=== PATIENT | female | born 1940 | race Caucasian/White ===

== ENCOUNTER 2020-07-28 16:26 | Inpatient (IN) | payer MEDICARE, SELFPAY ==
[2020-07-28] VITALS (10 sets, daily range): BP systolic 119–153; BP diastolic 50–91; PULSE 67–76; RESP 13–20; TEMP 36.4–36.6; O2SAT 93–100; BMI 38.7
--- NOTE | ~2020-07-28 | XR_ITS ---
XR lumbar spine 2-3V 07/28/2020 20:04 Indication: Low back pain Procedure: 3 views lumbar spine Comparison: No prior studies for comparison. Findings: There is levoscoliosis centered at T12. There is disc narrowing and endplate hypertrophy at all lumbar levels. There is vacuum phenomena at L3-4. There is advanced multilevel facet hypertrophy . There are cholecystectomy clips. No acute fracture or traumatic malalignment. Impression: 1: Severe lumbar spondylosis with levoscoliosis. Reviewed, dictated and finalized at location A. Impression: 1: Severe lumbar spondylosis with levoscoliosis.
--- NOTE | ~2020-07-28 | XR_ITS ---
XR chest 2V 07/28/2020 18:07 Indication: Weakness. Leg swelling. Procedure: AP and lateral views of the chest Comparison: 11/13/2018 Findings: Status post median sternotomy for CABG. Heart size normal. There is atherosclerosis of the aorta. There is posterior basilar infiltrates superimposed on the spine on the lateral view. No pleur al effusion, edema or pneumothorax. No acute osseous abnormality. Impression: 1: Posterior basilar infiltrates, best seen on lateral view, differential diagnosis includes atelecta sis, scarring and pneumonia. Reviewed, dictated and finalized at location A. Impression: 1: Posterior basilar infiltrates, best seen on lateral view, differential diagn osis includes atelectasis, scarring and pneumonia.
--- NOTE | ~2020-07-28 | MR_ITS ---
EXAMINATION: MR lumbar spine wo con DATE: 07/30/2020 15:53 INDICATION: Severe lumbar back pain. TECHNIQUE: Magnetic resonance imaging (MRI) of the lumbar spine was performed without intravenous con trast. Sequences included sagittal T2-weighted FSE, sagittal STIR FSE, sagittal T1-weighted FSE, and axial T2-weighted FSE. COMPARISON: Lumbar spine radiograph 07/28/2020 FINDINGS: There is 16 degrees levoscoliosis of thoracolumbar spine. There is 3 mm retrolisthesis of L 1 on L2 and 5 mm retrolisthesis of L2 on L3. There is 4 mm anterolisthesis of L3 on L4 and 6 mm anter olisthesis of L4 on L5. There is a chronic compression fracture of L1 with 2/5 loss of height. There is severely decreased disc height at L1-L2 and L2-L3, moderately decreased disc height at L3-L4, ethel rely decreased disc height at L4-L5, and mildly decreased disc height at L5-S1. The distal spinal cor d signal intensity is normal. The conus medullaris is at L1. The following disc levels are specifical ly discussed: L1-L2: The disc is bulging. There is severe bilateral facet joint osteoarthritis. There is severe delmy ateral neural foraminal stenosis. There is moderate central canal stenosis. L2-L3: The disc is bulging. There is severe bilateral facet joint osteoarthritis. There is moderate r ight and severe left neural foraminal stenosis. There is severe central canal stenosis. L3-L4: The disc is bulging. There is severe bilateral facet joint osteoarthritis. There is moderate r ight and severe left neural foraminal stenosis. There is severe central canal stenosis. L4-L5: The disc is bulging and has an annular fissure. There is severe bilateral facet joint osteoart hritis. There is mild right and moderate left neural foraminal stenosis. There is severe central ciro l stenosis. L5-S1: The disc is bulging. There is severe bilateral facet joint osteoarthritis. There is severe rig ht and mild left neural foraminal stenosis. There is mild central canal stenosis. IMPRESSION: 1. Severe lumbar spondylosis. 2. Thoracolumbar levoscoliosis. Reviewed, dictated and finalized at location A.
--- NOTE | 2020-07-28 16:28 | ECG_ITS ---
Measurements Intervals [place] Rate: 71 P: -27 LA: 177 QRS: 19 QRSD: 103 T: 28 QT: 403 QTc: 439 Interpretive Statements SINUS RHYTHM WITH SINUS ARRHYTHMIA BORDERLINE ST ABNORMALITY- DIFFUSE LEADS BASELINE WANDER- V6 BORDERLINE ECG Electronically Signed On 07-29-2020 7:24:33 CDT by Blair Reed D.O.
[2020-07-28 17:20] LABS: Basophils Absolute Auto 0.1 K/mm3 (0.0-0.1); Basophils Percent Auto 0.6 % (0.2-1.2); Eosinophils Absolute Auto 0.1 K/mm3 (0-0.3); Hematocrit 41.4 % (37.0-47.0); Hemoglobin 12.9 g/dL (12.0-15.0); Immature Granulocyte Absolute 0.03 K/mm3 (0.00-0.031); Immature Granulocyte Percent A 0.3 % (0-0.5); Lymphocytes Absolute Auto 2.18 K/mm3 (0.9-3.2); Lymphocytes Percent Auto 21.1 % (18.3-44.2); Mean Corpuscular HGB Conc 31.2 g/dl (32-36); Mean Corpuscular Hemoglobin 27.7 pg (26-34); Mean Corpuscular Volume 88.8 fl (80-100); Mean Platelet Volume 12.3 fl (7.4-10.4); Monocytes Absolute Auto 1.2 K/mm3 (0.1-0.6); Monocytes Percent Auto 11.2 % (2.6-8.5); Neutrophils Absolute Auto 6.8 K/mm3 (1.3-6.7); Neutrophils Percent Auto 65.8 % (45.5-73.1); Platelet Count Result 226 k/mm3 (150-375); Red Blood Count 4.66 M/mm3 (4.2-5.4); Red Cell Distribution Width 15.3 % (11.5-14.5); White Blood Count 10.4 K/mm3 (4.5-10.0)
[2020-07-28 17:30] LABS: INR 1.2; Prothrombin Time 14.6 Seconds (11.1-14.7)
[2020-07-28 17:31] LABS: Anion Gap 8 mmol/L (8-16); Blood Urea Nitrogen 43 mg/dL (7-17); Calcium 8.4 mg/dL (8.4-10.2); Carbon Dioxide 27 mmol/L (22-30); Chloride 101 mmol/L (98-107); Estimated CRCL calculation 48 ml/min; Estimated Glomerular Filt Rate 60; Glucose 102 mg/dL (65-105); Partial Thromboplastin Time 28.6 SECONDS (22.3-36.8); Potassium 4.1 mmol/L (3.4-5.0); Sodium 136 mmol/L (137-145)
[2020-07-28 17:43] LABS: NT Pro B Type Natriuretic Pept 1440 PG/ML (5-100); Troponin I < 0.012 ng/mL (0.000-0.034)
[2020-07-28] MEDS: MORPHINE SULFATE 4 MG/ML INJ IV PUSH (18:46)
--- NOTE | 2020-07-28 19:28 | ED.GENADULT ---
HPI - General Adult General Chief complaint: Weakness Stated complaint: weakness Time Seen by Provider: 07/28/20 17:44 Source: patient and family Mode of arrival: EMS Limitations: no limitations History of Present Illness HPI narrative: 79-year-old with a history of peripheral neuropathy, hypertension, GERD, was brought in by EMS from assisted living facility with a complains of fall. As per the son patient has been retaining a lot of fluid to her primary doctor increase the dosage of Lasix the last few days and from that she started feeling extremely weak. Patient states that she is either wheelchair-bound or uses walker however today her legs are are more weaker than normal unable to ambulate even with a walker. She also complains of back pain which is chronic in nature she denies any chest pain, shortness of breath. She states that she lives by herself in an independent living facility. Onset (ago): hour(s) (2) Severity: moderate Related Data Home Medications Medication Instructions Recorded Confirmed aspirin 81 mg tablet,delayed 81 mg PO DAILY 11/10/19 06/21/20 release atorvastatin 80 mg PO DAILY 07/28/20 levocetirizine 5 mg PO DAILY 07/28/20 Allergies Allergy/AdvReac Type Severity Reaction Status Date / Time [place] Inhibitors Allergy Unknown Unknown Verified 07/28/20 17:48 lisinopril Allergy Unknown Cough,Unkno Verified 07/28/20 17:48 wn Penicillins Allergy Unknown Not Verified 07/28/20 17:48 Entered,Unknown Sulfa (Sulfonamide Allergy Unknown Rash,Unknow Verified 07/28/20 17:48 Antibiotics) n Review of Systems Review of Systems: All systems reviewed & are unremarkable except as noted in HPI and below Constitutional: Constitutional: Reports no additional constitutional complaints Eyes: Eyes: Reports no additional eye complaints Cardiovascular: Cardiovascular: Reports no additional cardiovascular complaints Respiratory: Respiratory: Reports no additional respiratory complaints Gastrointestinal: Gastrointestinal: Reports no additional gastrointestinal complaints Musculoskeletal: Musculoskeletal: Reports as per HPI Integumentary/Breasts: Skin/Breast: Reports system reviewed and no additional complaints, except as docu Neurologic: Reports system reviewed and no additional complaints, except as documented PMFSH Past Medical History Medical History ASHD (arteriosclerotic heart disease) Benign essential hypertension Bilateral wrist pain Debility Encounter for routine adult health examination without abnormal findings Frequent UTI GERD (gastroesophageal reflux disease) Hyperlipidemia Hypothyroidism (acquired) Need for influenza vaccination On shelter drug therapy Otitis media Peripheral neuropathy Seizure disorder UTI (urinary tract infection) Family History Family History Sibling Family history of lung cancer Father Family history of heart disease in male family member before age 55 Family history of cardiovascular disease Mother Family history of malignant neoplasm Social History Social History Smoking status: Never smoker Second hand tobacco smoke exposure: No Alcohol intake: never Gender identity (if verbalized by the patient): Female Exam Narrative: Exam Narrative: GENERAL: Well-appearing, morbidly obese, and in no acute distress. HEAD: Normocephalic, atraumatic. EYES: PERRLA and EOMI. ENT: Nares clear, no rhinorrhea or epistaxis. Mucous membranes moist. NECK: Supple. CHEST: Clear to auscultation. No respiratory distress. HEART: Regular rate and rhythm. No murmur heard. Normal peripheral pulses. ABDOMEN: Soft, nontender, nondistended, normal active bowel sounds. EXTREMITIES: Normal range of motion. one + edema. SKIN: Warm, dry, no rash. NEURO: No focal deficits. Alert and oriented x3. PSYCH: Normal
--- NOTE | 2020-07-28 21:32 | ADMGEN ---
This patient, Delia Lopez, was admitted to [facility] Surg Room 304-01 at 2125. Patient/family oriented to hospital policies and general routines including ID bracelet, bed and alarms, visiting hours, pain management, procedures, bathroom and other care routines, personal items, smoking policy, room service/diet, and visiting hours. Valuables list has been completed. Information on how to activate the Rapid Response Team has been discussed. Patient/Family are encouraged to report perceived risks to care and to ask questions if they do not understand what they are told or what they should do.
--- NOTE | 2020-07-28 22:57 | PM.IMHP ---
H&P: HPI History of Present Illness Date/Time: 07/28/20 22:57 Chief complaint: Low back pain, lower ext. weakness Narrative: This is an 79 year old morbidly obese female with known history of CAD+ s/p CABG x 3, HTN, neuropathy, GERD who is known to live alone and presented to the hospital with a complaint of suffering a fall in her bathroom today. She ambulates with a walker and apparently she was turning around in the bathroom when her legs gave out on her and she went down. She denies any head trauma or loss of conscioussness. She couldn't get up and simply called EMS. She reports increased LE swelling over the past 3 days but denies any past history of heart disease. She denies having any recent fevers, chills, shortness of breath, cough, chest pain, abdominal pain, nausea, vomiting, diarrhea, rectal bleeding or other focal neurological symptoms. The patient was just recently prescribed doxycycline for a small rash she had on her left vitale after her home health nurse recommended that she be started on antibiotics? The patient tonight was admitted for her generalized weakness and nursing staff attempted to ambulate her in the ER but she was not able to. The patient herself is adamant that she is going home tomorrow and states that her family can help her at home. She does not want to consider placement. She has no other complaints tonight. Review of Systems Review of Systems: All systems reviewed & are unremarkable except as noted in HPI and below PMFSH Past Medical History Medical History ASHD (arteriosclerotic heart disease) Benign essential hypertension Bilateral wrist pain Debility Encounter for routine adult health examination without abnormal findings Frequent UTI GERD (gastroesophageal reflux disease) Hyperlipidemia Hypothyroidism (acquired) Need for influenza vaccination On retirement drug therapy Otitis media Peripheral neuropathy Seizure disorder UTI (urinary tract infection) Family History Family History Sibling Family history of lung cancer Father Family history of heart disease in male family member before age 55 Family history of cardiovascular disease Mother Family history of malignant neoplasm Social History Social History Smoking packs per day: 0.5 Smoking cigarettes per day: 10.0 Years smoked: 10 Smoking pack-years: 5.00 Smoking status: Former smoker Tobacco type: cigarettes Additional smoking assessment comments: quit in 1957 Alcohol intake: never Substance use: never Gender identity (if verbalized by the patient): Female Spiritual care concerns: No Meds Home Medications and Allergies Home Medications Medication Instructions Recorded Confirmed Type carvedilol 3.125 mg tablet 3.125 mg PO Q12H #180 tablet 10/14/19 07/28/20 Rx aspirin 81 mg tablet,delayed 81 mg PO DAILY 11/10/19 07/28/20 History release potassium chloride 10 mEq 10 meq PO BID #180 cap 03/12/20 07/28/20 Rx capsule,extended release clopidogrel 75 mg tablet 75 mg PO DAILY #90 tablet 03/13/20 07/28/20 Rx phenytoin sodium extended 100 mg 200 mg PO BID #120 cap 03/19/20 07/28/20 Rx capsule ezetimibe 10 mg tablet 10 mg PO DAILY #90 tablet 05/03/20 07/28/20 Rx furosemide 40 mg tablet 40 mg PO QAM #90 tablet 06/27/20 07/28/20 Rx levothyroxine 100 mcg tablet 100 mcg PO DAILY #90 tablet 06/27/20 07/28/20 Rx rosuvastatin 40 mg tablet 40 mg PO DAILY #90 tablet 06/27/20 07/28/20 Rx doxycycline hyclate 100 mg capsule 100 mg PO BID #20 cap 07/23/20 07/28/20 Rx gabapentin 100 mg capsule 100 mg PO BID #180 cap 07/23/20 07/28/20 Rx mupirocin calcium 2 % topical cream 1 applic TOPICAL BID 10 Days #30 gm 07/23/20 07/28/20 Rx losartan 100 mg tablet 100 mg PO DAILY #90 tablet 07/27/20 07/28/20 Rx atorvastatin 80 mg PO DAILY 07/28/20 07/28/20 History le
[2020-07-28] MEDS: carvediloL 3.125 MG TABLET PO (23:59)
[2020-07-29] VITALS (8 sets, daily range): BP systolic 101–162; BP diastolic 47–69; PULSE 74–85; RESP 16–20; TEMP 36.5–36.8; O2SAT 99–100
[2020-07-29] MEDS: FUROSEMIDE INJ 40 MG/4 ML VIAL 20 MG IV PUSH (00:02)
[2020-07-29] MEDS: LEVOTHYROXINE SODIUM 100 MCG TABLET PO (05:53)
[2020-07-29 06:47] LABS: Basophils Absolute Auto 0.1 K/mm3 (0.0-0.1); Basophils Percent Auto 0.5 % (0.2-1.2); Eosinophils Absolute Auto 0.1 K/mm3 (0-0.3); Eosinophils Percent Auto 1.1 % (0-4.4); Hematocrit 39.7 % (37.0-47.0); Hemoglobin 12.3 g/dL (12.0-15.0); Immature Granulocyte Absolute 0.04 K/mm3 (0.00-0.031); Immature Granulocyte Percent A 0.3 % (0-0.5); Lymphocytes Absolute Auto 2.06 K/mm3 (0.9-3.2); Lymphocytes Percent Auto 16.8 % (18.3-44.2); Mean Corpuscular Hemoglobin 27.2 pg (26-34); Mean Corpuscular Volume 87.6 fl (80-100); Mean Platelet Volume 11.9 fl (7.4-10.4); Monocytes Absolute Auto 1.4 K/mm3 (0.1-0.6); Monocytes Percent Auto 11.4 % (2.6-8.5); Neutrophils Absolute Auto 8.6 K/mm3 (1.3-6.7); Neutrophils Percent Auto 69.9 % (45.5-73.1); Platelet Count Result 218 k/mm3 (150-375); Red Blood Count 4.53 M/mm3 (4.2-5.4); Red Cell Distribution Width 14.9 % (11.5-14.5); White Blood Count 12.3 K/mm3 (4.5-10.0)
[2020-07-29 06:50] LABS: Anion Gap 9 mmol/L (8-16); Blood Urea Nitrogen 41 mg/dL (7-17); Calcium 8.3 mg/dL (8.4-10.2); Carbon Dioxide 26 mmol/L (22-30); Chloride 99 mmol/L (98-107); Estimated CRCL calculation 49 ml/min; Estimated Glomerular Filt Rate 60; Glucose 89 mg/dL (65-105); Potassium 3.7 mmol/L (3.4-5.0); Sodium 134 mmol/L (137-145)
[2020-07-29] MEDS: FUROSEMIDE 40 MG TABLET PO (09:29)
[2020-07-29] MEDS: EZETIMIBE 10 MG TABLET PO (09:29)
[2020-07-29] MEDS: PHENYTOIN SODIUM 100 MG CAP 200 MG PO ×2 (09:29→17:31)
[2020-07-29] MEDS: LORATADINE 10 MG TABLET PO (09:30)
[2020-07-29] MEDS: carvediloL 3.125 MG TABLET PO ×2 (09:30→21:21)
[2020-07-29] MEDS: GABAPENTIN 100 MG CAPSULE PO ×2 (09:30→17:31)
[2020-07-29] MEDS: CLOPIDOGREL BISULFATE 75 MG TABLET PO (09:30)
[2020-07-29] MEDS: ASPIRIN 81 MG ENTERIC TABLET PO (09:30)
[2020-07-29] MEDS: LOSARTAN POTASSIUM 100 MG TABLET PO (09:30)
[2020-07-29] MEDS: ROSUVASTATIN 10 MG TABLET 40 MG PO (09:31)
[2020-07-29] MEDS: ENOXAPARIN 40 MG/0.4 ML SYRINGE SUB-Q (09:31)
--- NOTE | 2020-07-29 14:18 | PM.IMPN ---
Progress Note: A&P Assessment and Plan (1) Generalized weakness: Code(s): R53.1 - Weakness Status: Acute Assessment and Plan: Likely secondary to chronic debility. PT/OT rec rehab. Given these recommendations and after discussion with family, patient is more amendable to rehab and has agreed to be placed for SNF therapy. Monitor Pt/OT CC following and await recommendations Will do tylenol or tramadol sparingly as needed for pain. I am reluctant to give heavy narcotics in this elderly patient with risk of falls (2) Dysuria: Code(s): R30.0 - Dysuria Status: Acute Assessment and Plan: Patient endorses dysuria and has a mild leukocytosis (2/2 possibly infection vs s/p fall?). She reports frequent UTIs in the past and has been treated with Cipro with most success. Will do UA now Await results and if suspicious for UTI, then will initiate antibiotics (3) Lower extremity edema: Code(s): R60.0 - Localized edema Status: Acute Assessment and Plan: She has follow up with [facility] on 08/11 per patient. Possible dependent edema vs. CHF? although patient denies SOB, MCMULLEN, orthopnea. Will observe overnight Recommended keep her appointment next month and to call to see if she needs an echo prior to the appointment as an outpatient as this does not appear to be an acute issue at the moment (4) Peripheral neuropathy: Qualifiers: Peripheral neuropathy type: polyneuropathy, unspecified Qualified Code(s): G62.9 - Polyneuropathy, unspecified Code(s): G62.9 - Polyneuropathy, unspecified Status: Chronic Assessment and Plan: Continue gabapentin PO. (5) GERD (gastroesophageal reflux disease): Qualifiers: Esophagitis presence: without esophagitis Qualified Code(s): K21.9 - Gastro-esophageal reflux disease without esophagitis Code(s): K21.9 - Gastro-esophageal reflux disease without esophagitis Status: Chronic Assessment and Plan: stable. (6) Benign essential hypertension: Code(s): I10 - Essential (primary) hypertension Status: Chronic Assessment and Plan: 140s sys this afternoon Monitor blood pressure. Continue losartan PO. (7) Hyperlipidemia: Qualifiers: Hyperlipidemia type: mixed hyperlipidemia Qualified Code(s): E78.2 - Mixed hyperlipidemia Code(s): E78.5 - Hyperlipidemia, unspecified Status: Chronic Assessment and Plan: Continue crestor. (8) Hypothyroidism (acquired): Code(s): E03.9 - Hypothyroidism, unspecified Status: Chronic Assessment and Plan: Continue levothyroxine PO. (9) Seizure disorder: Code(s): G40.909 - Epilepsy, unspecified, not intractable, without status epilepticus Status: Chronic Assessment and Plan: Continue phenytoin PO. Subjective Date/time seen: 07/29/20 14:18 Interval history: Patient is a 79 yo F with history of HTN, frequent UTIs, CAD, among other comorbid conditions who is here for evaluation after suffering a fall at home. She states her back pain is chronic in nature and is worse when lying in bed. She notes that her leg gave out and that is why she fell; no dizziness/lightheadedness. She notes being more sedentary since the COVID pandemic. Denies saddle anesthesia, loss of bowel/bladder function. She does endorse dysuria and notes frequent UTIs for which she usually is prescribed Cipro by her PCP. No other complaints at the moment. Denies f/c/s, headaches, dizziness, lightheadedness, cp/palpitations, sob/cough, n/v/d/c, abd pain, changes in BMs
[2020-07-29 18:51] LABS: Add Urine Microscopic? YES; Appearance Urine Cloudy (Clear); Bilirubin Urine Negative (Negative); Blood Urine 1+ (Negative); Color Urine Yellow (Yellow); Glucose Urine UA Negative (Negative); Ketones Urine Negative (Negative); Leukocyte Esterase Ur 3+ LEU/UL (Negative); Mucus Urine Rare /lpf; Nitrate Urine Positive (Negative); Protein Urine Negative (Negative); Specific Grav Ur 1.012 (1.001-1.035); Urobilinogen Urine Negative mg/dL (<2.0); WBC Clumps Urine Present /HPF; WBC Urine >75 /hpf
[2020-07-30] VITALS (12 sets, daily range): BP systolic 84–155; BP diastolic 40–69; PULSE 61–86; RESP 14–18; TEMP 36.2–36.8; O2SAT 92–99
[2020-07-30] MEDS: LEVOTHYROXINE SODIUM 100 MCG TABLET PO (05:39)
[2020-07-30 06:41] LABS: Basophils Absolute Auto 0.1 K/mm3 (0.0-0.1); Basophils Percent Auto 0.4 % (0.2-1.2); Eosinophils Percent Auto 0.3 % (0-4.4); Hemoglobin 11.7 g/dL (12.0-15.0); Immature Granulocyte Absolute 0.04 K/mm3 (0.00-0.031); Immature Granulocyte Percent A 0.3 % (0-0.5); Lymphocytes Absolute Auto 2.13 K/mm3 (0.9-3.2); Lymphocytes Percent Auto 17.6 % (18.3-44.2); Mean Corpuscular HGB Conc 31.6 g/dl (32-36); Mean Corpuscular Hemoglobin 27.5 pg (26-34); Mean Corpuscular Volume 86.9 fl (80-100); Monocytes Absolute Auto 1.6 K/mm3 (0.1-0.6); Monocytes Percent Auto 13.3 % (2.6-8.5); Neutrophils Absolute Auto 8.2 K/mm3 (1.3-6.7); Neutrophils Percent Auto 68.1 % (45.5-73.1); Platelet Count Result 219 k/mm3 (150-375); Red Blood Count 4.26 M/mm3 (4.2-5.4); White Blood Count 12.1 K/mm3 (4.5-10.0)
[2020-07-30 06:56] LABS: Anion Gap 5 mmol/L (8-16); Blood Urea Nitrogen 40 mg/dL (7-17); Calcium 8.2 mg/dL (8.4-10.2); Carbon Dioxide 28 mmol/L (22-30); Chloride 99 mmol/L (98-107); Estimated CRCL calculation 55 ml/min; Estimated Glomerular Filt Rate > 60; Glucose 105 mg/dL (65-105); Magnesium 2.1 mg/dL (1.6-2.3); Potassium 3.5 mmol/L (3.4-5.0); Sodium 132 mmol/L (137-145)
[2020-07-30] MEDS: CLOPIDOGREL BISULFATE 75 MG TABLET PO (10:06)
[2020-07-30] MEDS: EZETIMIBE 10 MG TABLET PO (10:06)
[2020-07-30] MEDS: ROSUVASTATIN 10 MG TABLET 40 MG PO (10:06)
[2020-07-30] MEDS: ASPIRIN 81 MG ENTERIC TABLET PO (10:06)
[2020-07-30] MEDS: GABAPENTIN 100 MG CAPSULE PO ×2 (10:06→16:46)
[2020-07-30] MEDS: LORATADINE 10 MG TABLET PO (10:06)
[2020-07-30] MEDS: PHENYTOIN SODIUM 100 MG CAP 200 MG PO ×2 (10:06→16:45)
[2020-07-30] MEDS: FUROSEMIDE 40 MG TABLET PO (10:06)
[2020-07-30] MEDS: LOSARTAN POTASSIUM 100 MG TABLET PO (10:06)
[2020-07-30] MEDS: ENOXAPARIN 40 MG/0.4 ML SYRINGE SUB-Q (10:08)
[2020-07-30] MEDS: carvediloL 3.125 MG TABLET PO ×2 (10:08→22:03)
[2020-07-30] MEDS: SODIUM CHLORIDE 0.9% IV 500 ML 999 ML IV CONT (11:47)
--- NOTE | 2020-07-30 12:40 | PM.IMPN ---
Progress Note: A&P Assessment and Plan (1) Generalized weakness: Code(s): R53.1 - Weakness Status: Acute Assessment and Plan: Likely secondary to chronic debility. PT/OT rec rehab. Given these recommendations and after discussion with family, patient is agreeable to rehab/snf placement Monitor Pt/OT She has been accepted to SNF Likely discharge in 1-2 days if improvement in pain (2) Low back pain: Qualifiers: Back pain laterality: unspecified Chronicity: chronic Sciatica laterality: bilateral sciatica Sciatica presence: with sciatica Qualified Code(s): M54.41 - Lumbago with sciatica, right side; M54.42 - Lumbago with sciatica, left side; G89.29 - Other chronic pain Code(s): M54.5 - Low back pain Status: Acute Assessment and Plan: Pain is 10/10 today; intractable pain, but we have limited options for pain medication. Appears to be sciatic pain by description. She states she cannot get comfortable. Will do further imaging today with MR of lumbar spine, although she understands this likely will need to be further managed as an outpatient. No red flag symptoms. Will try to avoid narcotics given patient was symptomatic with tramadol and had a recent fall MR of lumbar spine without contrast Will increase Tylenol Increase Gabapentin 100 mg to TID Will hold tramadol as she became dizzy and BP dropped (improved with IVF bolus) KPad Will order ibuprofen to be used sparingly for breakthrough pain as she is also taking Plavix and aspirin. Monitor for any bleeding. Discussed with nursing in regards Monitor for improvement PT/OT (3) Dysuria: Code(s): R30.0 - Dysuria Status: Acute Assessment and Plan: UA suspicious for UTI. Patient endorses dysuria and has a mild leukocytosis (2/2 possibly infection vs s/p fall?). She reports frequent UTIs in the past and has been treated with Cipro with most success. Will continue with ceftriaxone; monitor for reaction given penicillin allergry Tailor antibiotics to cultures Monitor for improvement (4) Lower extremity edema: Code(s): R60.0 - Localized edema Status: Acute Assessment and Plan: She has follow up with [facility] on 08/11 per patient. Possible dependent lymphedema vs. CHF although patient denies SOB, MCMULLEN, orthopnea. Will observe overnight Recommended keep her appointment next month and to call to see if she needs an echo prior to the appointment as an outpatient as this does not appear to be an acute issue at the moment (5) Peripheral neuropathy: Qualifiers: Peripheral neuropathy type: polyneuropathy, unspecified Qualified Code(s): G62.9 - Polyneuropathy, unspecified Code(s): G62.9 - Polyneuropathy, unspecified Status: Chronic Assessment and Plan: Continue gabapentin PO. (6) GERD (gastroesophageal reflux disease): Qualifiers: Esophagitis presence: without esophagitis Qualified Code(s): K21.9 - Gastro-esophageal reflux disease without esophagitis Code(s): K21.9 - Gastro-esophageal reflux disease without esophagitis Status: Chronic Assessment and Plan: stable. (7) Benign essential hypertension: Code(s): I10 - Essential (primary) hypertension Status: Chronic Assessment and Plan: 120s sys this afternoon. BP dropped and she was symptomatic after given tramadol Monitor blood pressure. Continue losartan PO. (8) Hyperlipidemia: Qualifiers: Hyperlipidemia type: mixed hyperlipidemia Qualified Code(s): E78.2 - Mixed hyperlipidemia Code(s): E78.5 - Hyperlipidemia, unspecified Status: Chronic Assessment and Plan:
--- NOTE | 2020-07-30 15:20 | PC.NURSE ---
To Radiology per [ stretcher] IV is a 20 in the Left Forearm, Saline locked.
[2020-07-30 16:16] LABS: SARS-CoV-2 RNA PCR Negative
[2020-07-30] MEDS: IBUPROFEN 400 MG TABLET PO (16:41)
[2020-07-30] MEDS: LIDOCAINE 5% PATCH 1 PATCH TRANSDERM (18:21)
[2020-07-31] VITALS (8 sets, daily range): BP systolic 104–130; BP diastolic 50–62; PULSE 63–82; RESP 16–18; TEMP 36.2–36.5; O2SAT 98–99
[2020-07-31] MEDS: LEVOTHYROXINE SODIUM 100 MCG TABLET PO (05:53)
[2020-07-31 07:10] LABS: Basophils Percent Auto 0.3 % (0.2-1.2); Eosinophils Absolute Auto 0.1 K/mm3 (0-0.3); Eosinophils Percent Auto 0.6 % (0-4.4); Hematocrit 37.2 % (37.0-47.0); Hemoglobin 11.8 g/dL (12.0-15.0); Immature Granulocyte Absolute 0.05 K/mm3 (0.00-0.031); Immature Granulocyte Percent A 0.4 % (0-0.5); Lymphocytes Absolute Auto 1.95 K/mm3 (0.9-3.2); Lymphocytes Percent Auto 16.6 % (18.3-44.2); Mean Corpuscular HGB Conc 31.7 g/dl (32-36); Mean Corpuscular Volume 88.4 fl (80-100); Monocytes Absolute Auto 1.3 K/mm3 (0.1-0.6); Monocytes Percent Auto 11.1 % (2.6-8.5); Neutrophils Absolute Auto 8.4 K/mm3 (1.3-6.7); Platelet Count Result 186 k/mm3 (150-375); Red Blood Count 4.21 M/mm3 (4.2-5.4); Red Cell Distribution Width 15.2 % (11.5-14.5); White Blood Count 11.8 K/mm3 (4.5-10.0)
[2020-07-31 07:20] LABS: Anion Gap 6 mmol/L (8-16); Blood Urea Nitrogen 44 mg/dL (7-17); Carbon Dioxide 27 mmol/L (22-30); Chloride 100 mmol/L (98-107); Estimated CRCL calculation 49 ml/min; Estimated Glomerular Filt Rate 60; Glucose 105 mg/dL (65-105); Magnesium 2.3 mg/dL (1.6-2.3); Potassium 3.8 mmol/L (3.4-5.0); Sodium 133 mmol/L (137-145)
[2020-07-31] MEDS: MUPIROCIN 2% OINT 22 GM TUBE 1 APPLIC TOPICAL ×2 (10:25→17:04)
[2020-07-31] MEDS: LIDOCAINE 5% PATCH 1 PATCH TRANSDERM (10:25)
[2020-07-31] MEDS: PHENYTOIN SODIUM 100 MG CAP 200 MG PO ×2 (10:25→17:03)
[2020-07-31] MEDS: ROSUVASTATIN 10 MG TABLET 40 MG PO (10:25)
[2020-07-31] MEDS: LORATADINE 10 MG TABLET PO (10:26)
[2020-07-31] MEDS: LOSARTAN POTASSIUM 100 MG TABLET PO (10:26)
[2020-07-31] MEDS: ASPIRIN 81 MG ENTERIC TABLET PO (10:26)
[2020-07-31] MEDS: GABAPENTIN 100 MG CAPSULE PO ×3 (10:26→17:04)
[2020-07-31] MEDS: CLOPIDOGREL BISULFATE 75 MG TABLET PO (10:26)
[2020-07-31] MEDS: EZETIMIBE 10 MG TABLET PO (10:26)
[2020-07-31] MEDS: FUROSEMIDE 40 MG TABLET PO (10:26)
[2020-07-31] MEDS: ENOXAPARIN 40 MG/0.4 ML SYRINGE SUB-Q (10:28)
[2020-07-31] MEDS: carvediloL 3.125 MG TABLET PO (10:29)
--- NOTE | 2020-07-31 12:22 | P.PNIM_ITS ---
Progress Note: A&P Assessment and Plan (1) Generalized weakness: Code(s): R53.1 - Weakness Status: Acute Assessment and Plan: Likely secondary to chronic debility. PT/OT rec rehab. Given these recommendations and after discussion with family, patient is agreeable to rehab/snf placement * Monitor * Pt/OT * She has been accepted to SNF * Likely discharge in 1-2 days if improvement in pain (2) Low back pain: Qualifiers: Back pain laterality: unspecified Chronicity: chronic Sciatica laterality: bilateral sciatica Sciatica presence: with sciatica Qualified Code(s): M54.41 - Lumbago with sciatica, right side; M54.42 - Lumbago with sciatica, left side; G89.29 - Other chronic pain Code(s): M54.5 - Low back pain Status: Acute Assessment and Plan: Pain is 10/10 today; intractable pain, but we have limited options for pain medication. Appears to be sciatic pain by description. She states she cannot get comfortable. Will do further imaging today with MR of lumbar spine, although she understands this likely will need to be further managed as an outpatient. No red flag symptoms. Will try to avoid narcotics given patient was symptomatic with tramadol and had a recent fall * MR of lumbar spine without contrast * Will increase Tylenol * Increase Gabapentin 100 mg to TID * Will hold tramadol as she became dizzy and BP dropped (improved with IVF bolus) * KPad * Will order ibuprofen to be used sparingly for breakthrough pain as she is also taking Plavix and aspirin. Monitor for any bleeding. Discussed with nursing in regards * Monitor for improvement * PT/OT (3) Dysuria: Code(s): R30.0 - Dysuria Status: Acute Assessment and Plan: UA suspicious for UTI. Patient endorses dysuria and has a mild leukocytosis (2/2 possibly infection vs s/p fall?). She reports frequent UTIs in the past and has been treated with Cipro with most success. * Will continue with ceftriaxone; monitor for reaction given penicillin allergry * Tailor antibiotics to cultures * Monitor for improvement (4) Lower extremity edema: Code(s): R60.0 - Localized edema Status: Acute Assessment and Plan: She has follow up with [facility] on 08/11 per patient. Possible dependent lymphedema vs. CHF although patient denies SOB, MCMULLEN, orthopnea. * Will observe overnight * Recommended keep her appointment next month and to call to see if she needs an echo prior to the appointment as an outpatient as this does not appear to be an acute issue at the moment (5) Peripheral neuropathy: Qualifiers: Peripheral neuropathy type: polyneuropathy, unspecified Qualified Code(s): G62.9 - Polyneuropathy, unspecified Code(s): G62.9 - Polyneuropathy, unspecified Status: Chronic Assessment and Plan: * Continue gabapentin PO. (6) GERD (gastroesophageal reflux disease): Qualifiers: Esophagitis presence: without esophagitis Qualified Code(s): K21.9 - Gastro-esophageal reflux disease without esophagitis Code(s): K21.9 - Gastro-esophageal reflux disease without esophagitis Status: Chronic Assessment and Plan: stable. (7) Benign essential hypertension: Code(s): I10 - Essential (primary) hypertension Status: Chronic Assessment and Plan: 120s sys this afternoon. BP
[2020-07-31] MEDS: ACETAMINOPHEN 500 MG TABLET 1000 MG PO ×2 (12:35→17:04)
[2020-07-31] MEDS: polyethylene glycoL 3350 17 GM POWD.PACK PO (13:15)
--- NOTE | 2020-07-31 16:27 | PM.TDS ---
Transfer Discharge Sum: Prov Provider Date of admission: 07/28/20 19:42 Primary care physician: Davi Ramos MD Admitting clinician: Loyd Pretty MD Consults: 07/28/20 Care Coordination Consult Routine Comment: Reason for Consult:: Jail Placement DS: Admitting Diagnosis Admitting Diagnosis Admitting Diagnosis: Low back pain, lower ext. weakness DS: Discharge Diagnosis Discharge Diagnosis (1) Low back pain: Qualifiers: Back pain laterality: unspecified Chronicity: chronic Sciatica laterality: bilateral sciatica Sciatica presence: with sciatica Qualified Code(s): M54.41 - Lumbago with sciatica, right side; M54.42 - Lumbago with sciatica, left side; G89.29 - Other chronic pain Code(s): M54.5 - Low back pain Status: Acute Assessment and Plan: (2) Generalized weakness: Code(s): R53.1 - Weakness Status: Acute Assessment and Plan: (3) Dysuria: Code(s): R30.0 - Dysuria Status: Acute Assessment and Plan: (4) Lower extremity edema: Code(s): R60.0 - Localized edema Status: Acute Assessment and Plan: (5) Peripheral neuropathy: Qualifiers: Peripheral neuropathy type: polyneuropathy, unspecified Qualified Code(s): G62.9 - Polyneuropathy, unspecified Code(s): G62.9 - Polyneuropathy, unspecified Status: Chronic Assessment and Plan: (6) GERD (gastroesophageal reflux disease): Qualifiers: Esophagitis presence: without esophagitis Qualified Code(s): K21.9 - Gastro-esophageal reflux disease without esophagitis Code(s): K21.9 - Gastro-esophageal reflux disease without esophagitis Status: Chronic Assessment and Plan: (7) Benign essential hypertension: Code(s): I10 - Essential (primary) hypertension Status: Chronic Assessment and Plan: (8) Hyperlipidemia: Qualifiers: Hyperlipidemia type: mixed hyperlipidemia Qualified Code(s): E78.2 - Mixed hyperlipidemia Code(s): E78.5 - Hyperlipidemia, unspecified Status: Chronic Assessment and Plan: (9) Hypothyroidism (acquired): Code(s): E03.9 - Hypothyroidism, unspecified Status: Chronic Assessment and Plan: (10) Seizure disorder: Code(s): G40.909 - Epilepsy, unspecified, not intractable, without status epilepticus Status: Chronic Assessment and Plan: Transfer Discharge Sum: Med Medications Active and Home Medications: Home Medications carvedilol 3.125 mg tablet 3.125 mg PO Q12H #180 tablet 10/14/19 [Rx Confirmed 07/28/20] aspirin 81 mg tablet,delayed release 81 mg PO DAILY 11/10/19 [History Confirmed 07/28/20] potassium chloride 10 mEq capsule,extended release 10 meq PO BID #180 cap 03/12/20 [Rx Confirmed 07/28/20] clopidogrel 75 mg tablet 75 mg PO DAILY #90 tablet 03/13/20 [Rx Confirmed 07/28/20] phenytoin sodium extended 100 mg capsule 200 mg PO BID #120 cap 03/19/20 [Rx Confirmed 07/28/20] ezetimibe 10 mg tablet 10 mg PO DAILY #90 tablet 05/03/20 [Rx Confirmed 07/28/20] furosemide 40 mg tablet 40 mg PO QAM #90 tablet 06/27/20 [Rx Confirmed 07/28/20] levothyroxine 100 mcg tablet 100 mcg PO DAILY #90 tablet 06/27/20 [Rx Confirmed 07/28/20] rosuvastatin 40 mg tablet 40 mg PO DAILY #90 tablet 06/27/20 [Rx Confirmed 07/28/20] doxycycline hyclate 100 mg capsule 100 mg PO BID #20 cap 07/23/20 [Rx Confirmed 07/28/20] gabapentin 100 mg capsule 100 mg PO BID #180 cap 07/23/20 [Rx Confirmed 07/28/20] mupirocin calcium 2 % topical cream 1 applic TOPICAL B
== END 2020-07-31 19:39 | disposition short-term general hospital (02) | DRG 552 ==
LOC: ANHED 19:54 → ANH3MEDSUR 07-29 01:34
PROVIDERS: Emergency Medicine; Family Medicine; Physician Assistant; Admitting Provider Family Medicine; Emergency Provider Family Medicine; PCP Internal Medicine; Visit Provider Physician Assistant
DX: M54.42 Lumbago with sciatica, left side (principal); N39.0 Urinary tract infection, site not specified; B96.20 Unspecified Escherichia coli [E. coli] as the cause of diseases classified elsewhere; R53.81 Other malaise; Z20.828 Contact with and (suspected) exposure to other viral communicable diseases; R60.0 Localized edema; G89.29 Other chronic pain; M47.896 Other spondylosis, lumbar region; R32 Unspecified urinary incontinence; G62.9 Polyneuropathy, unspecified; I10 Essential (primary) hypertension; Z68.38 Body mass index [BMI] 38.0-38.9, adult; K21.9 Gastro-esophageal reflux disease without esophagitis; I25.10 Atherosclerotic heart disease of native coronary artery without angina pectoris; E78.5 Hyperlipidemia, unspecified; E03.9 Hypothyroidism, unspecified; G40.909 Epilepsy, unspecified, not intractable, without status epilepticus; R33.9 Retention of urine, unspecified; E66.01 Morbid (severe) obesity due to excess calories; Z95.1 Presence of aortocoronary bypass graft; W18.39XA Other fall on same level, initial encounter; Z87.891 Personal history of nicotine dependence
CPT/HCPCS: 36415; 71046; 72100; 72148; 80048; 81001; 83735; 83880; 84484; 85025; 85610; 85730; 87077; 87086; 87088; 87186; 87635; 93005; 96374; 97110; 97161; 97166; 97530; 97535; 99285; A9270; C9803; J0696; J1100; J1170; J1650; J1940; J2270; J7030; U0003

== ENCOUNTER 2022-01-15 22:05 | Inpatient (IN) | payer MEDICARE, SELFPAY ==
--- NOTE | ~2022-01-15 | XR_ITS ---
EXAMINATION: XR chest 1V portable DATE: 01/15/2022 23:06 INDICATION: Cough TECHNIQUE: frontal view of the chest was obtained. COMPARISON: Chest radiograph dated 07/28/2020 FINDINGS: The lungs remain clear with no focal airspace opacities, pulmonary edema, pleural effusion or pneumot horax. The cardiomediastinal silhouette is normal. Median sternotomy wires and mediastinal surgical c lips are seen, likely from prior coronary artery bypass grafting. Severe right glenohumeral osteoarth ritis. IMPRESSION: 1. No acute cardiopulmonary disease. Reviewed, dictated and finalized at location A. 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
--- NOTE | ~2022-01-15 | CT_ITS ---
EXAMINATION: CT abdomen pelvis w con DATE: 01/15/2022 23:59 INDICATION: Right buttock wound TECHNIQUE: Computed tomography (CT) of the abdomen and pelvis was performed with 100 mL Omnipaque-350 intravenous contrast. Automated exposure control and iterative reconstruction technique were employe d. The dose-length product was 1584.79 mGy-cm. COMPARISON: 12/10/2016 FINDINGS: Lung bases are clear. Cardiomegaly. No pericardial or pleural effusion. Atherosclerotic coronary mart ry calcification. Aortic valve calcification. Cholecystectomy clips the gallbladder fossa. Liver, spl een, pancreas, bilateral adrenal glands and kidneys are normal. Bowels are unremarkable. Small fat-co ntaining umbilical hernia. Mild bladder wall thickening with stranding in the surrounding fat suspici ous for cystitis could uterus and bilateral adnexa are unremarkable. There is calcified atheroscleros is of the aorta and many of the other arteries. No free intraperitoneal gas or fluid. No pathological ly enlarged abdominal or pelvic lymphadenopathy. Mild S-shaped thoracolumbar scoliosis with severe sp ondylosis. L1-L5 laminectomies and partial T12 laminectomy with scarring in the overlying subcutaneou s tissues. Subcentimeter focus of increased density in the fat along the skin surface at the right in ferior aspect of the gluteal cleft likely representing the reported small ulceration. No associated a bscess. IMPRESSION: 1. No abscess associated with a small right buttock wound. 2. Bladder wall thickening with stranding in the surrounding fat suspicious for cystitis. Correlate w ith urinalysis. 3. Cardiomegaly. Reviewed, dictated and finalized at location A. 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 No abscess associated with a small right buttock wound. 2. Bladder wall thickening with stranding in the surrounding fat suspicious for cystitis. Correlate with urinalysis. 3. Cardiomegaly.
[2022-01-15 22:02] VITALS: BP 141/66; PULSE 87; RESP 16; TEMP 37.7; O2SAT 97
--- NOTE | 2022-01-15 22:24 | ED.WOUNDLAC ---
HPI - Wound/Laceration General Chief Complaint: Wound/Laceration Stated Complaint: BED SORE ON BOTTOM WITH FEVER 103.6 Time Seen by Provider: 01/15/22 22:18 Source: RN notes reviewed History of Present Illness HPI narrative: Patient presents emergency department from [facility] via EMS for fever. Patient had fever up to 103 degrees today she had taken Tylenol prior to arrival is down to 99.8. Patient states that is been associated with a right buttocks wound that was first found 3 days ago patient has a small pinpoint wound that has had no drainage there is mildly tenderness palpation on the right buttocks states she did recently have COVID and is out of isolation she denies any chest pain or shortness of breath denies any abdominal pain nausea vomiting or diarrhea Related Data Home Medications Medication Instructions Recorded Confirmed aspirin 81 mg tablet,delayed 81 mg PO DAILY 11/10/19 06/13/21 release levocetirizine 5 mg PO DAILY 07/28/20 06/13/21 aluminum-magnesium hydroxide 200 5 ml PO Q4-6H PRN 01/16/21 06/13/21 mg-200 mg/5 mL oral suspension atorvastatin 80 mg tablet 80 mg PO DAILY 01/16/21 06/13/21 [place]-mag hydroxide oral ml PO 01/16/21 01/16/21 suspension docusate sodium 100 mg capsule 100 mg PO DAILY 01/16/21 06/13/21 ergocalciferol (vitamin D2) 1,250 1,250 mcg PO WEEKLY 01/16/21 01/16/21 mcg (50,000 unit) capsule hydroxyzine HCl 25 mg tablet 25 mg PO BID PRN 01/16/21 06/13/21 ondansetron HCl 4 mg tablet 4 mg PO Q8H 01/16/21 06/13/21 acetaminophen 325 mg capsule 325 mg PO BID cap 06/13/21 06/13/21 loperamide 2 mg capsule 2 mg PO Q6H PRN 06/13/21 06/13/21 melatonin 1 mg tablet 1 mg PO QHS 06/13/21 06/13/21 mirabegron 25 mg tablet,extended 25 mg PO DAILY 06/13/21 06/13/21 release 24 hr Allergies Allergy/AdvReac Type Severity Reaction Status Date / Time [place] Inhibitors Allergy Unknown Unknown Verified 06/13/21 11:08 lisinopril Allergy Unknown Cough,Unkno Verified 06/13/21 11:08 wn Penicillins Allergy Unknown Not Verified 06/13/21 11:08 Entered,Unknown Sulfa (Sulfonamide Allergy Unknown Rash,Unknow Verified 06/13/21 11:08 Antibiotics) n Review of Systems Review of Systems: Gen.: Ports fever ENT: Denies congestion Respiratory: Denies shortness of breath or cough CV: Denies chest pain or palpitations GI: Denies abdominal pain nausea, emesis or diarrhea Musculoskeletal: Denies back pain or muscle pain Neuro: Denies numbness, tingling, weakness or focal weakness Skin: Buttocks wound Except as documented, all other systems reviewed and negative [facility] Past Medical History Medical History ASHD (arteriosclerotic heart disease) Benign essential hypertension Bilateral wrist pain Debility Dysuria Encounter for routine adult health examination without abnormal findings Frequent UTI Generalized weakness GERD (gastroesophageal reflux disease) Hyperlipidemia Hypothyroidism (acquired) Low back pain Lower extremity edema Need for influenza vaccination On prison drug therapy Osteoarthritis of both knees Otitis media Peripheral neuropathy Seizure disorder Supracondylar fracture of left femur due to osteoporosis UTI (urinary tract infection) Family History Family History Sibling Family history of lung cancer Father Family history of heart disease in male family member before age 55 Family history of cardiovascular disease Mother Family history of malignant neoplasm Social History Social History Smoking packs per day: 0.5 Smoking cigarettes per day: 10.0 Years smoked: 10 Smoking pack-years: 5.00 Tobacco type: cigarettes Additional smoking assessment comments: quit in 1957 Alcohol intake: never Substance use: never Gender identity (if verbalized by the patient): Female Spiritual care co
[2022-01-15 23:02] VITALS: BP 154/79; PULSE 87; RESP 24; O2SAT 96
[2022-01-15 23:07] LABS: Basophils Absolute Auto 0.1 K/mm3 (0.0-0.1); Basophils Percent Auto 0.6 % (0.2-1.2); Eosinophils Absolute Auto 0.2 K/mm3 (0-0.3); Eosinophils Percent Auto 1.4 % (0-4.4); Hematocrit 37.7 % (37.0-47.0); Hemoglobin 12.2 g/dL (12.0-15.0); Immature Granulocyte Absolute 0.03 K/mm3 (0.00-0.031); Immature Granulocyte Percent A 0.2 % (0-0.5); Lymphocytes Absolute Auto 2.65 K/mm3 (0.9-3.2); Lymphocytes Percent Auto 21.1 % (18.3-44.2); Mean Corpuscular HGB Conc 32.4 g/dl (32-36); Mean Corpuscular Hemoglobin 31.8 pg (26-34); Mean Corpuscular Volume 98.2 fl (80-100); Mean Platelet Volume 11.6 fl (7.4-10.4); Monocytes Absolute Auto 1.2 K/mm3 (0.1-0.6); Monocytes Percent Auto 9.6 % (2.6-8.5); Neutrophils Absolute Auto 8.4 K/mm3 (1.3-6.7); Neutrophils Percent Auto 67.1 % (45.5-73.1); Platelet Count Result 99 k/mm3 (150-375); Red Blood Count 3.84 M/mm3 (4.2-5.4); Red Cell Distribution Width 14.2 % (11.5-14.5); White Blood Count 12.6 K/mm3 (4.5-10.0)
--- NOTE | 2022-01-15 23:10 | PC.NURSE ---
Assuming care of pt.
[2022-01-15 23:29] LABS: Alanine Aminotransferase 32 U/L (4-35); Albumin Level 3.5 g/dL (3.5-5.1); Alkaline Phosphatase 235 U/L (38-126); Anion Gap 9 mmol/L (8-16); Aspartate Amino Transferase 76 U/L (14-36); Bilirubin,Total 0.6 mg/dL (0.2-1.3); Blood Urea Nitrogen 32 mg/dL (7-17); Calcium 8.9 mg/dL (8.4-10.2); Carbon Dioxide 28 mmol/L (22-30); Chloride 101 mmol/L (98-107); Estimated Glomerular Filt Rate > 60; Glucose 95 mg/dL (65-110); Potassium 3.9 mmol/L (3.4-5.0); Sodium 138 mmol/L (137-145)
[2022-01-15 23:33] VITALS: BP 113/43; PULSE 90; RESP 19
[2022-01-15] MEDS: SODIUM CHLORIDE 0.9% IV 1,000 ML 999 ML IV CONT (23:59)
[2022-01-16] VITALS (17 sets, daily range): BP systolic 113–153; BP diastolic 49–79; PULSE 70–97; RESP 14–20; TEMP 37.6–39.4; O2SAT 94–98; BMI 41.6
[2022-01-16 01:41] LABS: Add Urine Microscopic? YES; Appearance Urine Turbid (Clear); Bilirubin Urine Negative (Negative); Blood Urine 2+ (Negative); Color Urine Yellow (Yellow); Glucose Urine UA Negative (Negative); Ketones Urine Negative (Negative); Leukocyte Esterase Ur 2+ LEU/UL (Negative); Nitrate Urine Negative (Negative); Protein Urine 2+ mg/dL (Negative); Specific Grav Ur 1.024 (1.001-1.035); Urobilinogen Urine Negative mg/dL (<2.0); WBC Clumps Urine Present /HPF; WBC Urine >75 /hpf
[2022-01-16 03:21] LABS: SARS-CoV-2 RNA PCR Negative
--- NOTE | 2022-01-16 05:30 | ADMGEN ---
This patient, Delia Lopez, was admitted to [facility] Surg Room 305-02 [id number]. Patient/family oriented to hospital policies and general routines including ID bracelet, bed and alarms, visiting hours, pain management, procedures, bathroom and other care routines, personal items, smoking policy, room service/diet, and visiting hours. Information on how to activate the Rapid Response Team has been discussed. Patient/Family are encouraged to report perceived risks to care and to ask questions if they do not understand what they are told or what they should do.
[2022-01-16] MEDS: SODIUM CHLORIDE 0.9% IV 1,000 ML 100 ML IV CONT (07:02)
--- NOTE | 2022-01-16 09:25 | PM.IMHP ---
H&P: HPI History of Present Illness Date/Time: 01/16/22 09:25 Chief Complaint: Acute cystitis Narrative: Patient is an 81-year-old female with a past medical history of hypertension, debility, hypothyroidism, quad equina syndrome with surgical intervention in 2019. She presented to the emergency department from the longterm due to an elevated fever of 103 ?. Patient had taken Tylenol prior to arrival to the emergency department. While in the emergency department her fever was 99.8, vital signs otherwise stable. Patient reported that she has a right buttock wound that was 1st found 3 days ago, wound is small in appearance with no drainage and mildly tender to palpation on the right buttock. Patient believes this is the reason for her illness. He the emergency department perform labs and imaging. WBC 12.6, hemoglobin 12.2, hematocrit 37.7, platelet 99, sodium 138, potassium 3.9, chloride 101, BUN 32, creatinine 0.8, GFR greater than 60, glucose 95, lactic acid 1.0, calcium 8.9 normal LFTs, UA was obtained which revealed 2+ protein, 2+ blood, 2+ leukocyte esterase, greater than 75 WBC, and a CT of the abdomen did not recognize an abscess with a small right buttock wound, did mention on her wall thickening with stranding surrounding fat suspicious for cystitis and cardiomegaly. Patient is being admitted for sepsis related to acute cystitis. Review of Systems Review of Systems: All systems reviewed & are unremarkable except as noted in HPI and below PMFSH Past Medical History Medical History ASHD (arteriosclerotic heart disease) Benign essential hypertension Bilateral wrist pain Debility Dysuria Encounter for routine adult health examination without abnormal findings Frequent UTI Generalized weakness GERD (gastroesophageal reflux disease) Hyperlipidemia Hypothyroidism (acquired) Low back pain Lower extremity edema Need for influenza vaccination On custodial drug therapy Osteoarthritis of both knees Otitis media Peripheral neuropathy Seizure disorder Supracondylar fracture of left femur due to osteoporosis UTI (urinary tract infection) Family History Family History Sibling Family history of lung cancer Father Family history of heart disease in male family member before age 55 Family history of cardiovascular disease Mother Family history of malignant neoplasm Social History Social History Smoking status: Former smoker Tobacco type: cigarettes Second hand tobacco smoke exposure: No Additional smoking assessment comments: quit in 1957 Alcohol intake: never Substance use: never Gender identity (if verbalized by the patient): Female Spiritual care concerns: No Meds Home Medications and Allergies Home Medications Medication Instructions Recorded Confirmed Type aspirin 81 mg tablet,delayed 81 mg PO DAILY 11/10/19 01/16/22 History release clopidogrel 75 mg tablet 75 mg PO DAILY #90 tablet 03/13/20 01/16/22 Rx phenytoin sodium extended 100 mg 200 mg PO BID #120 cap 03/19/20 01/16/22 Rx capsule ezetimibe 10 mg tablet 10 mg PO DAILY #90 tablet 05/03/20 01/16/22 Rx furosemide 40 mg tablet 40 mg PO QAM #90 tablet 06/27/20 01/16/22 Rx levothyroxine 100 mcg tablet 100 mcg PO DAILY #90 tablet 06/27/20 01/16/22 Rx gabapentin 100 mg capsule 100 mg PO BID #180 cap 07/23/20 01/16/22 Rx levocetirizine 5 mg PO DAILY 07/28/20 01/16/22 History aluminum-magnesium hydroxide 200 20 ml PO Q6H PRN 01/16/21 01/16/22 History mg-200 mg/5 mL oral suspension atorvastatin 80 mg tablet 80 mg PO DAILY 01/16/21 01/16/22 History docusate sodium 100 mg capsule 100 mg PO DAILY 01/16/21 01/16/22 History ondansetron HCl 4 mg tablet 4 mg PO Q4H PRN 01/16/21 01/16/22 History acetaminophen 325 mg capsule 325 mg PO Q6H PRN cap 06/13/21 01/16/22 History charito
--- NOTE | 2022-01-16 10:35 | PCOTNOTE ---
OT evaluation attempted at 10:35, pt refused due to high pain rated 10/10. Per nursing, RN is awaiting pain medication per pharmacology. Will follow-up when patient amenable to services.
[2022-01-16] MEDS: ASPIRIN 81 MG ENTERIC TABLET PO (11:00)
[2022-01-16] MEDS: metOLazone 5 MG TABLET PO (11:00)
[2022-01-16] MEDS: ATORVASTATIN 40 MG TABLET 80 MG PO (11:01)
[2022-01-16] MEDS: CHOLECALCIFEROL 1,000 UNITS TABLET 3000 UNITS PO (11:01)
[2022-01-16] MEDS: LORATADINE 10 MG TABLET PO (11:01)
[2022-01-16] MEDS: DOCUSATE SODIUM 100 MG CAPSULE PO (11:01)
[2022-01-16] MEDS: CLOPIDOGREL BISULFATE 75 MG TABLET PO (11:01)
[2022-01-16] MEDS: EZETIMIBE 10 MG TABLET PO (11:01)
[2022-01-16] MEDS: LEVOTHYROXINE SODIUM 100 MCG TABLET PO (11:01)
[2022-01-16] MEDS: PHENYTOIN SODIUM 100 MG EXTENDED RELEASE CAP 200 MG PO ×2 (12:26→20:54)
[2022-01-16] MEDS: GABAPENTIN 100 MG CAPSULE PO ×2 (12:26→17:42)
[2022-01-16] MEDS: ACETAMINOPHEN 325 MG TABLET 650 MG PO ×2 (15:34→21:13)
--- NOTE | 2022-01-16 16:25 | PCPTNOTE ---
Attempted PT Evaluation, Per RN, patient has 103 deg fever and request therapy he held today. Will continue to follow.
[2022-01-16] MEDS: carvediloL 3.125 MG TABLET PO (17:40)
[2022-01-16] MEDS: ERTAPENEM 1 GM/NS 50 ML 1 GM/50 ML BAG IVPB (17:40)
[2022-01-16] MEDS: SODIUM CHLORIDE 0.9% IV 1,000 ML 60 ML IV CONT (17:53)
[2022-01-16] MEDS: MELATONIN 3 MG TABLET PO (20:55)
[2022-01-17] VITALS (15 sets, daily range): BP systolic 113–182; BP diastolic 44–74; PULSE 66–84; RESP 18–20; TEMP 36.5–38.8; O2SAT 95–97; BMI 41.6
[2022-01-17] MEDS: LEVOTHYROXINE SODIUM 100 MCG TABLET PO (05:33)
[2022-01-17] MEDS: ACETAMINOPHEN 325 MG TABLET 650 MG PO ×2 (05:54→17:22)
[2022-01-17 07:44] LABS: Basophils Absolute Auto 0.1 K/mm3 (0.0-0.1); Basophils Percent Auto 0.4 % (0.2-1.2); Eosinophils Percent Auto 0.1 % (0-4.4); Hematocrit 33.8 % (37.0-47.0); Hemoglobin 10.7 g/dL (12.0-15.0); Immature Granulocyte Absolute 0.06 K/mm3 (0.00-0.031); Immature Granulocyte Percent A 0.5 % (0-0.5); Immature Platelet Fraction Pct 8.3 % (0.9-11.2); Lymphocytes Absolute Auto 2.26 K/mm3 (0.9-3.2); Mean Corpuscular HGB Conc 31.7 g/dl (32-36); Mean Corpuscular Hemoglobin 31.2 pg (26-34); Mean Corpuscular Volume 98.5 fl (80-100); Mean Platelet Volume 12.5 fl (7.4-10.4); Monocytes Absolute Auto 1.4 K/mm3 (0.1-0.6); Monocytes Percent Auto 11.6 % (2.6-8.5); Neutrophils Absolute Auto 8.2 K/mm3 (1.3-6.7); Neutrophils Percent Auto 68.4 % (45.5-73.1); Platelet Count Result 62 k/mm3 (150-375); Red Blood Count 3.43 M/mm3 (4.2-5.4); Red Cell Distribution Width 14.5 % (11.5-14.5); White Blood Count 11.9 K/mm3 (4.5-10.0)
[2022-01-17 07:54] LABS: Alanine Aminotransferase 30 U/L (4-35); Alkaline Phosphatase 173 U/L (38-126); Anion Gap 6 mmol/L (8-16); Aspartate Amino Transferase 70 U/L (14-36); Bilirubin,Total 0.6 mg/dL (0.2-1.3); Blood Urea Nitrogen 21 mg/dL (7-17); CRP 6.3 mg/dL (<1.0); Calcium 8.1 mg/dL (8.4-10.2); Carbon Dioxide 25 mmol/L (22-30); Chloride 102 mmol/L (98-107); Estimated CRCL calculation 49 ml/min; Estimated Glomerular Filt Rate 60; Glucose 102 mg/dL (65-110); Sodium 133 mmol/L (137-145)
[2022-01-17] MEDS: ATORVASTATIN 40 MG TABLET 80 MG PO (09:26)
[2022-01-17] MEDS: ASPIRIN 81 MG ENTERIC TABLET PO (09:26)
[2022-01-17] MEDS: CHOLECALCIFEROL 1,000 UNITS TABLET 3000 UNITS PO (09:27)
[2022-01-17] MEDS: DOCUSATE SODIUM 100 MG CAPSULE PO (09:27)
[2022-01-17] MEDS: CLOPIDOGREL BISULFATE 75 MG TABLET PO (09:27)
[2022-01-17] MEDS: GABAPENTIN 100 MG CAPSULE PO ×2 (09:27→17:20)
[2022-01-17] MEDS: EZETIMIBE 10 MG TABLET PO (09:27)
[2022-01-17] MEDS: LORATADINE 10 MG TABLET PO (09:27)
[2022-01-17] MEDS: carvediloL 3.125 MG TABLET PO ×2 (09:28→17:20)
[2022-01-17] MEDS: PHENYTOIN SODIUM 100 MG EXTENDED RELEASE CAP 200 MG PO ×2 (09:28→17:20)
--- NOTE | 2022-01-17 10:36 | PM.IMPN ---
Progress Note: A&P Assessment and Plan (1) Sepsis: Code(s): A41.9 - Sepsis, unspecified organism Status: Acute Assessment and Plan: Monitor I&Os, vital signs, neuro status and patient is a fall risk Monitor serum electrolytes, CBC, WBC, temperature curve and follow cultures Provide IV fluid resuscitation for hemodynamic stability, monitor for fluid volume overload. Patient was started Levaquin emergency department, changed to ertapenem due to previous urine cultures of E coli growth and sensitivity report. Repeat urine culture from 01/16/2022 reported a coli, pending sensitivity report. Patient was changed to ertapenem on 01/16/2022. Repeat blood cultures on 01/17/2022. One bottle of 2 taken on 01/15 2022 reported Gram-negative bacilli. P.r.n. Tylenol (2) Acute UTI: Code(s): N39.0 - Urinary tract infection, site not specified Status: Acute Assessment and Plan: CBC, CMP, UA, reviewed Obtain urine culture if needed Follow temp curve, cultures, WBC, and VS Ertapenem 1 g Q 24 hours, deescalate antibiotics pending cultures (3) Thrombocytopenia: Code(s): D69.6 - Thrombocytopenia, unspecified Status: Acute Assessment and Plan: Hold pharmaceutical anticoagulation Monitor for signs and symptoms of bleeding, platelets 62 today. Possibly related to sepsis with bacteremia (Gram Negative bacilli) Monitor cbc (4) Obesity: Code(s): E66.9 - Obesity, unspecified Status: Acute Assessment and Plan: Educated on dietary modifications (5) Wound, open, buttock: Code(s): S31.809A - Unspecified open wound of unspecified buttock, initial encounter Status: Acute Assessment and Plan: 0.5 wound open, non- draining Wound nurse consulted Apply miconazole nitrate (6) Bacteremia due to Gram-negative bacteria: Code(s): R78.81 - Bacteremia Status: Acute Assessment and Plan: One of 2 bottles revealed Gram-negative bacilli Repeat blood cultures Patient currently on ertapenem Urine culture revealed E coli Subjective Date/time seen: 01/17/22 10:36 Patient is alert and oriented. Laid in bed. She has been able to work with physical therapy and occupational therapy well. Patient reports she had a fever during the night. Received Tylenol. Fever went down. She denies any chills. Denies any nausea, vomiting, or diarrhea. Blood cultures came back on 01/16/2022 with 1 bottle g negative bacilli, repeat blood cultures today. Urine culture came back with E coli. Patient is currently on ertapenem due to her allergies to penicillin and sulfa. After discussion with the patient the patient reportedly said that she does not have a penicillin or sulfa allergy. May consider deescalate antibiotics tomorrow pending cultures. Review of Systems Review of Systems: All systems reviewed & are unremarkable except as noted in HPI and below Exam Const: General: cooperative and well developed Orientation/consciousness: oriented to person, oriented to place and oriented to time HENMT: Head: normal to inspection Eyes: General: appearance normal, both eyes and all related structures Eyelids: eyelids normal Conjunctivae: conjunctivae normal Pupils: Equal, round and reactive pupils present EOM: EOMs intact bilaterally Neck: Neck: normal visual inspection Thyroid: thyroid normal Chest: Chest palpation & inspection: normal inspection of the chest Resp: Effort & Inspection: normal respiratory effort Auscultation: clear to auscultation bilaterally Cardio: Jugular venous distension: no JVD Palpation: normal PMI Rate: regular rate Rhythm: regular rhythm Heart sounds: S1 normal heart sound present and S2 normal heart sound present GI: Inspection: normal to inspection Auscultation: normal bowel sounds : General: Yes no CVA tenderness Back/Spine/Pelvis: Back: no CVA tenderness Skin: General skin exam: normal color Rashes: no rashes Woun
[2022-01-17] MEDS: KCL 40 MEQ/WATER 100 ML 100 ML 25 ML IVPB (13:08)
[2022-01-17] MEDS: POTASSIUM CHLORIDE 20 MEQ TABLET 40 MEQ PO (13:08)
--- NOTE | 2022-01-17 13:47 | ECHO_ITS ---
Patient Info Name: Delia Lopez Age: 81 years : 1940 Gender: Female Ht: 63 in Wt: 235 lbs BSA: 2.23 m2 HR: 74 bpm BP: 113 / 44 mmHg Heart Rhythm: Sinus Rhythm Technical Quality: Fair Exam Date: 01/17/2022 3:07 PM Exam Location: [facility] Card Pulmonary Patient Status: Inpatient Admit Date: 01/17/2022 Staff Ordering Physician: Susan Gonzalez APRN Auditor Medical Claims: Lorelei Marx RDCS Attending Provider: Asael Miller MD Referring Physician: Carlos WELLINGTON; Exam Type: CA echo doppler color flow Study Info Indications - bacteremia Complete two-dimensional, color flow and Doppler transthoracic echocardiogram is performed. Summary 1. Complete two-dimensional, color flow and Doppler transthoracic echocardiogram is performed. 2. Left ventricular chamber dimension is normal. 3. Left ventricular systolic function is normal, estimated at 55-60%. 4. There is no increased left ventricular wall thickness. 5. The left ventricular diastolic function is normal. 6. There is no aortic valve regurgitation. 7. There is trace mitral valve regurgitation. 8. There is mild tricuspid valve regurgitation. 9. No pulmonary hypertension, estimated pulmonary arterial systolic pressure is 32 mmHg. Recommendations * Consider transesophageal echocardiogram if clinically indicated. Left Ventricle Left ventricular chamber dimension is normal. Left ventricular systolic function is normal, estimated at 55-60%. There is no increased left ventricular wall thickness. The left ventricular diastolic function is normal. Right Ventricle Right ventricular chamber dimension is normal. Right ventricular systolic function is normal. Left Atria Left atrial chamber dimension is normal. Right Atria Right atrial chamber dimension is mildly enlarged. Aortic Valve The aortic valve is not well visualized. There is no aortic valve stenosis. There is no aortic valve regurgitation. There is mild aortic valve calcification. Pulmonic Valve The pulmonic valve is not well visualized. Mitral Valve The mitral valve has thickened leaflets. There is trace mitral valve regurgitation. The mitral valve annulus is mildly calcified. Tricuspid Valve The tricuspid valve leaflets are normal. There is mild tricuspid valve regurgitation. No pulmonary hypertension, estimated pulmonary arterial systolic pressure is 32 mmHg. Pericardium/Pleural The pericardium appears normal. There is no pericardial effusion. Inferior Vena Cava Normal inferior vena cava with <50% collapse upon inspiration consistent with elevated right atrial pressure, 10 mmHg. Aorta The aortic root size at the sinus of Valsalva is normal. There is moderate aortic atherosclerosis. Left Ventricular Outflow Tract Name Value Normal LVOT 2D LVOT Diameter 1.9 cm LVOT Doppler LVOT Peak Gradient 4 mmHg LVOT Mean Gradient 2 mmHg LVOT VTI 22 cm LVOT VTI/AV VTI Ratio 0.6 LVOT Stroke Volume 58 ml L
[2022-01-17 17:08] LABS: Hematocrit 36.5 % (37.0-47.0); Hemoglobin 11.9 g/dL (12.0-15.0); Mean Corpuscular HGB Conc 32.6 g/dl (32-36); Mean Corpuscular Hemoglobin 31.2 pg (26-34); Mean Corpuscular Volume 95.8 fl (80-100); Mean Platelet Volume 12.7 fl (7.4-10.4); Platelet Count Result 65 k/mm3 (150-375); Red Blood Count 3.81 M/mm3 (4.2-5.4); Red Cell Distribution Width 14.3 % (11.5-14.5); White Blood Count 13.7 K/mm3 (4.5-10.0)
[2022-01-17 17:22] LABS: Alanine Aminotransferase 32 U/L (4-35); Albumin Level 3.4 g/dL (3.5-5.1); Alkaline Phosphatase 198 U/L (38-126); Anion Gap 7 mmol/L (8-16); Aspartate Amino Transferase 74 U/L (14-36); Bilirubin,Total 0.7 mg/dL (0.2-1.3); Blood Urea Nitrogen 23 mg/dL (7-17); Calcium 8.4 mg/dL (8.4-10.2); Carbon Dioxide 27 mmol/L (22-30); Chloride 99 mmol/L (98-107); Estimated CRCL calculation 45 ml/min; Estimated Glomerular Filt Rate 53; Glucose 106 mg/dL (65-110); Potassium 3.7 mmol/L (3.4-5.0); Sodium 133 mmol/L (137-145)
[2022-01-17] MEDS: ERTAPENEM 1 GM/NS 50 ML 1 GM/50 ML BAG IVPB (17:23)
[2022-01-17] MEDS: MELATONIN 3 MG TABLET PO (20:43)
[2022-01-17] MEDS: SODIUM CHLORIDE 0.9% IV 1,000 ML 60 ML IV CONT (20:53)
[2022-01-18] VITALS (9 sets, daily range): BP systolic 118–167; BP diastolic 51–85; PULSE 68–82; RESP 16–20; TEMP 36.7–37.8; O2SAT 92–96
[2022-01-18] MEDS: ACETAMINOPHEN 325 MG TABLET 650 MG PO (03:21)
[2022-01-18] MEDS: LEVOTHYROXINE SODIUM 100 MCG TABLET PO (06:05)
[2022-01-18] MEDS: ASPIRIN 81 MG ENTERIC TABLET PO (09:46)
[2022-01-18] MEDS: carvediloL 3.125 MG TABLET PO ×2 (09:46→17:08)
[2022-01-18] MEDS: LORATADINE 10 MG TABLET PO (09:46)
[2022-01-18] MEDS: PHENYTOIN SODIUM 100 MG EXTENDED RELEASE CAP 200 MG PO ×2 (09:46→17:08)
[2022-01-18] MEDS: CLOPIDOGREL BISULFATE 75 MG TABLET PO (09:46)
[2022-01-18] MEDS: GABAPENTIN 100 MG CAPSULE PO ×2 (09:47→17:08)
[2022-01-18] MEDS: ATORVASTATIN 40 MG TABLET 80 MG PO (09:47)
[2022-01-18] MEDS: CHOLECALCIFEROL 1,000 UNITS TABLET 3000 UNITS PO (09:47)
[2022-01-18] MEDS: EZETIMIBE 10 MG TABLET PO (09:47)
--- NOTE | 2022-01-18 11:11 | PM.IMPN ---
Progress Note: A&P Assessment and Plan (1) Sepsis: Code(s): A41.9 - Sepsis, unspecified organism Status: Acute Assessment and Plan: Monitor I&Os, vital signs, neuro status and patient is a fall risk Monitor serum electrolytes, CBC, WBC, temperature curve and follow cultures Provide IV fluid resuscitation for hemodynamic stability, monitor for fluid volume overload. Patient was started Levaquin emergency department, changed to ertapenem due to previous urine cultures of E coli growth and sensitivity report. Repeat urine culture from 01/16/2022 reported e coli, quinolone and penicillin resistant. Patient was changed to ertapenem on 01/16/2022. Repeat blood cultures on 01/17/2022 negative to date. One bottle of 2 taken on 01/15 2022 reported Gram-negative bacilli. P.r.n. Tylenol (2) Acute UTI: Code(s): N39.0 - Urinary tract infection, site not specified Status: Acute Assessment and Plan: CBC, CMP, UA, reviewed Obtain urine culture if needed Follow temp curve, cultures, WBC, and VS Ertapenem 1 g Q 24 hours, deescalate antibiotics pending cultures (3) Thrombocytopenia: Code(s): D69.6 - Thrombocytopenia, unspecified Status: Acute Assessment and Plan: Hold pharmaceutical anticoagulation Monitor for signs and symptoms of bleeding. Possibly related to sepsis with bacteremia (Gram Negative bacilli) Mild improvement of platelet count Monitor cbc (4) Obesity: Code(s): E66.9 - Obesity, unspecified Status: Acute Assessment and Plan: Educated on dietary modifications (5) Wound, open, buttock: Code(s): S31.809A - Unspecified open wound of unspecified buttock, initial encounter Status: Acute Assessment and Plan: 0.5 wound open, non- draining Wound nurse consulted Apply miconazole nitrate (6) Bacteremia due to Gram-negative bacteria: Code(s): R78.81 - Bacteremia Status: Acute Assessment and Plan: One of 2 bottles revealed Gram-negative bacilli blood cultures / positive Repeat blood cultures blood cultures negative to date Patient currently on ertapenem Urine culture revealed E coli Echocardiogram reviewed, no vegetation on valves. Subjective Date/time seen: 01/18/22 11:11 The patient is alert oriented this morning. She remains bedridden. Working with physical therapy and occupational therapy. She is able to eat some of her breakfast this morning. Patient reports that she slept well last night. No acute events reported by the RN. Blood cultures from 01/17 2022 revealed no growth to date. Previous blood cultures on 01/1512/31/2019 of 2 bottles revealed E coli. Patient continues on ertapenem, will deescalate antibiotics. Echocardiogram was performed on 01/17 2022 did not reveal vegetation on the valves. LVEF estimated at 55-60%. And left ventricular diastolic function WNL. Patient was updated on plan of care, continue ertapenem and deescalate antibiotics Review of Systems Review of Systems: All systems reviewed & are unremarkable except as noted in HPI and below Exam Const: General: cooperative and well developed Orientation/consciousness: oriented to person, oriented to place and oriented to time HENMT: Head: normal to inspection Eyes: General: appearance normal, both eyes and all related structures Eyelids: eyelids normal Conjunctivae: conjunctivae normal Pupils: Equal, round and reactive pupils present EOM: EOMs intact bilaterally Neck: Neck: normal visual inspection Thyroid: thyroid normal Chest: Chest palpation & inspection: normal inspection of the chest Resp: Effort & Inspection: normal respiratory effort Auscultation: clear to auscultation bilaterally Cardio: Jugular venous distension: no JVD Palpation: normal PMI Rate: regular rate Rhythm: regular rhythm Heart sounds: S1 normal heart sound present and S2 normal heart sound present GI: Inspection: normal to ins
[2022-01-18] MEDS: ERTAPENEM 1 GM/NS 50 ML 1 GM/50 ML BAG IVPB (17:08)
[2022-01-18] MEDS: MELATONIN 3 MG TABLET PO (20:39)
[2022-01-19] VITALS: BP 145/58; PULSE 73; PULSE 83; RESP 18; TEMP 36.9; O2SAT 93
[2022-01-19 04:00] VITALS: BP 152/63; PULSE 68; PULSE 75; RESP 16; TEMP 36.9; O2SAT 93
[2022-01-19] MEDS: LEVOTHYROXINE SODIUM 100 MCG TABLET PO (06:00)
[2022-01-19 08:00] VITALS: BP 139/66; PULSE 70; RESP 16; TEMP 36.8; O2SAT 94
[2022-01-19] MEDS: CLOPIDOGREL BISULFATE 75 MG TABLET PO (08:29)
[2022-01-19] MEDS: CHOLECALCIFEROL 1,000 UNITS TABLET 3000 UNITS PO (08:29)
[2022-01-19] MEDS: ASPIRIN 81 MG ENTERIC TABLET PO (08:29)
[2022-01-19] MEDS: GABAPENTIN 100 MG CAPSULE PO ×2 (08:29→17:16)
[2022-01-19] MEDS: PHENYTOIN SODIUM 100 MG EXTENDED RELEASE CAP 200 MG PO ×2 (08:29→17:16)
[2022-01-19] MEDS: EZETIMIBE 10 MG TABLET PO (08:29)
[2022-01-19] MEDS: carvediloL 3.125 MG TABLET PO ×2 (08:29→17:16)
[2022-01-19] MEDS: ATORVASTATIN 40 MG TABLET 80 MG PO (08:29)
[2022-01-19] MEDS: LORATADINE 10 MG TABLET PO (08:29)
[2022-01-19 08:41] LABS: Basophils Absolute Auto 0.1 K/mm3 (0.0-0.1); Basophils Percent Auto 0.6 % (0.2-1.2); Eosinophils Absolute Auto 0.1 K/mm3 (0-0.3); Eosinophils Percent Auto 1.2 % (0-4.4); Hemoglobin 11.3 g/dL (12.0-15.0); Immature Granulocyte Absolute 0.02 K/mm3 (0.00-0.031); Immature Granulocyte Percent A 0.2 % (0-0.5); Immature Platelet Fraction Pct 10.3 % (0.9-11.2); Lymphocytes Absolute Auto 1.86 K/mm3 (0.9-3.2); Lymphocytes Percent Auto 20.9 % (18.3-44.2); Mean Corpuscular HGB Conc 31.4 g/dl (32-36); Mean Corpuscular Hemoglobin 31.6 pg (26-34); Mean Corpuscular Volume 100.6 fl (80-100); Mean Platelet Volume 12.6 fl (7.4-10.4); Monocytes Absolute Auto 1.1 K/mm3 (0.1-0.6); Monocytes Percent Auto 12.7 % (2.6-8.5); Neutrophils Absolute Auto 5.7 K/mm3 (1.3-6.7); Neutrophils Percent Auto 64.4 % (45.5-73.1); Platelet Count Result 69 k/mm3 (150-375); Red Blood Count 3.58 M/mm3 (4.2-5.4); Red Cell Distribution Width 14.1 % (11.5-14.5); White Blood Count 8.9 K/mm3 (4.5-10.0)
[2022-01-19 08:53] LABS: Alanine Aminotransferase 27 U/L (4-35); Alkaline Phosphatase 173 U/L (38-126); Anion Gap 5 mmol/L (8-16); Aspartate Amino Transferase 67 U/L (14-36); Bilirubin,Total 0.5 mg/dL (0.2-1.3); Blood Urea Nitrogen 30 mg/dL (7-17); Calcium 8.4 mg/dL (8.4-10.2); Carbon Dioxide 27 mmol/L (22-30); Chloride 102 mmol/L (98-107); Estimated CRCL calculation 62 ml/min; Estimated Glomerular Filt Rate > 60; Glucose 96 mg/dL (65-110); Potassium 3.5 mmol/L (3.4-5.0); Sodium 134 mmol/L (137-145)
--- NOTE | 2022-01-19 11:01 | PM.IMPN ---
Progress Note: A&P Assessment and Plan (1) Sepsis: Code(s): A41.9 - Sepsis, unspecified organism Status: Acute Assessment and Plan: Monitor I&Os, vital signs, neuro status and patient is a fall risk Monitor serum electrolytes, CBC, WBC, temperature curve and follow cultures Provide IV fluid resuscitation for hemodynamic stability, monitor for fluid volume overload. Patient was started Levaquin emergency department, changed to ertapenem due to previous urine cultures of E coli growth and sensitivity report. Repeat urine culture from 01/16/2022 reported e coli, quinolone and penicillin resistant. Patient was changed to ertapenem on 01/16/2022. Repeat blood cultures on 01/17/2022 negative to date. One bottle of 2 taken on 01/15 2022 reported Gram-negative bacilli. P.r.n. Tylenol (2) Acute UTI: Code(s): N39.0 - Urinary tract infection, site not specified Status: Acute Assessment and Plan: CBC, CMP, UA, reviewed Obtain urine culture if needed Follow temp curve, cultures, WBC, and VS Ertapenem 1 g Q 24 hours. Multiple resistant for ESBL treatment and patient has allergies to penicillin and sulfa. Will need to continue ertapenem. Positive blood culture for ESBL E coli, continue antibiotics for total of 14 days. Insert PICC line. Case coordination managing discharge plan Patient has been afebrile for the past 24 hours (3) Thrombocytopenia: Code(s): D69.6 - Thrombocytopenia, unspecified Status: Acute Assessment and Plan: Hold pharmaceutical anticoagulation Monitor for signs and symptoms of bleeding. Possibly related to sepsis with bacteremia (Gram Negative bacilli) Mild improvement of platelet count Monitor cbc (4) Obesity: Code(s): E66.9 - Obesity, unspecified Status: Acute Assessment and Plan: Educated on dietary modifications (5) Wound, open, buttock: Code(s): S31.809A - Unspecified open wound of unspecified buttock, initial encounter Status: Acute Assessment and Plan: 0.5 wound open, non- draining Wound nurse consulted Apply miconazole nitrate (6) Bacteremia due to Gram-negative bacteria: Code(s): R78.81 - Bacteremia Status: Acute Assessment and Plan: One of 2 bottles revealed Gram-negative bacilli blood cultures 1/2 positive Repeat blood cultures [id number] blood cultures negative to date Patient currently on ertapenem Urine culture revealed E coli, ESBL Echocardiogram reviewed Subjective Date/time seen: 01/19/22 11:01 Discussed plan of care with the patient. She was agreeable. Patient will have a PICC line inserted and continue ertapenem for a total 14 days IV antibiotic therapy. [facility] Patient has been afebrile for 24 hours. WBC significantly improved. Patient was alert and oriented this morning. No acute concerns at this time. All questions answered. RN did not report any significant events overnight. She was updated on the plan of care. Review of Systems Review of Systems: All systems reviewed & are unremarkable except as noted in HPI and below Exam Narrative: General: Pt is alert awake and oriented x3, no acute distress Lungs/Chest: Trachea central Clear BS B/L No respiratory distress or use of accessory muscle, Cardiac: RRR. Normal S1 S2. No murmurs Circulation: Pedal pulses are intact and symmetrical. Abdomen: Normal bowel sounds. Soft. NT. ND. Extremities: No clubbing, cyanosis Warm. no edema in lower extremities, atraumatic, strenght 5/5 in upper extremities, limited range of motion and strength to bilateral lower extremities : Incontinent, excoriated Neurologic: Follows commands. Moves upper extremities, limited sensation to bilateral lower extremities PERRL AO x3 Skin: 0.5 cm open wound to the coccyx, non blanchable-stage II Objective Data Vital Signs Vital Signs: Vital Signs - 24 hr 01/18/
[2022-01-19 12:00] VITALS: BP 124/58; PULSE 70; PULSE 78; RESP 16; TEMP 37; O2SAT 94
--- NOTE | 2022-01-19 12:58 | PM.DS ---
DS: Admitting Diagnosis Discharge Date 01/19/22 Admitting Diagnosis Urinary tract infection Thrombocytopenia bacteremia Sepsis Obesity DS: Discharge Diagnosis Discharge Diagnosis (1) Sepsis: Code(s): A41.9 - Sepsis, unspecified organism Status: Acute Assessment and Plan: Monitor I&Os, vital signs, neuro status and patient is a fall risk Monitor serum electrolytes, CBC, WBC, temperature curve and follow cultures Provide IV fluid resuscitation for hemodynamic stability, monitor for fluid volume overload. Patient was started Levaquin emergency department, changed to ertapenem due to previous urine cultures of E coli growth and sensitivity report. Repeat urine culture from 01/16/2022 reported e coli, quinolone and penicillin resistant. Patient was changed to ertapenem on 01/16/2022. Repeat blood cultures on 01/17/2022 negative to date. One bottle of 2 taken on 01/15 2022 reported Gram-negative bacilli. P.r.n. Tylenol (2) Acute UTI: Code(s): N39.0 - Urinary tract infection, site not specified Status: Acute Assessment and Plan: CBC, CMP, UA, reviewed Obtain urine culture if needed Follow temp curve, cultures, WBC, and VS Ertapenem 1 g Q 24 hours. Multiple resistant for ESBL treatment and patient has allergies to penicillin and sulfa. Will need to continue ertapenem. Positive blood culture for ESBL E coli, continue antibiotics for total of 14 days. Insert PICC line. Case coordination managing discharge plan Patient has been afebrile for the past 24 hours (3) Thrombocytopenia: Code(s): D69.6 - Thrombocytopenia, unspecified Status: Acute Assessment and Plan: Hold pharmaceutical anticoagulation Monitor for signs and symptoms of bleeding. Possibly related to sepsis with bacteremia (Gram Negative bacilli) Mild improvement of platelet count Monitor cbc (4) Obesity: Code(s): E66.9 - Obesity, unspecified Status: Acute Assessment and Plan: Educated on dietary modifications (5) Wound, open, buttock: Code(s): S31.809A - Unspecified open wound of unspecified buttock, initial encounter Status: Acute Assessment and Plan: 0.5 wound open, non- draining Wound nurse consulted Apply miconazole nitrate (6) Bacteremia due to Gram-negative bacteria: Code(s): R78.81 - Bacteremia Status: Acute Assessment and Plan: One of 2 bottles revealed Gram-negative bacilli blood cultures positive Repeat blood cultures blood cultures negative to date Patient currently on ertapenem Urine culture revealed E coli, ESBL Echocardiogram reviewed DS: Summary Hospital Course Reason for hospitalization: Urinary tract infection Bacteremia Hospital Course: Patient is an 81-year-old female with a past medical history of hypertension, debility, hypothyroidism, quad equina syndrome with surgical intervention in 2019. She presented to the emergency department from the senior care due to an elevated fever of 103 ?. Patient had taken Tylenol prior to arrival to the emergency department. While in the emergency department her fever was 99.8, vital signs otherwise stable. Patient reported that she has a right buttock wound that was 1st found 3 days ago, wound is small in appearance with no drainage and mildly tender to palpation on the right buttock. Patient believes this is the reason for her illness. He the emergency department perform labs and imaging. WBC 12.6, hemoglobin 12.2, hematocrit 37.7, platelet 99, sodium 138, potassium 3.9, chloride 101, BUN 32, creatinine 0.8, GFR greater than 60, glucose 95, lactic acid 1.0, calcium 8.9 normal LFTs, UA was obtained which revealed 2+ protein, 2+ blood, 2+ leukocyte esterase, greater than 75 WBC, and a CT of the abdomen did not recognize an abscess with a small right buttock wound, did mention on her wall thickening with stranding surrounding fat suspicious for cystitis and cardiomega
[2022-01-19 16:00] VITALS: BP 141/41; PULSE 73; PULSE 79; RESP 16; TEMP 37.4; O2SAT 94
[2022-01-19] MEDS: ERTAPENEM 1 GM/NS 50 ML 1 GM/50 ML BAG IVPB (17:18)
== END 2022-01-19 18:11 | DRG 872 ==
LOC: ANHED 01-16 02:58 → ANH3MEDSUR 01-16 03:35
PROVIDERS: Admitting Provider Internal Medicine; Emergency Provider Emergency Medicine; PCP Family Medicine; Visit Provider Nurse Practitioner Family
DX: A41.9 Sepsis, unspecified organism (principal); N39.0 Urinary tract infection, site not specified; Z16.11 Resistance to penicillins; Z16.23 Resistance to quinolones and fluoroquinolones; Z68.41 Body mass index [BMI] 40.0-44.9, adult; B96.20 Unspecified Escherichia coli [E. coli] as the cause of diseases classified elsewhere; Z20.822 Contact with and (suspected) exposure to COVID-19; I10 Essential (primary) hypertension; E03.9 Hypothyroidism, unspecified; D69.6 Thrombocytopenia, unspecified; E66.9 Obesity, unspecified; K21.9 Gastro-esophageal reflux disease without esophagitis; M17.0 Bilateral primary osteoarthritis of knee; G40.909 Epilepsy, unspecified, not intractable, without status epilepticus; E78.5 Hyperlipidemia, unspecified; F17.210 Nicotine dependence, cigarettes, uncomplicated; S31.819A Unspecified open wound of right buttock, initial encounter; Z79.82 Long term (current) use of aspirin
CPT/HCPCS: 36415; 36569; 51701; 71045; 74177; 80053; 81001; 83605; 85025; 85027; 85055; 86140; 87040; 87077; 87086; 87186; 93306; 96361; 96365; 96366; 96368; 97161; 97165; 99285; A9270; C1751; C9803; G0378; J1335; J1956; J3480; J7030; Q9967; U0003; U0005

== ENCOUNTER 2022-06-09 09:04 | Inpatient (IN) | payer MEDICARE, SELFPAY ==
[2022-06-09] VITALS (13 sets, daily range): BP systolic 131–176; BP diastolic 43–143; PULSE 62–92; RESP 11–27; TEMP 36.7–39.1; O2SAT 94–100; BMI 42.4
--- NOTE | ~2022-06-09 | XR_ITS ---
XR chest port-a-cath/central DATE: 06/09/2022 08:38 INDICATION: Central line placement TECHNIQUE: Portable AP chest on 06/09/2022 at 0832 hours COMPARISON: 01/15/2022 portable AP chest FINDINGS: Interval placement of right internal jugular central venous catheter. The catheter makes a 180 degrees U-turn at the T6-7 level overlying the superior vena cava, with the distal 4.5 cm of the catheter directed cephalad, the distal tip terminating at approximately the upper aspect of the super ior vena cava. No pneumothorax is noted. Status post sternotomy. Cardiac megaly. Aortic calcification and unfolding. There is pulmonary vascular redistribution, suggesting pulmonary venous hypertension. Minimal infiltr ate or atelectasis is suggested in the lower lung zones. No pleural effusion. Osteopenia. Dextroscoliosis and degenerative spurring of the thoracic spine. Bilateral rotator cuff atrophy. IMPRESSION: Right internal jugular central saphenous catheter makes a loop overlying the superior ector a cava Congestive changes Aortic atherosclerosis Reviewed, dictated and finalized at [facility]. Reviewed, dictated and finalized at [facility] IMPRESSION: Right internal jugular central saphenous catheter makes a loop over lying the superior vena cava Congestive changes Aortic atherosclerosis
--- NOTE | ~2022-06-09 | XR_ITS ---
EXAMINATION: XR chest 1V portable DATE: 06/10/2022 05:34 INDICATION: Sepsis. TECHNIQUE: A single frontal view of the chest was obtained. COMPARISON: Chest single view 06/09/2022, CT abdomen and pelvis 01/15/2022 FINDINGS: There are mild airspace opacities in left lower lung zone. No pleural effusion or pneumotho rax. Cardiomegaly is noted. Median sternotomy wires and mediastinal surgical clips are seen, likely f rom prior coronary artery bypass grafting. A right internal jugular central venous catheter is seen w ith tip at the superior cavoatrial junction. IMPRESSION: 1. Stable mild airspace opacities in left lower lung zone, consistent with atelectasis versus pneumon ia. 2. Cardiomegaly. Reviewed, dictated and finalized at [facility]. IMPRESSION: 1. Stable mild airspace opacities in left lower lung zone, consistent with atel ectasis versus pneumonia. 2. Cardiomegaly.
--- NOTE | ~2022-06-09 | XR_ITS ---
XR chest 1V portable DATE: 06/09/2022 09:49 INDICATION: Repositioning of right internal jugular central venous line TECHNIQUE: Portable AP chest on 06/09/2022 at 0945 hours COMPARISON: 06/09/2022 portable AP chest at 0832 hours FINDINGS: Right internal jugular central venous line is repositioned, with resolution of the loop in the superi or vena cava, the catheter now taking a straight course into the mid right atrium. No pneumothorax. Status post sternotomy. Pulmonary vascular redistribution is again noted, suggesting pulmonary venous hypertension. IMPRESSION: Repositioning of right internal jugular central venous catheter, with resolution of the p rior distal loop, the tip now overlying the mid right atrium No pneumothorax Reviewed, dictated and finalized at location A. IMPRESSION: Repositioning of right internal jugular central venous catheter, wi th resolution of the prior distal loop, the tip now overlying the mid right atr ium No pneumothorax
--- NOTE | ~2022-06-09 | US_ITS ---
US renal BI 06/09/2022 17:24 Procedure: Realtime transabdominal ultrasound of the kidneys and bladder. Indication: Acute renal insufficiency. UTI. Comparison: Ultrasound dated CT dated 01/15/2022 Findings: Renal echotexture is normal bilaterally without hydronephrosis, contour deforming mass or r enal calculus. The right kidney measures 11.8 cm and left kidney measures 8.6 cm. Bladder is not well distended due to catheterization. Impression: 1: Unremarkable renal ultrasound. No stones, masses or hydronephrosis. Reviewed, dictated and finalized at location A. Impression: 1: Unremarkable renal ultrasound. No stones, masses or hydronephrosis.
--- NOTE | 2022-06-09 08:25 | ADMGEN ---
This patient, Delia Lopez, was admitted to Intensive Care Unit-2. Patient/family oriented to hospital policies and general routines including ID bracelet, bed and alarms, visiting hours, pain management, procedures, bathroom and other care routines, personal items, smoking policy, room service/diet, and visiting hours. Information on how to activate the Rapid Response Team has been discussed. Patient/Family are encouraged to report perceived risks to care and to ask questions if they do not understand what they are told or what they should do.
--- NOTE | 2022-06-09 08:39 | WPDCNINT ---
Assessment and Plan Assessment and plan (1) Septic shock: Code(s): A41.9 - Sepsis, unspecified organism; R65.21 - Severe sepsis with septic shock Status: Acute Assessment and Plan: Patient has history of frequent UTIs and her last admission was in December of this year when she grew multidrug resistant E coli in her urine Patient received 2 L of IV fluid bolus in the ED and is currently on Levophed infusion Continue Levophed titration Perform NICOM assessment to assess for further fluid responsiveness Continue LR Urine and blood cultures Empiric imipenem (2) UTI (urinary tract infection): Code(s): N39.0 - Urinary tract infection, site not specified Status: Acute Assessment and Plan: See above (3) Thrombocytopenia: Code(s): D69.6 - Thrombocytopenia, unspecified Status: Acute Assessment and Plan: Patient has history of chronic thrombocytopenia Hold Lovenox Monitor levels at this (4) GERD (gastroesophageal reflux disease): Qualifiers: Esophagitis presence: without esophagitis Qualified Code(s): K21.9 - Gastro-esophageal reflux disease without esophagitis Code(s): K21.9 - Gastro-esophageal reflux disease without esophagitis Status: Chronic Assessment and Plan: PPI (5) Hyperlipidemia: Qualifiers: Hyperlipidemia type: mixed hyperlipidemia Qualified Code(s): E78.2 - Mixed hyperlipidemia Code(s): E78.5 - Hyperlipidemia, unspecified Status: Chronic Assessment and Plan: Continue statin (6) Hypothyroidism (acquired): Code(s): E03.9 - Hypothyroidism, unspecified Status: Chronic Assessment and Plan: Continue levothyroxine check TSH (7) Seizure disorder: Code(s): G40.909 - Epilepsy, unspecified, not intractable, without status epilepticus Status: Chronic Assessment and Plan: Continue home dose of phenytoin (8) Elevated troponin: Code(s): R77.8 - Other specified abnormalities of plasma proteins Status: Acute Assessment and Plan: Mildly elevated troponin presentation in the ED EKG nonspecific changes Patient does have history of coronary disease denies any chest pain or anginal symptoms Likely type 2 secondary to septic shock Continue serial troponins Continue home aspirin and Plavix Hold beta-gabi and WINSTON-inhibitor due to shock (9) Hypokalemia: Code(s): E87.6 - Hypokalemia Status: Acute Assessment and Plan: Patient received 40 mEq of potassium chloride ER. Repeat BMP at this time to evaluate current level place accordingly (10) Acute kidney injury: Code(s): N17.9 - Acute kidney failure, unspecified Status: Acute Assessment and Plan: Creatinine elevated at 1.3 likely prerenal secondary to septic shock IV fluids Monitor urine output electrolytes and creatinine Check CK level Check urine electrolytes Check renal ultrasound as patient has UTI (11) Abnormal chest x-ray: Code(s): R93.89 - Abnormal findings on diagnostic imaging of other specified body structures Status: Acute Assessment and Plan: Patient had a central venous catheter placed in ER and the tip appears to be looped in superior Vena cava. Will continue to use line as it is working. I am expecting that tip will straighten with IV fluids and blood flow. I also anticipate short duration with a central venous catheter and will plan to remove once patient is off of vasopressors. Repeat chest x-ray tomorrow Additional Plan DVT prophylaxis -SCDs Stress ulcer prophylaxis -PPI Nutrition -heart healthy diet Code Status -patient is DNR DNI as per POLST form. I confirmed this with patient. Total Critical Care Time - 35 minutes Due to a high probability of clinically significant, life threatening deterioration, the patient required my highest level of preparedness to intervene emergently and I personally spent this critical care time direct
[2022-06-09 09:19] LABS: Hematocrit 35.9 % (37.0-47.0); Hemoglobin 11.4 g/dL (12.0-15.0); Immature Platelet Fraction Pct 8.6 % (0.9-11.2); Lactic Acid Reflex 0.9 mmol/L (0.7-2.0); Mean Corpuscular HGB Conc 31.8 g/dl (32-36); Mean Corpuscular Hemoglobin 30.4 pg (26-34); Mean Corpuscular Volume 95.7 fl (80-100); Mean Platelet Volume 12.2 fl (7.4-10.4); Platelet Count Result 81 k/mm3 (150-375); Red Blood Count 3.75 M/mm3 (4.2-5.4); Red Cell Distribution Width 14.7 % (11.5-14.5); White Blood Count 22.3 K/mm3 (4.5-10.0)
[2022-06-09 09:26] LABS: Alanine Aminotransferase 47 U/L (6-35); Albumin Level 3.2 g/dL (3.5-5.1); Alkaline Phosphatase 190 U/L (38-126); Anion Gap 6 mmol/L (8-16); Aspartate Amino Transferase 98 U/L (14-36); Bilirubin,Total 1.2 mg/dL (0.2-1.3); Blood Urea Nitrogen 46 mg/dL (7-17); Calcium 7.8 mg/dL (8.4-10.2); Carbon Dioxide 28 mmol/L (22-30); Chloride 101 mmol/L (98-107); Estimated Glomerular Filt Rate 39; Glucose 120 mg/dL (65-110); Magnesium 1.6 mg/dL (1.6-2.3); Phosphorus 3.2 mg/dL (2.5-4.5); Potassium 2.8 mmol/L (3.4-5.0); Sodium 135 mmol/L (137-145)
[2022-06-09 09:34] LABS: NT Pro B Type Natriuretic Pept 11200 pg/mL (5-100); Troponin I 0.111 ng/mL (0.000-0.034)
[2022-06-09 09:45] LABS: Procalcitonin 1.2 ng/mL
--- NOTE | 2022-06-09 09:50 | ADMGEN ---
This patient, Delia Lopez, was admitted to Intensive Care Unit-2 at 0825 on 06/09/2022. Report received from Silvia KAUR at [facility] in [place], [place]. Patient/family oriented to hospital policies and general routines including ID bracelet, bed and alarms, visiting hours, pain management, procedures, bathroom and other care routines, personal items, smoking policy, room service/diet, and visiting hours. Information on how to activate the Rapid Response Team has been discussed. Patient/Family are encouraged to report perceived risks to care and to ask questions if they do not understand what they are told or what they should do.
--- NOTE | 2022-06-09 09:54 | P.PNCROSS_ITS ---
Event Note Event Note Event Note: Patient has redness and left antecubital area where she had a peripheral IV rodolfo silvestre in the ER. IV had already been removed prior to arrival to [facility] ICU due to infiltration On review of record it appears the patient received vancomycin through than IV which may be the cause of the redness. Patient received Levophed through right hand peripheral IV initially and through central line later. Patient denies any pain in the left arm at the site. Continue to monitor and treat conservatively at this time. Repeat chest x-ray after power flushing central line shows a central line tip has straightened. Continue to monitor
[2022-06-09] MEDS: LACTATED RINGERS 1,000 ML 125 ML IV CONT ×2 (10:03→18:43)
[2022-06-09] MEDS: NOREPINEPHRINE 8 MG/D5W 250 ML 8 MG/250 ML BAG 9.38 MG IV CONT (10:17)
[2022-06-09] MEDS: POTASSIUM CHLORIDE 20 MEQ PACKET (FOR LIQUID) 40 MEQ PO ×2 (10:17→17:06)
[2022-06-09] MEDS: KCL 40 MEQ/WATER 100 ML 100 ML 25 ML IVPB (10:17)
--- NOTE | 2022-06-09 12:32 | PM.IMHP ---
H&P: HPI History of Present Illness Date/Time: 06/09/22 12:32 Chief Complaint: Delia Lopez is a 81 year old female? with a past medical history of hypertension, debility, hypothyroidism, coronary artery disease hyperlipidemia neuropathy GERD, cauda equina syndrome with surgical intervention in 2019.? She had admission at [facility] in December of this year with UTI and sepsis.? At that time her urine grew ESBL E coli.? She presented to [facility] ER today from his [facility] with fever. the patient has noticed a fever over last couple days. She also has incontinence to urine. She denies any other complaints like chest pain or shortness of breath. She reports that she does not have any hematuria abdominal pain or anything like that. Transferred to [facility] ICU due to lack of beds at the hospital.? Her UA was positive for leuk Estrace and too numerous to count WBC.? 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 Osteoarthritis of both knees Otitis media Peripheral neuropathy Seizure disorder Supracondylar fracture of left femur due to osteoporosis UTI (urinary tract infection) Family History Family History Sibling Family history of lung cancer Father Family history of heart disease in male family member before age 55 Family history of cardiovascular disease Mother Family history of malignant neoplasm Social History Social History Smoking status: Former smoker Second hand tobacco smoke exposure: No Additional smoking assessment comments: quit in 1957 Alcohol intake: never Substance use: never Gender identity (if verbalized by the patient): Female Spiritual care concerns: No Meds Home Medications and Allergies Home Medications Medication Instructions Recorded Confirmed Type aspirin 81 mg tablet,delayed 81 mg PO DAILY 11/10/19 06/09/22 History release (Adult Low Dose Aspirin) clopidogrel 75 mg tablet 75 mg PO DAILY #90 tabs 03/13/20 06/09/22 Rx phenytoin sodium extended 100 mg 200 mg PO BID #120 caps 03/19/20 06/09/22 Rx capsule (Dilantin Extended) ezetimibe 10 mg tablet (Zetia) 10 mg PO DAILY #90 tabs 05/03/20 06/09/22 Rx furosemide 40 mg tablet 40 mg PO QAM #90 tabs 06/27/20 06/09/22 Rx levothyroxine 100 mcg tablet 100 mcg PO DAILY #90 tabs 06/27/20 06/09/22 Rx levocetirizine 5 mg tablet 5 mg PO DAILY 07/28/20 06/09/22 History aluminum-magnesium hydroxide 200 20 ml PO Q6H PRN (Drug) Ingestion 01/16/21 06/09/22 History mg-200 mg/5 mL oral suspension atorvastatin 80 mg tablet 80 mg PO DAILY 01/16/21 06/09/22 History docusate sodium 100 mg capsule 100 mg PO DAILY PRN Constipation 01/16/21 06/09/22 History (Colace) ondansetron HCl 4 mg tablet 4 mg PO Q4H PRN Nausea And Vomiting 01/16/21 06/09/22 History acetaminophen 325 mg capsule 325 mg PO Q6H PRN Pain (Scale 06/13/21 06/09/22 History Score 1-3) loperamide 2 mg capsule 2 mg PO Q6H PRN Loose Stool 06/13/21 06/09/22 History (Anti-Diarrheal (loperamide)) melatonin 1 mg tablet 2 mg PO QHS PRN Insomnia 06/13/21 06/09/22 History acetaminophen 325 mg tablet 650 mg PO QID PRN Pain (Scale 01/16/22 06/09/22 History (Tylenol) Score 4-6) benzonatate 100 mg capsule 100 mg PO BID PRN Cough 01/16/22 06/09/22 History carvedilol 3.125 mg tablet 3.125 mg PO BID 01/16/22 06/09/22 History cholecalciferol (vitamin D3) 25 75 mcg PO DAILY 01/16/22 06/09/22 History mcg (1,000 un
[2022-06-09] MEDS: ALBUMIN HUMAN 5% 25 GM/500 ML BTL IV CONT (14:30)
[2022-06-09] MEDS: MAGNESIUM HYDROXIDE SUSP 30 ML UDC PO (14:40)
[2022-06-09] MEDS: HYDROcodone/acetaminophen (*CRX) 10-325 MG TABLET 1 TAB PO (14:40)
[2022-06-09 16:02] LABS: Troponin I 0.072 ng/mL (0.000-0.034)
[2022-06-09] MEDS: ALBUMIN HUMAN 25% 25 GM/100 ML 100 ML IVPB (17:05)
[2022-06-09] MEDS: GABAPENTIN 300 MG CAPSULE PO (17:08)
[2022-06-09] MEDS: ACETAMINOPHEN 325 MG TABLET 650 MG PO ×2 (17:13→22:06)
[2022-06-09] MEDS: PHENYTOIN SODIUM 100 MG EXTENDED RELEASE CAP 200 MG PO (20:16)
[2022-06-09] MEDS: LACTATED RINGERS 1,000 ML 75 ML IV CONT (21:00)
[2022-06-09 22:01] LABS: Anion Gap 7 mmol/L (8-16); Blood Urea Nitrogen 42 mg/dL (7-17); Carbon Dioxide 24 mmol/L (22-30); Chloride 102 mmol/L (98-107); Estimated CRCL calculation 45 ml/min; Estimated Glomerular Filt Rate 53; Glucose 112 mg/dL (65-110); Potassium 4.1 mmol/L (3.4-5.0); Sodium 133 mmol/L (137-145)
[2022-06-09 22:16] LABS: Troponin I 0.115 ng/mL (0.000-0.034)
[2022-06-10] VITALS (14 sets, daily range): BP systolic 133–176; BP diastolic 38–81; PULSE 78–101; RESP 14–20; TEMP 36.6–39.1; O2SAT 94–98
[2022-06-10] MEDS: MELATONIN 3 MG TABLET PO (00:07)
[2022-06-10] MEDS: ALBUMIN HUMAN 25% 25 GM/100 ML 100 ML IVPB ×2 (00:07→05:21)
[2022-06-10] MEDS: HYDROcodone/acetaminophen (*CRX) 10-325 MG TABLET 1 TAB PO ×4 (02:37→17:09)
[2022-06-10] MEDS: LEVOTHYROXINE SODIUM 100 MCG TABLET PO (05:23)
[2022-06-10 05:56] LABS: Hematocrit 30.3 % (37.0-47.0); Hemoglobin 9.7 g/dL (12.0-15.0); Immature Platelet Fraction Pct 11.7 % (0.9-11.2); Mean Corpuscular Hemoglobin 30.6 pg (26-34); Mean Corpuscular Volume 95.6 fl (80-100); Mean Platelet Volume 12.6 fl (7.4-10.4); Platelet Count Result 53 k/mm3 (150-375); Red Blood Count 3.17 M/mm3 (4.2-5.4); Red Cell Distribution Width 14.8 % (11.5-14.5); White Blood Count 19.4 K/mm3 (4.5-10.0)
[2022-06-10 06:04] LABS: Alanine Aminotransferase 34 U/L (6-35); Albumin Level 3.6 g/dL (3.5-5.1); Alkaline Phosphatase 129 U/L (38-126); Anion Gap 5 mmol/L (8-16); Aspartate Amino Transferase 65 U/L (14-36); Bilirubin,Total 0.9 mg/dL (0.2-1.3); Blood Urea Nitrogen 50 mg/dL (7-17); Calcium 8.1 mg/dL (8.4-10.2); Carbon Dioxide 25 mmol/L (22-30); Chloride 103 mmol/L (98-107); Estimated CRCL calculation 50 ml/min; Estimated Glomerular Filt Rate 60; Glucose 122 mg/dL (65-110); Magnesium 1.8 mg/dL (1.6-2.3); Potassium 3.9 mmol/L (3.4-5.0); Sodium 133 mmol/L (137-145)
[2022-06-10] MEDS: MAGNESIUM SULF 1 GM/D5W 100 ML 1 GM/100 ML BAG IVPB (08:48)
[2022-06-10] MEDS: ASPIRIN 81 MG ENTERIC TABLET PO (08:51)
[2022-06-10] MEDS: FOLIC ACID 1 MG TABLET PO (08:51)
[2022-06-10] MEDS: POLYSACCHARIDE IRON COMPLEX 150 MG CAPSULE PO (08:51)
[2022-06-10] MEDS: PHENYTOIN SODIUM 100 MG EXTENDED RELEASE CAP 200 MG PO ×2 (08:52→21:06)
[2022-06-10] MEDS: EZETIMIBE 10 MG TABLET PO (08:53)
[2022-06-10] MEDS: CHOLECALCIFEROL 1,000 UNITS TABLET 3000 UNITS PO (08:53)
[2022-06-10] MEDS: guaiFENesin 12 HR 600 MG TABCR PO (08:53)
[2022-06-10] MEDS: THERAPEUTIC MULTIVITAMINS/MINERALS TAB (*BKC) 1 TABLET PO (08:53)
[2022-06-10] MEDS: ATORVASTATIN 40 MG TABLET 80 MG PO (08:53)
[2022-06-10] MEDS: GABAPENTIN 300 MG CAPSULE PO ×2 (08:54→17:09)
[2022-06-10] MEDS: LORATADINE 10 MG TABLET PO (08:54)
[2022-06-10] MEDS: CLOPIDOGREL BISULFATE 75 MG TABLET PO (08:55)
--- NOTE | 2022-06-10 09:06 | WPDINTPN ---
Progress Note: A&P Assessment and Plan (1) Septic shock: Code(s): A41.9 - Sepsis, unspecified organism; R65.21 - Severe sepsis with septic shock Status: Acute Assessment and Plan: Patient has history of frequent UTIs and her last admission was in December of this year when she grew multidrug resistant E coli in her urine Patient received 2 L of IV fluid bolus in the ED and was treated with Levophed infusion Levophed has been weaned off and blood pressures improved patient is tolerating p.o. diet and I will discontinue IV fluids. Urine and blood cultures Are ordered and pending continue Empiric imipenem and I will add nitrofurantoin as patient is still febrile (2) UTI (urinary tract infection): Code(s): N39.0 - Urinary tract infection, site not specified Status: Acute Assessment and Plan: See above (3) Thrombocytopenia: Code(s): D69.6 - Thrombocytopenia, unspecified Status: Acute Assessment and Plan: Patient has history of chronic thrombocytopenia continue to Hold Lovenox Monitor levels at this time (4) GERD (gastroesophageal reflux disease): Qualifiers: Esophagitis presence: without esophagitis Qualified Code(s): K21.9 - Gastro-esophageal reflux disease without esophagitis Code(s): K21.9 - Gastro-esophageal reflux disease without esophagitis Status: Chronic Assessment and Plan: PPI (5) Hyperlipidemia: Qualifiers: Hyperlipidemia type: mixed hyperlipidemia Qualified Code(s): E78.2 - Mixed hyperlipidemia Code(s): E78.5 - Hyperlipidemia, unspecified Status: Chronic Assessment and Plan: Continue statin (6) Hypothyroidism (acquired): Code(s): E03.9 - Hypothyroidism, unspecified Status: Chronic Assessment and Plan: Continue levothyroxine normalTSH (7) Seizure disorder: Code(s): G40.909 - Epilepsy, unspecified, not intractable, without status epilepticus Status: Chronic Assessment and Plan: Continue home dose of phenytoin (8) Elevated troponin: Code(s): R77.8 - Other specified abnormalities of plasma proteins Status: Acute Assessment and Plan: Mildly elevated troponin presentation in the ED EKG nonspecific changes Patient does have history of coronary disease denies any chest pain or anginal symptoms Likely type 2 secondary to septic shock serial troponins remained flat Continue home aspirin and Plavix resume beta-gabi and WINSTON-inhibitor since blood pressures improved and patient is now off vasopressors (9) Hypokalemia: Code(s): E87.6 - Hypokalemia Status: Acute Assessment and Plan: Patient received 40 mEq of potassium chloride ER. potassium level is in normal range down (10) Acute kidney injury: Code(s): N17.9 - Acute kidney failure, unspecified Status: Acute Assessment and Plan: Creatinine elevated at 1.3 likely prerenal secondary to septic shock resolved with IV fluids Monitor urine output electrolytes and creatinine unremarkable renal ultrasound (11) Abnormal chest x-ray: Code(s): R93.89 - Abnormal findings on diagnostic imaging of other specified body structures Status: Acute Assessment and Plan: Patient had a central venous catheter placed in ER and the tip appears to be looped in superior Vena cava. patient's central line was power flushed and it resolved the issue (12) Diarrhea: Code(s): R19.7 - Diarrhea, unspecified Status: Acute Assessment and Plan: as patient is a senior care resident I will check C diff. start empiric p.o. vancomycin until results of PEG (13) Hematuria: Code(s): R31.9 - Hematuria, unspecified Status: Acute Assessment and Plan: patient has UTI and also has thrombocytopenia she is not on anticoagulation which he is on aspirin Plavix for coronary disease which I will continue for now monitor. If pe
--- NOTE | 2022-06-10 10:43 | PM.IMPN ---
Progress Note: A&P Assessment and Plan (1) Septic shock: Code(s): A41.9 - Sepsis, unspecified organism; R65.21 - Severe sepsis with septic shock Status: Acute Assessment and Plan: Patient has history of frequent UTIs and her last admission was in December of this year when she grew multidrug resistant E coli in her urine Patient received 2 L of IV fluid bolus in the ED and was treated with Levophed infusion Blood pressure stabilized. Levophed has been discontinued and blood pressures improved patient is tolerating p.o. diet Urine and blood cultures are ordered and pending continue Empiric imipenem (2) UTI (urinary tract infection): Code(s): N39.0 - Urinary tract infection, site not specified Status: Acute Assessment and Plan: See above (3) Thrombocytopenia: Code(s): D69.6 - Thrombocytopenia, unspecified Status: Acute Assessment and Plan: Patient has history of chronic thrombocytopenia continue to Hold Lovenox Monitor levels at this time (4) GERD (gastroesophageal reflux disease): Qualifiers: Esophagitis presence: without esophagitis Qualified Code(s): K21.9 - Gastro-esophageal reflux disease without esophagitis Code(s): K21.9 - Gastro-esophageal reflux disease without esophagitis Status: Chronic Assessment and Plan: PPI (5) Hyperlipidemia: Qualifiers: Hyperlipidemia type: mixed hyperlipidemia Qualified Code(s): E78.2 - Mixed hyperlipidemia Code(s): E78.5 - Hyperlipidemia, unspecified Status: Chronic Assessment and Plan: Continue statin (6) Hypothyroidism (acquired): Code(s): E03.9 - Hypothyroidism, unspecified Status: Chronic Assessment and Plan: Continue levothyroxine normalTSH (7) Seizure disorder: Code(s): G40.909 - Epilepsy, unspecified, not intractable, without status epilepticus Status: Chronic Assessment and Plan: Continue home dose of phenytoin (8) Elevated troponin: Code(s): R77.8 - Other specified abnormalities of plasma proteins Status: Acute Assessment and Plan: Mildly elevated troponin EKG nonspecific changes Patient does have history of coronary disease denies any chest pain or anginal symptoms Likely type 2 secondary to septic shock Continue home aspirin and Plavix resume beta-gabi and WINSTON-inhibitor since blood pressures improved and patient is now off vasopressors (9) Hypokalemia: Code(s): E87.6 - Hypokalemia Status: Acute Assessment and Plan: Resolved (10) Acute kidney injury: Code(s): N17.9 - Acute kidney failure, unspecified Status: Acute Assessment and Plan: Creatinine elevated at 1.3 likely prerenal secondary to septic shock resolved with IV fluids Monitor urine output electrolytes and creatinine unremarkable renal ultrasound (11) Diarrhea: Code(s): R19.7 - Diarrhea, unspecified Status: Acute Assessment and Plan: as patient is a [facility] resident I will check C diff. start empiric p.o. vancomycin until results of C diff available (12) Hematuria: Code(s): R31.9 - Hematuria, unspecified Status: Acute Assessment and Plan: patient has UTI and also has thrombocytopenia she is not on anticoagulation which he is on aspirin Plavix for coronary disease which I will continue for now monitor. If persistent will hold antiplatelet agents. Additional Plan DVT prophylaxis -SCDs Stress ulcer prophylaxis -PPI Nutrition -heart healthy diet Code Status -patient is DNR DNI as per POLST form. Subjective Date/time seen: 06/10/22 10:43 Interval history: Patient states she is tired. She did not sleep well last night Exam Narrative: General: Pt is alert awake and in NAD Lungs/Chest: Trachea central Clear BS B/L, No crackles or wheezing. 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
[2022-06-10] MEDS: ACETAMINOPHEN 325 MG TABLET 650 MG PO (11:27)
[2022-06-10] MEDS: VANCOMYCIN ORAL 125 MG/2.5 ML SYRUP PO ×2 (11:27→18:09)
[2022-06-10] MEDS: carvediloL 3.125 MG TABLET PO ×2 (11:28→21:06)
[2022-06-10] MEDS: CENTRAL LINE FLUSH 10 ML IV PUSH ×3 (13:24→21:10)
[2022-06-10 14:27] LABS: Toxigenic C. Diff POSITIVE (NEGATIVE)
--- NOTE | 2022-06-10 15:32 | PC.NURSE ---
Notified by [facility] that Patient's blood cultures had preliminary results of POSITIVE for Gram NEGATIVE RODS in PEDI BOTTLE ONLY. NOTIFIED. Will continue to monitor
--- NOTE | 2022-06-10 17:52 | PCDIET ---
This patient, Delia Lopez, was transferred to [facility] on 06/10/22 at 1742. Personal belongings sent with patient. Report given to Dalia KAUR. Appropriate documentation sent with patient.
[2022-06-11] VITALS (8 sets, daily range): BP systolic 116–133; BP diastolic 61–78; PULSE 74–98; RESP 18; TEMP 36.3–36.4; O2SAT 90–98
[2022-06-11] MEDS: VANCOMYCIN ORAL 125 MG/2.5 ML SYRUP PO ×5 (00:09→23:25)
[2022-06-11] MEDS: CENTRAL LINE FLUSH 10 ML IV PUSH ×3 (06:04→21:21)
[2022-06-11] MEDS: LEVOTHYROXINE SODIUM 100 MCG TABLET PO (06:04)
[2022-06-11 06:33] LABS: Hematocrit 27.3 % (37.0-47.0); Hemoglobin 8.7 g/dL (12.0-15.0); Mean Corpuscular HGB Conc 31.9 g/dl (32-36); Mean Corpuscular Hemoglobin 30.4 pg (26-34); Mean Corpuscular Volume 95.5 fl (80-100); Mean Platelet Volume 12.8 fl (7.4-10.4); Platelet Count Result 56 k/mm3 (150-375); Red Blood Count 2.86 M/mm3 (4.2-5.4); Red Cell Distribution Width 14.6 % (11.5-14.5); White Blood Count 14.8 K/mm3 (4.5-10.0)
[2022-06-11 06:45] LABS: Alanine Aminotransferase 26 U/L (6-35); Albumin Level 3.4 g/dL (3.5-5.1); Alkaline Phosphatase 119 U/L (38-126); Anion Gap 4 mmol/L (8-16); Aspartate Amino Transferase 50 U/L (14-36); Bilirubin,Total 0.8 mg/dL (0.2-1.3); Blood Urea Nitrogen 50 mg/dL (7-17); Calcium 8.3 mg/dL (8.4-10.2); Carbon Dioxide 28 mmol/L (22-30); Chloride 101 mmol/L (98-107); Estimated CRCL calculation 65 ml/min; Estimated Glomerular Filt Rate > 60; Glucose 120 mg/dL (65-110); Potassium 3.2 mmol/L (3.4-5.0); Sodium 133 mmol/L (137-145)
[2022-06-11] MEDS: PHENYTOIN SODIUM 100 MG EXTENDED RELEASE CAP 200 MG PO ×2 (09:53→21:19)
[2022-06-11] MEDS: CHOLECALCIFEROL 1,000 UNITS TABLET 3000 UNITS PO (09:54)
[2022-06-11] MEDS: EZETIMIBE 10 MG TABLET PO (09:54)
[2022-06-11] MEDS: GABAPENTIN 300 MG CAPSULE PO ×2 (09:54→17:17)
[2022-06-11] MEDS: ATORVASTATIN 40 MG TABLET 80 MG PO (09:56)
[2022-06-11] MEDS: THERAPEUTIC MULTIVITAMINS/MINERALS TAB (*BKC) 1 TABLET PO (09:56)
[2022-06-11] MEDS: carvediloL 3.125 MG TABLET PO ×2 (09:57→21:19)
[2022-06-11] MEDS: FOLIC ACID 1 MG TABLET PO (09:57)
[2022-06-11] MEDS: POLYSACCHARIDE IRON COMPLEX 150 MG CAPSULE PO (09:58)
[2022-06-11] MEDS: LORATADINE 10 MG TABLET PO (09:58)
--- NOTE | 2022-06-11 11:02 | PM.IMPN ---
Progress Note: A&P Assessment and Plan (1) Septic shock: Code(s): A41.9 - Sepsis, unspecified organism; R65.21 - Severe sepsis with septic shock Status: Acute Assessment and Plan: Patient has history of frequent UTIs and her last admission was in December of this year when she grew multidrug resistant E coli in her urine Sepsis now resolved blood present on admission Continue ertapenem (2) UTI (urinary tract infection): Code(s): N39.0 - Urinary tract infection, site not specified Status: Acute Assessment and Plan: IV ertapenem (3) Thrombocytopenia: Code(s): D69.6 - Thrombocytopenia, unspecified Status: Acute Assessment and Plan: Patient has history of chronic thrombocytopenia continue to Hold Lovenox Monitor levels at this time (4) GERD (gastroesophageal reflux disease): Qualifiers: Esophagitis presence: without esophagitis Qualified Code(s): K21.9 - Gastro-esophageal reflux disease without esophagitis Code(s): K21.9 - Gastro-esophageal reflux disease without esophagitis Status: Chronic Assessment and Plan: PPI (5) Hyperlipidemia: Qualifiers: Hyperlipidemia type: mixed hyperlipidemia Qualified Code(s): E78.2 - Mixed hyperlipidemia Code(s): E78.5 - Hyperlipidemia, unspecified Status: Chronic Assessment and Plan: Continue statin (6) Hypothyroidism (acquired): Code(s): E03.9 - Hypothyroidism, unspecified Status: Chronic Assessment and Plan: Continue levothyroxine normalTSH (7) Seizure disorder: Code(s): G40.909 - Epilepsy, unspecified, not intractable, without status epilepticus Status: Chronic Assessment and Plan: Continue home dose of phenytoin (8) Elevated troponin: Code(s): R77.8 - Other specified abnormalities of plasma proteins Status: Acute Assessment and Plan: Likely related to sepsis and type 2 [place]. No chest pain (9) Hypokalemia: Code(s): E87.6 - Hypokalemia Status: Acute Assessment and Plan: Resolved (10) Acute kidney injury: Code(s): N17.9 - Acute kidney failure, unspecified Status: Acute Assessment and Plan: Monitor (11) Diarrhea: Code(s): R19.7 - Diarrhea, unspecified Status: Acute Assessment and Plan: C diff positive, continue oral vanc (12) Hematuria: Code(s): R31.9 - Hematuria, unspecified Status: Acute Assessment and Plan: patient has UTI and also has thrombocytopenia she is not on anticoagulation which he is on aspirin Plavix for coronary disease which I will continue for now monitor. If persistent will hold antiplatelet agents. Additional Plan DVT prophylaxis -SCDs Stress ulcer prophylaxis -PPI Nutrition -heart healthy diet Code Status -patient is DNR DNI as per POLST form. Subjective Date/time seen: 06/11/22 11:02 Alert and responsive. Feeling much better. Denies complaints of pain Exam Narrative: General: Pt is alert awake and in NAD Lungs/Chest: Trachea central Clear BS B/L, No crackles or wheezing. 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 Normal S1 S2. No murmurs Circulation: Pedal pulses are intact and symmetrical. Abdomen: Normal bowel sounds.. Soft. ND. Mild tenderness to palpation hypogastric area Extremities: No clubbing, cyanosis or edema. Warm : Pulliam in place hematuria present Neurologic: Follows commands. patient is AO x3 Skin: redness on left antecubital area is improved Objective Data Vital Signs Vital Signs: Vital Signs - 24 hr 06/10/22 11:27 06/10/22 11:28 06/10/22 12:27 Temperature 101.0 F H 100.2 F H Pulse Rate 93 Respiratory Rate Blood Pressure Pulse Oximetry Oxygen Delivery Oxygen Flow Rate 06/10/22 16:00 06/10/22 17:22 06/10/22 18:16 Temperature 99.1 F 97.9 F Pulse Rate 78 79 Respiratory Rate 14
[2022-06-11] MEDS: ERTAPENEM 1 GM/NS 50 ML 1 GM/50 ML BAG IVPB (11:35)
[2022-06-12 06:00] VITALS: BP 113/60; PULSE 70; RESP 16; TEMP 36.3; O2SAT 96
[2022-06-12] MEDS: LEVOTHYROXINE SODIUM 100 MCG TABLET PO (06:12)
[2022-06-12] MEDS: VANCOMYCIN ORAL 125 MG/2.5 ML SYRUP PO ×4 (06:12→23:36)
[2022-06-12] MEDS: CENTRAL LINE FLUSH 10 ML IV PUSH ×3 (06:12→21:31)
[2022-06-12 06:42] LABS: Hematocrit 27.6 % (37.0-47.0); Hemoglobin 8.8 g/dL (12.0-15.0); Mean Corpuscular HGB Conc 31.9 g/dl (32-36); Mean Corpuscular Hemoglobin 30.3 pg (26-34); Mean Corpuscular Volume 95.2 fl (80-100); Mean Platelet Volume 12.4 fl (7.4-10.4); Platelet Count Result 66 k/mm3 (150-375); Red Cell Distribution Width 14.6 % (11.5-14.5); White Blood Count 10.6 K/mm3 (4.5-10.0)
[2022-06-12] MEDS: THERAPEUTIC MULTIVITAMINS/MINERALS TAB (*BKC) 1 TABLET PO (09:34)
[2022-06-12] MEDS: FOLIC ACID 1 MG TABLET PO (09:35)
[2022-06-12] MEDS: GABAPENTIN 300 MG CAPSULE PO ×2 (09:35→17:04)
[2022-06-12] MEDS: CHOLECALCIFEROL 1,000 UNITS TABLET 3000 UNITS PO (09:35)
[2022-06-12] MEDS: EZETIMIBE 10 MG TABLET PO (09:35)
[2022-06-12] MEDS: PHENYTOIN SODIUM 100 MG EXTENDED RELEASE CAP 200 MG PO ×2 (09:35→21:31)
[2022-06-12 09:36] VITALS: PULSE 78
[2022-06-12] MEDS: carvediloL 3.125 MG TABLET PO ×2 (09:36→21:31)
[2022-06-12] MEDS: ATORVASTATIN 40 MG TABLET 80 MG PO (09:36)
[2022-06-12] MEDS: LORATADINE 10 MG TABLET PO (09:36)
[2022-06-12] MEDS: POLYSACCHARIDE IRON COMPLEX 150 MG CAPSULE PO (09:36)
--- NOTE | 2022-06-12 11:07 | PM.IMPN ---
Progress Note: A&P Assessment and Plan (1) Septic shock: Code(s): A41.9 - Sepsis, unspecified organism; R65.21 - Severe sepsis with septic shock Status: Acute Assessment and Plan: Patient has history of frequent UTIs and her last admission was in December of this year when she grew multidrug resistant E coli in her urine Sepsis now resolved blood present on admission Continue ertapenem (2) UTI (urinary tract infection): Code(s): N39.0 - Urinary tract infection, site not specified Status: Acute Assessment and Plan: IV ertapenem (3) Thrombocytopenia: Code(s): D69.6 - Thrombocytopenia, unspecified Status: Acute Assessment and Plan: Patient has history of chronic thrombocytopenia continue to Hold Lovenox Monitor levels at this time (4) GERD (gastroesophageal reflux disease): Qualifiers: Esophagitis presence: without esophagitis Qualified Code(s): K21.9 - Gastro-esophageal reflux disease without esophagitis Code(s): K21.9 - Gastro-esophageal reflux disease without esophagitis Status: Chronic Assessment and Plan: PPI (5) Hyperlipidemia: Qualifiers: Hyperlipidemia type: mixed hyperlipidemia Qualified Code(s): E78.2 - Mixed hyperlipidemia Code(s): E78.5 - Hyperlipidemia, unspecified Status: Chronic Assessment and Plan: Continue statin (6) Hypothyroidism (acquired): Code(s): E03.9 - Hypothyroidism, unspecified Status: Chronic Assessment and Plan: Continue levothyroxine normalTSH (7) Seizure disorder: Code(s): G40.909 - Epilepsy, unspecified, not intractable, without status epilepticus Status: Chronic Assessment and Plan: Continue home dose of phenytoin (8) Elevated troponin: Code(s): R77.8 - Other specified abnormalities of plasma proteins Status: Acute Assessment and Plan: Likely related to sepsis and type 2 [place]. No chest pain (9) Hypokalemia: Code(s): E87.6 - Hypokalemia Status: Acute Assessment and Plan: Resolved (10) Acute kidney injury: Code(s): N17.9 - Acute kidney failure, unspecified Status: Acute Assessment and Plan: Monitor (11) Diarrhea: Code(s): R19.7 - Diarrhea, unspecified Status: Acute Assessment and Plan: C diff positive, continue oral vanc (12) Hematuria: Code(s): R31.9 - Hematuria, unspecified Status: Acute Assessment and Plan: patient has UTI and also has thrombocytopenia she is not on anticoagulation which he is on aspirin Plavix for coronary disease which I will continue for now monitor. If persistent will hold antiplatelet agents. Additional Plan DVT prophylaxis -SCDs Stress ulcer prophylaxis -PPI Nutrition -heart healthy diet Code Status -patient is DNR DNI as per POLST form. Subjective Date/time seen: 06/12/22 11:07 No complaints Exam Narrative: General: Pt is alert awake and in NAD Lungs/Chest: Trachea central Clear BS B/L, No crackles or wheezing. 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 Normal S1 S2. No murmurs Circulation: Pedal pulses are intact and symmetrical. Abdomen: Normal bowel sounds.. Soft. ND. Mild tenderness to palpation hypogastric area Extremities: No clubbing, cyanosis or edema. Warm : Pulliam in place hematuria present Neurologic: Follows commands. patient is AO x3 Skin: redness on left antecubital area is improved Objective Data Vital Signs Vital Signs: Vital Signs - 24 hr 06/11/22 13:58 06/11/22 13:59 06/11/22 21:19 Temperature 97.4 F L Pulse Rate 74 98 Respiratory Rate 18 Blood Pressure 123/61 Pulse Oximetry 91 97 Oxygen Delivery Nasal Cannula Oxygen Flow Rate 2 06/11/22 22:00 06/11/22 20:00 06/12/22 06:00 Temperature 97.6 F 97.3 F L Pulse Rate 80 70 Respiratory Rate 18 16 Blood Pressure 116/78 113/60 P
[2022-06-12] MEDS: ERTAPENEM 1 GM/NS 50 ML 1 GM/50 ML BAG IVPB (12:05)
[2022-06-12 14:00] VITALS: BP 120/65; PULSE 76; RESP 16; TEMP 36.9; O2SAT 98
[2022-06-12] MEDS: LOPERAMIDE HCL 2 MG CAPSULE PO (15:12)
[2022-06-12 20:00] VITALS: PULSE 82; RESP 18; O2SAT 94
[2022-06-12 21:31] VITALS: PULSE 76
[2022-06-12 22:00] VITALS: BP 136/50; PULSE 82; RESP 18; TEMP 36.6; O2SAT 94
[2022-06-13 05:19] LABS: Hematocrit 25.9 % (37.0-47.0); Hemoglobin 8.1 g/dL (12.0-15.0); Immature Platelet Fraction Pct 8.1 % (0.9-11.2); Mean Corpuscular HGB Conc 31.3 g/dl (32-36); Mean Corpuscular Hemoglobin 30.3 pg (26-34); Mean Platelet Volume 11.6 fl (7.4-10.4); Platelet Count Result 82 k/mm3 (150-375); Red Blood Count 2.67 M/mm3 (4.2-5.4); Red Cell Distribution Width 14.9 % (11.5-14.5); White Blood Count 10.2 K/mm3 (4.5-10.0)
[2022-06-13 05:24] VITALS: BP 117/52; PULSE 84; RESP 20; TEMP 37.1; O2SAT 95
[2022-06-13 05:31] LABS: Alanine Aminotransferase 26 U/L (6-35); Albumin Level 2.8 g/dL (3.5-5.1); Alkaline Phosphatase 116 U/L (38-126); Anion Gap 3 mmol/L (8-16); Aspartate Amino Transferase 54 U/L (14-36); Bilirubin,Total 0.5 mg/dL (0.2-1.3); Blood Urea Nitrogen 33 mg/dL (7-17); Calcium 7.9 mg/dL (8.4-10.2); Carbon Dioxide 31 mmol/L (22-30); Chloride 102 mmol/L (98-107); Estimated CRCL calculation 65 ml/min; Estimated Glomerular Filt Rate > 60; Glucose 89 mg/dL (65-110); Magnesium 1.8 mg/dL (1.6-2.3); Sodium 136 mmol/L (137-145)
[2022-06-13] MEDS: VANCOMYCIN ORAL 125 MG/2.5 ML SYRUP PO (05:47)
[2022-06-13] MEDS: CENTRAL LINE FLUSH 10 ML IV PUSH (05:47)
[2022-06-13] MEDS: LEVOTHYROXINE SODIUM 100 MCG TABLET PO (05:47)
[2022-06-13] MEDS: POLYSACCHARIDE IRON COMPLEX 150 MG CAPSULE PO (09:22)
[2022-06-13] MEDS: CHOLECALCIFEROL 1,000 UNITS TABLET 3000 UNITS PO (09:22)
[2022-06-13] MEDS: guaiFENesin 12 HR 600 MG TABCR PO (09:22)
[2022-06-13] MEDS: GABAPENTIN 300 MG CAPSULE PO (09:22)
[2022-06-13] MEDS: LOPERAMIDE HCL 2 MG CAPSULE PO (09:22)
[2022-06-13 09:23] VITALS: PULSE 83
[2022-06-13] MEDS: THERAPEUTIC MULTIVITAMINS/MINERALS TAB (*BKC) 1 TABLET PO (09:23)
[2022-06-13] MEDS: carvediloL 3.125 MG TABLET PO (09:23)
[2022-06-13] MEDS: ATORVASTATIN 40 MG TABLET 80 MG PO (09:23)
[2022-06-13] MEDS: PHENYTOIN SODIUM 100 MG EXTENDED RELEASE CAP 200 MG PO (09:24)
[2022-06-13] MEDS: LORATADINE 10 MG TABLET PO (09:24)
[2022-06-13] MEDS: ASPIRIN 81 MG ENTERIC TABLET PO (09:24)
[2022-06-13] MEDS: EZETIMIBE 10 MG TABLET PO (09:24)
[2022-06-13] MEDS: FOLIC ACID 1 MG TABLET PO (09:24)
[2022-06-13] MEDS: BENZONATATE 100 MG CAPSULE PO (09:24)
[2022-06-13] MEDS: CLOPIDOGREL BISULFATE 75 MG TABLET PO (09:24)
--- NOTE | 2022-06-13 11:45 | PM.DS ---
DS: Admitting Diagnosis Discharge Date June 13, 2022 Admitting Diagnosis UTI can CDiff DS: Discharge Diagnosis Discharge Diagnosis (1) Septic shock: Code(s): A41.9 - Sepsis, unspecified organism; R65.21 - Severe sepsis with septic shock Status: Acute Assessment and Plan: Patient has history of frequent UTIs and her last admission was in December of this year when she grew multidrug resistant E coli in her urine Sepsis now resolved blood present on admission Continue ertapenem (2) UTI (urinary tract infection): Code(s): N39.0 - Urinary tract infection, site not specified Status: Acute Assessment and Plan: Nitrofurantoin on discharge. (3) Thrombocytopenia: Code(s): D69.6 - Thrombocytopenia, unspecified Status: Acute Assessment and Plan: Patient has history of chronic thrombocytopenia continue to Hold Lovenox Monitor levels at this time (4) GERD (gastroesophageal reflux disease): Qualifiers: Esophagitis presence: without esophagitis Qualified Code(s): K21.9 - Gastro-esophageal reflux disease without esophagitis Code(s): K21.9 - Gastro-esophageal reflux disease without esophagitis Status: Chronic Assessment and Plan: PPI (5) Hyperlipidemia: Qualifiers: Hyperlipidemia type: mixed hyperlipidemia Qualified Code(s): E78.2 - Mixed hyperlipidemia Code(s): E78.5 - Hyperlipidemia, unspecified Status: Chronic Assessment and Plan: Continue statin (6) Hypothyroidism (acquired): Code(s): E03.9 - Hypothyroidism, unspecified Status: Chronic Assessment and Plan: Continue levothyroxine normalTSH (7) Seizure disorder: Code(s): G40.909 - Epilepsy, unspecified, not intractable, without status epilepticus Status: Chronic Assessment and Plan: Continue home dose of phenytoin (8) Elevated troponin: Code(s): R77.8 - Other specified abnormalities of plasma proteins Status: Acute Assessment and Plan: Likely related to sepsis and type 2 [place]. No chest pain (9) Hypokalemia: Code(s): E87.6 - Hypokalemia Status: Acute Assessment and Plan: Resolved (10) Acute kidney injury: Code(s): N17.9 - Acute kidney failure, unspecified Status: Acute Assessment and Plan: Monitor (11) Diarrhea: Code(s): R19.7 - Diarrhea, unspecified Status: Acute Assessment and Plan: C diff positive, continue oral vanc (12) Hematuria: Code(s): R31.9 - Hematuria, unspecified Status: Acute Assessment and Plan: patient has UTI and also has thrombocytopenia she is not on anticoagulation which he is on aspirin Plavix for coronary disease which I will continue for now monitor. If persistent will hold antiplatelet agents. DS: Summary Hospital Course Hospital Course: See discharge plan and diagnoses Time Spent with Patient Time attestation: Total time spent providing and/or coordinating discharge services: Exam Narrative: General: Pt is alert awake and in NAD Lungs/Chest: Trachea central Clear BS B/L, No crackles or wheezing. 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 Normal S1 S2. No murmurs Circulation: Pedal pulses are intact and symmetrical. Abdomen: Normal bowel sounds.. Soft. ND. Mild tenderness to palpation hypogastric area Extremities: No clubbing, cyanosis or edema. Warm : Pulliam in place hematuria present Neurologic: Follows commands. patient is AO x3 Skin: redness on left antecubital area is improved DS: Data Data Completed and Pending Labs on day of discharge: Labs from last 24 hours 06/13/22 06/13/22 06/13/22 11:38 05:07 05:07 WBC 10.2 H RBC 2.67 L Hgb 8.1 L Hct 25.9 L MCV 97.0 MCH 30.3 MCHC 31.3 L RDW 14.9 H Plt Count 82 L MPV 11.6 H % Immature Plt Fraction 8.1 Sodium 136 L Potass
[2022-06-13 11:58] LABS: EDCOVIDSCREEN Negative (Negative)
== END 2022-06-13 13:30 | DRG 871 ==
LOC: ANHICU 06-10 14:38 → ANH3MEDSUR 06-11 09:12 → ANHICU 06-17 06:12
PROVIDERS: Admitting Provider Internal Medicine; PCP Family Medicine; Visit Provider Chiropractor
DX: A41.9 Sepsis, unspecified organism (principal); I21.A1 Myocardial infarction type 2; R65.21 Severe sepsis with septic shock; A04.72 Enterocolitis due to Clostridium difficile, not specified as recurrent; N39.0 Urinary tract infection, site not specified; N17.9 Acute kidney failure, unspecified; D69.6 Thrombocytopenia, unspecified; I25.10 Atherosclerotic heart disease of native coronary artery without angina pectoris; R31.9 Hematuria, unspecified; I10 Essential (primary) hypertension; Z20.822 Contact with and (suspected) exposure to COVID-19; Z66 Do not resuscitate; K21.9 Gastro-esophageal reflux disease without esophagitis; E78.2 Mixed hyperlipidemia; E03.9 Hypothyroidism, unspecified; G40.909 Epilepsy, unspecified, not intractable, without status epilepticus; E87.6 Hypokalemia; R77.8 Other specified abnormalities of plasma proteins; R93.89 Abnormal findings on diagnostic imaging of other specified body structures; G62.9 Polyneuropathy, unspecified; Z79.82 Long term (current) use of aspirin; Z79.899 Other long term (current) drug therapy; Z87.440 Personal history of urinary (tract) infections; Z87.891 Personal history of nicotine dependence
CPT/HCPCS: 36415; 71045; 76775; 80048; 80053; 83605; 83735; 83880; 84100; 84145; 84443; 84484; 85027; 85055; 87077; 87086; 87088; 87186; 87426; 87493; A9270; C9803; J0743; J1335; J3475; J3480; J7120; P9045; P9047

== ENCOUNTER 2022-06-16 07:45 | Inpatient (IN) | payer MEDICARE, SELFPAY ==
[2022-06-16] VITALS (10 sets, daily range): BP systolic 106–160; BP diastolic 41–100; PULSE 81–95; RESP 14–20; TEMP 36.2–39.3; O2SAT 92–97; BMI 43.2
--- NOTE | ~2022-06-16 | CT_ITS ---
EXAMINATION: CTA chest PE abdomen pel DATE: 06/23/2022 10:07 INDICATION: Hypoxia, elevated liver function tests TECHNIQUE: Computed tomography angiography (CTA) of the chest was performed with 100 mL Omnipaque-350 intravenous contrast timed to evaluate the pulmonary arteries. Subsequent postcontrast images of the abdomen and pelvis are obtained. Coronal maximum intensity projection 3D-reconstructions were create d by the technologist. The dose-length product (DLP) was 2212.91 mGy-cm. Automated exposure control a nd iterative reconstruction technique were employed. COMPARISON: 01/15/2022 FINDINGS: CTA CHEST: The pulmonary arteries are well-opacified. No pulmonary embolism is identified. There are small pleural effusions. Changes of coronary artery bypass grafting are noted. There are dependent ai rspace opacities in the lower lobes and right middle lobe. Cardiomegaly is noted. There are no pathol ogically enlarged thoracic lymph nodes. There is severe thoracic spondylosis. ABDOMEN/PELVIS CT: The gallbladder is surgically absent. The liver, spleen, pancreas, and right adren al gland are normal. A stable adenoma is again noted in the left adrenal gland. There is a 2 cm cyst of the right kidney. The left kidney is unremarkable. No pathologically enlarged abdominal or pelvic lymph nodes are identified. There is calcified atherosclerosis of the aorta and many of the other art eries. There is no free intraperitoneal gas or evidence of bowel obstruction. Again noted is chronic mild wall thickening of the urinary bladder. There is a tiny umbilical hernia containing fat. Severe lumbar spondylosis is noted. There is a chronic compression deformity of L1. A small amount of fluid is noted in the endometrial canal of unclear significance. IMPRESSION: 1. No pulmonary embolus identified. 2. Small pleural effusions. 3. Dependent airspace opacities in the lower lobes and right middle lobe, consistent with atelectasis and pneumonia. 4. Cardiomegaly. 5. Mild chronic wall thickening of the urinary bladder which could reflect chronic cystitis. Reviewed, dictated and finalized at location B. IMPRESSION: 1. No pulmonary embolus identified. 2. Small pleural effusions. 3. Dependent airspace opacities in the lower lobes and right middle lobe, consi stent with atelectasis and pneumonia. 4. Cardiomegaly. 5. Mild chronic wall thickening of the urinary bladder which could reflect airplane cleaner yee cystitis.
--- NOTE | ~2022-06-16 | US_ITS ---
EXAMINATION: US venous doppler [facility] DATE: 06/23/2022 13:55 INDICATION: Bilateral lower limb edema TECHNIQUE: Lerma scale images without and with compression and Doppler images of the bilateral lower e xtremity veins were obtained. COMPARISON: 11/14/2018 FINDINGS: The right common femoral vein, profunda femoral vein, femoral vein, popliteal vein, peroneal trunk, p osterior tibial veins, and greater saphenous vein are patent. The left common femoral vein, profunda femoral vein, femoral vein, popliteal vein, peroneal trunk, po sterior tibial veins, and greater saphenous vein are patent. IMPRESSION: 1. Patent bilateral lower extremity veins. No evidence of deep venous thrombosis. Reviewed, dictated and finalized at location B. IMPRESSION: 1. Patent bilateral lower extremity veins. No evidence of deep venous thrombosi s.
--- NOTE | ~2022-06-16 | XR_ITS ---
EXAMINATION: XR chest 2V DATE: 06/18/2022 13:25 INDICATION: Hypoxia. TECHNIQUE: Frontal and lateral views of the chest were obtained. COMPARISON: Chest single view 06/10/2022 FINDINGS: There are small pleural effusions. There is a diffuse interstitial pattern, consistent with mild pulmonary edema. No pneumothorax. Cardiomegaly is noted. Median sternotomy wires and mediastina l surgical clips are seen, likely from prior coronary artery bypass grafting. IMPRESSION: 1. Mild pulmonary edema with small pleural effusions. 2. Cardiomegaly. Reviewed, dictated and finalized at location A.
--- NOTE | ~2022-06-16 | XR_ITS ---
XR chest 2V 06/22/2022 09:50 Indication: Fever. Shortness of breath. Procedure: AP and lateral views of the chest Comparison: Comparison to multiple prior studies sequentially, with oldest reviewed study dated 06/10. Findings: There is cardiomegaly. Status post median sternotomy for CABG. Small pleural effusions. Bib asilar atelectasis. No edema or pneumothorax. There are degenerative changes of both shoulders. Impression: 1: Small bilateral pleural effusions with underlying atelectasis. 2: Cardiomegaly. Reviewed, dictated and finalized at location A. Impression: 1: Small bilateral pleural effusions with underlying atelectasis. 2: Cardiomegaly.
--- NOTE | ~2022-06-16 | XR_ITS ---
XR chest 2V 06/24/2022 09:47 Indication: Hypoxia Procedure: 2 view chest Comparison: Comparison to multiple prior studies sequentially, with oldest reviewed study dated 06/09. Findings: Status post median sternotomy for CABG. Cardiomegaly. Mild interstitial edema. Small pleura l effusions. Impression: 1: Mild interstitial edema with small pleural effusions. 2: Cardiomegaly. Reviewed, dictated and finalized at location A. Impression: 1: Mild interstitial edema with small pleural effusions. 2: Cardiomegaly.
[2022-06-16 08:12] LABS: Appearance Urine Slightly Cloudy (Clear); Bilirubin Urine Negative (Negative); Blood Urine 3+ (Negative); Color Urine Yellow (Yellow); Glucose Urine UA Negative (Negative); Ketones Urine Negative (Negative); Leukocyte Esterase Ur 1+ LEU/UL (Negative); Nitrate Urine Negative (Negative); Protein Urine 1+ mg/dL (Negative); Specific Grav Ur 1.015 (1.001-1.035); Urobilinogen Urine 0.2 mg/dL (<2.0)
[2022-06-16 08:16] LABS: Basophils Absolute Auto 0.1 K/mm3 (0.0-0.1); Basophils Percent Auto 0.4 % (0.2-1.2); Eosinophils Absolute Auto 0.1 K/mm3 (0-0.3); Eosinophils Percent Auto 0.3 % (0-4.4); Hematocrit 29.4 % (37.0-47.0); Hemoglobin 9.4 g/dL (12.0-15.0); Immature Granulocyte Absolute 0.76 K/mm3 (0.00-0.031); Immature Granulocyte Percent A 2.6 % (0-0.5); Lymphocytes Absolute Auto 2.18 K/mm3 (0.9-3.2); Lymphocytes Percent Auto 7.5 % (18.3-44.2); Mean Corpuscular Hemoglobin 30.7 pg (26-34); Mean Corpuscular Volume 96.1 fl (80-100); Mean Platelet Volume 11.9 fl (7.4-10.4); Monocytes Absolute Auto 2.3 K/mm3 (0.1-0.6); Monocytes Percent Auto 7.9 % (2.6-8.5); Neutrophils Absolute Auto 23.6 K/mm3 (1.3-6.7); Neutrophils Percent Auto 81.3 % (45.5-73.1); Platelet Count Result 155 k/mm3 (150-375); Red Blood Count 3.06 M/mm3 (4.2-5.4)
[2022-06-16 08:30] LABS: Bacteria Urine Trace /hpf; Mucus Urine Rare /lpf; RBC Urine >75 /hpf (0-2); Squamous Epithelial Cell Urine Rare /hpf (Few); WBC Clumps Urine Present /HPF; WBC Urine >75 /hpf
[2022-06-16 08:30] LABS: Alanine Aminotransferase 36 U/L (6-35); Albumin Level 3.3 g/dL (3.5-5.1); Alkaline Phosphatase 176 U/L (38-126); Anion Gap 6 mmol/L (8-16); Aspartate Amino Transferase 86 U/L (14-36); Blood Urea Nitrogen 26 mg/dL (7-17); Calcium 7.7 mg/dL (8.4-10.2); Carbon Dioxide 29 mmol/L (22-30); Chloride 98 mmol/L (98-107); Estimated Glomerular Filt Rate > 60; Glucose 103 mg/dL (65-110); Potassium 2.9 mmol/L (3.4-5.0); Sodium 133 mmol/L (137-145)
[2022-06-16 08:34] LABS: Add Urine Microscopic? YES
[2022-06-16 08:37] LABS: SARS-CoV-2 RNA PCR Negative
[2022-06-16] MEDS: ERTAPENEM 1 GM/NS 50 ML 1 GM/50 ML BAG IVPB (09:10)
--- NOTE | 2022-06-16 10:29 | ED.GENADULT ---
HPI - General Adult General Chief complaint: Weakness Stated complaint: weakness Time Seen by Provider: 06/16/22 08:46 History of Present Illness HPI narrative: 81-year-old female presenting to the emergency department from a local [facility] for evaluation of increased generalized fatigue. Patient had a recent hospitalization from June 09 through related to a urinary tract infection and C. difficile. Patient was discharged with p.o. vancomycin and Macrobid. Patient states over the last few days she reports she has had increased tiredness and fatigue. Patient does take Plavix. Patient is also on daily aspirin. Related Data Home Medications Medication Instructions Recorded Confirmed aspirin 81 mg tablet,delayed 81 mg PO DAILY 11/10/19 06/16/22 release (Adult Low Dose Aspirin) levocetirizine 5 mg tablet 5 mg PO DAILY 07/28/20 06/16/22 aluminum-magnesium hydroxide 200 20 ml PO Q6H PRN (Drug) Ingestion 01/16/21 06/16/22 mg-200 mg/5 mL oral suspension atorvastatin 80 mg tablet 80 mg PO DAILY 01/16/21 06/16/22 docusate sodium 100 mg capsule 100 mg PO DAILY PRN Constipation 01/16/21 06/16/22 (Colace) ondansetron HCl 4 mg tablet 4 mg PO Q4H PRN Nausea And Vomiting 01/16/21 06/16/22 acetaminophen 325 mg capsule 325 mg PO Q6H PRN Pain (Scale 06/13/21 06/16/22 Score 1-3) loperamide 2 mg capsule 2 mg PO Q6H PRN Loose Stool 06/13/21 06/16/22 (Anti-Diarrheal (loperamide)) melatonin 1 mg tablet 2 mg PO QHS PRN Insomnia 06/13/21 06/16/22 acetaminophen 325 mg tablet 650 mg PO QID PRN Pain (Scale 01/16/22 06/16/22 (Tylenol) Score 4-6) benzonatate 100 mg capsule 100 mg PO BID PRN Cough 01/16/22 06/16/22 carvedilol 3.125 mg tablet 3.125 mg PO BID 01/16/22 06/16/22 cholecalciferol (vitamin D3) 25 75 mcg PO DAILY 01/16/22 06/16/22 mcg (1,000 unit) tablet cranberry extract 250 mg tablet 250 mg PO DAILY 01/16/22 06/16/22 hydrocodone 10 mg-acetaminophen 1 tablet PO Q12H PRN Pain (Scale 01/16/22 06/16/22 325 mg tablet Score 7-10) magnesium hydroxide 400 mg/5 mL 30 ml PO HS PRN Constipation 01/16/22 06/16/22 oral suspension (Milk of Magnesia) metolazone 5 mg tablet 5 mg PO DAILY 01/16/22 06/16/22 polyethylene glycol 3350 17 gram 17 g PO DAILY 01/16/22 06/16/22 oral powder packet (Miralax) gabapentin 100 mg capsule 300 mg PO BID 06/09/22 06/16/22 gabapentin 600 mg tablet 600 mg PO HS 06/09/22 06/16/22 guaifenesin 600 mg tablet, 600 mg PO Q12H PRN Cough 06/09/22 06/16/22 extended release 12 hr hydrocortisone acetate 25 mg 25 mg RECTAL DAILY PRN Constipation 06/09/22 06/16/22 rectal suppository (Anusol-HC) iron polysacch cplx 150 mg 1 cap PO DAILY 06/09/22 06/16/22 iron-vit B12 25 mcg-folic acid 1 mg capsule multivitamin,tx-minerals 1 tablet PO DAILY 06/09/22 06/16/22 Allergies Allergy/AdvReac Type Severity Reaction Status Date / Time WINSTON Inhibitors Allergy Unknown Unknown Verified 06/16/22 08:25 lisinopril Allergy Unknown Cough,Unkno Verified 06/16/22 08:25 wn Penicillins Allergy Unknown Not Verified 06/16/22 08:25 Entered,Unknown Sulfa (Sulfonamide Allergy Unknown Rash,Unknow Verified 06/16/22 08:25 Antibiotics) n Review of Systems Review of Systems: CONSTITUTIONAL: Increased generalized fatigue, see HPI EYES: Denies visual changes, redness, or discharge. ENT: Denies rhinorrhea, congestion, sore throat, or otalgia. CARDIOVASCULAR: Denies chest pain, palpitations, or edema. RESPIRATORY: Denies cough or dyspnea. GASTROINTESTINAL: Denies abdominal pain, nausea, vomiting, or diarrhea. GENITOURINARY: Denies dysuria or hematuria. SKIN: Denies rash or itching. MUSCULOSKELETAL: Denies back pain, joint pain, or myalgia. NEUROLOGIC: Denies headache, numbness, or weakness. [facility] Past Medical History Medical History ASHD (arteriosclerotic heart disease) Benign essential hypertension Debility Frequent UTI Generalized weakness GERD (gastroesophage
[2022-06-16 10:31] LABS: Neutrophils Percent Manual 60 % (46-73); Total Cells Counted 100
[2022-06-16 10:32] LABS: Band Neutrophils Percent 28 % (0-6); Lymphocytes Absolute Manual 1.16 K/mm3 (1.1-4.5); Lymphocytes Percent Manual 4 % (18-44); Monocytes Absolute Manual 2.32 K/mm3 (0.1-0.90); Monocytes Percent Manual 8 % (3-9); Neutrophils Absolute Manual 25.52 K/mm3 (1.7-7.2); Platelet Estimate Adequate (Adequate)
[2022-06-16 10:33] LABS: Hypochromasia 2+ (NORMAL)
[2022-06-16] MEDS: KCL 20 MEQ/SW 100 ML 100 ML 50 MEQ IVPB (10:48)
[2022-06-16] MEDS: SODIUM CHLORIDE 0.9% IV 1,000 ML 999 ML IV CONT (10:49)
[2022-06-16] MEDS: PANTOPRAZOLE SODIUM IV 40 MG VIAL 80 MG IV PUSH (10:52)
--- NOTE | 2022-06-16 11:49 | PM.IMHP ---
H&P: HPI History of Present Illness Date/Time: 06/16/22 11:49 Chief Complaint: Fever Narrative: Date of service: 06/16/2022 Delia Lopez is an 81-year-old female with a history of CAD, hypertension, hyperlipidemia, hypothyroidism, seizure disorder, and recent hospitalization from 06/09/2022 through 06/13/2022 with septic shock secondary to ESBL UTI. She received IV ertapenem and was transitioned to p.o. Macrobid on discharge. Her hospital stay was complicated by C diff infection for which she was treated with p.o. vancomycin. The patient was discharged on 06/13/2022 back to her nursing facility, [facility]. The patient is a somewhat poor historian, and most history is obtained by review of the EMR and information from nursing staff. She states she was feeling no better on return to her residential. She continued to feel extremely fatigued and had general malaise. She states this morning, she was informed by residential staff that she had a fever (she states it was 100.1?) and it was determined that she should be sent to the ED for evaluation. While in the ED, she had a black, tarry stool. The patient is unable to indicate what her stool patterns had been at the nursing facility. She states she is incontinent and wears depends. She does deny dysuria or hematuria. She denies abdominal pain. On presentation to the ED, she was afebrile, vital signs were stable, white blood cell count elevated at 29, hemoglobin 9.4, potassium 2.9, UA abnormal, concerning for infection, and stool was Hemoccult positive. She was admitted to the hospitalist service for further evaluation and will be seen in consultation by Gastroenterology. She has been started on IV ertapenem for treatment of UTI. Review of Systems Review of Systems: All systems reviewed with pertinent positives and negatives as per HPI. Additionally, patient denies nausea or vomiting. She denies chills. She states her appetite has been poor. She has been drinking plenty of fluids. She reports she is wheelchair dependent. She denies shortness of breath, cough, chest pain. [facility] Past Medical History Medical History (Updated 06/16/22 @ 12:05 by Kendra Oleary PA-C) ASHD (arteriosclerotic heart disease) Benign essential hypertension Debility Frequent UTI Generalized weakness GERD (gastroesophageal reflux disease) Hyperlipidemia Hypothyroidism (acquired) Low back pain Lower extremity edema Osteoarthritis of both knees Peripheral neuropathy Seizure disorder Supracondylar fracture of left femur due to osteoporosis Surgical History Surgical History (Updated 06/16/22 @ 12:21 by Kendra Oleary PA-C) History of coronary artery bypass graft Family History Family History Sibling Family history of lung cancer Father Family history of heart disease in male family member before age 55 Family history of cardiovascular disease Mother Family history of malignant neoplasm Social History Social History (Updated 06/16/22 @ 12:07 by Kendra Oleary PA-C) Social History: Lives at residential. PCP is Dr. Sarah. Designates her son Rajesh as her surrogate decision maker. She would like to be a full code. Smoking packs per day: 1 Smoking cigarettes per day: 20.0 Years smoked: 8 Smoking pack-years: 8.00 Smoking status: Former smoker Second hand tobacco smoke exposure: No Additional smoking assessment comments: Quit >50 years ago Alcohol intake: never Substance use: never Spiritual care concerns: No Meds Home Medications and Allergies Home Medications Medication Instructions Recorded Confirmed Type aspirin 81 mg tablet,delayed 81 mg PO DAILY 11/10/19 06/09/22 History release (Adult Low Dose Aspirin) clopidogrel 75 mg tablet 75 mg PO DAILY #90 tabs 03/13/20 06/09/22 Rx phenytoin sodium extended 100 mg 200 mg PO BID #120 caps 03/19/20 06/09/22 Rx capsule (
--- NOTE | 2022-06-16 12:04 | ADMGEN ---
This patient, Delia Lopez, was admitted to IMU Room 203-01 at 1144 on 06/16/2022. Report received from Diana KAUR. Patient/family oriented to hospital policies and general routines including ID bracelet, bed and alarms, visiting hours, pain management, procedures, bathroom and other care routines, personal items, smoking policy, room service/diet, and visiting hours. Information on how to activate the Rapid Response Team has been discussed. Patient/Family are encouraged to report perceived risks to care and to ask questions if they do not understand what they are told or what they should do.
[2022-06-16] MEDS: HYDROcodone/acetaminophen (*CRX) 10-325 MG TABLET 1 TAB PO (14:04)
[2022-06-16 14:19] LABS: Hematocrit 27.4 % (37.0-47.0); Hemoglobin 8.7 g/dL (12.0-15.0)
--- NOTE | 2022-06-16 14:25 | WPDGICN ---
Assessment and Plan Assessment and plan (1) GI bleed: Code(s): K92.2 - Gastrointestinal hemorrhage, unspecified Status: Acute Assessment and Plan: Her stools are her truly black, suggesting that she has an upper gastrointestinal bleed. I will schedule her for EGD to be done tomorrow morning. (2) Anemia: Code(s): D64.9 - Anemia, unspecified Status: Acute Assessment and Plan: It appears that she is chronically anemic. Her hemoglobin today is 9.4 although this is probably artifact because of her dehydration. A couple months ago her hemoglobin was 11.3 (3) C. difficile diarrhea: Code(s): A04.72 - Enterocolitis due to Clostridium difficile, not specified as recurrent Status: Acute Assessment and Plan: found during her last hospitalization for which she is on oral vancomycin. (4) Acute UTI: Code(s): N39.0 - Urinary tract infection, site not specified Status: Acute Assessment and Plan: She has a history of recurrent urinary tract infections and developed septicemia with hypotension during her last hospitalization, last week GI Consult Note Consult date/time: 06/16/22 14:25 HPI: Delia Lopez is a 81 year old female Who presented to the emergency room having just been discharged from here on Thursday. He was hospitalized with urinary tract infection complicated by septic shock for which she received ertapenem and finally was switched to oral meds at the time of discharge. She also developed C diff infection during her hospitalization and then was started on vancomycin. The patient states that she does not have abdominal pain. She asked what we are going to do about her bowel movements. She states that they have been dark for a while and that somebody told her that she had a very black stool this morning. She admits to being fatigued but denies shortness of breath. She states that she is not nauseated in fact she is thirsty and would like something to drink. She knows she had a colonoscopy several years ago. It appears that she had one about 13 years ago that was unremarkable. She denies using anti-inflammatory medications, that she is on aspirin and Plavix. She has history of coronary artery disease as well as hyperlipidemia hypertension and seizure disorder. Review of Systems Review of Systems: All systems reviewed & are unremarkable except as noted in HPI and below PMFSH Past Medical History Medical History ASHD (arteriosclerotic heart disease) Benign essential hypertension Debility Frequent UTI Generalized weakness GERD (gastroesophageal reflux disease) Hyperlipidemia Hypothyroidism (acquired) Low back pain Lower extremity edema Osteoarthritis of both knees Peripheral neuropathy Seizure disorder Supracondylar fracture of left femur due to osteoporosis Surgical History Surgical History History of coronary artery bypass graft Family History Family History Sibling Family history of lung cancer Father Family history of heart disease in male family member before age 55 Family history of cardiovascular disease Mother Family history of malignant neoplasm Social History Social History Social History: Lives at [facility]. PCP is Dr. Sarah. Designates her son Rajesh as her surrogate decision maker. She would like to be a full code. Smoking packs per day: 1 Smoking cigarettes per day: 20.0 Years smoked: 8 Smoking pack-years: 8.00 Smoking status: Former smoker Second hand tobacco smoke exposure: No Additional smoking assessment comments: Quit >50 years ago Alcohol intake: never Substance use: never Spiritual care concerns: No Meds Home Medications and Allergies Home Medications Medication
[2022-06-16 14:32] LABS: Potassium 3.2 mmol/L (3.4-5.0)
[2022-06-16] MEDS: GENTAMICIN SULFATE 0.1% OINT 15 GM TUBE 1 APPLIC TOPICAL ×2 (17:49→22:00)
[2022-06-16] MEDS: POTASSIUM CHLORIDE 20 MEQ TABLET 40 MEQ PO (17:49)
[2022-06-16] MEDS: PHENYTOIN SODIUM 100 MG EXTENDED RELEASE CAP 200 MG PO (17:50)
[2022-06-16] MEDS: GABAPENTIN 300 MG CAPSULE PO (17:50)
[2022-06-16] MEDS: SACCHAROMYCES BOULARDII 250 MG CAPSULE PO (17:51)
--- NOTE | 2022-06-16 18:43 | PC.NURSE ---
This patient, Delia Lopez, was transferred to [facility] on 06/16/22 at 1843. Personal belongings sent with patient. Report given to Jenny KAUR. Appropriate documentation sent with patient.
--- NOTE | 2022-06-16 18:58 | PC.NURSE ---
This patient, Delia Lopez, was received from IMU on 06/16/22 at 1850. Patient/family oriented to unit policies and routines
[2022-06-16 20:10] LABS: Hematocrit 26.6 % (37.0-47.0); Hemoglobin 8.2 g/dL (12.0-15.0)
[2022-06-16] MEDS: carvediloL 3.125 MG TABLET PO (22:00)
[2022-06-16] MEDS: GABAPENTIN 300 MG CAPSULE 600 MG PO (22:00)
[2022-06-17] VITALS (8 sets, daily range): BP systolic 93–122; BP diastolic 38–57; PULSE 69–76; RESP 15–31; TEMP 36–36.6; O2SAT 87–100
[2022-06-17 03:43] LABS: Hematocrit 26.5 % (37.0-47.0); Hemoglobin 8.2 g/dL (12.0-15.0); Mean Corpuscular HGB Conc 30.9 g/dl (32-36); Mean Corpuscular Volume 97.1 fl (80-100); Mean Platelet Volume 12.2 fl (7.4-10.4); Platelet Count Result 133 k/mm3 (150-375); Red Blood Count 2.73 M/mm3 (4.2-5.4); Red Cell Distribution Width 15.2 % (11.5-14.5); White Blood Count 17.7 K/mm3 (4.5-10.0)
[2022-06-17 04:19] LABS: Anion Gap 5 mmol/L (8-16); Blood Urea Nitrogen 30 mg/dL (7-17); Calcium 7.1 mg/dL (8.4-10.2); Carbon Dioxide 29 mmol/L (22-30); Chloride 99 mmol/L (98-107); Estimated CRCL calculation 51 ml/min; Estimated Glomerular Filt Rate 60; Glucose 99 mg/dL (65-110); Magnesium 1.7 mg/dL (1.6-2.3); Potassium 3.7 mmol/L (3.4-5.0); Sodium 133 mmol/L (137-145)
[2022-06-17 06:26] LABS: Hematocrit 25.3 % (37.0-47.0); Hemoglobin 8.2 g/dL (12.0-15.0)
[2022-06-17 09:33] LABS: Albumin Level 2.9 g/dL (3.5-5.1)
[2022-06-17] MEDS: ERTAPENEM 1 GM/NS 50 ML 1 GM/50 ML BAG IVPB (09:45)
[2022-06-17] MEDS: GENTAMICIN SULFATE 0.1% OINT 15 GM TUBE 1 APPLIC TOPICAL ×2 (09:47→20:40)
[2022-06-17] MEDS: MAGNESIUM SULF 2 GM/WATER 50ML 2 GM/50 ML BAG IVPB (10:30)
--- NOTE | 2022-06-17 12:24 | PC.NURSE ---
To GI lab per ramy.
--- NOTE | 2022-06-17 12:27 | WPDANESEPPF ---
Anes - Initial Pre Proc Eval Procedure: Operation Date: 06/17/22 13:00 Proposed Procedures p Esophagogastroduodenoscopy - Giovanni Paz MD Date/Time: 06/17/22 12:27 Surgeon: Kendra Oleary PA-C Pre Op Diagnosis: Hypokalemia/Upper GI Bleed/Urinary Tract Infection Patient Data Age: 81 Gender: F Height: 1.6 m Weight: 116.3 kg Last Vital Signs Temp 97.3 F L 06/17/22 06:13 Pulse 76 06/17/22 06:13 Resp 18 06/17/22 06:13 BP 102/46 L 06/17/22 06:13 Pulse Ox 87 L 06/17/22 09:58 O2 Del Method Room Air 06/17/22 09:58 O2 Flow Rate 2 06/16/22 16:00 Allergies Allergy/AdvReac Type Severity Reaction Status Date / Time WINSTON Inhibitors Allergy Unknown Unknown Verified 06/16/22 08:25 lisinopril Allergy Unknown Cough,Unkno Verified 06/16/22 08:25 wn Penicillins Allergy Unknown Not Verified 06/16/22 08:25 Entered,Unknown Sulfa (Sulfonamide Allergy Unknown Rash,Unknow Verified 06/16/22 08:25 Antibiotics) n Home Medications Medication Instructions Recorded Confirmed Type aspirin 81 mg tablet,delayed 81 mg PO DAILY 11/10/19 06/16/22 History release (Adult Low Dose Aspirin) clopidogrel 75 mg tablet 75 mg PO DAILY #90 tabs 03/13/20 06/16/22 Rx phenytoin sodium extended 100 mg 200 mg PO BID #120 caps 03/19/20 06/16/22 Rx capsule (Dilantin Extended) ezetimibe 10 mg tablet (Zetia) 10 mg PO DAILY #90 tabs 05/03/20 06/16/22 Rx furosemide 40 mg tablet 40 mg PO QAM #90 tabs 06/27/20 06/16/22 Rx levothyroxine 100 mcg tablet 100 mcg PO DAILY #90 tabs 06/27/20 06/16/22 Rx levocetirizine 5 mg tablet 5 mg PO DAILY 07/28/20 06/16/22 History aluminum-magnesium hydroxide 200 20 ml PO Q6H PRN (Drug) Ingestion 01/16/21 06/16/22 History mg-200 mg/5 mL oral suspension atorvastatin 80 mg tablet 80 mg PO DAILY 01/16/21 06/16/22 History docusate sodium 100 mg capsule 100 mg PO DAILY PRN Constipation 01/16/21 06/16/22 History (Colace) ondansetron HCl 4 mg tablet 4 mg PO Q4H PRN Nausea And Vomiting 01/16/21 06/16/22 History acetaminophen 325 mg capsule 325 mg PO Q6H PRN Pain (Scale 06/13/21 06/16/22 History Score 1-3) loperamide 2 mg capsule 2 mg PO Q6H PRN Loose Stool 06/13/21 06/16/22 History (Anti-Diarrheal (loperamide)) melatonin 1 mg tablet 2 mg PO QHS PRN Insomnia 06/13/21 06/16/22 History acetaminophen 325 mg tablet 650 mg PO QID PRN Pain (Scale 01/16/22 06/16/22 History (Tylenol) Score 4-6) benzonatate 100 mg capsule 100 mg PO BID PRN Cough 01/16/22 06/16/22 History carvedilol 3.125 mg tablet 3.125 mg PO BID 01/16/22 06/16/22 History cholecalciferol (vitamin D3) 25 75 mcg PO DAILY 01/16/22 06/16/22 History mcg (1,000 unit) tablet cranberry extract 250 mg tablet 250 mg PO DAILY 01/16/22 06/16/22 History hydrocodone 10 mg-acetaminophen 1 tablet PO Q12H PRN Pain (Scale 01/16/22 06/16/22 History 325 mg tablet Score 7-10) magnesium hydroxide 400 mg/5 mL 30 ml PO HS PRN Constipation 01/16/22 06/16/22 History oral suspension (Milk of Magnesia) metolazone 5 mg tablet 5 mg PO DAILY 01/16/22 06/16/22 History polyethylene glycol 3350 17 gram 17 g PO DAILY 01/16/22 06/16/22 History oral powder packet (Miralax) gabapentin 100 mg capsule 300 mg PO BID 06/09/22 06/16/22 History gabapentin 600 mg tablet 600 mg PO HS 06/09/22 06/16/22 History guaifenesin 600 mg tablet, 600 mg PO Q12H PRN Cough 06/09/22 06/16/22 History extended release 12 hr hydrocortisone acetate 25 mg 25 mg RECTAL DAILY PRN Constipation 06/09/22 06/16/22 History rectal suppository (Anusol-HC) iron polysacch cplx 150 mg 1 cap PO DAILY 06/09/22 06/16/22 History iron-vit B12 25 mcg-folic acid 1 mg capsule multivitamin,tx-minerals 1 tablet PO DAILY 06/09/22 06/16/22 History nitrofurantoin macrocrystal 100 mg 100 mg PO Q12H 5 days #10 caps 06/13/22 06/16/22 Rx capsule vancomycin 250 mg capsule 250 mg PO Q6H 7 days #28 caps 06/13/22 06/16/22 Rx (Vancocin) Laboratory Tests 06/16/22 06/16/22
[2022-06-17] MEDS: LACTATED RINGERS 1,000 ML 150 ML IV CONT (12:36)
--- NOTE | 2022-06-17 12:46 | P.PNIM_ITS ---
Progress Note: A&P Assessment and Plan (1) Acute UTI: Code(s): N39.0 - Urinary tract infection, site not specified Status: Acute Assessment and Plan: Patient with recent ESBL UTI presented to ED with worsened leukocytosis and abnormal UA * Continue IV ertapenem q24h. #2 today * Urine culture is pending. Await results and tailor antibiotics accordingly * Blood cultures pending, preliminary results with no growth * Monitor vital signs closely * Febrile yesterday up to 102.7. Remains afebrile today. Leukocytosis improving. (2) GI bleed: Code(s): K92.2 - Gastrointestinal hemorrhage, unspecified Status: Acute Assessment and Plan: Patient with Hemoccult-positive episode of melanotic stool in the ED * Appreciate GI consultation * Continue protonix * Hold aspirin and Plavix * Monitor H&H closely * EGD this afternoon. Await results and further recommendations (3) Anemia: Code(s): D64.9 - Anemia, unspecified Status: Acute Assessment and Plan: Acute on chronic secondary to GI bleed * Hemoglobin remaining stable at 8.2 * Monitor H&H q6h to ensure remaining stable * Transfuse as needed to maintain stable hemoglobin (4) C. difficile diarrhea: Code(s): A04.72 - Enterocolitis due to Clostridium difficile, not specified as recurrent Status: Acute Assessment and Plan: Patient with positive C diff PCR on 06/10/2022 * She was treated with p.o. vancomycin and discharged with a 7 day course. * Continue p.o. vancomycin through 06/20/2022 * Banatrol and probiotic * Monitor stool patterns (5) Hypothyroidism (acquired): Code(s): E03.9 - Hypothyroidism, unspecified Status: Chronic Assessment and Plan: TSH normal at last hospitalization on 06/10/2022 * Continue levothyroxine (6) Hypertension: Code(s): I10 - Essential (primary) hypertension Status: Acute Assessment and Plan: Blood pressure reviewed and has been reasonably control. On the lower end today with last BP 115/54 * Continue low-dose carvedilol when advancing diet * Monitor BP trends and adjust medication regimen as needed (7) Electrolyte abnormality: Code(s): E87.8 - Other disorders of electrolyte and fluid balance, not elsewhere classified Status: Acute Assessment and Plan: * Hypokalemia: Resolved with supplementation. Potassium 3.7 today * Hypomagnesemia: Mag is 1.7 today. 2 g IV magnesium sulfate * Hypocalcemia: Calcium corrected for hypoalbuminemia is 8.0. Will begin Oscal 500 mg BID * Monitor BMP Subjective Date/time seen: 06/17/22 12:46 Interval history: Date of service: 06/17/2022 Delia Lopez is an 81-year-old female with a history of CAD, hypertension, hyperlipidemia, hypothyroidism, seizure disorder, and recent hospitalization from 06/09/2022 through 06/13/2022 with septic shock secondary to ESBL UTI who is seen in follow-up for GI bleeding. She feels very fatigued today. She slept well through the night but states she feels tired. For the past week or so she has been feeling ?tired all the time.? She denies dizziness or lightheadedness. Does endorse feeling weak. She had a bowel movement today but she did not see it. She cannot state what the color or consistency was. She is incontinent of stool and urine since her back surgery. 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 Denies abdominal pain. She denies SOB, cough, or chest pain. Review of Systems R
--- NOTE | 2022-06-17 12:46 | PM.IMPN ---
Progress Note: A&P Assessment and Plan (1) Acute UTI: Code(s): N39.0 - Urinary tract infection, site not specified Status: Acute Assessment and Plan: Patient with recent ESBL UTI presented to ED with worsened leukocytosis and abnormal UA Continue IV ertapenem q24h. #2 today Urine culture is pending. Await results and tailor antibiotics accordingly Blood cultures pending, preliminary results with no growth Monitor vital signs closely Febrile yesterday up to 102.7. Remains afebrile today. Leukocytosis improving. (2) GI bleed: Code(s): K92.2 - Gastrointestinal hemorrhage, unspecified Status: Acute Assessment and Plan: Patient with Hemoccult-positive episode of melanotic stool in the ED Appreciate GI consultation Continue protonix Hold aspirin and Plavix Monitor H&H closely EGD this afternoon. Await results and further recommendations (3) Anemia: Code(s): D64.9 - Anemia, unspecified Status: Acute Assessment and Plan: Acute on chronic secondary to GI bleed Hemoglobin remaining stable at 8.2 Monitor H&H q6h to ensure remaining stable Transfuse as needed to maintain stable hemoglobin (4) C. difficile diarrhea: Code(s): A04.72 - Enterocolitis due to Clostridium difficile, not specified as recurrent Status: Acute Assessment and Plan: Patient with positive C diff PCR on 06/10/2022 She was treated with p.o. vancomycin and discharged with a 7 day course. Continue p.o. vancomycin through 06/20/2022 Banatrol and probiotic Monitor stool patterns (5) Hypothyroidism (acquired): Code(s): E03.9 - Hypothyroidism, unspecified Status: Chronic Assessment and Plan: TSH normal at last hospitalization on 06/10/2022 Continue levothyroxine (6) Hypertension: Code(s): I10 - Essential (primary) hypertension Status: Acute Assessment and Plan: Blood pressure reviewed and has been reasonably control. On the lower end today with last BP 115/54 Continue low-dose carvedilol when advancing diet Monitor BP trends and adjust medication regimen as needed (7) Electrolyte abnormality: Code(s): E87.8 - Other disorders of electrolyte and fluid balance, not elsewhere classified Status: Acute Assessment and Plan: Hypokalemia: Resolved with supplementation. Potassium 3.7 today Hypomagnesemia: Mag is 1.7 today. 2 g IV magnesium sulfate Hypocalcemia: Calcium corrected for hypoalbuminemia is 8.0. Will begin Oscal 500 mg BID Monitor BMP Subjective Date/time seen: 06/17/22 12:46 Interval history: Date of service: 06/17/2022 Delia Lopez is an 81-year-old female with a history of CAD, hypertension, hyperlipidemia, hypothyroidism, seizure disorder, and recent hospitalization from 06/09/2022 through 06/13/2022 with septic shock secondary to ESBL UTI who is seen in follow-up for GI bleeding. She feels very fatigued today. She slept well through the night but states she feels tired. For the past week or so she has been feeling ?tired all the time.? She denies dizziness or lightheadedness. Does endorse feeling weak. She had a bowel movement today but she did not see it. She cannot state what the color or consistency was. She is incontinent of stool and urine since her back surgery. 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 Denies abdominal pain. She denies SOB, cough, or chest pain. Review of Systems Review of Systems: All systems reviewed & are unremarkable except as noted in HPI and below Exam Narrative: General: Obese, chronically ill-appearing, tired appearing 81-year-old female, supine in bed, comfortable, NARD Neuro: Awake, alert and oriented x4 speech clear, no focal neuro deficits noted HEENMT: normocephalic, atraumatic, EOMI, sclerae anicteric Respiratory: clear to auscultation bilaterally, nonlabored breathing Cardio: regular rate
[2022-06-17] MEDS: EPINEPHrine INJ 1 MG/10 ML SYRINGE 0.2 MG XX (13:08)
--- NOTE | 2022-06-17 13:55 | PC.NURSE ---
Return from GI lab.
[2022-06-17 14:16] LABS: Hematocrit 28.1 % (37.0-47.0); Hemoglobin 8.9 g/dL (12.0-15.0)
[2022-06-17] MEDS: SACCHAROMYCES BOULARDII 250 MG CAPSULE PO (16:40)
[2022-06-17] MEDS: PHENYTOIN SODIUM 100 MG EXTENDED RELEASE CAP 200 MG PO (16:40)
[2022-06-17] MEDS: GABAPENTIN 300 MG CAPSULE PO (16:40)
[2022-06-17] MEDS: CALCIUM CARBONATE (OSCAL) 500 MG TABLET PO (16:40)
[2022-06-17 20:05] LABS: Hematocrit 29.2 % (37.0-47.0)
[2022-06-17] MEDS: GABAPENTIN 300 MG CAPSULE 600 MG PO (20:41)
[2022-06-17] MEDS: PANTOPRAZOLE 40 MG TABLET PO (20:41)
[2022-06-17] MEDS: carvediloL 3.125 MG TABLET PO (20:41)
[2022-06-18] VITALS (7 sets, daily range): BP systolic 103–131; BP diastolic 37–55; PULSE 55–71; RESP 16–18; TEMP 36.2–36.6; O2SAT 93–100
[2022-06-18 03:39] LABS: Hematocrit 26.9 % (37.0-47.0); Hemoglobin 8.7 g/dL (12.0-15.0); Mean Corpuscular HGB Conc 32.3 g/dl (32-36); Mean Corpuscular Hemoglobin 30.3 pg (26-34); Mean Corpuscular Volume 93.7 fl (80-100); Mean Platelet Volume 11.9 fl (7.4-10.4); Platelet Count Result 147 k/mm3 (150-375); Red Blood Count 2.87 M/mm3 (4.2-5.4); Red Cell Distribution Width 15.1 % (11.5-14.5); White Blood Count 12.4 K/mm3 (4.5-10.0)
[2022-06-18 03:59] LABS: Anion Gap 4 mmol/L (8-16); Blood Urea Nitrogen 27 mg/dL (7-17); Calcium 7.4 mg/dL (8.4-10.2); Carbon Dioxide 30 mmol/L (22-30); Chloride 98 mmol/L (98-107); Estimated CRCL calculation 58 ml/min; Estimated Glomerular Filt Rate > 60; Glucose 96 mg/dL (65-110); Potassium 3.6 mmol/L (3.4-5.0); Sodium 132 mmol/L (137-145)
[2022-06-18] MEDS: LEVOTHYROXINE SODIUM 100 MCG TABLET PO (06:02)
[2022-06-18 08:13] LABS: Hematocrit 27.6 % (37.0-47.0); Hemoglobin 8.5 g/dL (12.0-15.0)
[2022-06-18] MEDS: ERTAPENEM 1 GM/NS 50 ML 1 GM/50 ML BAG IVPB (08:18)
[2022-06-18] MEDS: SACCHAROMYCES BOULARDII 250 MG CAPSULE PO ×2 (08:19→17:17)
[2022-06-18] MEDS: carvediloL 3.125 MG TABLET PO ×2 (08:19→20:59)
[2022-06-18] MEDS: PANTOPRAZOLE 40 MG TABLET PO ×2 (08:19→21:00)
[2022-06-18] MEDS: metOLazone 5 MG TABLET PO (08:19)
[2022-06-18] MEDS: PHENYTOIN SODIUM 100 MG EXTENDED RELEASE CAP 200 MG PO ×2 (08:19→17:16)
[2022-06-18] MEDS: GENTAMICIN SULFATE 0.1% OINT 15 GM TUBE 1 APPLIC TOPICAL ×2 (08:20→21:00)
[2022-06-18] MEDS: GABAPENTIN 300 MG CAPSULE PO ×2 (08:20→17:16)
[2022-06-18] MEDS: FUROSEMIDE 40 MG TABLET PO (08:20)
[2022-06-18] MEDS: CALCIUM CARBONATE (OSCAL) 500 MG TABLET PO ×2 (08:20→17:17)
--- NOTE | 2022-06-18 09:00 | WPDANESPN ---
Anes - Prog Note Post-Op Date/Time: 06/18/22 09:00 Vital Signs: Last Vital Signs Temp 36.2 C L 06/18/22 06:00 Pulse 70 06/18/22 08:19 Resp 18 06/18/22 06:00 BP 131/48 L 06/18/22 06:00 Pulse Ox 100 06/18/22 06:00 O2 Del Method Nasal Cannula 06/17/22 20:00 O2 Flow Rate 2 06/17/22 20:00 Pain Score (VAS): 0 I/O: Intake & Output 06/17/22 06/18/22 06/18/22 23:59 07:59 15:59 Intake Total 670 300 Balance 670 300 Laboratory Tests 06/18/22 07:59 06/18/22 03:22 06/17/22 06/17/22 06/17/22 03:03 14:04 19:34 WBC RBC Hgb 8.9 L 9.0 L Hct 28.1 L 29.2 L MCV MCH MCHC RDW Plt Count MPV Sodium Potassium Chloride Carbon Dioxide Anion Gap BUN Creatinine Estim Creat Clear Calc Estimated GFR Glucose Calcium Albumin 2.9 L 06/18/22 06/18/22 06/18/22 03:22 03:22 07:59 WBC 12.4 H RBC 2.87 L Hgb 8.7 L 8.5 L Hct 26.9 L 27.6 L MCV 93.7 MCH 30.3 MCHC 32.3 RDW 15.1 H Plt Count 147 L MPV 11.9 H Sodium 132 L Potassium 3.6 Chloride 98 Carbon Dioxide 30 Anion Gap 4 L BUN 27 H Creatinine 0.80 Estim Creat Clear Calc 58 Estimated GFR > 60 Glucose 96 Calcium 7.4 L Albumin Microbiology 06/16/22 08:00 Unspecified Urine Culture - Final 06/16/22 09:00 Blood Blood Culture - Preliminary 06/16/22 09:00 Blood Blood Culture - Preliminary Patient Feedback: Patient satisfied with anesthetic care.
[2022-06-18 14:31] LABS: Hematocrit 27.2 % (37.0-47.0); Hemoglobin 8.5 g/dL (12.0-15.0)
--- NOTE | 2022-06-18 15:54 | P.PNIM_ITS ---
Progress Note: A&P Assessment and Plan (1) Acute UTI: Code(s): N39.0 - Urinary tract infection, site not specified Status: Acute Assessment and Plan: Patient with recent ESBL UTI presented to ED with worsened leukocytosis and abnormal UA * Repeat urine culture on 06/16/2022 with no growth * Suspect that initial UTI was suppressed but not completely treated and infection worsened leading to return to ED. This would account for the negative repeat culture * Will plan to continue a total of 10 days of IV antibiotics from initial treatment on 06/09. Patient received 4 doses of IV ertapenem at last hospital stay and this would bring her to ertapenem #7 today. Stop date will be 06/21/22. * Blood cultures pending, preliminary results negative to date * Monitor vital signs closely * Afebrile >24 hours. Leukocytosis improving. (2) GI bleed: Code(s): K92.2 - Gastrointestinal hemorrhage, unspecified Status: Acute Assessment and Plan: Patient with Hemoccult-positive episode of melanotic stool in the ED * Appreciate GI consultation * EGD 06/17 showed gastric and duodenal ulcer. Lesions cauterized. * Continue protonix * Hold aspirin and Plavix for 5 days. Resume on 06/22 * Monitor H&H closely * Will need repeat EGD in 6 weeks (3) Anemia: Code(s): D64.9 - Anemia, unspecified Status: Acute Assessment and Plan: Acute on chronic secondary to GI bleed * Hemoglobin remaining stable at 8.5 * Monitor H&H q6h to ensure remaining stable * Transfuse as needed to maintain stable hemoglobin (4) C. difficile diarrhea: Code(s): A04.72 - Enterocolitis due to Clostridium difficile, not specified as recurrent Status: Acute Assessment and Plan: Patient with positive C diff PCR on 06/10/2022 * She was treated with p.o. vancomycin and discharged with a 7 day course. * Continue p.o. vancomycin through 06/20/2022 * Banatrol and probiotic * Monitor stool patterns (5) Hypothyroidism (acquired): Code(s): E03.9 - Hypothyroidism, unspecified Status: Chronic Assessment and Plan: TSH normal at last hospitalization on 06/10/2022 * Continue levothyroxine (6) Hypertension: Code(s): I10 - Essential (primary) hypertension Status: Acute Assessment and Plan: Blood pressure reviewed and has been reasonably controlled on the lower end. Last BP 112/37 * Continue low-dose carvedilol * Monitor BP trends and adjust medication regimen as needed (7) Electrolyte abnormality: Code(s): E87.8 - Other disorders of electrolyte and fluid balance, not elsewhere classified Status: Acute Assessment and Plan: * Hypokalemia: Resolved with supplementation. * Hypomagnesemia: Mag has been suppelmented. Continue to monitor * Hypocalcemia: Continue Oscal 500 mg BID * Monitor BMP Subjective Date/time seen: 06/18/22 15:54 Interval history: Date of service: 06/18/2022 Delia Lopez is an 81-year-old female with a history of CAD, hypertension, hyperlipidemia, hypothyroidism, seizure disorder, and recent hospitalization from 06/09/2022 through 06/13/2022 with septic shock secondary to ESBL UTI who is seen in follow-up for GI bleeding. She is starting to feel a bit better today. She has a bit more energy and has been more awake throughout the day. She states she had a bowel movement this morning. She is unsure what her stool looked like an cannot state if there was any blood in her stool. She denies abdominal pain. She denie
--- NOTE | 2022-06-18 15:54 | PM.IMPN ---
Progress Note: A&P Assessment and Plan (1) Acute UTI: Code(s): N39.0 - Urinary tract infection, site not specified Status: Acute Assessment and Plan: Patient with recent ESBL UTI presented to ED with worsened leukocytosis and abnormal UA Repeat urine culture on 06/16/2022 with no growth Suspect that initial UTI was suppressed but not completely treated and infection worsened leading to return to ED. This would account for the negative repeat culture Will plan to continue a total of 10 days of IV antibiotics from initial treatment on 06/09. Patient received 4 doses of IV ertapenem at last hospital stay and this would bring her to ertapenem #7 today. Stop date will be 06/21/22. Blood cultures pending, preliminary results negative to date Monitor vital signs closely Afebrile >24 hours. Leukocytosis improving. (2) GI bleed: Code(s): K92.2 - Gastrointestinal hemorrhage, unspecified Status: Acute Assessment and Plan: Patient with Hemoccult-positive episode of melanotic stool in the ED Appreciate GI consultation EGD 06/17 showed gastric and duodenal ulcer. Lesions cauterized. Continue protonix Hold aspirin and Plavix for 5 days. Resume on 06/22 Monitor H&H closely Will need repeat EGD in 6 weeks (3) Anemia: Code(s): D64.9 - Anemia, unspecified Status: Acute Assessment and Plan: Acute on chronic secondary to GI bleed Hemoglobin remaining stable at 8.5 Monitor H&H q6h to ensure remaining stable Transfuse as needed to maintain stable hemoglobin (4) C. difficile diarrhea: Code(s): A04.72 - Enterocolitis due to Clostridium difficile, not specified as recurrent Status: Acute Assessment and Plan: Patient with positive C diff PCR on 06/10/2022 She was treated with p.o. vancomycin and discharged with a 7 day course. Continue p.o. vancomycin through 06/20/2022 Banatrol and probiotic Monitor stool patterns (5) Hypothyroidism (acquired): Code(s): E03.9 - Hypothyroidism, unspecified Status: Chronic Assessment and Plan: TSH normal at last hospitalization on 06/10/2022 Continue levothyroxine (6) Hypertension: Code(s): I10 - Essential (primary) hypertension Status: Acute Assessment and Plan: Blood pressure reviewed and has been reasonably controlled on the lower end. Last BP 112/37 Continue low-dose carvedilol Monitor BP trends and adjust medication regimen as needed (7) Electrolyte abnormality: Code(s): E87.8 - Other disorders of electrolyte and fluid balance, not elsewhere classified Status: Acute Assessment and Plan: Hypokalemia: Resolved with supplementation. Hypomagnesemia: Mag has been suppelmented. Continue to monitor Hypocalcemia: Continue Oscal 500 mg BID Monitor BMP Subjective Date/time seen: 06/18/22 15:54 Interval history: Date of service: 06/18/2022 Delia Lopez is an 81-year-old female with a history of CAD, hypertension, hyperlipidemia, hypothyroidism, seizure disorder, and recent hospitalization from 06/09/2022 through 06/13/2022 with septic shock secondary to ESBL UTI who is seen in follow-up for GI bleeding. She is starting to feel a bit better today. She has a bit more energy and has been more awake throughout the day. She states she had a bowel movement this morning. She is unsure what her stool looked like an cannot state if there was any blood in her stool. She denies abdominal pain. She denies urinary symptoms including dysuria or hematuria. Denies shortness of breath, dizziness, lightheadedness, palpitations. She does complain of swelling of her left hand after her IV was removed. Review of Systems Review of Systems: All systems reviewed & are unremarkable except as noted in HPI and below Exam Narrative: General: Obese, chronically ill-appearing, 81-year-old female, supine in bed, comfortable, NARD Neuro: Awake, dario
--- NOTE | 2022-06-18 16:40 | WPDGIPROGNO ---
Progress Note: A&P Assessment and Plan (1) GI bleed: Code(s): K92.2 - Gastrointestinal hemorrhage, unspecified Status: Acute Assessment and Plan: Her stools are her truly black, suggesting that she has an upper gastrointestinal bleed. I will schedule her for EGD to be done tomorrow morning. 06/18/2022 no stools overnight (2) Anemia: Code(s): D64.9 - Anemia, unspecified Status: Acute Assessment and Plan: It appears that she is chronically anemic. Her hemoglobin today is 9.4 although this is probably artifact because of her dehydration. A couple months ago her hemoglobin was 11.3 06/18/2022. Today her hemoglobin is 8.5, it is stable. (3) C. difficile diarrhea: Code(s): A04.72 - Enterocolitis due to Clostridium difficile, not specified as recurrent Status: Acute Assessment and Plan: found during her last hospitalization for which she is on oral vancomycin. 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 It appears that there is no further bleeding. Her diet can be advanced. From my perspective she can be discharged. She will need a follow-up EGD in 6 weeks. Subjective Date/time seen: 06/18/22 16:40 she has no new complaints. I told her that her counts are stable that we will be able to advance her diet. She states that she is not particularly hungry, but will try to eat Exam Const: General: alert Orientation/consciousness: patient oriented x3 Resp: Auscultation: clear to auscultation bilaterally Cardio: Rhythm: regular rhythm GI: Inspection: obesity Auscultation: normal bowel sounds Skin: General skin exam: pallor Neuro: General: patient oriented x3 Objective Data Vital Signs Vital Signs: Vital Signs - 24 hr 06/17/22 22:00 06/17/22 20:00 06/18/22 06:00 Temperature 36.0 C L 36.2 C L Pulse Rate 72 71 Respiratory Rate 18 18 Blood Pressure 105/38 L 131/48 L Pulse Oximetry 99 100 Oxygen Delivery Nasal Cannula Oxygen Flow Rate 2 06/18/22 08:19 06/18/22 08:20 06/18/22 10:59 Temperature Pulse Rate 70 Respiratory Rate Blood Pressure Pulse Oximetry 97 97 Oxygen Delivery Nasal Cannula Nasal Cannula Oxygen Flow Rate 2 1 06/18/22 14:00 Temperature 36.3 C L Pulse Rate 55 L Respiratory Rate 16 Blood Pressure 112/37 L Pulse Oximetry 93 Oxygen Delivery Oxygen Flow Rate Intake/Output Intake/Output: Intake & Output 06/15/22 06/16/22 06/17/22 06/18/22 23:59 23:59 23:59 23:59 Intake Total 1450 1020 530 Output Total 350 1 Balance 1100 1019 530 Meds/Results Medications: Active Medications Generic Name Dose Route Start Last Admin Trade Name Freq PRN Reason Stop Dose Admin Acetaminophen 650 mg 06/16/22 13:37 Acetaminophen 325 Mg Tablet PO Q6H PRN Pain 1-3 Hydrocodone Bitart/Acetaminophen 1 tab 06/16/22 13:35 06/16/22 14:04 Hydrocodone/Acetaminophen (*Crx) 10-325 Mg Tablet PO 1 tab Q6H PRN Administration Pain (Scale Score 7-10) Calcium Carbonate 500 mg 06/17/22 17:00 06/18/22 08:20 Calcium Carbonate (Oscal) 500 Mg Tablet PO 500 mg BIDWM CIERRA Administration Carvedilol 3.125 mg 06/16/22 21:00 06/18/22 08:19 Carvedilol 3.125 Mg Tablet PO 3.125 mg Q12HR CIERRA Administration Furosemide 40 mg 06/17/22 09:00 06/18/22 08:20 Furosemide 40 Mg Tablet PO 40 mg QAM CIERRA Administration Gabapentin 600 mg 06/16/22 21:00 06/17/22 20:41 Gabapentin 300 Mg Capsule PO 600 mg HS CIERRA Administration Gabapentin 300 mg 0
[2022-06-18] MEDS: GABAPENTIN 300 MG CAPSULE 600 MG PO (20:59)
[2022-06-18 21:10] LABS: Hematocrit 30.8 % (37.0-47.0); Hemoglobin 9.6 g/dL (12.0-15.0)
[2022-06-19 06:00] VITALS: BP 93/79; PULSE 62; RESP 18; TEMP 36.4; O2SAT 92
[2022-06-19] MEDS: LEVOTHYROXINE SODIUM 100 MCG TABLET PO (06:04)
[2022-06-19 06:22] LABS: Hematocrit 29.4 % (37.0-47.0); Hemoglobin 8.9 g/dL (12.0-15.0); Mean Corpuscular HGB Conc 30.3 g/dl (32-36); Mean Corpuscular Hemoglobin 29.6 pg (26-34); Mean Corpuscular Volume 97.7 fl (80-100); Mean Platelet Volume 11.7 fl (7.4-10.4); Platelet Count Result 164 k/mm3 (150-375); Red Blood Count 3.01 M/mm3 (4.2-5.4); Red Cell Distribution Width 15.1 % (11.5-14.5); White Blood Count 10.5 K/mm3 (4.5-10.0)
[2022-06-19 06:43] LABS: Alanine Aminotransferase 28 U/L (6-35); Albumin Level 2.7 g/dL (3.5-5.1); Alkaline Phosphatase 138 U/L (38-126); Anion Gap 3 mmol/L (8-16); Aspartate Amino Transferase 79 U/L (14-36); Bilirubin,Total 0.6 mg/dL (0.2-1.3); Blood Urea Nitrogen 25 mg/dL (7-17); Calcium 7.8 mg/dL (8.4-10.2); Carbon Dioxide 30 mmol/L (22-30); Chloride 98 mmol/L (98-107); Estimated CRCL calculation 64 ml/min; Estimated Glomerular Filt Rate > 60; Glucose 89 mg/dL (65-110); Potassium 3.2 mmol/L (3.4-5.0); Sodium 131 mmol/L (137-145)
--- NOTE | 2022-06-19 06:43 | WPDGIPROGNO ---
Progress Note: A&P Assessment and Plan (1) GI bleed: Code(s): K92.2 - Gastrointestinal hemorrhage, unspecified Status: Acute Assessment and Plan: Her stools are her truly black, suggesting that she has an upper gastrointestinal bleed. I will schedule her for EGD to be done tomorrow morning. 06/18/2022 no stools overnight 06/19/2022 I did explain to her that she will need repeat EGD in 6 weeks. It is okay from my perspective for her to be discharged. (2) Anemia: Code(s): D64.9 - Anemia, unspecified Status: Acute Assessment and Plan: It appears that she is chronically anemic. Her hemoglobin today is 9.4 although this is probably artifact because of her dehydration. A couple months ago her hemoglobin was 11.3 06/18/2022. Today her hemoglobin is 8.5, it is stable. 06/19/2022 hemoglobin 8.9. (3) C. difficile diarrhea: Code(s): A04.72 - Enterocolitis due to Clostridium difficile, not specified as recurrent Status: Acute Assessment and Plan: found during her last hospitalization for which she is on oral vancomycin. 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 It appears that there is no further bleeding. Her diet can be advanced. From my perspective she can be discharged. She will need a follow-up EGD in 6 weeks. (6) Transaminitis: Code(s): R74.01 - Elevation of levels of liver transaminase levels Status: Acute Assessment and Plan: 06/19/2022 I have reviewed her lab work from the last several years. her AST has been in or around the 70s since 2016. She probably has an element of hepatic steatosis. CT was negative for any liver lesions. Further investigation not necessary at this time Subjective Date/time seen: 06/19/22 06:43 no complaints of pain. No evidence of bleeding. She is hungry. Her only complaint is that they keep drawing my blood I told her that it was okay from my perspective for her to go home. Regular diet is started. She will have a repeat EGD in 6 weeks Review of Systems Review of Systems: All systems reviewed & are unremarkable except as noted in HPI and below Exam Const: General: alert Orientation/consciousness: patient oriented x3 Resp: Auscultation: clear to auscultation bilaterally Cardio: Rhythm: regular rhythm GI: Inspection: obesity Auscultation: normal bowel sounds Skin: General skin exam: pallor Neuro: General: patient oriented x3 Objective Data Vital Signs Vital Signs: Vital Signs - 24 hr 06/18/22 08:19 06/18/22 08:20 06/18/22 10:59 Temperature Pulse Rate 70 Respiratory Rate Blood Pressure Pulse Oximetry 97 97 Oxygen Delivery Nasal Cannula Nasal Cannula Oxygen Flow Rate 2 1 06/18/22 14:00 06/18/22 17:29 06/18/22 20:00 Temperature 36.3 C L Pulse Rate 55 L Respiratory Rate 16 Blood Pressure 112/37 L Pulse Oximetry 93 93 Oxygen Delivery Room Air Room Air Oxygen Flow Rate 06/18/22 22:00 06/19/22 06:00 Temperature 36.6 C 36.4 C Pulse Rate 69 62 Respiratory Rate 18 18 Blood Pressure 103/55 L 93/79 L Pulse Oximetry 100 92 Oxygen Delivery Oxygen Flow Rate Intake/Output Intake/Output: Intake & Output 06/16/22 06/17/22 06/18/22 06/19/22 23:59 23:59 23:59 23:59 Intake Total 1450 1020 1010 300 Output Total 350 1 Balance 1100 1019 1010 300 Meds/Results Medications: Active Medications Generic Name Dose Route Start Last Admin Trade Name Freq PRN Reason Stop Dose Admin Acetaminophen 650 mg 05/30
[2022-06-19] MEDS: ERTAPENEM 1 GM/NS 50 ML 1 GM/50 ML BAG IVPB (09:59)
[2022-06-19] MEDS: metOLazone 5 MG TABLET PO (10:00)
[2022-06-19] MEDS: PHENYTOIN SODIUM 100 MG EXTENDED RELEASE CAP 200 MG PO ×2 (10:00→17:12)
[2022-06-19] MEDS: POTASSIUM CHLORIDE 20 MEQ TABLET 40 MEQ PO (10:00)
[2022-06-19] MEDS: GABAPENTIN 300 MG CAPSULE PO ×2 (10:01→17:11)
[2022-06-19] MEDS: SACCHAROMYCES BOULARDII 250 MG CAPSULE PO ×2 (10:01→17:11)
[2022-06-19] MEDS: GENTAMICIN SULFATE 0.1% OINT 15 GM TUBE 1 APPLIC TOPICAL ×2 (10:01→20:54)
[2022-06-19] MEDS: PANTOPRAZOLE 40 MG TABLET PO ×2 (10:01→20:52)
[2022-06-19] MEDS: FUROSEMIDE 40 MG TABLET PO (10:01)
[2022-06-19] MEDS: CALCIUM CARBONATE (OSCAL) 500 MG TABLET PO ×2 (10:01→17:11)
[2022-06-19 14:00] VITALS: BP 169/55; PULSE 71; RESP 16; TEMP 35.6; O2SAT 95
--- NOTE | 2022-06-19 14:08 | PCCCNOTE ---
On 06/19/22, the student, Sylvia Cherry, provided care and completed [facility] documentation on this patient. I have reviewed the student's documentation and agree with the findings.
--- NOTE | 2022-06-19 15:31 | P.PNIM_ITS ---
Progress Note: A&P Assessment and Plan (1) Acute UTI: Code(s): N39.0 - Urinary tract infection, site not specified Status: Acute Assessment and Plan: Patient with recent ESBL UTI resulting in septic shock presented to ED with worsened leukocytosis and abnormal UA * Repeat urine culture on 06/16/2022 with no growth * Suspect that initial UTI was suppressed but not completely treated and infection worsened leading to return to ED. This would account for the negative repeat culture * Will plan to continue a total of 10 days of IV antibiotics from initial treatment on 06/09. Patient received 4 doses of IV ertapenem at last hospital stay. Continue IV ertapenem for 10 total days. #8 today. Stop date will be 06/21/22. * Blood cultures pending, preliminary results negative to date * Monitor vital signs closely * Afebrile >48 hours. Leukocytosis improving. (2) GI bleed: Code(s): K92.2 - Gastrointestinal hemorrhage, unspecified Status: Acute Assessment and Plan: Patient with Hemoccult-positive episode of melanotic stool in the ED * Appreciate GI consultation * EGD 06/17 showed gastric and duodenal ulcer. Lesions cauterized. * Continue protonix 40 mg p.o. b.i.d. * Hold aspirin and Plavix for 5 days. Resume on 06/22 * Monitor H&H closely * Will need repeat EGD in 6 weeks and outpatient follow-up with Dr. Paz (3) Anemia: Code(s): D64.9 - Anemia, unspecified Status: Acute Assessment and Plan: Acute on chronic secondary to GI bleed * Hemoglobin remaining stable at 8.9 * Transfuse as needed to maintain stable hemoglobin (4) C. difficile diarrhea: Code(s): A04.72 - Enterocolitis due to Clostridium difficile, not specified as recurrent Status: Acute Assessment and Plan: Patient with positive C diff PCR on 06/10/2022 * She was treated with p.o. vancomycin and discharged with a 7 day course. * Continue p.o. vancomycin through 06/20/2022 * Banatrol and probiotic * Monitor stool patterns. No diarrhea (5) Hypothyroidism (acquired): Code(s): E03.9 - Hypothyroidism, unspecified Status: Chronic Assessment and Plan: TSH normal at last hospitalization on 06/10/2022 * Continue levothyroxine (6) Hypertension: Code(s): I10 - Essential (primary) hypertension Status: Acute Assessment and Plan: Blood pressure reviewed and has been fluctuant. This morning was 93/79, this afternoon 169/55 * Continue low-dose carvedilol 3.125 mg q12h * Monitor BP trends and adjust medication regimen as needed (7) Electrolyte abnormality: Code(s): E87.8 - Other disorders of electrolyte and fluid balance, not elsewhere classified Status: Acute Assessment and Plan: * Hypokalemia: potassium 3.2 today. Administer 40 mEq p.o. KCl. * Hypomagnesemia: resolved with supplementation. 2.0 today * Hypocalcemia: improved with Oscal 500 mg BID. Corrected calcium is 8.8 * Monitor BMP Subjective Date/time seen: 06/19/22 15:31 Interval history: Date of service: 06/19/2022 Delia Lopez is an 81-year-old female with a history of CAD, hypertension, hyperlipidemia, hypothyroidism, seizure disorder, and recent hospitalization from 06/09/2022 through 06/13/2022 with septic shock secondary to ESBL UTI who is seen in follow-up for GI bleed. she is feeling better today. She feels a bit stronger each day. She does still endorse a decreased appetite but she has been able to tolerate her meals. She denies nausea, vomiting, fever, or
--- NOTE | 2022-06-19 15:31 | PM.IMPN ---
Progress Note: A&P Assessment and Plan (1) Acute UTI: Code(s): N39.0 - Urinary tract infection, site not specified Status: Acute Assessment and Plan: Patient with recent ESBL UTI resulting in septic shock presented to ED with worsened leukocytosis and abnormal UA Repeat urine culture on 06/16/2022 with no growth Suspect that initial UTI was suppressed but not completely treated and infection worsened leading to return to ED. This would account for the negative repeat culture Will plan to continue a total of 10 days of IV antibiotics from initial treatment on 06/09. Patient received 4 doses of IV ertapenem at last hospital stay. Continue IV ertapenem for 10 total days. #8 today. Stop date will be 06/21/22. Blood cultures pending, preliminary results negative to date Monitor vital signs closely Afebrile >48 hours. Leukocytosis improving. (2) GI bleed: Code(s): K92.2 - Gastrointestinal hemorrhage, unspecified Status: Acute Assessment and Plan: Patient with Hemoccult-positive episode of melanotic stool in the ED Appreciate GI consultation EGD 06/17 showed gastric and duodenal ulcer. Lesions cauterized. Continue protonix 40 mg p.o. b.i.d. Hold aspirin and Plavix for 5 days. Resume on 06/22 Monitor H&H closely Will need repeat EGD in 6 weeks and outpatient follow-up with Dr. Paz (3) Anemia: Code(s): D64.9 - Anemia, unspecified Status: Acute Assessment and Plan: Acute on chronic secondary to GI bleed Hemoglobin remaining stable at 8.9 Transfuse as needed to maintain stable hemoglobin (4) C. difficile diarrhea: Code(s): A04.72 - Enterocolitis due to Clostridium difficile, not specified as recurrent Status: Acute Assessment and Plan: Patient with positive C diff PCR on 06/10/2022 She was treated with p.o. vancomycin and discharged with a 7 day course. Continue p.o. vancomycin through 06/20/2022 Banatrol and probiotic Monitor stool patterns. No diarrhea (5) Hypothyroidism (acquired): Code(s): E03.9 - Hypothyroidism, unspecified Status: Chronic Assessment and Plan: TSH normal at last hospitalization on 06/10/2022 Continue levothyroxine (6) Hypertension: Code(s): I10 - Essential (primary) hypertension Status: Acute Assessment and Plan: Blood pressure reviewed and has been fluctuant. This morning was 93/79, this afternoon 169/55 Continue low-dose carvedilol 3.125 mg q12h Monitor BP trends and adjust medication regimen as needed (7) Electrolyte abnormality: Code(s): E87.8 - Other disorders of electrolyte and fluid balance, not elsewhere classified Status: Acute Assessment and Plan: Hypokalemia: potassium 3.2 today. Administer 40 mEq p.o. KCl. Hypomagnesemia: resolved with supplementation. 2.0 today Hypocalcemia: improved with Oscal 500 mg BID. Corrected calcium is 8.8 Monitor BMP Subjective Date/time seen: 06/19/22 15:31 Interval history: Date of service: 06/19/2022 Delia Lopez is an 81-year-old female with a history of CAD, hypertension, hyperlipidemia, hypothyroidism, seizure disorder, and recent hospitalization from 06/09/2022 through 06/13/2022 with septic shock secondary to ESBL UTI who is seen in follow-up for GI bleed. she is feeling better today. She feels a bit stronger each day. She does still endorse a decreased appetite but she has been able to tolerate her meals. She denies nausea, vomiting, fever, or chills. She is incontinent is unsure if she has had any diarrhea. Denies shortness breath, cough, chest pain, dizziness, lightheadedness, weakness. Denies urinary symptoms. RN reports no episodes of diarrhea today. Review of Systems Review of Systems: All systems reviewed & are unremarkable except as noted in HPI and below Exam Narrative: General: Obese, chronically ill-appearing, 81-year-old female, supine in bed,
[2022-06-19 17:16] VITALS: O2SAT 94
[2022-06-19] MEDS: GABAPENTIN 300 MG CAPSULE 600 MG PO (20:52)
[2022-06-19 21:46] VITALS: BP 141/66; PULSE 78; RESP 16; TEMP 36.1; O2SAT 97
[2022-06-20] MEDS: LEVOTHYROXINE SODIUM 100 MCG TABLET PO (05:58)
[2022-06-20 06:00] VITALS: BP 127/52; PULSE 79; RESP 14; TEMP 37.7; O2SAT 94
[2022-06-20 06:22] LABS: Hematocrit 28.7 % (37.0-47.0); Hemoglobin 9.3 g/dL (12.0-15.0); Mean Corpuscular HGB Conc 32.4 g/dl (32-36); Mean Corpuscular Volume 92.6 fl (80-100); Mean Platelet Volume 11.2 fl (7.4-10.4); Platelet Count Result 212 k/mm3 (150-375); White Blood Count 13.3 K/mm3 (4.5-10.0)
[2022-06-20 06:46] LABS: Anion Gap 6 mmol/L (8-16); Blood Urea Nitrogen 22 mg/dL (7-17); Carbon Dioxide 27 mmol/L (22-30); Chloride 99 mmol/L (98-107); Estimated CRCL calculation 74 ml/min; Estimated Glomerular Filt Rate > 60; Glucose 90 mg/dL (65-110); Potassium 3.7 mmol/L (3.4-5.0); Sodium 132 mmol/L (137-145)
[2022-06-20 09:27] VITALS: O2SAT 94
[2022-06-20] MEDS: ERTAPENEM 1 GM/NS 50 ML 1 GM/50 ML BAG IVPB (09:31)
[2022-06-20] MEDS: PANTOPRAZOLE 40 MG TABLET PO ×2 (09:31→21:15)
[2022-06-20] MEDS: GABAPENTIN 300 MG CAPSULE PO ×2 (09:31→18:51)
[2022-06-20] MEDS: PHENYTOIN SODIUM 100 MG EXTENDED RELEASE CAP 200 MG PO ×2 (09:31→18:50)
[2022-06-20] MEDS: SACCHAROMYCES BOULARDII 250 MG CAPSULE PO ×2 (09:32→18:51)
[2022-06-20] MEDS: CALCIUM CARBONATE (OSCAL) 500 MG TABLET PO ×2 (09:32→18:51)
[2022-06-20] MEDS: FUROSEMIDE 40 MG TABLET PO (09:32)
[2022-06-20] MEDS: GENTAMICIN SULFATE 0.1% OINT 15 GM TUBE 1 APPLIC TOPICAL ×2 (09:33→21:16)
[2022-06-20] MEDS: metOLazone 5 MG TABLET PO (11:18)
[2022-06-20 14:00] VITALS: BP 118/60; PULSE 90; RESP 15; TEMP 37.3; O2SAT 95
--- NOTE | 2022-06-20 16:27 | P.PNIM_ITS ---
Progress Note: A&P Assessment and Plan (1) Acute UTI: Code(s): N39.0 - Urinary tract infection, site not specified Status: Acute Assessment and Plan: Patient with recent ESBL UTI resulting in septic shock presented to ED with worsened leukocytosis and abnormal UA * Repeat urine culture on 06/16/2022 with no growth * Suspect that initial UTI was suppressed but not completely treated and infection worsened leading to return to ED. This would account for the negative repeat culture * Will plan to continue a total of 10 days of IV antibiotics from initial treatment on 06/09. Patient received 4 doses of IV ertapenem at last hospital stay. Continue IV ertapenem for 10 total days. #9 today. Stop date 06/21/22. * Blood cultures pending, preliminary results negative to date * Monitor vital signs closely * Afebrile >48 hours. Slight increase in WBC today at 13.3, however with overall improvement. continue to monitor CBC with differential closely (2) GI bleed: Code(s): K92.2 - Gastrointestinal hemorrhage, unspecified Status: Acute Assessment and Plan: Patient with Hemoccult-positive episode of melanotic stool in the ED * Appreciate GI consultation * EGD 06/17 showed gastric and duodenal ulcer. Lesions cauterized. * Continue protonix 40 mg p.o. b.i.d. * Hold aspirin and Plavix for 5 days. Resume on 06/22 * Monitor H&H closely * Will need repeat EGD in 6 weeks and outpatient follow-up with Dr. Paz (3) Anemia: Code(s): D64.9 - Anemia, unspecified Status: Acute Assessment and Plan: Acute on chronic secondary to GI bleed * Hemoglobin remaining stable. improved to 9.3 today * Transfuse as needed to maintain stable hemoglobin (4) C. difficile diarrhea: Code(s): A04.72 - Enterocolitis due to Clostridium difficile, not specified as recurrent Status: Acute Assessment and Plan: Patient with positive C diff PCR on 06/10/2022 * She was treated with p.o. vancomycin and discharged with a 7 day course. * Continue p.o. vancomycin #7 today. Final dose this evening * Banatrol and probiotic * Monitor stool patterns. Endorses loose stool today (5) Hypothyroidism (acquired): Code(s): E03.9 - Hypothyroidism, unspecified Status: Chronic Assessment and Plan: TSH normal at last hospitalization on 06/10/2022 * Continue levothyroxine (6) Hypertension: Code(s): I10 - Essential (primary) hypertension Status: Acute Assessment and Plan: Blood pressure reviewed and has been fluctuant. Stable today. Last BP 118/60 * Continue low-dose carvedilol 3.125 mg q12h * Monitor BP trends and adjust medication regimen as needed (7) Electrolyte abnormality: Code(s): E87.8 - Other disorders of electrolyte and fluid balance, not elsewhere classified Status: Acute Assessment and Plan: * Hypokalemia: resolved with supplementation. Potassium 3.7 today * Hypomagnesemia: resolved with supplementation * Hypocalcemia: improved with Oscal 500 mg BID. Corrected calcium is within normal limits * Monitor BMP Subjective Date/time seen: 06/20/22 16:27 Interval history: Date of service: 06/20/2022 Delia Lopez is an 81-year-old female with a history of CAD, hypertension, hyperlipidemia, hypothyroidism, seizure disorder, and recent hospitalization from 06/09/2022 through 06/13/2022 with septic shock secondary to ESBL UTI who is seen in follow-up for GI bleed. she feels well today. She continues to complain of fatigue but states
--- NOTE | 2022-06-20 16:27 | PM.IMPN ---
Progress Note: A&P Assessment and Plan (1) Acute UTI: Code(s): N39.0 - Urinary tract infection, site not specified Status: Acute Assessment and Plan: Patient with recent ESBL UTI resulting in septic shock presented to ED with worsened leukocytosis and abnormal UA Repeat urine culture on 06/16/2022 with no growth Suspect that initial UTI was suppressed but not completely treated and infection worsened leading to return to ED. This would account for the negative repeat culture Will plan to continue a total of 10 days of IV antibiotics from initial treatment on 06/09. Patient received 4 doses of IV ertapenem at last hospital stay. Continue IV ertapenem for 10 total days. #9 today. Stop date 06/21/22. Blood cultures pending, preliminary results negative to date Monitor vital signs closely Afebrile >48 hours. Slight increase in WBC today at 13.3, however with overall improvement. continue to monitor CBC with differential closely (2) GI bleed: Code(s): K92.2 - Gastrointestinal hemorrhage, unspecified Status: Acute Assessment and Plan: Patient with Hemoccult-positive episode of melanotic stool in the ED Appreciate GI consultation EGD 06/17 showed gastric and duodenal ulcer. Lesions cauterized. Continue protonix 40 mg p.o. b.i.d. Hold aspirin and Plavix for 5 days. Resume on 06/22 Monitor H&H closely Will need repeat EGD in 6 weeks and outpatient follow-up with Dr. Paz (3) Anemia: Code(s): D64.9 - Anemia, unspecified Status: Acute Assessment and Plan: Acute on chronic secondary to GI bleed Hemoglobin remaining stable. improved to 9.3 today Transfuse as needed to maintain stable hemoglobin (4) C. difficile diarrhea: Code(s): A04.72 - Enterocolitis due to Clostridium difficile, not specified as recurrent Status: Acute Assessment and Plan: Patient with positive C diff PCR on 06/10/2022 She was treated with p.o. vancomycin and discharged with a 7 day course. Continue p.o. vancomycin #7 today. Final dose this evening Banatrol and probiotic Monitor stool patterns. Endorses loose stool today (5) Hypothyroidism (acquired): Code(s): E03.9 - Hypothyroidism, unspecified Status: Chronic Assessment and Plan: TSH normal at last hospitalization on 06/10/2022 Continue levothyroxine (6) Hypertension: Code(s): I10 - Essential (primary) hypertension Status: Acute Assessment and Plan: Blood pressure reviewed and has been fluctuant. Stable today. Last BP 118/60 Continue low-dose carvedilol 3.125 mg q12h Monitor BP trends and adjust medication regimen as needed (7) Electrolyte abnormality: Code(s): E87.8 - Other disorders of electrolyte and fluid balance, not elsewhere classified Status: Acute Assessment and Plan: Hypokalemia: resolved with supplementation. Potassium 3.7 today Hypomagnesemia: resolved with supplementation Hypocalcemia: improved with Oscal 500 mg BID. Corrected calcium is within normal limits Monitor BMP Subjective Date/time seen: 06/20/22 16:27 Interval history: Date of service: 06/20/2022 Delia Lopez is an 81-year-old female with a history of CAD, hypertension, hyperlipidemia, hypothyroidism, seizure disorder, and recent hospitalization from 06/09/2022 through 06/13/2022 with septic shock secondary to ESBL UTI who is seen in follow-up for GI bleed. she feels well today. She continues to complain of fatigue but states it is improving each day. She is staying awake more throughout each day. She has no additional concerns today. She is tolerating her diet. Denies nausea, vomiting, fever, or chills. She is incontinent. Reports she is still having loose stools. Denies chest pain, shortness a breath, palpitations. Review of Systems Review of Systems: All systems reviewed & are unremarkable except as noted in HPI and below Exam Narrati
[2022-06-20] MEDS: GABAPENTIN 300 MG CAPSULE 600 MG PO (21:14)
[2022-06-20 22:00] VITALS: BP 104/47; PULSE 88; RESP 17; TEMP 36.7; O2SAT 93
[2022-06-21 05:35] VITALS: BP 110/40; PULSE 84; RESP 18; TEMP 37.1; O2SAT 93
[2022-06-21] MEDS: LEVOTHYROXINE SODIUM 100 MCG TABLET PO (06:29)
[2022-06-21 06:55] LABS: Alanine Aminotransferase 32 U/L (6-35); Albumin Level 3.2 g/dL (3.5-5.1); Alkaline Phosphatase 161 U/L (38-126); Anion Gap 5 mmol/L (8-16); Aspartate Amino Transferase 107 U/L (14-36); Blood Urea Nitrogen 18 mg/dL (7-17); Calcium 8.2 mg/dL (8.4-10.2); Carbon Dioxide 30 mmol/L (22-30); Chloride 96 mmol/L (98-107); Estimated CRCL calculation 74 ml/min; Estimated Glomerular Filt Rate > 60; Glucose 90 mg/dL (65-110); Magnesium 1.7 mg/dL (1.6-2.3); Potassium 4.1 mmol/L (3.4-5.0); Sodium 131 mmol/L (137-145)
[2022-06-21] MEDS: SACCHAROMYCES BOULARDII 250 MG CAPSULE PO ×2 (10:30→18:45)
[2022-06-21] MEDS: metOLazone 5 MG TABLET PO (10:30)
[2022-06-21] MEDS: CALCIUM CARBONATE (OSCAL) 500 MG TABLET PO ×2 (10:30→18:45)
[2022-06-21] MEDS: FUROSEMIDE 40 MG TABLET PO (10:30)
[2022-06-21] MEDS: PANTOPRAZOLE 40 MG TABLET PO ×2 (10:30→22:21)
[2022-06-21] MEDS: GENTAMICIN SULFATE 0.1% OINT 15 GM TUBE 1 APPLIC TOPICAL ×2 (10:31→23:45)
[2022-06-21] MEDS: PHENYTOIN SODIUM 100 MG EXTENDED RELEASE CAP 200 MG PO ×2 (10:31→18:44)
[2022-06-21 10:49] LABS: Basophils Absolute Auto 0.1 K/mm3 (0.0-0.1); Basophils Percent Auto 0.4 % (0.2-1.2); Eosinophils Percent Auto 0.2 % (0-4.4); Hematocrit 28.6 % (37.0-47.0); Hemoglobin 8.9 g/dL (12.0-15.0); Immature Granulocyte Percent A 0.6 % (0-0.5); Lymphocytes Absolute Auto 2.22 K/mm3 (0.9-3.2); Lymphocytes Percent Auto 13.4 % (18.3-44.2); Mean Corpuscular HGB Conc 31.1 g/dl (32-36); Mean Corpuscular Hemoglobin 29.6 pg (26-34); Mean Platelet Volume 10.8 fl (7.4-10.4); Monocytes Absolute Auto 1.6 K/mm3 (0.1-0.6); Monocytes Percent Auto 9.9 % (2.6-8.5); Neutrophils Absolute Auto 12.5 K/mm3 (1.3-6.7); Neutrophils Percent Auto 75.5 % (45.5-73.1); Platelet Count Result 223 k/mm3 (150-375); Red Blood Count 3.01 M/mm3 (4.2-5.4); Red Cell Distribution Width 15.3 % (11.5-14.5); White Blood Count 16.6 K/mm3 (4.5-10.0)
[2022-06-21] MEDS: ERTAPENEM 1 GM/NS 50 ML 1 GM/50 ML BAG IVPB (13:51)
[2022-06-21] MEDS: FIDAXOMICIN 200 MG TABLET PO ×2 (13:51→23:46)
[2022-06-21 14:00] VITALS: BP 124/82; PULSE 103; RESP 18; TEMP 37.3; O2SAT 88
--- NOTE | 2022-06-21 14:16 | P.PNIM_ITS ---
Progress Note: A&P Assessment and Plan (1) Acute UTI: Code(s): N39.0 - Urinary tract infection, site not specified Status: Acute Assessment and Plan: Patient with recent ESBL UTI resulting in septic shock presented to ED with worsened leukocytosis and abnormal UA * Repeat urine culture on 06/16/2022 with no growth * Suspect that initial UTI was suppressed but not completely treated and infection worsened leading to return to ED. This would account for the negative repeat culture * Completed 10 total days of IV Ertapenem today * Blood cultures pending, preliminary results negative to date (2) C. difficile diarrhea: Code(s): A04.72 - Enterocolitis due to Clostridium difficile, not specified as recurrent Status: Acute Assessment and Plan: Patient with positive C diff PCR on 06/10/2022 * She was treated with p.o. vancomycin and discharged with a 7 day course. * Completed 7 days of Vancomycin on 06/20/22 * Patient with persistent diarrhea and increasing leukocytosis. * Will transition to PO Dificid today and monitor response * Banatrol and probiotic * Monitor stool patterns (3) GI bleed: Code(s): K92.2 - Gastrointestinal hemorrhage, unspecified Status: Acute Assessment and Plan: Patient with Hemoccult-positive episode of melanotic stool in the ED * Appreciate GI consultation * EGD 06/17 showed gastric and duodenal ulcer. Lesions cauterized. * Continue protonix 40 mg p.o. b.i.d. * Hold aspirin and Plavix for 5 days. Resume on 06/22 * Monitor H&H closely * Will need repeat EGD in 6 weeks and outpatient follow-up with Dr. Paz (4) Anemia: Code(s): D64.9 - Anemia, unspecified Status: Acute Assessment and Plan: Acute on chronic secondary to GI bleed * H&H remaining stable * Transfuse as needed to maintain stable hemoglobin (5) Hypothyroidism (acquired): Code(s): E03.9 - Hypothyroidism, unspecified Status: Chronic Assessment and Plan: TSH normal at last hospitalization on 06/10/2022 * Continue levothyroxine (6) Hypertension: Code(s): I10 - Essential (primary) hypertension Status: Acute Assessment and Plan: Blood pressure reviewed and has been fluctuant. A little soft today. Last BP 110/40 * hold carvedilol and furosemide * Monitor BP trends and adjust medication regimen as needed (7) Electrolyte abnormality: Code(s): E87.8 - Other disorders of electrolyte and fluid balance, not elsewhere classified Status: Acute Assessment and Plan: * Hypokalemia: resolved with supplementation. Potassium 4.1 today * Hypomagnesemia: resolved with supplementation * Hypocalcemia: improved with Oscal 500 mg BID. Corrected calcium is within normal limits * Monitor BMP Subjective Date/time seen: 06/21/22 14:16 Interval history: Date of service: 06/21/2022 Delia Lopez is an 81-year-old female with a history of CAD, hypertension, hyperlipidemia, hypothyroidism, seizure disorder, and recent hospitalization from 06/09/2022 through 06/13/2022 with septic shock secondary to ESBL UTI who is seen in follow-up for GI bleed, UTI, C. diff colitis. she continues to complain of fatigue. She states she did not sleep well last night. She was up a couple hours this morning and ate breakfast and then has been sleeping since. She feels like she has very little energy. Otherwise, she has no complaints. She denies dizziness, lightheadedness, weakness, fevers, chills, nausea, vomiting. She is incontinent.
--- NOTE | 2022-06-21 14:16 | PM.IMPN ---
Progress Note: A&P Assessment and Plan (1) Acute UTI: Code(s): N39.0 - Urinary tract infection, site not specified Status: Acute Assessment and Plan: Patient with recent ESBL UTI resulting in septic shock presented to ED with worsened leukocytosis and abnormal UA Repeat urine culture on 06/16/2022 with no growth Suspect that initial UTI was suppressed but not completely treated and infection worsened leading to return to ED. This would account for the negative repeat culture Completed 10 total days of IV Ertapenem today Blood cultures pending, preliminary results negative to date (2) C. difficile diarrhea: Code(s): A04.72 - Enterocolitis due to Clostridium difficile, not specified as recurrent Status: Acute Assessment and Plan: Patient with positive C diff PCR on 06/10/2022 She was treated with p.o. vancomycin and discharged with a 7 day course. Completed 7 days of Vancomycin on 06/20/22 Patient with persistent diarrhea and increasing leukocytosis. Will transition to PO Dificid today and monitor response Banatrol and probiotic Monitor stool patterns (3) GI bleed: Code(s): K92.2 - Gastrointestinal hemorrhage, unspecified Status: Acute Assessment and Plan: Patient with Hemoccult-positive episode of melanotic stool in the ED Appreciate GI consultation EGD 06/17 showed gastric and duodenal ulcer. Lesions cauterized. Continue protonix 40 mg p.o. b.i.d. Hold aspirin and Plavix for 5 days. Resume on 06/22 Monitor H&H closely Will need repeat EGD in 6 weeks and outpatient follow-up with Dr. Paz (4) Anemia: Code(s): D64.9 - Anemia, unspecified Status: Acute Assessment and Plan: Acute on chronic secondary to GI bleed H&H remaining stable Transfuse as needed to maintain stable hemoglobin (5) Hypothyroidism (acquired): Code(s): E03.9 - Hypothyroidism, unspecified Status: Chronic Assessment and Plan: TSH normal at last hospitalization on 06/10/2022 Continue levothyroxine (6) Hypertension: Code(s): I10 - Essential (primary) hypertension Status: Acute Assessment and Plan: Blood pressure reviewed and has been fluctuant. A little soft today. Last BP 110/40 hold carvedilol and furosemide Monitor BP trends and adjust medication regimen as needed (7) Electrolyte abnormality: Code(s): E87.8 - Other disorders of electrolyte and fluid balance, not elsewhere classified Status: Acute Assessment and Plan: Hypokalemia: resolved with supplementation. Potassium 4.1 today Hypomagnesemia: resolved with supplementation Hypocalcemia: improved with Oscal 500 mg BID. Corrected calcium is within normal limits Monitor BMP Subjective Date/time seen: 06/21/22 14:16 Interval history: Date of service: 06/21/2022 Delia Lopez is an 81-year-old female with a history of CAD, hypertension, hyperlipidemia, hypothyroidism, seizure disorder, and recent hospitalization from 06/09/2022 through 06/13/2022 with septic shock secondary to ESBL UTI who is seen in follow-up for GI bleed, UTI, C. diff colitis. she continues to complain of fatigue. She states she did not sleep well last night. She was up a couple hours this morning and ate breakfast and then has been sleeping since. She feels like she has very little energy. Otherwise, she has no complaints. She denies dizziness, lightheadedness, weakness, fevers, chills, nausea, vomiting. She is incontinent. No shortness of breath, cough, chest pain, palpitations. She is incontinent of stool and urine and cannot indicate if she has had any bowel movements. She was reportedly having diarrhea yesterday. She has 2 bowel movements documented today but RN and DENTAL PRACTITIONER reports no stools this shift. Review of Systems Review of Systems: All systems reviewed & are unremarkable except as noted in HPI and below Exam Narrative: General: O
[2022-06-21] MEDS: GABAPENTIN 300 MG CAPSULE PO (18:46)
[2022-06-21 20:20] VITALS: PULSE 54; RESP 20; O2SAT 85
[2022-06-21 22:00] VITALS: BP 112/44; PULSE 54; RESP 20; TEMP 38.3; O2SAT 85
[2022-06-21] MEDS: GABAPENTIN 300 MG CAPSULE 600 MG PO (22:19)
[2022-06-22] MEDS: LEVOTHYROXINE SODIUM 100 MCG TABLET PO (05:26)
[2022-06-22 06:00] VITALS: BP 88/46; PULSE 90; RESP 16; TEMP 37.8; O2SAT 91
[2022-06-22 06:41] LABS: Basophils Absolute Auto 0.1 K/mm3 (0.0-0.1); Basophils Percent Auto 0.5 % (0.2-1.2); Hematocrit 27.4 % (37.0-47.0); Hemoglobin 8.5 g/dL (12.0-15.0); Immature Granulocyte Absolute 0.16 K/mm3 (0.00-0.031); Immature Granulocyte Percent A 0.7 % (0-0.5); Lymphocytes Absolute Auto 4.01 K/mm3 (0.9-3.2); Lymphocytes Percent Auto 17.8 % (18.3-44.2); Mean Corpuscular Hemoglobin 29.3 pg (26-34); Mean Corpuscular Volume 94.5 fl (80-100); Mean Platelet Volume 10.8 fl (7.4-10.4); Monocytes Absolute Auto 2.3 K/mm3 (0.1-0.6); Monocytes Percent Auto 10.2 % (2.6-8.5); Neutrophils Percent Auto 70.8 % (45.5-73.1); Platelet Count Result 210 k/mm3 (150-375); White Blood Count 22.6 K/mm3 (4.5-10.0)
[2022-06-22 06:51] LABS: Anion Gap 8 mmol/L (8-16); Blood Urea Nitrogen 21 mg/dL (7-17); Calcium 7.8 mg/dL (8.4-10.2); Carbon Dioxide 32 mmol/L (22-30); Chloride 90 mmol/L (98-107); Estimated CRCL calculation 51 ml/min; Estimated Glomerular Filt Rate 60; Glucose 99 mg/dL (65-110); Potassium 3.1 mmol/L (3.4-5.0); Sodium 130 mmol/L (137-145)
[2022-06-22 08:00] VITALS: PULSE 90; RESP 16; O2SAT 91
[2022-06-22] MEDS: metOLazone 5 MG TABLET PO (10:28)
[2022-06-22] MEDS: GENTAMICIN SULFATE 0.1% OINT 15 GM TUBE 1 APPLIC TOPICAL ×2 (10:28→21:20)
[2022-06-22] MEDS: GABAPENTIN 300 MG CAPSULE PO ×2 (10:28→18:03)
[2022-06-22] MEDS: SACCHAROMYCES BOULARDII 250 MG CAPSULE PO ×2 (10:28→18:02)
[2022-06-22] MEDS: PHENYTOIN SODIUM 100 MG EXTENDED RELEASE CAP 200 MG PO ×2 (10:28→18:02)
[2022-06-22] MEDS: FIDAXOMICIN 200 MG TABLET PO ×2 (10:28→21:20)
[2022-06-22] MEDS: PANTOPRAZOLE 40 MG TABLET PO ×2 (10:28→21:20)
[2022-06-22] MEDS: CALCIUM CARBONATE (OSCAL) 500 MG TABLET PO ×2 (10:29→18:03)
[2022-06-22] MEDS: SODIUM CHLORIDE 0.9% IV 1,000 ML 100 ML IV CONT (10:30)
[2022-06-22] MEDS: POTASSIUM CHLORIDE 20 MEQ TABLET 40 MEQ PO (10:30)
[2022-06-22 11:11] LABS: Alanine Aminotransferase 30 U/L (6-35); Albumin Level 2.9 g/dL (3.5-5.1); Alkaline Phosphatase 140 U/L (38-126); Aspartate Amino Transferase 76 U/L (14-36); Bilirubin,Total 0.7 mg/dL (0.2-1.3); Magnesium 1.3 mg/dL (1.6-2.3)
[2022-06-22 11:20] VITALS: O2SAT 94
--- NOTE | 2022-06-22 13:04 | P.PNIM_ITS ---
Progress Note: A&P Assessment and Plan (1) Sepsis: Code(s): A41.9 - Sepsis, unspecified organism Status: Acute Assessment and Plan: Patient is septic evident by leukocytosis, fever, hypotension * Etiology not entirely clear at this time * Patient has completed 10 days of treatment for ESBL UTI (stopped on 06/21) * Received 7 days of p.o. vancomycin for C diff colitis (stopped on 06/20) * 06/21 transition to p.o. Dificid * Blood cultures collected on 06/16/22 negative * Repeat blood cultures ordered today * Repeat CXR today with no evidence of pneumonia. Patient not at risk for aspiration. * Repeat UA with reflex culture ordered. Awaiting collection via straight catheterization * Stool cultures pending * No wounds or evidence of skin/soft tissue infection * Patient denies any orthopedic hardware, etc. * Repeat CBC with differential this afternoon * Consider CT abdomen/pelvis if no improvement. Patient denies abdominal pain. * Lactic pending * IV fluid bolus and continue with IV fluid rehydration. Monitor volume status closely (2) Acute UTI: Code(s): N39.0 - Urinary tract infection, site not specified Status: Acute Assessment and Plan: Patient with recent ESBL UTI (06/09/22) resulting in septic shock presented to ED with worsened leukocytosis and abnormal UA * Repeat urine culture on 06/16/2022 with no growth * Suspect that initial UTI was suppressed but not completely treated and infection worsened leading to return to ED. This would account for the negative repeat culture * Completed 10 total days of IV Ertapenem 06/21 * Repeat UA with reflex today in light of sepsis (3) C. difficile diarrhea: Code(s): A04.72 - Enterocolitis due to Clostridium difficile, not specified as recurrent Status: Acute Assessment and Plan: Patient with positive C diff PCR on 06/10/2022 * She was treated with p.o. vancomycin and discharged with a 7 day course. * Completed 7 days of Vancomycin on 06/20/22 * 06/21 started p.o. Dificid due to persistent diarrhea and leukocytosis * Reportedly no bowel movements today * Stool cultures pending * Banatrol and probiotic * Monitor stool patterns (4) GI bleed: Code(s): K92.2 - Gastrointestinal hemorrhage, unspecified Status: Acute Assessment and Plan: Patient with Hemoccult-positive episode of melanotic stool in the ED * Appreciate GI consultation * EGD 06/17 showed gastric and duodenal ulcer. Lesions cauterized. * Continue protonix 40 mg p.o. b.i.d. * Aspirin and Plavix held for 5 days following EGD Resume today * Monitor H&H closely * Will need repeat EGD in 6 weeks and outpatient follow-up with Dr. Paz (5) Anemia: Code(s): D64.9 - Anemia, unspecified Status: Acute Assessment and Plan: Acute on chronic secondary to GI bleed * H&H remaining stable * Transfuse as needed to maintain stable hemoglobin * No active bleeding (6) Hypothyroidism (acquired): Code(s): E03.9 - Hypothyroidism, unspecified Status: Chronic Assessment and Plan: TSH normal at last hospitalization on 06/10/2022 * Continue levothyroxine (7) Hypertension: Code(s): I10 - Essential (primary) hypertension Status: Acute Assessment and Plan: Blood pressures have been soft during admission. Patient hypotensive today at 88/46 * IV fluid bolus as described above * hold carvedilol, furosemide, metolazone * Monitor BP trends and adjust medication regimen as needed (8) Electrolyte abnormali
--- NOTE | 2022-06-22 13:04 | PM.IMPN ---
Progress Note: A&P Assessment and Plan (1) Sepsis: Code(s): A41.9 - Sepsis, unspecified organism Status: Acute Assessment and Plan: Patient is septic evident by leukocytosis, fever, hypotension Etiology not entirely clear at this time Patient has completed 10 days of treatment for ESBL UTI (stopped on 06/21) Received 7 days of p.o. vancomycin for C diff colitis (stopped on 06/20) 06/21 transition to p.o. Dificid Blood cultures collected on 06/16/22 negative Repeat blood cultures ordered today Repeat CXR today with no evidence of pneumonia. Patient not at risk for aspiration. Repeat UA with reflex culture ordered. Awaiting collection via straight catheterization Stool cultures pending No wounds or evidence of skin/soft tissue infection Patient denies any orthopedic hardware, etc. Repeat CBC with differential this afternoon Consider CT abdomen/pelvis if no improvement. Patient denies abdominal pain. Lactic pending IV fluid bolus and continue with IV fluid rehydration. Monitor volume status closely (2) Acute UTI: Code(s): N39.0 - Urinary tract infection, site not specified Status: Acute Assessment and Plan: Patient with recent ESBL UTI (06/09/22) resulting in septic shock presented to ED with worsened leukocytosis and abnormal UA Repeat urine culture on 06/16/2022 with no growth Suspect that initial UTI was suppressed but not completely treated and infection worsened leading to return to ED. This would account for the negative repeat culture Completed 10 total days of IV Ertapenem 06/21 Repeat UA with reflex today in light of sepsis (3) C. difficile diarrhea: Code(s): A04.72 - Enterocolitis due to Clostridium difficile, not specified as recurrent Status: Acute Assessment and Plan: Patient with positive C diff PCR on 06/10/2022 She was treated with p.o. vancomycin and discharged with a 7 day course. Completed 7 days of Vancomycin on 06/20/2206/21 started p.o. Dificid due to persistent diarrhea and leukocytosis Reportedly no bowel movements today Stool cultures pending Banatrol and probiotic Monitor stool patterns (4) GI bleed: Code(s): K92.2 - Gastrointestinal hemorrhage, unspecified Status: Acute Assessment and Plan: Patient with Hemoccult-positive episode of melanotic stool in the ED Appreciate GI consultation EGD 06/17 showed gastric and duodenal ulcer. Lesions cauterized. Continue protonix 40 mg p.o. b.i.d. Aspirin and Plavix held for 5 days following EGD Resume today Monitor H&H closely Will need repeat EGD in 6 weeks and outpatient follow-up with Dr. Paz (5) Anemia: Code(s): D64.9 - Anemia, unspecified Status: Acute Assessment and Plan: Acute on chronic secondary to GI bleed H&H remaining stable Transfuse as needed to maintain stable hemoglobin No active bleeding (6) Hypothyroidism (acquired): Code(s): E03.9 - Hypothyroidism, unspecified Status: Chronic Assessment and Plan: TSH normal at last hospitalization on 06/10/2022 Continue levothyroxine (7) Hypertension: Code(s): I10 - Essential (primary) hypertension Status: Acute Assessment and Plan: Blood pressures have been soft during admission. Patient hypotensive today at 88/46 IV fluid bolus as described above hold carvedilol, furosemide, metolazone Monitor BP trends and adjust medication regimen as needed (8) Electrolyte abnormality: Code(s): E87.8 - Other disorders of electrolyte and fluid balance, not elsewhere classified Status: Acute Assessment and Plan: Hypokalemia: Potassium 3.1 today. Ordered 40 mEq p.o. KCl. Begin scheduled potassium supplementation 20 mEq b.i.d. Hypomagnesemia: Mag 1.3. Ordered 4 g magnesium sulfate. Monitor closely Hypocalcemia: improved with Oscal 500 mg BID. Corrected calcium is within normal limits Monitor BMP (
[2022-06-22 13:29] VITALS: BP 118/58; PULSE 75; RESP 16; TEMP 36.2; O2SAT 92
[2022-06-22 14:01] LABS: Basophils Absolute Auto 0.1 K/mm3 (0.0-0.1); Basophils Percent Auto 0.5 % (0.2-1.2); Eosinophils Absolute Auto 0.1 K/mm3 (0-0.3); Eosinophils Percent Auto 0.6 % (0-4.4); Hematocrit 25.2 % (37.0-47.0); Hemoglobin 7.9 g/dL (12.0-15.0); Immature Granulocyte Absolute 0.11 K/mm3 (0.00-0.031); Immature Granulocyte Percent A 0.7 % (0-0.5); Lymphocytes Absolute Auto 2.66 K/mm3 (0.9-3.2); Lymphocytes Percent Auto 16.6 % (18.3-44.2); Mean Corpuscular HGB Conc 31.3 g/dl (32-36); Mean Corpuscular Hemoglobin 29.6 pg (26-34); Mean Corpuscular Volume 94.4 fl (80-100); Mean Platelet Volume 10.7 fl (7.4-10.4); Monocytes Percent Auto 12.5 % (2.6-8.5); Neutrophils Absolute Auto 11.1 K/mm3 (1.3-6.7); Neutrophils Percent Auto 69.1 % (45.5-73.1); Platelet Count Result 189 k/mm3 (150-375); Red Blood Count 2.67 M/mm3 (4.2-5.4); Red Cell Distribution Width 15.2 % (11.5-14.5); White Blood Count 16.1 K/mm3 (4.5-10.0)
[2022-06-22 14:11] LABS: Lactic Acid Reflex 1.1 mmol/L (0.7-2.0)
[2022-06-22] MEDS: MAGNESIUM SULF 4 GM/WATER100ML 4 GM/100 ML BAG IVPB (14:16)
[2022-06-22 14:21] LABS: NT Pro B Type Natriuretic Pept > 35000 pg/mL (5-100)
[2022-06-22] MEDS: CLOPIDOGREL BISULFATE 75 MG TABLET PO (18:03)
[2022-06-22] MEDS: ASPIRIN 81 MG ENTERIC TABLET PO (18:04)
[2022-06-22 20:00] VITALS: O2SAT 96
[2022-06-22 20:14] LABS: Toxigenic C. Diff POSITIVE (NEGATIVE)
[2022-06-22] MEDS: GABAPENTIN 300 MG CAPSULE 600 MG PO (21:20)
[2022-06-22 22:00] VITALS: BP 109/70; PULSE 87; RESP 18; TEMP 37; O2SAT 99
[2022-06-23] VITALS (8 sets, daily range): BP systolic 112–120; BP diastolic 60–77; PULSE 77–112; RESP 16–22; TEMP 36.7–39.4; O2SAT 92–97
--- NOTE | 2022-06-23 | ECHO_ITS ---
Patient Info Name: Delia Lopez Age: 81 years : 1940 Gender: Female Ht: 63 in Wt: 245 lbs BSA: 2.29 m2 HR: 75 bpm BP: 118 / 60 mmHg Technical Quality: Fair Exam Date: 06/23/2022 3:01 PM Exam Location: [facility] Patient Status: Inpatient Admit Date: 06/18/2022 Staff Ordering Physician: Paola De Oliveira DO Registered Nurse Practitioner: Emanuel Jordan RDCS, RT Attending Provider: Kendra Oleary PA-C Referring Physician: Alvino WHITTEN; Exam Type: CA echo doppler color flow Study Info Indications J96.91 - Respiratory failure, unspecified with hypoxia Complete two-dimensional, color flow and Doppler transthoracic echocardiogram is performed. Strain analysis performed. Summary 1. Complete two-dimensional, color flow and Doppler transthoracic echocardiogram is performed. 2. Left ventricular chamber dimension is moderately enlarged. 3. Left ventricular systolic function is normal, estimated at 55-60%. 4. There is mildly increased left ventricular wall thickness. 5. The left ventricular diastolic function is abnormal. 6. E/e' 15 is elevated. 7. Global longitudinal strain is abnormal at -15.6%. 8. Left atrial chamber dimension is mildly enlarged. 9. The aortic valve is not well visualized. Cannot determine number of aortic valve leaflets. 10. There is moderate aortic valve sclerosis. 11. There is mild to moderate aortic valve stenosis with a peak velocity of 203 cm/s, mean gradient of 7 mmHg, and aortic valve area of 1.6 cm2. 12. The mitral valve has mildly calcified annulus. 13. There is mild mitral valve regurgitation. 14. There is mild tricuspid valve regurgitation. 15. No pulmonary hypertension, estimated pulmonary arterial systolic pressure is 39 mmHg. 16. Dilated inferior vena cava with >50% collapse upon inspiration consistent with elevated right atrial pressure, 10 mmHg. Left Ventricle E/e' 15 is elevated. Global longitudinal strain is abnormal at -15.6%. Left ventricular chamber dimension is moderately enlarged. Left ventricular systolic function is normal, estimated at 55-60%. There is mildly increased left ventricular wall thickness. The left ventricular diastolic function is abnormal. Right Ventricle Right ventricular systolic function is normal based on normal TAPSE 2.0 cm. Right ventricular chamber dimension is not well visualized. Left Atria Left atrial chamber dimension is mildly enlarged. Right Atria Right atrial chamber dimension is not well visualized. Aortic Valve The aortic valve is not well visualized. Cannot determine number of aortic valve leaflets. There is moderate aortic valve sclerosis. There is mild to moderate aortic valve stenosis with a peak velocity of 203 cm/s, mean gradient of 7 mmHg, and aortic valve area of 1.6 cm2. There is no aortic valve regurgitation. Pulmonic Valve There is no pulmonic regurgitation. Mitral Valve The mitral valve has mildly calcified annulus. There is no mitral valve stenosis. There is mild mitral valve regurgitation. Tricuspid Valve There is mild tricuspid valve regurgitation. No pulmonary hypertension, estimated pulmonary arterial systolic pressure is 39 mmHg. Pericardium/Pleural There is no pericardial effusion. Inferior Vena Cava Dilated inferior vena cava with >50% collapse upon inspiration consistent with elevated right atrial pressure, 10 mmHg. Aorta The aortic root size at the sinus of Valsalva is normal. Left Ventricular Outflow Tract
[2022-06-23] MEDS: ALBUTEROL SULFATE (*SP) AEROSOL 1 PUFF 2 PUFF INHALATION (00:25)
[2022-06-23] MEDS: FUROSEMIDE INJ 40 MG/4 ML VIAL 20 MG IV PUSH ×2 (01:33→16:38)
[2022-06-23] MEDS: ACETAMINOPHEN 325 MG TABLET 650 MG PO (04:01)
[2022-06-23] MEDS: LEVOTHYROXINE SODIUM 100 MCG TABLET PO (06:03)
[2022-06-23 06:34] LABS: Hematocrit 27.1 % (37.0-47.0); Hemoglobin 8.6 g/dL (12.0-15.0); Mean Corpuscular HGB Conc 31.7 g/dl (32-36); Mean Corpuscular Hemoglobin 29.5 pg (26-34); Mean Corpuscular Volume 92.8 fl (80-100); Mean Platelet Volume 11.1 fl (7.4-10.4); Platelet Count Result 218 k/mm3 (150-375); Red Blood Count 2.92 M/mm3 (4.2-5.4); Red Cell Distribution Width 15.1 % (11.5-14.5); White Blood Count 23.9 K/mm3 (4.5-10.0)
[2022-06-23 06:53] LABS: Alanine Aminotransferase 27 U/L (6-35); Albumin Level 2.9 g/dL (3.5-5.1); Alkaline Phosphatase 152 U/L (38-126); Anion Gap 10 mmol/L (8-16); Aspartate Amino Transferase 71 U/L (14-36); Bilirubin,Total 0.9 mg/dL (0.2-1.3); Blood Urea Nitrogen 28 mg/dL (7-17); Calcium 7.4 mg/dL (8.4-10.2); Carbon Dioxide 27 mmol/L (22-30); Chloride 93 mmol/L (98-107); Estimated CRCL calculation 46 ml/min; Estimated Glomerular Filt Rate 53; Glucose 105 mg/dL (65-110); Lactic Acid Reflex 1.2 mmol/L (0.7-2.0); Potassium 3.3 mmol/L (3.4-5.0); Sodium 130 mmol/L (137-145)
[2022-06-23] MEDS: PHENYTOIN SODIUM 100 MG EXTENDED RELEASE CAP 200 MG PO ×2 (08:07→16:38)
[2022-06-23] MEDS: CALCIUM CARBONATE (OSCAL) 500 MG TABLET PO ×2 (08:07→16:38)
[2022-06-23] MEDS: GABAPENTIN 300 MG CAPSULE PO ×2 (08:07→16:37)
[2022-06-23] MEDS: PANTOPRAZOLE 40 MG TABLET PO ×2 (08:07→20:34)
[2022-06-23] MEDS: SACCHAROMYCES BOULARDII 250 MG CAPSULE PO ×2 (08:07→16:39)
[2022-06-23] MEDS: FIDAXOMICIN 200 MG TABLET PO ×2 (08:08→20:33)
[2022-06-23] MEDS: GENTAMICIN SULFATE 0.1% OINT 15 GM TUBE 1 APPLIC TOPICAL ×2 (08:08→20:34)
[2022-06-23] MEDS: ASPIRIN 81 MG ENTERIC TABLET PO (08:18)
[2022-06-23] MEDS: CLOPIDOGREL BISULFATE 75 MG TABLET PO (08:18)
[2022-06-23 09:19] LABS: Hematocrit 25.6 % (37.0-47.0); Hemoglobin 8.2 g/dL (12.0-15.0); Mean Corpuscular Hemoglobin 29.4 pg (26-34); Mean Corpuscular Volume 91.8 fl (80-100); Mean Platelet Volume 10.5 fl (7.4-10.4); Platelet Count Result 187 k/mm3 (150-375); Red Blood Count 2.79 M/mm3 (4.2-5.4); Red Cell Distribution Width 14.9 % (11.5-14.5); White Blood Count 23.1 K/mm3 (4.5-10.0)
[2022-06-23 09:42] LABS: D Dimer 1.81 ug/mL (<0.48)
[2022-06-23 09:55] LABS: Procalcitonin 1.6 ng/mL
[2022-06-23 09:58] LABS: CRP 14.6 mg/dL (<1.0)
[2022-06-23 09:59] LABS: Magnesium 1.9 mg/dL (1.6-2.3)
[2022-06-23 10:16] LABS: Band Neutrophils Percent 20 % (0-6); Metamyelocytes Percent 1 %; Monocytes Absolute Manual 1.15 K/mm3 (0.1-0.90); Monocytes Percent Manual 5 % (3-9); Neutrophils Absolute Manual 18.71 K/mm3 (1.7-7.2); Neutrophils Percent Manual 61 % (46-73); Platelet Estimate Adequate (Adequate); Total Cells Counted 100
[2022-06-23 10:17] LABS: Anisocytosis 1+ (NORMAL); Atypical Lymphocytes Present; Hypochromasia 1+ (NORMAL); Poikilocytosis 1+ (NORMAL)
[2022-06-23] MEDS: POTASSIUM CHLORIDE 20 MEQ TABLET PO (10:32)
--- NOTE | 2022-06-23 13:50 | P.PNIM_ITS ---
Progress Note: A&P Assessment and Plan (1) Sepsis: Code(s): A41.9 - Sepsis, unspecified organism Status: Acute Assessment and Plan: Patient is septic evident by leukocytosis, fever (102.9 today), hypotension * Etiology not entirely clear at this time * Patient has completed 10 days of treatment for ESBL UTI (stopped on 06/21) * Received 7 days of p.o. vancomycin for C diff colitis (stopped on 06/20) and now on PO Dificid (06/21/22) * Blood cultures collected on 06/16/22 negative * Repeat blood cultures collected 06/22 are pending * Repeat CXR 06/22 with no evidence of pneumonia. Patient not at risk for aspiration. CTA 06/23 with dependent airspace opacities. Reviewed imaging with soaker hides Dr. Nam. [place] to be more likely related to atelectasis. Will continue to monitor with repeat CXR tomorrow * Repeat UA and culture ordered. Awaiting collection via straight catheterization * Stool cultures pending. Campylobacter negative. * Will attempt sputum culture if patient able to provide specimen * No wounds or evidence of skin/soft tissue infection * Patient denies any orthopedic hardware, etc. * CT of the abdomen/pelvis today with no evidence of infection * Lactic within normal limits. CRP mildly elevated. Procalcitonin 1.6 (2) Acute UTI: Code(s): N39.0 - Urinary tract infection, site not specified Status: Acute Assessment and Plan: Patient with recent ESBL UTI (06/09/22) resulting in septic shock presented to ED with worsened leukocytosis and abnormal UA * Repeat urine culture on 06/16/2022 with no growth * Suspect that initial UTI was suppressed but not completely treated and infection worsened leading to return to ED. This would account for the negative repeat culture * Completed 10 total days of IV Ertapenem 06/21 * Repeat UA with reflex pending in light of sepsis (3) C. difficile diarrhea: Code(s): A04.72 - Enterocolitis due to Clostridium difficile, not specified as recurrent Status: Acute Assessment and Plan: Patient with positive C diff PCR on 06/10/2022 * She was treated with p.o. vancomycin and discharged with a 7 day course. * Completed 7 days of Vancomycin on 06/20/22 * 06/21 started p.o. Dificid due to persistent diarrhea and leukocytosis * Stool cultures pending. C. diff PCR remains positive. * Banatrol and probiotic * Monitor stool patterns (4) Hypoxia: Code(s): R09.02 - Hypoxemia Status: Acute Assessment and Plan: Patient hypoxic down to 85% * Etiology for this is unclear * CXR with pleural effusion and atelectasis * CTA with dependent opacities, most likely due to atelectasis. Negative for PE. Venous doppler negative for DVT * Currently requiring 5 L supplemental O2 * Echo pending * BNP >33588 * Apnea link completed which did show frequent episodes of desaturations * Will begin Lasix 20 mg IV BID. Monitor BP closely given recent hypotension (5) Transaminitis: Code(s): R74.01 - Elevation of levels of liver transaminase levels Status: Acute Assessment and Plan: LFTs mildly elevated. Review of prior labs suggest this to be a chronic issue for several years * Patient evaluated by GI * [place] to be related to possible hepatic steatosis based on GI evaluation * Alk phos persistently elevated. GGT pending. (6) GI bleed: Code(s): K92.2 - Gastrointestinal hemorrhage, unspecified Status: Acute Assessment and Plan: Patient with Hemoccult-positive episode of melanotic stool in the ED * Appreciate GI consultation * EGD 06/17 showed gastr
--- NOTE | 2022-06-23 13:50 | PM.IMPN ---
Progress Note: A&P Assessment and Plan (1) Sepsis: Code(s): A41.9 - Sepsis, unspecified organism Status: Acute Assessment and Plan: Patient is septic evident by leukocytosis, fever (102.9 today), hypotension Etiology not entirely clear at this time Patient has completed 10 days of treatment for ESBL UTI (stopped on 06/21) Received 7 days of p.o. vancomycin for C diff colitis (stopped on 06/20) and now on PO Dificid (06/21/22) Blood cultures collected on 06/16/22 negative Repeat blood cultures collected 06/22 are pending Repeat CXR 06/22 with no evidence of pneumonia. Patient not at risk for aspiration. CTA 06/23 with dependent airspace opacities. Reviewed imaging with director of undergraduate admissions Dr. Nam. [place] to be more likely related to atelectasis. Will continue to monitor with repeat CXR tomorrow Repeat UA and culture ordered. Awaiting collection via straight catheterization Stool cultures pending. Campylobacter negative. Will attempt sputum culture if patient able to provide specimen No wounds or evidence of skin/soft tissue infection Patient denies any orthopedic hardware, etc. CT of the abdomen/pelvis today with no evidence of infection Lactic within normal limits. CRP mildly elevated. Procalcitonin 1.6 (2) Acute UTI: Code(s): N39.0 - Urinary tract infection, site not specified Status: Acute Assessment and Plan: Patient with recent ESBL UTI (06/09/22) resulting in septic shock presented to ED with worsened leukocytosis and abnormal UA Repeat urine culture on 06/16/2022 with no growth Suspect that initial UTI was suppressed but not completely treated and infection worsened leading to return to ED. This would account for the negative repeat culture Completed 10 total days of IV Ertapenem 06/21 Repeat UA with reflex pending in light of sepsis (3) C. difficile diarrhea: Code(s): A04.72 - Enterocolitis due to Clostridium difficile, not specified as recurrent Status: Acute Assessment and Plan: Patient with positive C diff PCR on 06/10/2022 She was treated with p.o. vancomycin and discharged with a 7 day course. Completed 7 days of Vancomycin on 06/20/2206/21 started p.o. Dificid due to persistent diarrhea and leukocytosis Stool cultures pending. C. diff PCR remains positive. Banatrol and probiotic Monitor stool patterns (4) Hypoxia: Code(s): R09.02 - Hypoxemia Status: Acute Assessment and Plan: Patient hypoxic down to 85% Etiology for this is unclear CXR with pleural effusion and atelectasis CTA with dependent opacities, most likely due to atelectasis. Negative for PE. Venous doppler negative for DVT Currently requiring 5 L supplemental O2 Echo pending BNP >82245 Apnea link completed which did show frequent episodes of desaturations Will begin Lasix 20 mg IV BID. Monitor BP closely given recent hypotension (5) Transaminitis: Code(s): R74.01 - Elevation of levels of liver transaminase levels Status: Acute Assessment and Plan: LFTs mildly elevated. Review of prior labs suggest this to be a chronic issue for several years Patient evaluated by GI [place] to be related to possible hepatic steatosis based on GI evaluation Alk phos persistently elevated. GGT pending. (6) GI bleed: Code(s): K92.2 - Gastrointestinal hemorrhage, unspecified Status: Acute Assessment and Plan: Patient with Hemoccult-positive episode of melanotic stool in the ED Appreciate GI consultation EGD 06/17 showed gastric and duodenal ulcer. Lesions cauterized. Continue protonix 40 mg p.o. b.i.d. Aspirin and Plavix held for 5 days following EGD Resumed today Monitor H&H closely Will need repeat EGD in 6 weeks and outpatient follow-up with Dr. Paz (7) Anemia: Code(s): D64.9 - Anemia, unspecified Status: Acute Assessment and Plan: Acute on chronic secondary to GI bleed H&H remaining stable
[2022-06-23 16:14] LABS: Appearance Urine Clear (Clear); Bilirubin Urine Negative (Negative); Blood Urine 2+ (Negative); Color Urine Yellow (Yellow); Glucose Urine UA Negative (Negative); Ketones Urine Negative (Negative); Leukocyte Esterase Ur 1+ LEU/UL (Negative); Nitrate Urine Negative (Negative); Protein Urine 1+ mg/dL (Negative); Urobilinogen Urine 0.2 mg/dL (<2.0)
[2022-06-23 16:26] LABS: Bacteria Urine Trace /hpf; Mucus Urine Rare /lpf; Squamous Epithelial Cell Urine Rare /hpf (Few); WBC Urine 51-75 /hpf
[2022-06-23 16:28] LABS: Add Urine Microscopic? YES
[2022-06-23] MEDS: POTASSIUM CHLORIDE 20 MEQ TABLET.ER PO (16:38)
[2022-06-23] MEDS: GABAPENTIN 300 MG CAPSULE 600 MG PO (20:33)
[2022-06-24 05:39] VITALS: BP 115/64; PULSE 76; RESP 18; TEMP 36.8; O2SAT 94
[2022-06-24] MEDS: LEVOTHYROXINE SODIUM 100 MCG TABLET PO (05:41)
[2022-06-24 06:20] LABS: Basophils Absolute Auto 0.1 K/mm3 (0.0-0.1); Basophils Percent Auto 0.5 % (0.2-1.2); Eosinophils Absolute Auto 0.2 K/mm3 (0-0.3); Eosinophils Percent Auto 2.1 % (0-4.4); Hematocrit 28.7 % (37.0-47.0); Hemoglobin 8.8 g/dL (12.0-15.0); Immature Granulocyte Absolute 0.08 K/mm3 (0.00-0.031); Immature Granulocyte Percent A 0.7 % (0-0.5); Lymphocytes Absolute Auto 2.37 K/mm3 (0.9-3.2); Mean Corpuscular HGB Conc 30.7 g/dl (32-36); Mean Corpuscular Hemoglobin 28.9 pg (26-34); Mean Corpuscular Volume 94.1 fl (80-100); Mean Platelet Volume 11.2 fl (7.4-10.4); Monocytes Absolute Auto 1.3 K/mm3 (0.1-0.6); Monocytes Percent Auto 11.4 % (2.6-8.5); Neutrophils Absolute Auto 7.2 K/mm3 (1.3-6.7); Neutrophils Percent Auto 64.3 % (45.5-73.1); Platelet Count Result 197 k/mm3 (150-375); Red Blood Count 3.05 M/mm3 (4.2-5.4); Red Cell Distribution Width 15.2 % (11.5-14.5); White Blood Count 11.3 K/mm3 (4.5-10.0)
[2022-06-24 06:37] LABS: Alanine Aminotransferase 25 U/L (6-35); Alkaline Phosphatase 151 U/L (38-126); Anion Gap 9 mmol/L (8-16); Aspartate Amino Transferase 68 U/L (14-36); Bilirubin,Total 0.8 mg/dL (0.2-1.3); Blood Urea Nitrogen 35 mg/dL (7-17); Calcium 7.6 mg/dL (8.4-10.2); Carbon Dioxide 30 mmol/L (22-30); Chloride 94 mmol/L (98-107); Estimated CRCL calculation 45 ml/min; Estimated Glomerular Filt Rate 53; Glucose 98 mg/dL (65-110); Potassium 3.5 mmol/L (3.4-5.0); Sodium 133 mmol/L (137-145)
[2022-06-24 06:46] LABS: CRP 19.9 mg/dL (<1.0)
[2022-06-24] MEDS: POTASSIUM CHLORIDE 20 MEQ TABLET.ER PO ×2 (07:48→16:40)
[2022-06-24] MEDS: CALCIUM CARBONATE (OSCAL) 500 MG TABLET PO ×2 (07:48→16:41)
[2022-06-24] MEDS: GENTAMICIN SULFATE 0.1% OINT 15 GM TUBE 1 APPLIC TOPICAL ×2 (07:59→20:09)
[2022-06-24] MEDS: SACCHAROMYCES BOULARDII 250 MG CAPSULE PO ×2 (07:59→16:40)
[2022-06-24] MEDS: ASPIRIN 81 MG ENTERIC TABLET PO (07:59)
[2022-06-24] MEDS: PHENYTOIN SODIUM 100 MG EXTENDED RELEASE CAP 200 MG PO ×2 (07:59→16:41)
[2022-06-24] MEDS: CLOPIDOGREL BISULFATE 75 MG TABLET PO (07:59)
[2022-06-24] MEDS: GABAPENTIN 300 MG CAPSULE PO ×2 (07:59→16:41)
[2022-06-24] MEDS: FIDAXOMICIN 200 MG TABLET PO ×2 (07:59→20:05)
[2022-06-24] MEDS: FUROSEMIDE INJ 40 MG/4 ML VIAL 20 MG IV PUSH ×2 (07:59→16:41)
[2022-06-24 08:00] VITALS: O2SAT 96
[2022-06-24] MEDS: PANTOPRAZOLE 40 MG TABLET PO ×2 (08:00→20:05)
[2022-06-24 14:00] VITALS: BP 111/47; PULSE 80; RESP 20; TEMP 36.2; O2SAT 92
[2022-06-24 14:49] VITALS: O2SAT 95
--- NOTE | 2022-06-24 14:49 | P.PNIM_ITS ---
Progress Note: A&P Assessment and Plan (1) Sepsis: Code(s): A41.9 - Sepsis, unspecified organism Status: Acute Assessment and Plan: Patient is septic evident by leukocytosis, fever (102.9 today), hypotension * [place] to be most likely secondary to C. diff colitis * Patient has completed 10 days of treatment for ESBL UTI (stopped on 06/21) * Received 7 days of p.o. vancomycin for C diff colitis (stopped on 06/20) and now on PO Dificid (06/21/22) * Blood cultures collected on 06/16/22 negative * Repeat blood cultures collected 06/22 are pending, negative to date * Repeat CXR 06/22 with no evidence of pneumonia. Patient not at risk for aspiration. CTA 06/23 with dependent airspace opacities. Reviewed imaging with polarity tester Dr. Nam. [place] to be more likely related to atelectasis. CXR today with no evidence of pneumonia * Repeat UA improved. Urine culture pending. * Stool cultures pending. * Sputum culture ordered if patient is able to provide specimen * No wounds or evidence of skin/soft tissue infection * Patient denies any orthopedic hardware, etc. * CT of the abdomen/pelvis with no evidence of infection * Lactic within normal limits. CRP mildly elevated. Procalcitonin 1.6 * Afebrile today. WBC with marked improvement today (2) Acute UTI: Code(s): N39.0 - Urinary tract infection, site not specified Status: Acute Assessment and Plan: Patient with recent ESBL UTI (06/09/22) resulting in septic shock presented to ED with worsened leukocytosis and abnormal UA * Repeat urine culture on 06/16/2022 with no growth * Suspect that initial UTI was suppressed but not completely treated and infection worsened leading to return to ED. This would account for the negative repeat culture * Completed 10 total days of IV Ertapenem 06/21 * Repeat urine culture pending in light of sepsis (3) C. difficile diarrhea: Code(s): A04.72 - Enterocolitis due to Clostridium difficile, not specified as recurrent Status: Acute Assessment and Plan: Patient with positive C diff PCR on 06/10/2022 * She was treated with p.o. vancomycin and discharged with a 7 day course from last hospitalization. * Completed 7 days of Vancomycin on 06/20/22 * 06/21 started p.o. Dificid due to persistent diarrhea and leukocytosis * Stool cultures pending. C. diff PCR remains positive. * Banatrol and probiotic * Monitor stool patterns (4) Hypoxia: Code(s): R09.02 - Hypoxemia Status: Acute Assessment and Plan: Patient hypoxic down to 85% * Suspect secondary to volume overload. CXR with pleural effusion and atelectasis * CTA with dependent opacities, most likely due to atelectasis. Negative for PE. Venous doppler negative for DVT * Currently requiring 4 L supplemental O2 * Echo with normal EF 55-60% with abnormal diastolic dysfunction. * BNP >72647 * Apnea link completed which did show frequent episodes of desaturations * Continue to diurese with Lasix 20 mg IV BID. Monitor BP closely given recent hypotension (5) Transaminitis: Code(s): R74.01 - Elevation of levels of liver transaminase levels Status: Acute Assessment and Plan: LFTs mildly elevated. Review of prior labs suggest this to be a chronic issue for several years * Patient evaluated by GI * [place] to be related to possible hepatic steatosis based on GI evaluation * Alk phos persistently elevated. GGT pending. (6) GI bleed: Code(s): K92.2 - Gastrointestinal hemorrhage, unspecified Status: Acute Assessment and Plan: Patient with Hemoc
--- NOTE | 2022-06-24 14:49 | PM.IMPN ---
Progress Note: A&P Assessment and Plan (1) Sepsis: Code(s): A41.9 - Sepsis, unspecified organism Status: Acute Assessment and Plan: Patient is septic evident by leukocytosis, fever (102.9 today), hypotension [place] to be most likely secondary to C. diff colitis Patient has completed 10 days of treatment for ESBL UTI (stopped on 06/21) Received 7 days of p.o. vancomycin for C diff colitis (stopped on 06/20) and now on PO Dificid (06/21/22) Blood cultures collected on 06/16/22 negative Repeat blood cultures collected 06/22 are pending, negative to date Repeat CXR 06/22 with no evidence of pneumonia. Patient not at risk for aspiration. CTA 06/23 with dependent airspace opacities. Reviewed imaging with property accountant Dr. Nam. [place] to be more likely related to atelectasis. CXR today with no evidence of pneumonia Repeat UA improved. Urine culture pending. Stool cultures pending. Sputum culture ordered if patient is able to provide specimen No wounds or evidence of skin/soft tissue infection Patient denies any orthopedic hardware, etc. CT of the abdomen/pelvis with no evidence of infection Lactic within normal limits. CRP mildly elevated. Procalcitonin 1.6 Afebrile today. WBC with marked improvement today (2) Acute UTI: Code(s): N39.0 - Urinary tract infection, site not specified Status: Acute Assessment and Plan: Patient with recent ESBL UTI (06/09/22) resulting in septic shock presented to ED with worsened leukocytosis and abnormal UA Repeat urine culture on 06/16/2022 with no growth Suspect that initial UTI was suppressed but not completely treated and infection worsened leading to return to ED. This would account for the negative repeat culture Completed 10 total days of IV Ertapenem 06/21 Repeat urine culture pending in light of sepsis (3) C. difficile diarrhea: Code(s): A04.72 - Enterocolitis due to Clostridium difficile, not specified as recurrent Status: Acute Assessment and Plan: Patient with positive C diff PCR on 06/10/2022 She was treated with p.o. vancomycin and discharged with a 7 day course from last hospitalization. Completed 7 days of Vancomycin on 06/20/2206/21 started p.o. Dificid due to persistent diarrhea and leukocytosis Stool cultures pending. C. diff PCR remains positive. Banatrol and probiotic Monitor stool patterns (4) Hypoxia: Code(s): R09.02 - Hypoxemia Status: Acute Assessment and Plan: Patient hypoxic down to 85% Suspect secondary to volume overload. CXR with pleural effusion and atelectasis CTA with dependent opacities, most likely due to atelectasis. Negative for PE. Venous doppler negative for DVT Currently requiring 4 L supplemental O2 Echo with normal EF 55-60% with abnormal diastolic dysfunction. BNP >60386 Apnea link completed which did show frequent episodes of desaturations Continue to diurese with Lasix 20 mg IV BID. Monitor BP closely given recent hypotension (5) Transaminitis: Code(s): R74.01 - Elevation of levels of liver transaminase levels Status: Acute Assessment and Plan: LFTs mildly elevated. Review of prior labs suggest this to be a chronic issue for several years Patient evaluated by GI [place] to be related to possible hepatic steatosis based on GI evaluation Alk phos persistently elevated. GGT pending. (6) GI bleed: Code(s): K92.2 - Gastrointestinal hemorrhage, unspecified Status: Acute Assessment and Plan: Patient with Hemoccult-positive episode of melanotic stool in the ED Appreciate GI consultation EGD 06/17 showed gastric and duodenal ulcer. Lesions cauterized. Continue protonix 40 mg p.o. b.i.d. Aspirin and Plavix held for 5 days following EGD. Resumed 06/23 Monitor H&H closely Will need repeat EGD in 6 weeks and outpatient follow-up with Dr. Paz (7) Anemia: Code(s): D64.9 - Anemia, unspecified Stat
[2022-06-24] MEDS: GABAPENTIN 300 MG CAPSULE 600 MG PO (20:04)
[2022-06-24 22:00] VITALS: BP 100/70; PULSE 84; RESP 17; TEMP 36.4; O2SAT 99
[2022-06-25 05:59] LABS: Basophils Absolute Auto 0.1 K/mm3 (0.0-0.1); Basophils Percent Auto 0.6 % (0.2-1.2); Eosinophils Absolute Auto 0.2 K/mm3 (0-0.3); Eosinophils Percent Auto 2.5 % (0-4.4); Hematocrit 26.3 % (37.0-47.0); Hemoglobin 8.1 g/dL (12.0-15.0); Immature Granulocyte Absolute 0.03 K/mm3 (0.00-0.031); Immature Granulocyte Percent A 0.4 % (0-0.5); Lymphocytes Absolute Auto 2.14 K/mm3 (0.9-3.2); Lymphocytes Percent Auto 25.8 % (18.3-44.2); Mean Corpuscular HGB Conc 30.8 g/dl (32-36); Mean Corpuscular Volume 94.3 fl (80-100); Monocytes Absolute Auto 0.9 K/mm3 (0.1-0.6); Neutrophils Percent Auto 59.7 % (45.5-73.1); Platelet Count Result 178 k/mm3 (150-375); Red Blood Count 2.79 M/mm3 (4.2-5.4); Red Cell Distribution Width 15.1 % (11.5-14.5); White Blood Count 8.3 K/mm3 (4.5-10.0)
[2022-06-25 06:00] VITALS: BP 101/57; PULSE 81; RESP 16; TEMP 36.3; O2SAT 93
[2022-06-25 06:20] LABS: Anion Gap 7 mmol/L (8-16); Blood Urea Nitrogen 36 mg/dL (7-17); Calcium 7.5 mg/dL (8.4-10.2); Carbon Dioxide 32 mmol/L (22-30); Chloride 97 mmol/L (98-107); Estimated CRCL calculation 56 ml/min; Estimated Glomerular Filt Rate > 60; Glucose 85 mg/dL (65-110); Potassium 3.7 mmol/L (3.4-5.0); Sodium 136 mmol/L (137-145)
[2022-06-25] MEDS: LEVOTHYROXINE SODIUM 100 MCG TABLET PO (06:53)
[2022-06-25] MEDS: FUROSEMIDE INJ 40 MG/4 ML VIAL 20 MG IV PUSH (08:42)
[2022-06-25] MEDS: CALCIUM CARBONATE (OSCAL) 500 MG TABLET PO ×2 (08:42→17:29)
[2022-06-25] MEDS: POTASSIUM CHLORIDE 20 MEQ TABLET.ER PO ×2 (08:42→17:29)
[2022-06-25] MEDS: SACCHAROMYCES BOULARDII 250 MG CAPSULE PO ×2 (08:42→17:29)
[2022-06-25 08:43] VITALS: O2SAT 97
[2022-06-25] MEDS: ASPIRIN 81 MG ENTERIC TABLET PO (08:43)
[2022-06-25] MEDS: CLOPIDOGREL BISULFATE 75 MG TABLET PO (08:43)
[2022-06-25] MEDS: GENTAMICIN SULFATE 0.1% OINT 15 GM TUBE 1 APPLIC TOPICAL ×2 (08:43→20:37)
[2022-06-25] MEDS: FIDAXOMICIN 200 MG TABLET PO ×2 (08:43→20:37)
[2022-06-25] MEDS: GABAPENTIN 300 MG CAPSULE PO ×2 (08:43→17:29)
[2022-06-25] MEDS: PHENYTOIN SODIUM 100 MG EXTENDED RELEASE CAP 200 MG PO ×2 (08:43→17:29)
[2022-06-25] MEDS: PANTOPRAZOLE 40 MG TABLET PO ×2 (08:43→20:37)
--- NOTE | 2022-06-25 09:45 | P.PNIM_ITS ---
Progress Note: A&P Assessment and Plan (1) Sepsis: Code(s): A41.9 - Sepsis, unspecified organism Status: Acute Assessment and Plan: * Patient met SIRS criteria leukocytosis, fever, hypotension * [place] to be most likely secondary to C. diff colitis * Patient has completed 10 days of treatment for ESBL UTI (stopped on 06/21), urine culture from 06/23/2022 had no growth * Received 7 days of p.o. vancomycin for C diff colitis (stopped on 06/20) and now on PO Dificid (06/21/22)day 5 * Blood cultures collected on 06/16/22 negative * Repeat blood cultures collected 06/22 are negative to date * Repeat CXR 06/22 with no evidence of pneumonia. Patient not at risk for aspiration. CTA 06/23 with dependent airspace opacities. Reviewed imaging with through freight engineer Dr. Nam. [place] to be more likely related to atelectasis. CXR t [place] with no evidence of pneumonia * Stool cultures negative * Sputum culture ordered if patient is able to provide specimen * No wounds or evidence of skin/soft tissue infection * Patient denies any orthopedic hardware, etc. * CT of the abdomen/pelvis with no evidence of infection * Lactic within normal limits. CRP mildly elevated. Procalcitonin 1.6 * Afebrile today. WBC continue to improve at 8.3 today (2) Acute UTI: Code(s): N39.0 - Urinary tract infection, site not specified Status: Acute Assessment and Plan: * Resolved * Patient with recent ESBL UTI (06/09/22) resulting in septic shock presented to ED with worsened leukocytosis and abnormal UA * Repeat urine culture on 06/16/2022 with no growth * Suspect that initial UTI was suppressed but not completely treated and infection worsened leading to return to ED. This would account for the nega tive repeat culture * Completed 10 total days of IV Ertapenem 06/21 * Repeat urine culture no growth (3) C. difficile diarrhea: Code(s): A04.72 - Enterocolitis due to Clostridium difficile, not specified as recurrent Status: Acute Assessment and Plan: * Patient with positive C diff PCR on 06/10/2022 * She was treated with p.o. vancomycin and discharged with a 7 day course from last hospitalization. * Completed 7 days of Vancomycin on 06/20/22 * 06/21 started p.o. Dificid due to persistent diarrhea and leukocytosis, day 5 * Stool cultures negative C. diff PCR remains positive. * Banatrol and probiotic * resolving, no reported BM for the last two days (4) CHF (congestive heart failure): Code(s): I50.9 - Heart failure, unspecified Status: Acute Assessment and Plan: * Seems to be acute exacerbation of diastolic heart failure * Echo EF 55-60% with abnormal diastolic dysfunction, moderate aortic valve stenosis left ventricle is moderately enlarged dilated inferior vena cava with an elevated right arterial pressure * BNP greater than 35,000 * Lasix 40 mg IV push b.i.d. for now * Trend urinary output * Supplemental oxygen, wean to mean saturation greater than 90% * Adjust therapy as indicated * Trend renal function (5) Hypoxia: Code(s): R09.02 - Hypoxemia Status: Acute Assessment and Plan: * Patient hypoxic down to 85% * Suspect secondary to volume overload. CXR with pleural effusion and atelectasis * CTA with dependent opacities, most likely due to atelectasis. Negative for PE. Venous doppler negative for DVT * Currently requiring 4 L supplemental O2 * Echo with normal EF 55-60% with abnormal diastolic dysfunction. * BNP >16708 * Apnea link completed which did show frequent episodes of desaturations * Continue to
--- NOTE | 2022-06-25 09:45 | PM.IMPN ---
Progress Note: A&P Assessment and Plan (1) Sepsis: Code(s): A41.9 - Sepsis, unspecified organism Status: Acute Assessment and Plan: Patient met SIRS criteria leukocytosis, fever, hypotension [place] to be most likely secondary to C. diff colitis Patient has completed 10 days of treatment for ESBL UTI (stopped on 06/21), urine culture from 06/23/2022 had no growth Received 7 days of p.o. vancomycin for C diff colitis (stopped on 06/20) and now on PO Dificid (06/21/22)day 5 Blood cultures collected on 06/16/22 negative Repeat blood cultures collected 06/22 are negative to date Repeat CXR 06/22 with no evidence of pneumonia. Patient not at risk for aspiration. CTA 06/23 with dependent airspace opacities. Reviewed imaging with professor of industrial technology Dr. Nam. [place] to be more likely related to atelectasis. CXR today with no evidence of pneumonia Stool cultures negative Sputum culture ordered if patient is able to provide specimen No wounds or evidence of skin/soft tissue infection Patient denies any orthopedic hardware, etc. CT of the abdomen/pelvis with no evidence of infection Lactic within normal limits. CRP mildly elevated. Procalcitonin 1.6 Afebrile today. WBC continue to improve at 8.3 today (2) Acute UTI: Code(s): N39.0 - Urinary tract infection, site not specified Status: Acute Assessment and Plan: Resolved Patient with recent ESBL UTI (06/09/22) resulting in septic shock presented to ED with worsened leukocytosis and abnormal UA Repeat urine culture on 06/16/2022 with no growth Suspect that initial UTI was suppressed but not completely treated and infection worsened leading to return to ED. This would account for the negative repeat culture Completed 10 total days of IV Ertapenem 06/21 Repeat urine culture no growth (3) C. difficile diarrhea: Code(s): A04.72 - Enterocolitis due to Clostridium difficile, not specified as recurrent Status: Acute Assessment and Plan: Patient with positive C diff PCR on 06/10/2022 She was treated with p.o. vancomycin and discharged with a 7 day course from last hospitalization. Completed 7 days of Vancomycin on 06/20/2206/21 started p.o. Dificid due to persistent diarrhea and leukocytosis, day 5 Stool cultures negative C. diff PCR remains positive. Banatrol and probiotic resolving, no reported BM for the last two days (4) CHF (congestive heart failure): Code(s): I50.9 - Heart failure, unspecified Status: Acute Assessment and Plan: Seems to be acute exacerbation of diastolic heart failure Echo EF 55-60% with abnormal diastolic dysfunction, moderate aortic valve stenosis left ventricle is moderately enlarged dilated inferior vena cava with an elevated right arterial pressure BNP greater than 35,000 Lasix 40 mg IV push b.i.d. for now Trend urinary output Supplemental oxygen, wean to mean saturation greater than 90% Adjust therapy as indicated Trend renal function (5) Hypoxia: Code(s): R09.02 - Hypoxemia Status: Acute Assessment and Plan: Patient hypoxic down to 85% Suspect secondary to volume overload. CXR with pleural effusion and atelectasis CTA with dependent opacities, most likely due to atelectasis. Negative for PE. Venous doppler negative for DVT Currently requiring 4 L supplemental O2 Echo with normal EF 55-60% with abnormal diastolic dysfunction. BNP >67412 Apnea link completed which did show frequent episodes of desaturations Continue to diurese with Lasix 20 mg IV BID. Monitor BP closely given recent hypotension (6) Transaminitis: Code(s): R74.01 - Elevation of levels of liver transaminase levels Status: Acute Assessment and Plan: AST mildly elevated at 68 LFTs mildly elevated. Review of prior labs suggest this to be a chronic issue for several years Patient evaluated by GI [place] to be related to possible hepatic steatosis based
[2022-06-25 10:50] VITALS: O2SAT 95; BMI 42.3
--- NOTE | 2022-06-25 13:13 | PCOTNOTE ---
Patient not seen. Per RN, patient to receive blood transfusion. Will continue plan of care as appropriate for OT.
[2022-06-25 14:00] VITALS: BP 108/57; PULSE 79; RESP 18; TEMP 36.4; O2SAT 97
[2022-06-25] MEDS: FUROSEMIDE INJ 40 MG/4 ML VIAL IV PUSH (17:29)
[2022-06-25 20:00] VITALS: O2SAT 98
[2022-06-25] MEDS: GABAPENTIN 300 MG CAPSULE 600 MG PO (20:36)
[2022-06-25 22:00] VITALS: BP 101/52; PULSE 80; RESP 16; TEMP 36.5; O2SAT 98
[2022-06-26 06:00] VITALS: BP 95/50; PULSE 76; RESP 14; TEMP 36.3; O2SAT 95
[2022-06-26 06:22] LABS: GGT 181 U/L (3-65)
[2022-06-26 06:46] LABS: Basophils Absolute Auto 0.1 K/mm3 (0.0-0.1); Basophils Percent Auto 0.8 % (0.2-1.2); Eosinophils Absolute Auto 0.2 K/mm3 (0-0.3); Hematocrit 26.5 % (37.0-47.0); Hemoglobin 8.1 g/dL (12.0-15.0); Immature Granulocyte Absolute 0.03 K/mm3 (0.00-0.031); Immature Granulocyte Percent A 0.4 % (0-0.5); Lymphocytes Percent Auto 26.8 % (18.3-44.2); Mean Corpuscular HGB Conc 30.6 g/dl (32-36); Mean Corpuscular Hemoglobin 29.1 pg (26-34); Mean Corpuscular Volume 95.3 fl (80-100); Mean Platelet Volume 11.5 fl (7.4-10.4); Monocytes Absolute Auto 0.7 K/mm3 (0.1-0.6); Monocytes Percent Auto 8.9 % (2.6-8.5); Neutrophils Absolute Auto 4.8 K/mm3 (1.3-6.7); Neutrophils Percent Auto 61.1 % (45.5-73.1); Platelet Count Result 172 k/mm3 (150-375); Red Blood Count 2.78 M/mm3 (4.2-5.4); Red Cell Distribution Width 15.1 % (11.5-14.5); White Blood Count 7.9 K/mm3 (4.5-10.0)
[2022-06-26] MEDS: LEVOTHYROXINE SODIUM 100 MCG TABLET PO (06:50)
[2022-06-26 07:07] LABS: Alanine Aminotransferase 19 U/L (6-35); Albumin Level 2.6 g/dL (3.5-5.1); Alkaline Phosphatase 138 U/L (38-126); Anion Gap 7 mmol/L (8-16); Aspartate Amino Transferase 51 U/L (14-36); Bilirubin,Total 0.5 mg/dL (0.2-1.3); Blood Urea Nitrogen 29 mg/dL (7-17); Calcium 7.9 mg/dL (8.4-10.2); Carbon Dioxide 33 mmol/L (22-30); Chloride 98 mmol/L (98-107); Estimated CRCL calculation 55 ml/min; Estimated Glomerular Filt Rate > 60; Glucose 85 mg/dL (65-110); Magnesium 1.9 mg/dL (1.6-2.3); Sodium 138 mmol/L (137-145)
[2022-06-26 08:45] VITALS: BP 117/54
[2022-06-26] MEDS: CLOPIDOGREL BISULFATE 75 MG TABLET PO (08:48)
[2022-06-26] MEDS: FIDAXOMICIN 200 MG TABLET PO ×2 (08:49→20:19)
[2022-06-26] MEDS: POTASSIUM CHLORIDE 20 MEQ TABLET.ER PO ×2 (08:49→16:41)
[2022-06-26] MEDS: ASPIRIN 81 MG ENTERIC TABLET PO (08:49)
[2022-06-26] MEDS: SACCHAROMYCES BOULARDII 250 MG CAPSULE PO ×2 (08:49→16:40)
[2022-06-26] MEDS: CALCIUM CARBONATE (OSCAL) 500 MG TABLET PO ×2 (08:49→16:40)
[2022-06-26] MEDS: PANTOPRAZOLE 40 MG TABLET PO ×2 (08:49→20:19)
[2022-06-26] MEDS: PHENYTOIN SODIUM 100 MG EXTENDED RELEASE CAP 200 MG PO ×2 (08:49→16:40)
[2022-06-26] MEDS: GABAPENTIN 300 MG CAPSULE PO ×2 (08:49→16:41)
[2022-06-26 08:50] VITALS: O2SAT 92
[2022-06-26] MEDS: FUROSEMIDE INJ 40 MG/4 ML VIAL IV PUSH (08:50)
[2022-06-26] MEDS: GENTAMICIN SULFATE 0.1% OINT 15 GM TUBE 1 APPLIC TOPICAL ×2 (08:50→20:19)
--- NOTE | 2022-06-26 12:30 | PM.IMPN ---
Progress Note: A&P Assessment and Plan (1) Sepsis: Code(s): A41.9 - Sepsis, unspecified organism Status: Acute Assessment and Plan: Patient met SIRS criteria leukocytosis, fever, hypotension [place] to be most likely secondary to C. diff colitis Patient has completed 10 days of treatment for ESBL UTI (stopped on 06/21), urine culture from 06/23/2022 had no growth Received 7 days of p.o. vancomycin for C diff colitis (stopped on 06/20) and now on PO Dificid (06/21/22)day 5 Blood cultures collected on 06/16/22 negative Repeat blood cultures collected 06/22 are negative to date Repeat CXR 06/22 with no evidence of pneumonia. Patient not at risk for aspiration. CTA 06/23 with dependent airspace opacities. Reviewed imaging with monotype caster Dr. Nam. [place] to be more likely related to atelectasis. CXR today with no evidence of pneumonia Stool cultures negative Sputum culture ordered if patient is able to provide specimen No wounds or evidence of skin/soft tissue infection Patient denies any orthopedic hardware, etc. CT of the abdomen/pelvis with no evidence of infection Lactic within normal limits. CRP mildly elevated. Procalcitonin 1.6 Afebrile today. WBC continue to improve at 8.3 today . (2) Acute UTI: Code(s): N39.0 - Urinary tract infection, site not specified Status: Acute Assessment and Plan: Resolved Patient with recent ESBL UTI (06/09/22) resulting in septic shock presented to ED with worsened leukocytosis and abnormal UA Repeat urine culture on 06/16/2022 with no growth Suspect that initial UTI was suppressed but not completely treated and infection worsened leading to return to ED. This would account for the negative repeat culture Completed 10 total days of IV Ertapenem 06/21 Repeat urine culture no growth (3) C. difficile diarrhea: Code(s): A04.72 - Enterocolitis due to Clostridium difficile, not specified as recurrent Status: Acute Assessment and Plan: Patient with positive C diff PCR on 06/10/2022 She was treated with p.o. vancomycin and discharged with a 7 day course from last hospitalization. Completed 7 days of Vancomycin on 06/20/2206/21 started p.o. Dificid due to persistent diarrhea and leukocytosis, day 6 Stool cultures negative C. diff PCR remains positive. Banatrol and probiotic resolving, no reported BM for the last two days (4) CHF (congestive heart failure): Code(s): I50.9 - Heart failure, unspecified Status: Acute Assessment and Plan: Seems to be acute exacerbation of diastolic heart failure Echo EF 55-60% with abnormal diastolic dysfunction, moderate aortic valve stenosis left ventricle is moderately enlarged dilated inferior vena cava with an elevated right arterial pressure BNP greater than 35,000 Lasix 40 mg IV push b.i.d. for now, decreased to 40mg PO BID Trend urinary output Supplemental oxygen, wean to mean saturation greater than 90% Adjust therapy as indicated Trend renal function (5) Hypoxia: Code(s): R09.02 - Hypoxemia Status: Acute Assessment and Plan: Patient hypoxic down to 85% Suspect secondary to volume overload. CXR with pleural effusion and atelectasis CTA with dependent opacities, most likely due to atelectasis. Negative for PE. Venous doppler negative for DVT Currently requiring 4 L supplemental O2 Echo with normal EF 55-60% with abnormal diastolic dysfunction. BNP >23652 Apnea link completed which did show frequent episodes of desaturations Change lasix to 40mg PO BID (6) Transaminitis: Code(s): R74.01 - Elevation of levels of liver transaminase levels Status: Acute Assessment and Plan: AST mildly elevated at 51 LFTs mildly elevated. Review of prior labs suggest this to be a chronic issue for several years Patient evaluated by GI [place] to be related to possible hepatic steatosis based on GI evaluation Quyen peterson
--- NOTE | 2022-06-26 12:30 | P.PNIM_ITS ---
Progress Note: A&P Assessment and Plan (1) Sepsis: Code(s): A41.9 - Sepsis, unspecified organism Status: Acute Assessment and Plan: * Patient met SIRS criteria leukocytosis, fever, hypotension * [place] to be most likely secondary to C. diff colitis * Patient has completed 10 days of treatment for ESBL UTI (stopped on 06/21), urine culture from 06/23/2022 had no growth * Received 7 days of p.o. vancomycin for C diff colitis (stopped on 06/20) and now on PO Dificid (06/21/22)day 5 * Blood cultures collected on 06/16/22 negative * Repeat blood cultures collected 06/22 are negative to date * Repeat CXR 06/22 with no evidence of pneumonia. Patient not at risk for aspiration. CTA 06/23 with dependent airspace opacities. Reviewed imaging with old coin dealer Dr. Nam. [place] to be more likely related to atelectasis. CXR t [place] with no evidence of pneumonia * Stool cultures negative * Sputum culture ordered if patient is able to provide specimen * No wounds or evidence of skin/soft tissue infection * Patient denies any orthopedic hardware, etc. * CT of the abdomen/pelvis with no evidence of infection * Lactic within normal limits. CRP mildly elevated. Procalcitonin 1.6 * Afebrile today. WBC continue to improve at 8.3 today . (2) Acute UTI: Code(s): N39.0 - Urinary tract infection, site not specified Status: Acute Assessment and Plan: * Resolved * Patient with recent ESBL UTI (06/09/22) resulting in septic shock presented to ED with worsened leukocytosis and abnormal UA * Repeat urine culture on 06/16/2022 with no growth * Suspect that initial UTI was suppressed but not completely treated and infection worsened leading to return to ED. This would account for the negative repeat culture * Completed 10 total days of IV Ertapenem 06/21 * Repeat urine culture no growth (3) C. difficile diarrhea: Code(s): A04.72 - Enterocolitis due to Clostridium difficile, not specified as recurrent Status: Acute Assessment and Plan: * Patient with positive C diff PCR on 06/10/2022 * She was treated with p.o. vancomycin and discharged with a 7 day course from last hospitalization. * Completed 7 days of Vancomycin on 06/20/22 * 06/21 started p.o. Dificid due to persistent diarrhea and leukocytosis, day 6 * Stool cultures negative C. diff PCR remains positive. * Banatrol and probiotic * resolving, no reported BM for the last two days (4) CHF (congestive heart failure): Code(s): I50.9 - Heart failure, unspecified Status: Acute Assessment and Plan: * Seems to be acute exacerbation of diastolic heart failure * Echo EF 55-60% with abnormal diastolic dysfunction, moderate aortic valve stenosis left ventricle is moderately enlarged dilated inferior vena cava with an elevated right arterial pressure * BNP greater than 35,000 * Lasix 40 mg IV push b.i.d. for now, decreased to 40mg PO BID * Trend urinary output * Supplemental oxygen, wean to mean saturation greater than 90% * Adjust therapy as indicated * Trend renal function (5) Hypoxia: Code(s): R09.02 - Hypoxemia Status: Acute Assessment and Plan: * Patient hypoxic down to 85% * Suspect secondary to volume overload. CXR with pleural effusion and atelectasis * CTA with dependent opacities, most likely due to atelectasis. Negative for PE. Venous doppler negative for DVT * Currently requiring 4 L supplemental O2 * Echo with normal EF 55-60% with abnormal diastolic dysfunction. * BNP >11801 * Apnea link completed which did show frequent
[2022-06-26 14:00] VITALS: BP 130/55; PULSE 78; RESP 16; TEMP 36.4; O2SAT 93
[2022-06-26] MEDS: FUROSEMIDE 40 MG TABLET PO (16:40)
[2022-06-26] MEDS: GABAPENTIN 300 MG CAPSULE 600 MG PO (20:19)
[2022-06-26 22:00] VITALS: BP 147/43; PULSE 86; RESP 20; TEMP 37; O2SAT 95
[2022-06-27 06:00] VITALS: BP 110/37; PULSE 80; RESP 20; TEMP 36.7; O2SAT 97
[2022-06-27] MEDS: LEVOTHYROXINE SODIUM 100 MCG TABLET PO (06:00)
[2022-06-27 06:26] LABS: Basophils Percent Auto 0.4 % (0.2-1.2); Eosinophils Absolute Auto 0.1 K/mm3 (0-0.3); Eosinophils Percent Auto 1.2 % (0-4.4); Hematocrit 27.8 % (37.0-47.0); Hemoglobin 8.4 g/dL (12.0-15.0); Immature Granulocyte Absolute 0.04 K/mm3 (0.00-0.031); Immature Granulocyte Percent A 0.4 % (0-0.5); Lymphocytes Absolute Auto 2.59 K/mm3 (0.9-3.2); Lymphocytes Percent Auto 25.6 % (18.3-44.2); Mean Corpuscular HGB Conc 30.2 g/dl (32-36); Mean Corpuscular Hemoglobin 28.8 pg (26-34); Mean Corpuscular Volume 95.2 fl (80-100); Mean Platelet Volume 11.3 fl (7.4-10.4); Monocytes Percent Auto 9.4 % (2.6-8.5); Neutrophils Absolute Auto 6.4 K/mm3 (1.3-6.7); Platelet Count Result 168 k/mm3 (150-375); Red Blood Count 2.92 M/mm3 (4.2-5.4); Red Cell Distribution Width 15.1 % (11.5-14.5); White Blood Count 10.1 K/mm3 (4.5-10.0)
[2022-06-27 06:39] LABS: Alanine Aminotransferase 18 U/L (6-35); Albumin Level 2.7 g/dL (3.5-5.1); Alkaline Phosphatase 146 U/L (38-126); Anion Gap 6 mmol/L (8-16); Aspartate Amino Transferase 42 U/L (14-36); Bilirubin,Total 0.5 mg/dL (0.2-1.3); Blood Urea Nitrogen 25 mg/dL (7-17); Calcium 8.1 mg/dL (8.4-10.2); Carbon Dioxide 33 mmol/L (22-30); Chloride 97 mmol/L (98-107); Estimated CRCL calculation 62 ml/min; Estimated Glomerular Filt Rate > 60; Glucose 85 mg/dL (65-110); Magnesium 1.7 mg/dL (1.6-2.3); Sodium 136 mmol/L (137-145)
[2022-06-27 06:46] LABS: Transferrin 169 mg/dL (206-381)
[2022-06-27 06:55] LABS: Iron 22 ug/dL (37-170)
[2022-06-27 07:06] LABS: Percent Iron Saturation 8 % (20-50)
[2022-06-27 07:44] LABS: Folic Acid 18.8 ng/mL (2.76->20)
--- NOTE | 2022-06-27 09:30 | PM.DS ---
DS: Admitting Diagnosis Discharge Date 06/27/22929 Admitting Diagnosis CHF exacerbation/acute UTI/ sepsis related to C diff infection DS: Discharge Diagnosis Discharge Diagnosis (1) Sepsis: Code(s): A41.9 - Sepsis, unspecified organism Status: Acute Assessment and Plan: Patient met SIRS criteria leukocytosis, fever, hypotension [place] to be most likely secondary to C. diff colitis Patient has completed 10 days of treatment for ESBL UTI (stopped on 06/21), urine culture from 06/23/2022 had no growth Received 7 days of p.o. vancomycin for C diff colitis (stopped on 06/20) and now on PO Dificid (06/21/22)day 5 Blood cultures collected on 06/16/22 negative Repeat blood cultures collected 06/22 are negative to date Repeat CXR 06/22 with no evidence of pneumonia. Patient not at risk for aspiration. CTA 06/23 with dependent airspace opacities. Reviewed imaging with manager latin Dr. Nam. [place] to be more likely related to atelectasis. CXR today with no evidence of pneumonia Stool cultures negative Sputum culture ordered if patient is able to provide specimen No wounds or evidence of skin/soft tissue infection Patient denies any orthopedic hardware, etc. CT of the abdomen/pelvis with no evidence of infection Lactic within normal limits. CRP mildly elevated. Procalcitonin 1.6 Afebrile today. WBC continue to improve at 10.1 today . (2) Acute UTI: Code(s): N39.0 - Urinary tract infection, site not specified Status: Acute Assessment and Plan: Resolved Patient with recent ESBL UTI (06/09/22) resulting in septic shock presented to ED with worsened leukocytosis and abnormal UA Repeat urine culture on 06/16/2022 with no growth Suspect that initial UTI was suppressed but not completely treated and infection worsened leading to return to ED. This would account for the negative repeat culture Completed 10 total days of IV Ertapenem 06/21 Repeat urine culture no growth (3) C. difficile diarrhea: Code(s): A04.72 - Enterocolitis due to Clostridium difficile, not specified as recurrent Status: Acute Assessment and Plan: Patient with positive C diff PCR on 06/10/2022 She was treated with p.o. vancomycin and discharged with a 7 day course from last hospitalization. Completed 7 days of Vancomycin on 06/20/2206/21 started p.o. Dificid due to persistent diarrhea and leukocytosis, day 6 Stool cultures negative C. diff PCR remains positive. Banatrol and probiotic resolving, no reported BM for the last two days will need a total of 10 days of Dificid (4) CHF (congestive heart failure): Code(s): I50.9 - Heart failure, unspecified Status: Acute Assessment and Plan: Seems to be acute exacerbation of diastolic heart failure Echo EF 55-60% with abnormal diastolic dysfunction, moderate aortic valve stenosis left ventricle is moderately enlarged dilated inferior vena cava with an elevated right arterial pressure BNP greater than 35,000 Lasix 40 mg IV push b.i.d. for now, decreased to 40mg PO BID Trend urinary output Supplemental oxygen, wean to mean saturation greater than 90% Adjust therapy as indicated Trend renal function (5) Hypoxia: Code(s): R09.02 - Hypoxemia Status: Acute Assessment and Plan: Patient hypoxic down to 85% Suspect secondary to volume overload. CXR with pleural effusion and atelectasis CTA with dependent opacities, most likely due to atelectasis. Negative for PE. Venous doppler negative for DVT Currently requiring 4 L supplemental O2 Echo with normal EF 55-60% with abnormal diastolic dysfunction. BNP >52513 Apnea link completed which did show frequent episodes of desaturations Change lasix to 40mg PO BID (6) Transaminitis: Code(s): R74.01 - Elevation of levels of liver transaminase levels Status: Acute Assessment and Plan: AST mildly elevated at 42 LFTs mildly [place]
--- NOTE | 2022-06-27 09:30 | P.DS_ITS ---
DS: Admitting Diagnosis Discharge Date 06/27/22929 Admitting Diagnosis CHF exacerbation/acute UTI/ sepsis related to C diff infection DS: Discharge Diagnosis Discharge Diagnosis (1) Sepsis: Code(s): A41.9 - Sepsis, unspecified organism Status: Acute Assessment and Plan: * Patient met SIRS criteria leukocytosis, fever, hypotension * [place] to be most likely secondary to C. diff colitis * Patient has completed 10 days of treatment for ESBL UTI (stopped on 06/21), urine culture from 06/23/2022 had no growth * Received 7 days of p.o. vancomycin for C diff colitis (stopped on 06/20) and now on PO Dificid (06/21/22)day 5 * Blood cultures collected on 06/16/22 negative * Repeat blood cultures collected 06/22 are negative to date * Repeat CXR 06/22 with no evidence of pneumonia. Patient not at risk for aspiration. CTA 06/23 with dependent airspace opacities. Reviewed imaging with health and safety technician Dr. Nam. [place] to be more likely related to atelectasis. CXR today with no evidence of pneumonia * Stool cultures negative * Sputum culture ordered if patient is able to provide specimen * No wounds or evidence of skin/soft tissue infection * Patient denies any orthopedic hardware, etc. * CT of the abdomen/pelvis with no evidence of infection * Lactic within normal limits. CRP mildly elevated. Procalcitonin 1.6 * Afebrile today. WBC continue to improve at 10.1 today . (2) Acute UTI: Code(s): N39.0 - Urinary tract infection, site not specified Status: Acute Assessment and Plan: * Resolved * Patient with recent ESBL UTI (06/09/22) resulting in septic shock presented to ED with worsened leukocytosis and abnormal UA * Repeat urine culture on 06/16/2022 with no growth * Suspect that initial UTI was suppressed but not completely treated and infec tion worsened leading to return to ED. This would account for the negative repeat culture * Completed 10 total days of IV Ertapenem 06/21 * Repeat urine culture no growth (3) C. difficile diarrhea: Code(s): A04.72 - Enterocolitis due to Clostridium difficile, not specified as recurrent Status: Acute Assessment and Plan: * Patient with positive C diff PCR on 06/10/2022 * She was treated with p.o. vancomycin and discharged with a 7 day course from last hospitalization. * Completed 7 days of Vancomycin on 06/20/22 * 06/21 started p.o. Dificid due to persistent diarrhea and leukocytosis, day 6 * Stool cultures negative C. diff PCR remains positive. * Banatrol and probiotic * resolving, no reported BM for the last two days will need a total of 10 days of Dificid (4) CHF (congestive heart failure): Code(s): I50.9 - Heart failure, unspecified Status: Acute Assessment and Plan: * Seems to be acute exacerbation of diastolic heart failure * Echo EF 55-60% with abnormal diastolic dysfunction, moderate aortic valve stenosis left ventricle is moderately enlarged dilated inferior vena cava with an elevated right arterial pressure * BNP greater than 35,000 * Lasix 40 mg IV push b.i.d. for now, decreased to 40mg PO BID * Trend urinary output * Supplemental oxygen, wean to mean saturation greater than 90% * Adjust therapy as indicated * Trend renal function (5) Hypoxia: Code(s): R09.02 - Hypoxemia Status: Acute Assessment and Plan: * Patient hypoxic down to 85% * Suspect secondary to volume overload. CXR with pleural effusion and atelectasis * CTA with dependent opacities, most likely due to atelectasis. Negative for PE.
[2022-06-27] MEDS: CALCIUM CARBONATE (OSCAL) 500 MG TABLET PO (09:52)
[2022-06-27] MEDS: FUROSEMIDE 40 MG TABLET PO (09:52)
[2022-06-27] MEDS: SACCHAROMYCES BOULARDII 250 MG CAPSULE PO (09:52)
[2022-06-27] MEDS: FIDAXOMICIN 200 MG TABLET PO (09:52)
[2022-06-27] MEDS: ACYCLOVIR 5% OINTMENT 15 GM TUBE 1 APPLIC TOPICAL ×3 (09:53→15:44)
[2022-06-27] MEDS: CLOPIDOGREL BISULFATE 75 MG TABLET PO (09:53)
[2022-06-27] MEDS: GABAPENTIN 300 MG CAPSULE PO (09:53)
[2022-06-27] MEDS: PANTOPRAZOLE 40 MG TABLET PO (09:53)
[2022-06-27] MEDS: ASPIRIN 81 MG ENTERIC TABLET PO (09:53)
[2022-06-27] MEDS: POTASSIUM CHLORIDE 20 MEQ TABLET.ER PO (09:53)
[2022-06-27] MEDS: PHENYTOIN SODIUM 100 MG EXTENDED RELEASE CAP 200 MG PO (09:59)
[2022-06-27] MEDS: GENTAMICIN SULFATE 0.1% OINT 15 GM TUBE 1 APPLIC TOPICAL (10:00)
[2022-06-27 10:17] VITALS: O2SAT 95
[2022-06-27 12:37] LABS: EDCOVIDSCREEN Negative (Negative)
[2022-06-27 13:13] VITALS: BP 113/50; PULSE 76; RESP 20; TEMP 36.9; O2SAT 96
== END 2022-06-27 16:00 | DRG 871 ==
LOC: ANHED 10:24 → ANHIMU 10:53 → ANH3MEDSUR 18:43
PROVIDERS: Internal Medicine Gastroenterology; Physician Assistant; Student in an Organized Health Care Education/Training Program; Admitting Provider Internal Medicine; Emergency Provider Emergency Medicine; PCP Family Medicine; Visit Provider Nurse Practitioner
PROC: 0DJ08ZZ Inspection of Upper Intestinal Tract, Via Natural or Artificial Opening Endoscopic (ICD-10-PCS; CPT 43235; principal; 2022-06-17 13:00)
DX: A41.9 Sepsis, unspecified organism (principal); R65.21 Severe sepsis with septic shock; I50.31 Acute diastolic (congestive) heart failure; K26.4 Chronic or unspecified duodenal ulcer with hemorrhage; A04.72 Enterocolitis due to Clostridium difficile, not specified as recurrent; N39.0 Urinary tract infection, site not specified; D62 Acute posthemorrhagic anemia; Z68.41 Body mass index [BMI] 40.0-44.9, adult; J98.11 Atelectasis; K25.9 Gastric ulcer, unspecified as acute or chronic, without hemorrhage or perforation; I11.0 Hypertensive heart disease with heart failure; Z20.822 Contact with and (suspected) exposure to COVID-19; D50.9 Iron deficiency anemia, unspecified; R09.02 Hypoxemia; E03.9 Hypothyroidism, unspecified; E87.6 Hypokalemia; E83.42 Hypomagnesemia; E83.51 Hypocalcemia; E78.5 Hyperlipidemia, unspecified; I25.10 Atherosclerotic heart disease of native coronary artery without angina pectoris; G62.9 Polyneuropathy, unspecified; K31.89 Other diseases of stomach and duodenum; K76.0 Fatty (change of) liver, not elsewhere classified; E86.0 Dehydration; E66.01 Morbid (severe) obesity due to excess calories; G40.909 Epilepsy, unspecified, not intractable, without status epilepticus; M17.0 Bilateral primary osteoarthritis of knee; K21.9 Gastro-esophageal reflux disease without esophagitis; Z95.1 Presence of aortocoronary bypass graft; Z87.891 Personal history of nicotine dependence; Z79.82 Long term (current) use of aspirin
CPT/HCPCS: 36415; 51701; 71046; 71275; 74177; 80048; 80053; 80076; 81001; 82040; 82607; 82728; 82746; 82977; 83540; 83550; 83605; 83735; 83880; 84132; 84145; 84466; 85014; 85018; 85025; 85027; 85380; 86140; 86850; 86900; 86901; 87040; 87045; 87081; 87086; 87269; 87272; 87426; 87427; 87493; 93306; 93970; 96361; 96365; 96367; 96368; 96375; 97161; 97165; 97535; 99285; A9270; C9113; C9803; G0378; J0171; J1335; J1940; J2001; J2704; J3475; J3480; J7030; J7060; J7120; Q9967; U0003; U0005

== ENCOUNTER 2022-06-29 06:10 | Inpatient (IN) | payer MEDICARE, SELFPAY ==
[2022-06-29] VITALS (26 sets, daily range): BP systolic 86–151; BP diastolic 40–101; PULSE 70–119; RESP 15–28; TEMP 36.4–36.6; O2SAT 92–100; BMI 43.9
--- NOTE | ~2022-06-29 | XR_ITS ---
EXAMINATION: XR chest 1V portable DATE: 07/04/2022 09:23 INDICATION: Pneumonia. TECHNIQUE: A single frontal view of the chest was obtained. COMPARISON: Chest single view 06/29/2022, chest CT 06/29/2022 FINDINGS: There are mild airspace opacities in left mid and lower lung zones. No pleural effusion or pneumothorax. The heart size is normal. Median sternotomy wires and mediastinal surgical clips are se en, likely from prior coronary artery bypass grafting. A catheter tip overlies left axilla. IMPRESSION: 1. Improved mild airspace opacities in left mid and lower lung zones, consistent with pulmonary edema versus pneumonia. Reviewed, dictated and finalized at location A. IMPRESSION: 1. Improved mild airspace opacities in left mid and lower lung zones, consisten t with pulmonary edema versus pneumonia.
--- NOTE | ~2022-06-29 | XR_ITS ---
XR chest 1V portable DATE: 07/05/2022 06:08 INDICATION: Congestive heart failure, pneumonia TECHNIQUE: Portable upright AP chest on 07/05/2022 at 0519 hours COMPARISON: 07/04/2022 portable upright AP chest at 0908 hours 06/29/2022 CT pulmonary scan 06/29/2022 portable AP chest FINDINGS: Status post sternotomy. Heart size is within normal range. Aortic calcification and unfolding. No pulmonary infiltrate or consolidation, pleural effusion or pulmonary vascular congestion or pneumo thorax. Diffuse osteopenia. Bilateral rotator cuff atrophy. IMPRESSION: No active cardiopulmonary disease.; Resolution of congestive changes and infiltrates sinc e 06/29/2022 Aortic atherosclerosis r Reviewed, dictated and finalized at location A. IMPRESSION: No active cardiopulmonary disease.; Resolution of congestive change s and infiltrates since 06/29/2022 Aortic atherosclerosis r
--- NOTE | ~2022-06-29 | XR_ITS ---
EXAMINATION: XR abdomen/kub 1V DATE: 07/04/2022 22:16 INDICATION: Constipation. TECHNIQUE: A supine view of the abdomen on 2 radiographs was obtained. COMPARISON: CT dated 06/29/2022 FINDINGS: Moderate amount of stool scattered throughout the colon. Multiple gas-filled but not frankly dilated loops of small bowel throughout the abdomen. Cholecystectomy clips in the right upper quadrant. Visua lized lower lung zones are clear. Heart size is normal. Median sternotomy wires and mediastinal surgi guadalupe clips are seen, likely from prior coronary artery bypass grafting. Mild S-shaped curvature of the lumbar and lower thoracic spine with severe spondylosis. L1-L5 laminectomies and partial T12 laminec aruna. IMPRESSION: 1. Moderate amount of scattered colonic stool. No dilated bowel to suggest obstruction. Reviewed, dictated and finalized at location A. IMPRESSION: 1. Moderate amount of scattered colonic stool. No dilated bowel to suggest obst ruction.
--- NOTE | ~2022-06-29 | US_ITS ---
EXAMINATION: US renal BI DATE: 07/06/2022 08:16 INDICATION: assessing possible cyst TECHNIQUE: Multiple ultrasound grayscale images of the kidneys were obtained. COMPARISON: CT 06/29/2022 FINDINGS: The right kidney measures 11.1 x 5.4 x 4.7 cm. The left kidney measures 8.1 x 4 x 3.7 cm. The kidneys demonstrate normal parenchymal echogenicity. 1.4 cm right midpole cyst. There is no hydronephrosis. The bladder wall is thickened and irregular, similar to prior CT. The spleen measures 14.8 cm IMPRESSION: Splenomegaly. Simple right midpole cyst. Cystitis. Reviewed, dictated and finalized at location K.
--- NOTE | ~2022-06-29 | US_ITS ---
EXAMINATION: US venous doppler [facility] DATE: 07/03/2022 17:00 INDICATION: Lower limb swelling TECHNIQUE: Grayscale ultrasound images without and with compression and Doppler ultrasound images of the bilateral lower extremity veins were obtained. COMPARISON: 06/23/2022 FINDINGS: The visualized portions of right common femoral vein, profunda (deep) femoral vein, femoral vein, pop liteal vein, posterior tibial veins, peroneal veins, gastrocnemius vein and greater saphenous vein ou tflow remain patent. The visualized portions of left common femoral vein, profunda femoral vein, femoral vein, popliteal v ein, posterior tibial veins, peroneal veins, gastrocnemius vein and greater saphenous vein outflow re main patent. IMPRESSION: 1. No deep venous thrombosis in either lower limb. Reviewed, dictated and finalized at location A.
--- NOTE | ~2022-06-29 | US_ITS ---
EXAMINATION: US renal BI DATE: 06/29/2022 15:03 INDICATION: possible cyst TECHNIQUE: Multiple ultrasound grayscale images of the kidneys were obtained. COMPARISON: CT 06/29/2022 FINDINGS: The right kidney measures 11.0 x 4.1 x 5.2 cm. The left kidney measures 8.1 x 3.8 x 4.0 cm. The kidne ys demonstrate normal parenchymal echogenicity. 1.2 cm hypoechoic area in the right kidney correspond ing to the previously detected cystic lesion. There is no hydronephrosis. The bladder is partially fi lled, with wall thickening up to 7 mm. Intraluminal echogenic material. IMPRESSION: 1. 1.2 cm right renal lesion may reflect involuting cyst or resolving renal abscess. 2. Bladder wall thickening as can be seen with cystitis. 3. Bladder debris may represent crystalline, proteinaceous, or hemorrhagic material. Reviewed, dictated and finalized at [facility] K. IMPRESSION: 1. 1.2 cm right renal lesion may reflect involuting cyst or resolving renal ab scess. 2. Bladder wall thickening as can be seen with cystitis. 3. Bladder debris may represent crystalline, proteinaceous, or hemorrhagic mate rial.
--- NOTE | ~2022-06-29 | XR_ITS ---
EXAMINATION: XR chest 1V portable DATE: 06/29/2022 06:37 INDICATION: Shortness of breath TECHNIQUE: frontal view of the chest was obtained. COMPARISON: Chest radiograph dated 06/24/2022 FINDINGS: Patchy airspace opacities throughout both lungs which could represent pulmonary edema or pneumonia. N o pneumothorax or right pleural effusion. Likely small left pleural effusion. Cardiomegaly. Median st ernotomy wires and mediastinal surgical clips are seen, likely from prior coronary artery bypass donna ting. Bilateral rotator cuff arthropathy. IMPRESSION: 1. Persistent diffuse bilateral lung disease most likely pulmonary edema with differential including pneumonia. 2. Likely small left pleural effusion. 3. Cardiomegaly. Reviewed, dictated and finalized at location A. IMPRESSION: 1. Persistent diffuse bilateral lung disease most likely pulmonary edema with d ifferential including pneumonia. 2. Likely small left pleural effusion. 3. Cardiomegaly.
--- NOTE | ~2022-06-29 | CT_ITS ---
EXAMINATION: CTA chest PE abdomen pel DATE: 06/29/2022 10:43 INDICATION: Shortness of breath. Abdominal pain. TECHNIQUE: Computed tomography (CT) pulmonary angiogram of the chest was performed with 100 mL Omnipa que-300 intravenous contrast. Additional 3D reconstructions utilizing coronal maximum intensity proje ction (MIP) were performed. CT of the abdomen and pelvis was performed with intravenous contrast util izing the same contrast bolus following a short delay. Automated exposure control and iterative recon struction technique were employed. The dose-length product was 2107.30 mGy-cm. COMPARISON: 06/23/2022 FINDINGS: Chest: Excellent contrast opacification of the pulmonary arteries. There is moderate streak artifact from de nse contrast in the superior vena cava and right atrium. There is also mild to moderate scattered res piratory motion artifact. This decreases sensitivity in the smaller subsegmental pulmonary arteries. No pulmonary embolism identified. Enlargement of the central pulmonary arteries consistent with pulmo nary arterial hypertension. Small bilateral posterior layering pleural effusions with dependent compr essive atelectasis in the bilateral lower lobes. There are more diffuse groundglass opacities in plac es with some smooth septal line thickening suggesting mild pulmonary edema. There are however more pa tchy areas of consolidation and more dense centrilobular consolidation groundglass nodules more suspi cious for pneumonia. Cardiomegaly. Atherosclerotic coronary artery calcifications and change of prior median sternotomy and coronary artery bypass grafting. No pericardial effusion. Thoracic aorta is no rmal in caliber with no dissection. Mild likely reactive mediastinal lymphadenopathy. Mild thoracic d extrocurvature with moderate spondylosis. Abdomen/pelvis: Cholecystectomy clips at the gallbladder fossa. Liver, pancreas and right adrenal gland are normal. 1 .5 cm left adrenal nodule which is unchanged since 12/10/2016 most consistent with an adenoma. Interva l decrease in size of a previously 2.0 cm, currently 1.3 cm cystic lesion at the right kidney which w as new since 01/15/2022. Chronic mild to moderate left renal atrophy. Splenomegaly measuring 14.5 cm c raniocaudal length which is unchanged since 01/15/2022. Bowels are unremarkable with no wall thickening or obstruction. Again seen is wall thickening and muc osal hyperemia at the bladder with subtle haziness to the surrounding fat suspicious for cystitis. Th ere appears to be thickening of the endometrial complex of the atrophic uterus. Bilateral adnexa are unremarkable. No free intraperitoneal gas or fluid. No pathologically enlarged abdominal or pelvic ly mphadenopathy. Tiny fat-containing umbilical hernia. Chronic superior endplate compression fracture a t L1. Lumbar dextroscoliosis with severe spondylosis. Postoperative change of posterior decompression with L1-L5 laminectomies and partial T12 laminectomy. Moderate osteoarthritis at the bilateral hips. IMPRESSION: 1. No pulmonary embolism. Sensitivity decreased in the smaller subsegmental pulmonary arteries due to combination of streak and motion artifact. 2. Diffuse bilateral lung disease which appears most likely to represent a combination of mild pulmon jacqui edema and multifocal pneumonia. 3. Small bilateral pleural effusions. 4. Cardiomegaly. 5. Likely reactive mild mediastinal lymphadenopathy. 6. Mucosal hyperemia and wall thickening the bladder with inflammatory stranding surrounding fat susp icious for cystitis. Correlate with urinalysis. 7. Decrease in size of a previously 2.0 cm currently 1.3 cm cystic lesion at the right kidney which c ould represent either a ruptured and involuting cyst or potentially resolving renal abscess if there has been recent prior pyelonephritis. 8. Unchanged nonspecific splenomegaly which could be related to body habitus.
--- NOTE | 2022-06-29 06:23 | ECG_ITS ---
Measurements Intervals [place] Rate: 117 P: 54 [place]: 191 QRS: -9 QRSD: 106 T: 56 QT: 324 QTc: 453 Interpretive Statements SINUS TACHYCARDIA INTRAVENTRICULAR CONDUCTION DELAY ANTEROSEPTAL INFARCT, AGE INDETERMINATE CONSIDER INFERIOR INFARCT, AGE INDETERMINATE BORDERLINE ST-T WAVE ABNORMALITY- HIGH LATERAL LEADS BASELINE ARTIFACT- I, II, III, AVR, AVL, AVF, V1, V4-V6 ABNORMAL ECG Electronically Signed On 06-29-2022 8:12:38 CDT by Blair Reed D.O.
--- NOTE | 2022-06-29 06:25 | ED.SOB ---
HPI - SOB/Dyspnea General Chief Complaint: Shortness of Breath/Dyspnea <Randy Bryant MD - Last Filed: 06/29/22 07:09> Stated Complaint: short of breath <Randy Bryant MD - Last Filed: 06/29/22 07:09> Time Seen by Provider: 06/29/22 06:23 <Randy Bryant MD - Last Filed: 06/29/22 07:09> History of Present Illness HPI Narrative: Patient is an 81-year-old female [facility] by [facility] in [facility] distress. Patient denies chest pain, abdominal pain, nausea, vomiting, diarrhea, fever or chills. Patient is a poor historian. Patient was recently discharge from this hospital 2 days ago after being admitted for sepsis, UTI, ESBL. <Randy Bryant MD - Last Filed: 06/29/22 07:09> Related Data Home Medications: Home Medications Medication Instructions Recorded Confirmed aspirin 81 mg tablet,delayed 81 mg PO DAILY 11/10/19 06/16/22 release (Adult Low Dose Aspirin) levocetirizine 5 mg tablet 5 mg PO DAILY 07/28/20 06/16/22 aluminum-magnesium hydroxide 200 20 ml PO Q6H PRN (Drug) Ingestion 01/16/21 06/16/22 mg-200 mg/5 mL oral suspension atorvastatin 80 mg tablet 80 mg PO DAILY 01/16/21 06/16/22 docusate sodium 100 mg capsule 100 mg PO DAILY PRN Constipation 01/16/21 06/16/22 (Colace) ondansetron HCl 4 mg tablet 4 mg PO Q4H PRN Nausea And Vomiting 01/16/21 06/16/22 acetaminophen 325 mg capsule 325 mg PO Q6H PRN Pain (Scale 06/13/21 06/16/22 Score 1-3) loperamide 2 mg capsule 2 mg PO Q6H PRN Loose Stool 06/13/21 06/16/22 (Anti-Diarrheal (loperamide)) melatonin 1 mg tablet 2 mg PO QHS PRN Insomnia 06/13/21 06/16/22 acetaminophen 325 mg tablet 650 mg PO QID PRN Pain (Scale 01/16/22 06/16/22 (Tylenol) Score 4-6) benzonatate 100 mg capsule 100 mg PO BID PRN Cough 01/16/22 06/16/22 carvedilol 3.125 mg tablet 3.125 mg PO BID 01/16/22 06/16/22 cholecalciferol (vitamin D3) 25 75 mcg PO DAILY 01/16/22 06/16/22 mcg (1,000 unit) tablet cranberry extract 250 mg tablet 250 mg PO DAILY 01/16/22 06/16/22 magnesium hydroxide 400 mg/5 mL 30 ml PO HS PRN Constipation 01/16/22 06/16/22 oral suspension (Milk of Magnesia) metolazone 5 mg tablet 5 mg PO DAILY 01/16/22 06/16/22 polyethylene glycol 3350 17 gram 17 g PO DAILY 01/16/22 06/16/22 oral powder packet (Miralax) gabapentin 100 mg capsule 300 mg PO BID 06/09/22 06/16/22 gabapentin 600 mg tablet 600 mg PO HS 06/09/22 06/16/22 guaifenesin 600 mg tablet, 600 mg PO Q12H PRN Cough 06/09/22 06/16/22 extended release 12 hr hydrocortisone acetate 25 mg 25 mg RECTAL DAILY PRN Constipation 06/09/22 06/16/22 rectal suppository (Anusol-HC) iron polysacch cplx 150 mg 1 cap PO DAILY 06/09/22 06/16/22 iron-vit B12 25 mcg-folic acid 1 mg capsule multivitamin,tx-minerals 1 tablet PO DAILY 06/09/22 06/16/22 <Randy Bryant MD - Last Filed: 06/29/22 07:09> Allergies/Adverse Reactions: Allergies Allergy/AdvReac Type Severity Reaction Status Date / Time [place] Inhibitors Allergy Unknown Unknown Verified 06/29/22 09:15 lisinopril Allergy Unknown Cough,Unkno Verified 06/29/22 09:15 wn Penicillins Allergy Unknown Not Verified 06/29/22 09:15 Entered,Unknown Sulfa (Sulfonamide Allergy Unknown Rash,Unknow Verified 06/29/22 09:15 Antibiotics) n <Randy Bryant MD - Last Filed: 06/29/22 07:09> Review of Systems Review of Systems: ROS unobtainable: Yes unobtainable due to medical condition <Randy Bryant MD - Last Filed: 06/29/22 07:09> [facility] Past Medical History Medical History: Medical History ASHD (arteriosclerotic heart disease) Benign essential hypertension Debility Frequent UTI Generalized weakness GERD (gastroesophageal reflux disease) Hyperlipidemia Hypothyroidism (acquired) Low back pain Lower extremity edema Osteoarthritis of both knees Peripheral neuropathy Seizure disorder Supracondylar fracture of left femur due to
[2022-06-29 06:27] LABS: Glucose Point of Care 159 mg/dl (65-105)
[2022-06-29 06:34] LABS: Alveolar/Arterial O2 Gradient 563.8 mmHg; Base Excess ABG -2.1 mEq/l (+/-2.0); Fractional Inspired Oxygen 100 %; HCO3 ABG 22.4 mEq/l (22.0-26.0); Oxygen Content ABG 15.7 %vol (16.0-22.0); Oxygen Saturation ABG 98.1 % (95.0-100.0); Oxyhemoglobin 96.6 % THb (90.0-100.0); PCO2 ABG 37.4 mmHg (35.0-45.0); PO2 ABG 111.8 mmHg (80.0-100.0); PO2 FiO2 Ratio Arterial Blood 1.12 %; Total Hemoglobin 11.4 g/dL (12.0-18.0); pH ABG 7.395 (7.350-7.450)
[2022-06-29 06:35] LABS: Device NON-INVASIVE VENT; Modified Allen's Test Unable to perform; Site Drawn RIGHT RADIAL
[2022-06-29 06:36] LABS: Non-Invasive Expiratory Pressure 5 CMH2O; Non-Invasive Inspiratory Pressure 10 CMH2O; Non-Invasive Vent Rate 16 /MIN
[2022-06-29] MEDS: ALBUTEROL SULFATE NEB 2.5 MG/3 ML INH 5 MG INHALATION ×3 (06:53→07:40)
[2022-06-29] MEDS: IPRATROPIUM BR 0.02% INH SOLN 0.5 MG/2.5 ML VIAL INHALATION ×3 (06:53→19:15)
[2022-06-29] MEDS: methylPREDNISolone SOD SUCC 125 MG VIAL IV PUSH (06:53)
[2022-06-29 08:04] LABS: Anion Gap 13 mmol/L (8-16); Blood Urea Nitrogen 25 mg/dL (7-17); Calcium 8.8 mg/dL (8.4-10.2); Carbon Dioxide 26 mmol/L (22-30); Chloride 96 mmol/L (98-107); Estimated Glomerular Filt Rate 53; Glucose 112 mg/dL (65-110); Potassium 4.5 mmol/L (3.4-5.0); Sodium 135 mmol/L (137-145)
[2022-06-29 08:17] LABS: SARS-CoV-2 RNA PCR Negative
[2022-06-29 08:28] LABS: NT Pro B Type Natriuretic Pept 15100 pg/mL (5-100); Troponin I 0.387 ng/mL (0.000-0.034)
[2022-06-29 08:33] LABS: Hematocrit 33.8 % (37.0-47.0); Hemoglobin 10.5 g/dL (12.0-15.0); Mean Corpuscular HGB Conc 31.1 g/dl (32-36); Mean Corpuscular Hemoglobin 28.9 pg (26-34); Mean Corpuscular Volume 93.1 fl (80-100); Mean Platelet Volume 11.5 fl (7.4-10.4); Platelet Count Result 193 k/mm3 (150-375); Red Blood Count 3.63 M/mm3 (4.2-5.4); Red Cell Distribution Width 15.2 % (11.5-14.5); White Blood Count 33.6 K/mm3 (4.5-10.0)
[2022-06-29 08:47] LABS: Alanine Aminotransferase 21 U/L (6-35); Albumin Level 3.2 g/dL (3.5-5.1); Alkaline Phosphatase 186 U/L (38-126); Aspartate Amino Transferase 58 U/L (14-36); INR 1.3; Prothrombin Time 15.7 Seconds (11.1-14.7)
[2022-06-29 08:48] LABS: Partial Thromboplastin Time 25.1 SECONDS (22.3-36.8)
[2022-06-29 09:09] LABS: D Dimer 3.25 ug/mL (<0.48)
[2022-06-29 09:10] LABS: Band Neutrophils Percent 6 % (0-6); Lymphocytes Absolute Manual 1.68 K/mm3 (1.1-4.5); Monocytes Absolute Manual 2.01 K/mm3 (0.1-0.90); Monocytes Percent Manual 6 % (3-9); Neutrophils Percent Manual 83 % (46-73); Total Cells Counted 100
[2022-06-29 09:11] LABS: Platelet Estimate Adequate (Adequate)
--- NOTE | 2022-06-29 10:00 | PM.IMHP ---
H&P: HPI History of Present Illness Date/Time: 06/29/22 10:00 Chief Complaint: Respiratory distress Narrative: Patient is an 81-year-old female with a past medical history of hypertension, frequent UTI, GERD, hyperlipidemia, who presented to the ED with complaints of respiratory distress. Patient stated this all started around 3:00 a.m. this morning however patient is unable to give me a review of systems due to medications and current medical status and be on BiPAP. Her son was present stated that she has been in the hospital multiple times. And the last time she was discharged she was treated for sepsis, UTI, C diff, GI bleed. He stated that when she left she was feeling fine however she he got a call and they told him that she turned white was unable to breathe. He stated the only complaint she has had lately is that she has just been very tired and exhausted. CTA of the chest abdomen and pelvis showed no PE however it showed a possible abscess/ cyst on the right kidney. White count is elevated at 33.6. BNP is also elevated 50,100 troponins are elevated mildly. Lactic acid is 1.7 blood pressure has been labile. Blood gas is normal at this time with a pH of 7.395, 37.4 for CO2, O2 is 111.8, HC03 is 22.4 however that is on BiPAP 10/5 with 100% FiO2. Patient denies any pain currently. patient also seems to be minimally arousable at this time. Patient is being admitted to the inpatient setting for further workup and evaluation Review of Systems Review of Systems: ROS unobtainable: Yes unobtainable due to medical condition [facility] Past Medical History Medical History (Updated 06/29/22 @ 13:53 by BIENVENIDO Tay) ASHD (arteriosclerotic heart disease) Benign essential hypertension Bilateral carotid artery stenosis CAD (coronary artery disease) Debility Frequent UTI Generalized weakness GERD (gastroesophageal reflux disease) Hyperlipidemia Hypothyroidism (acquired) Low back pain Lower extremity edema Osteoarthritis of both knees Peripheral neuropathy Seizure disorder Supracondylar fracture of left femur due to osteoporosis Surgical History Surgical History History of coronary artery bypass graft NSTEMI October 2018; CABG x3 with ALFARO to the Left anterior descending, SVG to the ramus and SVG to RCA. Family History Family History Sibling Family history of lung cancer Father Family history of heart disease in male family member before age 55 Family history of cardiovascular disease Mother Family history of malignant neoplasm Social History Social History Social History: Lives at assisted. PCP is Dr. Sarah. Designates her son Rajesh as her surrogate decision maker. She would like to be a full code. Smoking packs per day: 1 Smoking cigarettes per day: 20.0 Years smoked: 8 Smoking pack-years: 8.00 Smoking status: Never smoker Second hand tobacco smoke exposure: No Additional smoking assessment comments: Quit >50 years ago Alcohol intake: never Substance use: never Substance use type: does not use Spiritual care concerns: No Meds Home Medications and Allergies Home Medications Medication Instructions Recorded Confirmed Type aspirin 81 mg tablet,delayed 81 mg PO DAILY 11/10/19 06/29/22 History release (Adult Low Dose Aspirin) clopidogrel 75 mg tablet 75 mg PO DAILY #90 tabs 03/13/20 06/29/22 Rx phenytoin sodium extended 100 mg 200 mg PO BID #120 caps 03/19/20 06/29/22 Rx capsule (Dilantin Extended) ezetimibe 10 mg tablet (Zetia) 10 mg PO DAILY #90 tabs 05/03/20 06/29/22 Rx furosemide 40 mg tablet 40 mg PO QAM #90 tabs 06/27/20 06/29/22 Rx levothyroxine 100 mcg tablet 100 mcg PO DAILY #90 tabs 06/27/20 06/29/22 Rx levocetirizine 5 mg tablet 5 mg PO DAILY 07/28/20 06/29/22 History aluminum-magnes
[2022-06-29 10:16] LABS: Lactic Acid Reflex 1.7 mmol/L (0.7-2.0)
[2022-06-29] MEDS: ASPIRIN 81 MG CHEWABLE TABLET 324 MG PO (11:32)
[2022-06-29 12:08] LABS: Troponin I 0.739 ng/mL (0.000-0.034)
--- NOTE | 2022-06-29 12:47 | PM.CNCAR ---
Assessment and Plan Assessment and plan (1) Acute on chronic diastolic CHF (congestive heart failure): Code(s): I50.33 - Acute on chronic diastolic (congestive) heart failure Status: Acute Assessment and Plan: Patient presents with acute on chronic diastolic heart failure and respiratory failure, with severely elevated proBNP and chest x-ray consistent with CHF. Had some CHF last admission as well; discharged with furosemide 40 mg daily which may not be enough diuretic. Start Furosemide 40 mg IV push b.i.d. Considered adding Jardiance 10 mg daily, but that increases the patient's risk of UTIs etc. and with her incontinence and recent UTIs Jardiance may not be a great idea. Daily BMP (2) Elevated troponin: Code(s): R77.8 - Other specified abnormalities of plasma proteins Status: Acute Assessment and Plan: Elevated troponins and possibly an abnormal EKG, probably type 2 ID. Patient quite comfortable now. No anginal discomfort. It is possible the patient had myocardial ischemia leading to her acute CHF, but more likely CHF leading to her myocardial ischemia. Repeat EKG to re-evaluate anterior ST segment changes. (3) CAD (coronary artery disease): Code(s): I25.10 - Atherosclerotic heart disease of [place] coronary artery without angina pectoris Status: Acute Assessment and Plan: CAD. History of NSTEMI, CABG x3 October 2018. Stable, continue secondary prevention with aspirin, atorvastatin, carvedilol, Plavix, ezetimibe etc.. (4) Acute respiratory failure with hypoxia: Code(s): J96.01 - Acute respiratory failure with hypoxia Status: Acute Assessment and Plan: Due to acute CHF and perhaps pneumonia. Transiently on BiPAP. Improving. (5) Community acquired pneumonia: Code(s): J18.9 - Pneumonia, unspecified organism Status: Acute Assessment and Plan: Treatment per hospitalists. (6) C. difficile diarrhea: Code(s): A04.72 - Enterocolitis due to Clostridium difficile, not specified as recurrent Status: Acute Assessment and Plan: Resolved? (7) Bilateral carotid artery stenosis: Code(s): I65.23 - Occlusion and stenosis of bilateral carotid arteries Status: Acute Assessment and Plan: Asymptomatic bilateral carotid stenosis. Continue dual anti-platelet therapy with aspirin and Plavix, as long as there is no further GI bleeding, and atorvastatin. Had GI bleed last admission 2nd gastric ulcer, but H&H improved this admission. History of Present Illness History of Present Illness Consult date/time: 06/29/22 12:47 Reason For Visit: Acute Resp Failure w hypoxia, CKF, comm- aq pneumn Narrative: Delia Lopez is an 81-year-old female whom I was asked to see at the request of Dr. Gutiérrez for my advice and opinion regarding her elevated troponins, respiratory distress and possible CHF, in consultation. The patient was followed by Dr. Regan in October 2018 she had a non-STEMI and multivessel CAD including left main disease. She was transferred to [facility] and underwent CABG with a ALFARO to the Left anterior descending, SVG to the ramus and SVG to the RCA. She did well and was last seen in January 2020, stable with normalization of ejection fraction, EF 60% in April 2019. She has bilateral carotid stenosis particularly on the left treated medically with aspirin, statin and Plavix. She did not follow-up after That visit. The patient was hospitalized 01/17/2022 with sepsis, bacteremia and urinary tract infection. She was hospitalized 06/09/2020 to with a UTI and C diff, sepsis, thrombocytopenia, and acute kidney injury. She recovered and was treated with antibiotics and p.o. vancomycin, and was discharged on 06/13/2022. She was readmitted 06/18/2022 through 06/27/2022 with sepsis most likely s
--- NOTE | 2022-06-29 13:00 | ECG_ITS ---
Measurements Intervals [place] Rate: 78 P: 7 MD: 206 QRS: 0 QRSD: 109 T: 24 QT: 453 QTc: 519 Interpretive Statements SINUS RHYTHM BORDERLINE AV CONDUCTION DELAY INTRAVENTRICULAR CONDUCTION DELAY ST-T WAVE ABNORMALITY IN ANTERIOR LEADS- CONSIDER ISCHEMIA BASELINE WANDER- I, II, III, V4-V6 ABNORMAL ECG Electronically Signed On 06-29-2022 14:45:21 CDT by Blair Reed D.O.
--- NOTE | 2022-06-29 14:59 | ADMGEN ---
This patient, Delia Lopez, was admitted to IMU Room 232-01. 12:09 06/29/2022 Patient/family oriented to hospital policies and general routines including ID bracelet, bed and alarms, visiting hours, pain management, procedures, bathroom and other care routines, personal items, smoking policy, room service/diet, and visiting hours. Information on how to activate the Rapid Response Team has been discussed. Patient/Family are encouraged to report perceived risks to care and to ask questions if they do not understand what they are told or what they should do.
[2022-06-29] MEDS: FUROSEMIDE INJ 40 MG/4 ML VIAL IV PUSH (16:38)
[2022-06-29] MEDS: GABAPENTIN 300 MG CAPSULE PO (16:39)
[2022-06-29] MEDS: FERROUS SULFATE 324 MG TABLET PO (16:39)
[2022-06-29 16:40] LABS: Troponin I 0.809 ng/mL (0.000-0.034)
[2022-06-29] MEDS: PHENYTOIN SODIUM 100 MG EXTENDED RELEASE CAP 200 MG PO (16:40)
[2022-06-29] MEDS: GABAPENTIN 300 MG CAPSULE 600 MG PO (21:14)
[2022-06-29] MEDS: PANTOPRAZOLE 40 MG TABLET PO (21:14)
[2022-06-29 23:17] LABS: Glucose Point of Care 130 mg/dl (65-105)
[2022-06-30] VITALS (24 sets, daily range): BP systolic 103–133; BP diastolic 40–48; PULSE 69–86; RESP 16–20; TEMP 36–36.7; O2SAT 92–100
[2022-06-30] MEDS: IPRATROPIUM BR 0.02% INH SOLN 0.5 MG/2.5 ML VIAL INHALATION ×5 (00:10→20:28)
[2022-06-30 05:14] LABS: Hematocrit 28.3 % (37.0-47.0); Hemoglobin 8.3 g/dL (12.0-15.0); Mean Corpuscular HGB Conc 29.3 g/dl (32-36); Mean Corpuscular Hemoglobin 28.3 pg (26-34); Mean Corpuscular Volume 96.6 fl (80-100); Mean Platelet Volume 12.1 fl (7.4-10.4); Platelet Count Result 84 k/mm3 (150-375); Red Blood Count 2.93 M/mm3 (4.2-5.4); Red Cell Distribution Width 15.5 % (11.5-14.5); White Blood Count 18.1 K/mm3 (4.5-10.0)
[2022-06-30 05:32] LABS: Alanine Aminotransferase 18 U/L (6-35); Albumin Level 2.9 g/dL (3.5-5.1); Alkaline Phosphatase 137 U/L (38-126); Anion Gap 10 mmol/L (8-16); Aspartate Amino Transferase 46 U/L (14-36); Bilirubin,Total 0.9 mg/dL (0.2-1.3); Blood Urea Nitrogen 34 mg/dL (7-17); Calcium 7.7 mg/dL (8.4-10.2); Carbon Dioxide 28 mmol/L (22-30); Chloride 95 mmol/L (98-107); Estimated CRCL calculation 36 ml/min; Estimated Glomerular Filt Rate 43; Glucose 99 mg/dL (65-110); Potassium 3.4 mmol/L (3.4-5.0); Sodium 133 mmol/L (137-145)
[2022-06-30 05:55] LABS: Band Neutrophils Percent 8 % (0-6); Lymphocytes Absolute Manual 1.81 K/mm3 (1.1-4.5); Monocytes Absolute Manual 1.44 K/mm3 (0.1-0.90); Monocytes Percent Manual 8 % (3-9); Neutrophils Absolute Manual 14.84 K/mm3 (1.7-7.2); Neutrophils Percent Manual 74 % (46-73); Total Cells Counted 100
[2022-06-30 05:56] LABS: Ovalocytes 1+ (NORMAL); Platelet Estimate Decreased (Adequate)
[2022-06-30] MEDS: LEVOTHYROXINE SODIUM 100 MCG TABLET PO (06:02)
[2022-06-30 06:26] LABS: Add Urine Microscopic? YES; Appearance Urine Turbid (Clear); Bilirubin Urine Negative (Negative); Blood Urine 2+ (Negative); Color Urine Yellow (Yellow); Glucose Urine UA Negative (Negative); Ketones Urine Negative (Negative); Leukocyte Esterase Ur 3+ LEU/UL (Negative); Nitrate Urine Negative (Negative); Protein Urine 2+ mg/dL (Negative); Specific Grav Ur 1.015 (1.001-1.035); Urobilinogen Urine 0.2 mg/dL (<2.0)
[2022-06-30 06:31] LABS: Bacteria Urine Trace /hpf; RBC Urine 21-50 /hpf (0-2); Squamous Epithelial Cell Urine Few /hpf (Few); WBC Clumps Urine Present /HPF; WBC Urine >75 /hpf
--- NOTE | 2022-06-30 08:15 | P.PNIM_ITS ---
Progress Note: A&P Assessment and Plan (1) Acute respiratory failure with hypoxia: Code(s): J96.01 - Acute respiratory failure with hypoxia Status: Acute Assessment and Plan: * ABG: pH 7.395, CO2 37.4, O2 111.8, bicarb 20.4, saturation 98.1 on a BiPAP 10/5 * BiPAP initiated in the ED will be continued * chest x-ray shows pulmonary edema versus pneumonia * CT shows lung disease with a combination of pulmonary edema and pneumonia * there is a notable cyst/ abscess and the right kidney * H&H is 8.3/28.3 * continue to trend respiratory status * consult pulmonology for further recommendations (2) Community acquired pneumonia: Code(s): J18.9 - Pneumonia, unspecified organism Status: Acute Assessment and Plan: * CT and chest x-ray indicate pneumonia * cefepime and vancomycin, continue at this time * wbc's 33.6 upon admission WBC 18.1 * sputum culture ordered * Currently on 2LNC * trend labs * adjust therapy as indicated * blood cultures ordered (3) Acute on chronic diastolic CHF (congestive heart failure): Code(s): I50.33 - Acute on chronic diastolic (congestive) heart failure Status: Acute Assessment and Plan: * Seems to be acute exacerbation of diastolic heart failure * Echo EF 55-60% with abnormal diastolic dysfunction, moderate aortic valve stenosis left ventricle is moderately enlarged dilated inferior vena cava with an elevated right arterial pressure * BNP 76502 * Lasix 40 mg IV push b.i.d. * Trend urinary output * Supplemental oxygen, wean to mean saturation greater than 90% * Adjust therapy as indicated * Cardiology consulted thank you for your help * Strict I&Os * Daily weights * Trend renal function (4) Elevated troponin: Code(s): R77.8 - Other specified abnormalities of plasma proteins Status: Acute Assessment and Plan: * 0.387, 0.739, 0.809 * Cardiology consulted * Probably related to CHF/Respiratory distress * EKG does not exhibit any acute changes * Continue telemetry * Adjust therapy as indicated (5) Leukocytosis: Code(s): D72.829 - Elevated white blood cell count, unspecified Status: Acute Assessment and Plan: * white blood cell count 33.6 upon admission, trending down currently at 18.1 * has been currently treated for C diff * source of infection could be the renal cyst/abscess on the right kidney * blood cultures NGTD * UA Shows 3+ leukocyte esterase, WBC >75 with clumps, trace bacteria * vanc and cefepime on board * trend white blood cell count * adjust therapy accordingly (6) CAD (coronary artery disease): Code(s): I25.10 - Atherosclerotic heart disease of [place] coronary artery without angina pectoris Status: Acute Assessment and Plan: * Continue home therapy (7) Anemia: Code(s): D64.9 - Anemia, unspecified Status: Acute Assessment and Plan: * current H&H 8.3/.3 * continue iron 325 b.i.d. * possibly from fluid resuscitation * trend H&H * anemia labs from 06/27/2022 iron 22, TIBC 264,% saturation 8, transferrin 169, ferritin 49.6 a B12 955, folate 18.8 * adjust therapy according to lab results * transfuse if hemoglobin is less than 7 (8) C. difficile diarrhea: Code(s): A04.72 - Enterocolitis due to Clostridium difficile, not specified as recurrent
--- NOTE | 2022-06-30 08:15 | PM.IMPN ---
Progress Note: A&P Assessment and Plan (1) Acute respiratory failure with hypoxia: Code(s): J96.01 - Acute respiratory failure with hypoxia Status: Acute Assessment and Plan: ABG: pH 7.395, CO2 37.4, O2 111.8, bicarb 20.4, saturation 98.1 on a BiPAP 10/5 BiPAP initiated in the ED will be continued chest x-ray shows pulmonary edema versus pneumonia CT shows lung disease with a combination of pulmonary edema and pneumonia there is a notable cyst/ abscess and the right kidney H&H is 8.3/28.3 continue to trend respiratory status consult pulmonology for further recommendations (2) Community acquired pneumonia: Code(s): J18.9 - Pneumonia, unspecified organism Status: Acute Assessment and Plan: CT and chest x-ray indicate pneumonia cefepime and vancomycin, continue at this time wbc's 33.6 upon admission WBC 18.1 sputum culture ordered Currently on 2LNC trend labs adjust therapy as indicated blood cultures ordered (3) Acute on chronic diastolic CHF (congestive heart failure): Code(s): I50.33 - Acute on chronic diastolic (congestive) heart failure Status: Acute Assessment and Plan: Seems to be acute exacerbation of diastolic heart failure Echo EF 55-60% with abnormal diastolic dysfunction, moderate aortic valve stenosis left ventricle is moderately enlarged dilated inferior vena cava with an elevated right arterial pressure BNP 45600 Lasix 40 mg IV push b.i.d. Trend urinary output Supplemental oxygen, wean to mean saturation greater than 90% Adjust therapy as indicated Cardiology consulted thank you for your help Strict I&Os Daily weights Trend renal function (4) Elevated troponin: Code(s): R77.8 - Other specified abnormalities of plasma proteins Status: Acute Assessment and Plan: 0.387, 0.739, 0.809 Cardiology consulted Probably related to CHF/Respiratory distress EKG does not exhibit any acute changes Continue telemetry Adjust therapy as indicated (5) Leukocytosis: Code(s): D72.829 - Elevated white blood cell count, unspecified Status: Acute Assessment and Plan: white blood cell count 33.6 upon admission, trending down currently at 18.1 has been currently treated for C diff source of infection could be the renal cyst/abscess on the right kidney blood cultures NGTD UA Shows 3+ leukocyte esterase, WBC >75 with clumps, trace bacteria vanc and cefepime on board trend white blood cell count adjust therapy accordingly (6) CAD (coronary artery disease): Code(s): I25.10 - Atherosclerotic heart disease of [place] coronary artery without angina pectoris Status: Acute Assessment and Plan: Continue home therapy (7) Anemia: Code(s): D64.9 - Anemia, unspecified Status: Acute Assessment and Plan: current H&H 8.3/28.3 continue iron 325 b.i.d. possibly from fluid resuscitation trend H&H anemia labs from 06/27/2022 iron 22, TIBC 264,% saturation 8, transferrin 169, ferritin 49.6 a B12 955, folate 18.8 adjust therapy according to lab results transfuse if hemoglobin is less than 7 (8) C. difficile diarrhea: Code(s): A04.72 - Enterocolitis due to Clostridium difficile, not specified as recurrent Status: Acute Assessment and Plan: patient has been treated with a course of p.o. vancomycin Dificid x7 days white blood cell count is better at 18.1 no diarrhea noted probably is resolved CT abdomen shows no colitis (9) Hypotension: Code(s): I95.9 - Hypotension, unspecified Status: Acute Assessment and Plan: blood pressure labile with systolic blood pressure being in the 80s and 90s current blood pressure 106/44 probably at her baseline, however medications from home are on hold for now hol
[2022-06-30] MEDS: polyethylene glycoL 3350 17 GM POWD.PACK PO (09:17)
[2022-06-30] MEDS: FUROSEMIDE INJ 40 MG/4 ML VIAL IV PUSH ×2 (09:17→17:39)
[2022-06-30] MEDS: EZETIMIBE 10 MG TABLET PO (09:18)
[2022-06-30] MEDS: PHENYTOIN SODIUM 100 MG EXTENDED RELEASE CAP 200 MG PO ×2 (09:18→17:39)
[2022-06-30] MEDS: CHOLECALCIFEROL 1,000 UNITS TABLET 3000 UNITS PO (09:18)
[2022-06-30] MEDS: ASPIRIN 81 MG ENTERIC TABLET PO (09:18)
[2022-06-30] MEDS: FERROUS SULFATE 324 MG TABLET PO ×2 (09:18→17:39)
[2022-06-30] MEDS: metOLazone 5 MG TABLET PO (09:18)
[2022-06-30] MEDS: LORATADINE 10 MG TABLET PO (09:19)
[2022-06-30] MEDS: GABAPENTIN 300 MG CAPSULE PO ×2 (09:19→17:39)
[2022-06-30] MEDS: PANTOPRAZOLE 40 MG TABLET PO ×2 (09:19→21:18)
[2022-06-30] MEDS: ATORVASTATIN 40 MG TABLET 80 MG PO (09:19)
[2022-06-30] MEDS: guaiFENesin 12 HR 600 MG TABCR PO ×2 (09:49→21:19)
[2022-06-30] MEDS: ACYCLOVIR 5% OINTMENT 15 GM TUBE 1 APPLIC TOPICAL ×3 (10:52→21:20)
--- NOTE | 2022-06-30 12:49 | PM.PNCARD ---
Progress Note: A&P Assessment and Plan (1) CHF (congestive heart failure): Code(s): I50.9 - Heart failure, unspecified Status: Acute Plan 81-year-old lady with: Patient has diastolic congestive heart failure on admission. Possibly received a fair amount of IV fluid as she has been in the hospital couple of times over the last month or so with urosepsis. In any event she has responded well to furosemide. Echocardiogram during the last admission demonstrates normal LV systolic function and mild aortic valve stenosis. She does not have any ischemic symptoms. I am concerned that her hemoglobin has decreased again today and she has history of recent gastric and duodenal ulcers that had bled according to the records. She is on dual anti-platelet therapy and I believe we should stop the aspirin in this setting. I will keep the IV furosemide going about another 24 hours and if she continues to improve then transition back to her p.o. Lasix regimen. Given her advanced age and DNR status ischemia workup is not planned during this admission. Jay Suarez MD [facility] Subjective Date/time seen: Date of service: 06/30/22 12:49 Interval history: Follow-up visit in this 81-year-old lady with: Coronary artery disease history of bypass surgery approximately 5-6 years ago doing well since then with respect to her cardiac status. Seeing the patient now because of what appears to be diastolic heart failure. Patient had 2 previous recent admissions and has been in the hospital now for the most part of the last several weeks with urinary infections and that after that C difficile. Also during previous admission had some GI bleeding and cauterization of gastric and duodenal ulcers. She says that she feels much better today after being given intravenous furosemide yesterday is breathing much better sleeping comfortably when I entered the room upon awakening offers no other complaints. Exam Const: General: comfortable and no acute distress Other: Obese elderly lady comfortable cooperative no distress this morning HENMT: Mouth: Yes moist mucous membranes Eyes: Sclera: sclerae normal Pupils: Equal, round and reactive pupils present Neck: Neck: supple Other: Very difficult to assess JVD given her size no obvious venous distention Resp: Effort & Inspection: normal respiratory effort Auscultation: clear to auscultation bilaterally Other: Breath sounds are essentially clear today no wheezes no rales Cardio: Rate: regular rate Rhythm: regular rhythm Other: PMI is not palpable. Patient has a low-pitched systolic murmur that does not radiate from the left sternal border. GI: GI Palp: Yes Soft to palpation Auscultation: normal bowel sounds Skin: General skin exam: normal color Neuro: Other: Alert and oriented, normal cognition Extrem: Other: Small amount of pretibial edema is present Objective Data Vital Signs Vital Signs: Vital Signs - 24 hr 06/29/22 16:00 06/29/22 14:00 06/29/22 16:00 Temperature Pulse Rate 79 74 Respiratory Rate Blood Pressure Pulse Oximetry 95 Oxygen Delivery Nasal Cannula Oxygen Flow Rate 5 Fraction of Inspired Oxygen 06/29/22 16:00 06/29/22 17:26 06/29/22 18:00 Temperature 36.6 C Pulse Rate 76 70 73 Respiratory Rate 20 18 Blood Pressure 112/40 L Pulse Oximetry 94 Oxygen Delivery Oxygen Flow Rate Fraction of Inspired Oxygen 06/29/22 20:00 06/29/22 20:52 06/29/22 20:52 Temperature 36.6 C Pulse Rate 72 74 74 Respiratory Rate 20 18 18 Blood Pressure 116/44 L Pulse Oximetry 96 100 Oxygen Delivery Nasal Cannula Oxygen Flow Rate 4 Fraction of Inspired Oxygen 06/29/22 19:25 06/29/22 20:00 06/29/22 23:15 Temperature 36.4 C Pulse Rate 74 74 76 Respiratory Rate 18 18 20 Blood Pressure 148/50 H Pulse Oximetry 100 100 Oxygen Delivery Nasal Cannula Oxygen Flow Rate 5 Fraction of Inspired Oxygen
[2022-06-30] MEDS: TOLNAFTATE 1% POWDER 45 GM BTL 1 APPLIC TOPICAL (21:14)
[2022-06-30] MEDS: ACETAMINOPHEN 325 MG TABLET 650 MG PO (21:15)
[2022-06-30] MEDS: GABAPENTIN 300 MG CAPSULE 600 MG PO (21:19)
[2022-07-01] VITALS (24 sets, daily range): BP systolic 112–138; BP diastolic 45–68; PULSE 69–100; RESP 14–20; TEMP 36.3–36.9; O2SAT 92–99
[2022-07-01] MEDS: IPRATROPIUM BR 0.02% INH SOLN 0.5 MG/2.5 ML VIAL INHALATION ×6 (00:07→20:30)
[2022-07-01] MEDS: diphenhydrAMINE HCl INJ 50 MG/ML VIAL 25 MG IV PUSH (05:35)
[2022-07-01] MEDS: LEVOTHYROXINE SODIUM 100 MCG TABLET PO (06:16)
[2022-07-01] MEDS: GABAPENTIN 300 MG CAPSULE PO ×2 (08:57→16:31)
[2022-07-01] MEDS: LORATADINE 10 MG TABLET PO (08:57)
[2022-07-01] MEDS: PHENYTOIN SODIUM 100 MG EXTENDED RELEASE CAP 200 MG PO ×2 (08:57→16:30)
[2022-07-01] MEDS: ATORVASTATIN 40 MG TABLET 80 MG PO (08:57)
[2022-07-01] MEDS: EZETIMIBE 10 MG TABLET PO (08:57)
[2022-07-01] MEDS: CHOLECALCIFEROL 1,000 UNITS TABLET 3000 UNITS PO (08:57)
[2022-07-01] MEDS: metOLazone 5 MG TABLET PO (08:58)
[2022-07-01] MEDS: FERROUS SULFATE 324 MG TABLET PO ×2 (08:58→16:31)
[2022-07-01] MEDS: PANTOPRAZOLE 40 MG TABLET PO ×2 (08:58→20:00)
[2022-07-01] MEDS: ACYCLOVIR 5% OINTMENT 15 GM TUBE 1 APPLIC TOPICAL ×5 (08:58→19:59)
[2022-07-01] MEDS: FUROSEMIDE INJ 40 MG/4 ML VIAL IV PUSH ×2 (08:59→16:31)
[2022-07-01] MEDS: TOLNAFTATE 1% POWDER 45 GM BTL 1 APPLIC TOPICAL ×2 (09:01→20:00)
--- NOTE | 2022-07-01 09:45 | PM.IMPN ---
Progress Note: A&P Assessment and Plan (1) Acute respiratory failure with hypoxia: Code(s): J96.01 - Acute respiratory failure with hypoxia Status: Acute Assessment and Plan: Seem to be resolving as she is maintaining on 2L ABG: pH 7.395, CO2 37.4, O2 111.8, bicarb 20.4, saturation 98.1 on a BiPAP 10/5 BiPAP initiated in the ED will be continued chest x-ray shows pulmonary edema versus pneumonia CT shows lung disease with a combination of pulmonary edema and pneumonia there is a notable cyst/ abscess and the right kidney H&H is 8.3/28.3 continue to trend respiratory status consult pulmonology for further recommendations (2) Community acquired pneumonia: Code(s): J18.9 - Pneumonia, unspecified organism Status: Acute Assessment and Plan: CT and chest x-ray indicate pneumonia cefepime and vancomycin, continue at this time wbc's 33.6 upon admission WBC 11.0 sputum culture ordered Currently on 2LNC trend labs adjust therapy as indicated blood cultures ordered (3) UTI (urinary tract infection): Code(s): N39.0 - Urinary tract infection, site not specified Status: Acute Assessment and Plan: Urine culture grew gram negative bacilli isolated Awaiting susceptibility Currently cefepime and vanc Will de-escalate when susceptibilities return WBC significantly reduced, currently at 11.0 (4) Acute on chronic diastolic CHF (congestive heart failure): Code(s): I50.33 - Acute on chronic diastolic (congestive) heart failure Status: Acute Assessment and Plan: Seems to be acute exacerbation of diastolic heart failure Echo EF 55-60% with abnormal diastolic dysfunction, moderate aortic valve stenosis left ventricle is moderately enlarged dilated inferior vena cava with an elevated right arterial pressure BNP 46079 Lasix 40 mg IV push b.i.d. Trend urinary output Supplemental oxygen, wean to mean saturation greater than 90%, currently on 2LNC Adjust therapy as indicated Cardiology consulted thank you for your help Strict I&Os Daily weights Trend renal function (5) Elevated troponin: Code(s): R77.8 - Other specified abnormalities of plasma proteins Status: Acute Assessment and Plan: 0.387, 0.739, 0.809 Cardiology consulted Probably related to CHF/Respiratory distress EKG does not exhibit any acute changes Continue telemetry Adjust therapy as indicated (6) Leukocytosis: Code(s): D72.829 - Elevated white blood cell count, unspecified Status: Acute Assessment and Plan: white blood cell count 33.6 upon admission, trending down currently at has been currently treated for C diff source of infection could be the renal cyst/abscess on the right kidney blood cultures NGTD UA Shows 3+ leukocyte esterase, WBC >75 with clumps, trace bacteria vanc and cefepime on board trend white blood cell count 11.0 adjust therapy accordingly (7) CAD (coronary artery disease): Code(s): I25.10 - Atherosclerotic heart disease of [place] coronary artery without angina pectoris Status: Acute Assessment and Plan: Continue home therapy (8) Anemia: Code(s): D64.9 - Anemia, unspecified Status: Acute Assessment and Plan: current H&H 8.9/.0 continue iron 325 b.i.d. possibly from fluid resuscitation trend H&H anemia labs from 06/27/2022 iron 22, TIBC 264,% saturation 8, transferrin 169, ferritin 49.6 a B12 955, folate 18.8 adjust therapy according to lab results transfuse if hemoglobin is less than 7 (9) C. difficile diarrhea: Code(s): A04.72 - Enterocolitis due to Clostridium difficile, not specified as recurrent Status: Acute Assessment and Plan: Resolved at this time patient has been treated with a course of p.o. vancomyci
--- NOTE | 2022-07-01 09:45 | P.PNIM_ITS ---
Progress Note: A&P Assessment and Plan (1) Acute respiratory failure with hypoxia: Code(s): J96.01 - Acute respiratory failure with hypoxia Status: Acute Assessment and Plan: * Seem to be resolving as she is maintaining on 2L * ABG: pH 7.395, CO2 37.4, O2 111.8, bicarb 20.4, saturation 98.1 on a BiPAP 10/5 * BiPAP initiated in the ED will be continued * chest x-ray shows pulmonary edema versus pneumonia * CT shows lung disease with a combination of pulmonary edema and pneumonia * there is a notable cyst/ abscess and the right kidney * H&H is 8.3/28.3 * continue to trend respiratory status * consult pulmonology for further recommendations (2) Community acquired pneumonia: Code(s): J18.9 - Pneumonia, unspecified organism Status: Acute Assessment and Plan: * CT and chest x-ray indicate pneumonia * cefepime and vancomycin, continue at this time * wbc's 33.6 upon admission WBC 11.0 * sputum culture ordered * Currently on 2LNC * trend labs * adjust therapy as indicated * blood cultures ordered (3) UTI (urinary tract infection): Code(s): N39.0 - Urinary tract infection, site not specified Status: Acute Assessment and Plan: * Urine culture grew gram negative bacilli isolated * Awaiting susceptibility * Currently cefepime and vanc * Will de-escalate when susceptibilities return * WBC significantly reduced, currently at 11.0 (4) Acute on chronic diastolic CHF (congestive heart failure): Code(s): I50.33 - Acute on chronic diastolic (congestive) heart failure Status: Acute Assessment and Plan: * Seems to be acute exacerbation of diastolic heart failure * Echo EF 55-60% with abnormal diastolic dysfunction, moderate aortic valve stenosis left ventricle is moderately enlarged dilated inferior vena cava with an elevated right arterial pressure * BNP 69602 * Lasix 40 mg IV push b.i.d. * Trend urinary output * Supplemental oxygen, wean to mean saturation greater than 90%, currently on 2LNC * Adjust therapy as indicated * Cardiology consulted thank you for your help * Strict I&Os * Daily weights * Trend renal function (5) Elevated troponin: Code(s): R77.8 - Other specified abnormalities of plasma proteins Status: Acute Assessment and Plan: * 0.387, 0.739, 0.809 * Cardiology consulted * Probably related to CHF/Respiratory distress * EKG does not exhibit any acute changes * Continue telemetry * Adjust therapy as indicated (6) Leukocytosis: Code(s): D72.829 - Elevated white blood cell count, unspecified Status: Acute Assessment and Plan: * white blood cell count 33.6 upon admission, trending down currently at * has been currently treated for C diff * source of infection could be the renal cyst/abscess on the right kidney * blood cultures NGTD * UA Shows 3+ leukocyte esterase, WBC >75 with clumps, trace bacteria * vanc and cefepime on board * trend white blood cell count 11.0 * adjust therapy accordingly (7) CAD (coronary artery disease): Code(s): I25.10 - Atherosclerotic heart disease of [place] coronary artery without angina pectoris Status: Acute Assessment and Plan: * Continue home therapy (8) Anemia: Code(s): D64.9 - Anemia, unspecified Status: Acute Assessment and Plan:
--- NOTE | 2022-07-01 11:01 | PM.PNCARD ---
Progress Note: A&P Assessment and Plan (1) CHF (congestive heart failure): Code(s): I50.9 - Heart failure, unspecified Status: Acute Assessment and Plan: Diastolic heart failure. Seems is responding well to IV furosemide from a symptomatic standpoint. No output has been recorded so difficult to assess how much she has diuresed. Will shift her to p.o. furosemide today and monitor her response to this. Can also add SGLT2 inhibitor and spironolactone since she is improved from a volume standpoint. Monitor daily BMP. Monitor BP closely. Subjective Date/time seen: 07/01/22 11:01 Cardiology follow up for CHF She is feeling better this morning. Denies any chest pain, palpitations. States she was told her O2 sats dropped last night but she did not experience any shortness of breath. Resting comfortably in bed with 2L O2 in place currently. Review of Systems Constitutional: Constitutional: Denies fever(s) Eyes: Eyes: Reports no additional eye complaints ENT: Denies epistaxis Cardiovascular: Cardiovascular: Denies chest pain, Denies pedal edema, Denies lightheadedness, Reports dyspnea and Reports dyspnea on exertion Respiratory: Respiratory: Reports chest congestion, Denies cough, Denies hemoptysis, Reports dyspnea and Reports dyspnea on exertion Gastrointestinal: Gastrointestinal: Denies abdominal pain, Denies hematochezia and Denies diarrhea Genitourinary: Genitourinary: Reports urinary incontinence Musculoskeletal: Musculoskeletal: Reports no additional musculoskeletal complaints, Reports abnormal gait and Reports numbness Integumentary/Breasts: Skin/Breast: Reports system reviewed and no additional complaints, except as docu Neurologic: Reports system reviewed and no additional complaints, except as documented, Reports abnormal gait, Denies behavioral changes, Denies confusion and Reports numbness Psychiatric: Psychiatric: Denies behavioral changes and Denies confusion Exam Const: General: cooperative, healthy appearing, comfortable and no acute distress; No confusion Orientation/consciousness: oriented to person, patient oriented x3 and No confusion Other: Obese elderly lady lying comfortably in bed HENMT: Mouth: Yes moist mucous membranes Eyes: Sclera: sclerae normal Pupils: Equal, round and reactive pupils present EOM: EOMs intact bilaterally Neck: Neck: supple Thyroid: thyroid normal Carotids: bruit Resp: Effort & Inspection: normal respiratory effort Auscultation: not clear to auscultation bilaterally and crackles (mild bibasilar crackles ) bilateral Cardio: Rate: regular rate Rhythm: regular rhythm Heart sounds: Murmur heart sound present (2/6 SIMA upper sternal borders) GI: Auscultation: normal bowel sounds Skin: General skin exam: normal color and no rashes or lesions noted Neuro: General: oriented to person, patient oriented x3 and No confusion Cranial nerves: Yes Equal, round and reactive pupils present Motor exam (neuro): Abnormal motor strength present Other: Alert and oriented, normal cognition Extrem: Right lower extremity: edema Left lower extremity: edema Other: Small amount of pretibial edema is present Psych: Appearance: grossly normal Mental Status: mental status grossly normal Objective Data Vital Signs Vital Signs: Vital Signs - 24 hr 06/30/22 12:27 06/30/22 12:37 06/30/22 12:00 Temperature 36.6 C Pulse Rate 77 80 80 Respiratory Rate 16 16 18 Blood Pressure 103/41 L Pulse Oximetry 92 Oxygen Delivery Oxygen Flow Rate 06/30/22 16:00 06/30/22 12:00 06/30/22 16:00 Temperature 36.5 C Pulse Rate 84 Respiratory Rate 20 Blood Pressure 110/48 L Pulse Oximetry 93 93 95 Oxygen Delivery Nasal Cannula Nasal Cannula Oxygen Flow Rate 2 2 06/30/22 12:00 06/30/22 14:00 06/30/22 16:00 Temperature Pulse Rate 75 83 83 Respiratory Rate Blood Pressure Pulse Oximetry Oxygen Delivery Oxygen Flow Rate 0
[2022-07-01 11:15] LABS: Basophils Absolute Auto 0.1 K/mm3 (0.0-0.1); Basophils Percent Auto 0.5 % (0.2-1.2); Eosinophils Absolute Auto 0.2 K/mm3 (0-0.3); Eosinophils Percent Auto 2.1 % (0-4.4); Hematocrit 29.2 % (37.0-47.0); Hemoglobin 8.7 g/dL (12.0-15.0); Immature Granulocyte Absolute 0.04 K/mm3 (0.00-0.031); Immature Granulocyte Percent A 0.4 % (0-0.5); Lymphocytes Absolute Auto 2.12 K/mm3 (0.9-3.2); Lymphocytes Percent Auto 20.3 % (18.3-44.2); Mean Corpuscular HGB Conc 29.8 g/dl (32-36); Mean Corpuscular Hemoglobin 28.2 pg (26-34); Mean Corpuscular Volume 94.5 fl (80-100); Mean Platelet Volume 11.7 fl (7.4-10.4); Monocytes Percent Auto 9.9 % (2.6-8.5); Neutrophils Percent Auto 66.8 % (45.5-73.1); Platelet Count Result 148 k/mm3 (150-375); Red Blood Count 3.09 M/mm3 (4.2-5.4); Red Cell Distribution Width 15.2 % (11.5-14.5); White Blood Count 10.4 K/mm3 (4.5-10.0)
[2022-07-01 11:33] LABS: Platelet Estimate Adequate (Adequate)
[2022-07-01 11:34] LABS: Hypochromasia 1+ (NORMAL); Ovalocytes 1+ (NORMAL)
[2022-07-01 11:49] LABS: Alanine Aminotransferase 21 U/L (6-35); Albumin Level 3.1 g/dL (3.5-5.1); Alkaline Phosphatase 136 U/L (38-126); Anion Gap 9 mmol/L (8-16); Aspartate Amino Transferase 50 U/L (14-36); Bilirubin,Total 0.7 mg/dL (0.2-1.3); Blood Urea Nitrogen 30 mg/dL (7-17); Calcium 8.1 mg/dL (8.4-10.2); Carbon Dioxide 34 mmol/L (22-30); Chloride 91 mmol/L (98-107); Estimated CRCL calculation 39 ml/min; Estimated Glomerular Filt Rate 48; Glucose 149 mg/dL (65-110); Magnesium 1.6 mg/dL (1.6-2.3); Potassium 2.6 mmol/L (3.4-5.0); Sodium 134 mmol/L (137-145)
[2022-07-01] MEDS: POTASSIUM CHLORIDE 20 MEQ TABLET 40 MEQ PO (12:47)
[2022-07-01] MEDS: EMPAGLIFLOZIN 10 MG TABLET PO (12:47)
[2022-07-01] MEDS: SPIRONOLACTONE 25 MG TABLET PO (12:47)
[2022-07-01] MEDS: POTASSIUM CHLORIDE INJ 40 MEQ in SODIUM CHLORIDE 0.9% IV 500 ML 130 MEQ IVPB (12:47)
--- NOTE | 2022-07-01 14:58 | WPDURCON ---
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 At this point does not require any intervention. We continue with antibiotics as patient is continuing to improve and would treat her for with oral antibiotics for a course of 2 weeks as outpatient. Will plan on reimaging kidneys in approximately 2 weeks to 1 month's time. If patient becomes febrile with increasing white count then reimaging would be in order sooner with possible percutaneous drainage if it appears this abscess is increasing in size Urology Consult Note HPI Date Seen: 07/01/22 Requesting Physician: Jay Wei MD Primary Care Provider: Alexi Sarah MD Consult Narrative Narrative: Delia Lopez is a 81 year old female admitted with some respiratory difficulty. During her evaluation she was found to have a questionable 1.3 cm right renal cyst versus abscess. This appears to have decreased from 2 cm on prior study. Patient denies any flank pain. She is afebrile. Review of Systems Review of Systems: All systems reviewed & are unremarkable except as noted in HPI and below PMFSH Past Medical History Medical History ASHD (arteriosclerotic heart disease) Benign essential hypertension Bilateral carotid artery stenosis CAD (coronary artery disease) Debility Frequent UTI Generalized weakness GERD (gastroesophageal reflux disease) Hyperlipidemia Hypothyroidism (acquired) Low back pain Lower extremity edema Osteoarthritis of both knees Peripheral neuropathy Seizure disorder Supracondylar fracture of left femur due to osteoporosis Surgical History Surgical History History of coronary artery bypass graft NSTEMI October 2018; CABG x3 with ALFARO to the Left anterior descending, SVG to the ramus and SVG to RCA. Family History Family History Sibling Family history of lung cancer Father Family history of heart disease in male family member before age 55 Family history of cardiovascular disease Mother Family history of malignant neoplasm Social History Social History Social History: Lives at senior living. PCP is Dr. Sraah. Designates her son Rajesh as her surrogate decision maker. She would like to be a full code. Smoking packs per day: 1 Smoking cigarettes per day: 20.0 Years smoked: 8 Smoking pack-years: 8.00 Smoking status: Never smoker Second hand tobacco smoke exposure: No Additional smoking assessment comments: Quit >50 years ago Alcohol intake: never Substance use: never Substance use type: does not use Spiritual care concerns: No Meds Home Medications and Allergies Home Medications Medication Instructions Recorded Confirmed Type aspirin 81 mg tablet,delayed 81 mg PO DAILY 11/10/19 06/29/22 History release (Adult Low Dose Aspirin) clopidogrel 75 mg tablet 75 mg PO DAILY #90 tabs 03/13/20 06/29/22 Rx phenytoin sodium extended 100 mg 200 mg PO BID #120 caps 03/19/20 06/29/22 Rx capsule (Dilantin Extended) ezetimibe 10 mg tablet (Zetia) 10 mg PO DAILY #90 tabs 05/03/20 06/29/22 Rx furosemide 40 mg tablet 40 mg PO QAM #90 tabs 06/27/20 06/29/22 Rx levothyroxine 100 mcg tablet 100 mcg PO DAILY #90 tabs 06/27/20 06/29/22 Rx levocetirizine 5 mg tablet 5 mg PO DAILY 07/28/20 06/29/22 History aluminum-magnesium hydroxide 200 20 ml PO Q6H PRN (Drug) Ingestion 01/16/21 06/29/22 History mg-200 mg/5 mL oral suspension atorvastatin 80 mg tablet 80 mg PO DAILY 01/16/21 06/29/22 History docusate sodium 100 mg capsule 100 mg PO DAILY PRN Constipation 01/16/21 06/29/22 History (Colace) ondansetron HCl 4
[2022-07-01] MEDS: GABAPENTIN 300 MG CAPSULE 600 MG PO (20:00)
[2022-07-02] VITALS (24 sets, daily range): BP systolic 118–152; BP diastolic 40–66; PULSE 73–92; RESP 16–18; TEMP 36.2–36.6; O2SAT 88–100
[2022-07-02] MEDS: IPRATROPIUM BR 0.02% INH SOLN 0.5 MG/2.5 ML VIAL INHALATION ×5 (00:09→20:08)
[2022-07-02 05:37] LABS: Basophils Absolute Auto 0.1 K/mm3 (0.0-0.1); Basophils Percent Auto 0.5 % (0.2-1.2); Eosinophils Absolute Auto 0.2 K/mm3 (0-0.3); Hemoglobin 8.9 g/dL (12.0-15.0); Immature Granulocyte Absolute 0.04 K/mm3 (0.00-0.031); Immature Granulocyte Percent A 0.4 % (0-0.5); Lymphocytes Absolute Auto 2.89 K/mm3 (0.9-3.2); Lymphocytes Percent Auto 26.2 % (18.3-44.2); Mean Corpuscular HGB Conc 30.7 g/dl (32-36); Mean Corpuscular Hemoglobin 28.8 pg (26-34); Mean Corpuscular Volume 93.9 fl (80-100); Mean Platelet Volume 11.7 fl (7.4-10.4); Monocytes Absolute Auto 1.1 K/mm3 (0.1-0.6); Monocytes Percent Auto 10.3 % (2.6-8.5); Neutrophils Absolute Auto 6.7 K/mm3 (1.3-6.7); Neutrophils Percent Auto 60.6 % (45.5-73.1); Platelet Count Result 165 k/mm3 (150-375); Red Blood Count 3.09 M/mm3 (4.2-5.4); Red Cell Distribution Width 15.5 % (11.5-14.5)
[2022-07-02] MEDS: LEVOTHYROXINE SODIUM 100 MCG TABLET PO (05:39)
[2022-07-02 06:14] LABS: Alanine Aminotransferase 19 U/L (6-35); Alkaline Phosphatase 154 U/L (38-126); Anion Gap 9 mmol/L (8-16); Aspartate Amino Transferase 53 U/L (14-36); Bilirubin,Total 0.7 mg/dL (0.2-1.3); Blood Urea Nitrogen 28 mg/dL (7-17); Carbon Dioxide 34 mmol/L (22-30); Chloride 93 mmol/L (98-107); Estimated CRCL calculation 43 ml/min; Estimated Glomerular Filt Rate 53; Glucose 89 mg/dL (65-110); Magnesium 1.7 mg/dL (1.6-2.3); Potassium 3.1 mmol/L (3.4-5.0); Sodium 136 mmol/L (137-145)
[2022-07-02] MEDS: MAGNESIUM SULF 4 GM/WATER100ML 4 GM/100 ML BAG IVPB (08:44)
[2022-07-02] MEDS: PHENYTOIN SODIUM 100 MG EXTENDED RELEASE CAP 200 MG PO ×2 (08:45→17:48)
[2022-07-02] MEDS: POTASSIUM CHLORIDE 20 MEQ TABLET 60 MEQ PO (08:45)
[2022-07-02] MEDS: FUROSEMIDE INJ 40 MG/4 ML VIAL IV PUSH ×2 (08:45→17:45)
[2022-07-02] MEDS: metOLazone 5 MG TABLET PO (08:46)
[2022-07-02] MEDS: SPIRONOLACTONE 25 MG TABLET PO (08:46)
[2022-07-02] MEDS: ATORVASTATIN 40 MG TABLET 80 MG PO (08:46)
[2022-07-02] MEDS: EMPAGLIFLOZIN 10 MG TABLET PO (08:46)
[2022-07-02] MEDS: GABAPENTIN 300 MG CAPSULE PO ×2 (08:46→17:47)
[2022-07-02] MEDS: polyethylene glycoL 3350 17 GM POWD.PACK PO (08:47)
[2022-07-02] MEDS: guaiFENesin 12 HR 600 MG TABCR PO (08:47)
[2022-07-02] MEDS: CHOLECALCIFEROL 1,000 UNITS TABLET 3000 UNITS PO (08:47)
[2022-07-02] MEDS: FERROUS SULFATE 324 MG TABLET PO ×2 (08:47→17:45)
[2022-07-02] MEDS: ACYCLOVIR 5% OINTMENT 15 GM TUBE 1 APPLIC TOPICAL ×5 (08:48→20:57)
[2022-07-02] MEDS: EZETIMIBE 10 MG TABLET PO (08:48)
[2022-07-02] MEDS: PANTOPRAZOLE 40 MG TABLET PO ×2 (08:48→20:57)
[2022-07-02] MEDS: TOLNAFTATE 1% POWDER 45 GM BTL 1 APPLIC TOPICAL (08:48)
[2022-07-02] MEDS: LORATADINE 10 MG TABLET PO (08:48)
--- NOTE | 2022-07-02 10:15 | P.PNIM_ITS ---
Progress Note: A&P Assessment and Plan (1) Acute respiratory failure with hypoxia: Code(s): J96.01 - Acute respiratory failure with hypoxia Status: Acute Assessment and Plan: * Seem to be resolving as she is maintaining on 2L * ABG: pH 7.395, CO2 37.4, O2 111.8, bicarb 20.4, saturation 98.1 on a BiPAP 10/5 * BiPAP initiated in the ED will be continued * chest x-ray shows pulmonary edema versus pneumonia * CT shows lung disease with a combination of pulmonary edema and pneumonia * there is a notable cyst/ abscess and the right kidney * H&H is 8.9/29.0 * continue to trend respiratory status * consult pulmonology for further recommendations (2) Community acquired pneumonia: Code(s): J18.9 - Pneumonia, unspecified organism Status: Acute Assessment and Plan: * CT and chest x-ray indicate pneumonia * cefepime and vancomycin, continue at this time * wbc's 33.6 upon admission WBC 11.0 * sputum culture ordered * Currently on 1LNC, wean to room air * trend labs * adjust therapy as indicated * blood cultures showed a contaminate of staph epidermitis (3) UTI (urinary tract infection): Code(s): N39.0 - Urinary tract infection, site not specified Status: Acute Assessment and Plan: * Urine culture grew gram negative bacilli isolated * Awaiting susceptibility * Currently cefepime and vanc * Will de-escalate when susceptibilities return * WBC significantly reduced, currently at 11.0 (4) Acute on chronic diastolic CHF (congestive heart failure): Code(s): I50.33 - Acute on chronic diastolic (congestive) heart failure Status: Acute Assessment and Plan: * Seems to be acute exacerbation of diastolic heart failure * Echo EF 55-60% with abnormal diastolic dysfunction, moderate aortic valve stenosis left ventricle is moderately enlarged dilated inferior vena cava with an elevated right arterial pressure * BNP 41163 * Lasix 40 mg IV push b.i.d. * Trend urinary output * Supplemental oxygen, wean to mean saturation greater than 90%, currently on 2LNC * Adjust therapy as indicated * Cardiology consulted thank you for your help * Strict I&Os * Daily weights * Trend renal function (5) Elevated troponin: Code(s): R77.8 - Other specified abnormalities of plasma proteins Status: Acute Assessment and Plan: * 0.387, 0.739, 0.809 * Cardiology consulted * Probably related to CHF/Respiratory distress * EKG does not exhibit any acute changes * Continue telemetry * Adjust therapy as indicated (6) Leukocytosis: Code(s): D72.829 - Elevated white blood cell count, unspecified Status: Acute Assessment and Plan: * white blood cell count 33.6 upon admission, trending down currently at 11.0 * has been currently treated for C diff * source of infection could be the renal cyst/abscess on the right kidney * blood cultures NGTD * UA Shows 3+ leukocyte esterase, WBC >75 with clumps, trace bacteria * vanc and cefepime on board * trend white blood cell count 11.0 * adjust therapy accordingly * Seems the frequent UTIs are related to the renal abscess as she grew the same organism from last visit (7) CAD (coronary artery disease): Code(s): I25.10 - Atherosclerotic heart disease of [place] coronary artery without angina pectoris Status: Acute Assessment and
--- NOTE | 2022-07-02 10:15 | PM.IMPN ---
Progress Note: A&P Assessment and Plan (1) Acute respiratory failure with hypoxia: Code(s): J96.01 - Acute respiratory failure with hypoxia Status: Acute Assessment and Plan: Seem to be resolving as she is maintaining on 2L ABG: pH 7.395, CO2 37.4, O2 111.8, bicarb 20.4, saturation 98.1 on a BiPAP 10/5 BiPAP initiated in the ED will be continued chest x-ray shows pulmonary edema versus pneumonia CT shows lung disease with a combination of pulmonary edema and pneumonia there is a notable cyst/ abscess and the right kidney H&H is 8.9/29.0 continue to trend respiratory status consult pulmonology for further recommendations (2) Community acquired pneumonia: Code(s): J18.9 - Pneumonia, unspecified organism Status: Acute Assessment and Plan: CT and chest x-ray indicate pneumonia cefepime and vancomycin, continue at this time wbc's 33.6 upon admission WBC 11.0 sputum culture ordered Currently on 1LNC, wean to room air trend labs adjust therapy as indicated blood cultures showed a contaminate of staph epidermitis (3) UTI (urinary tract infection): Code(s): N39.0 - Urinary tract infection, site not specified Status: Acute Assessment and Plan: Urine culture grew gram negative bacilli isolated Awaiting susceptibility Currently cefepime and vanc Will de-escalate when susceptibilities return WBC significantly reduced, currently at 11.0 (4) Acute on chronic diastolic CHF (congestive heart failure): Code(s): I50.33 - Acute on chronic diastolic (congestive) heart failure Status: Acute Assessment and Plan: Seems to be acute exacerbation of diastolic heart failure Echo EF 55-60% with abnormal diastolic dysfunction, moderate aortic valve stenosis left ventricle is moderately enlarged dilated inferior vena cava with an elevated right arterial pressure BNP 15573 Lasix 40 mg IV push b.i.d. Trend urinary output Supplemental oxygen, wean to mean saturation greater than 90%, currently on 2LNC Adjust therapy as indicated Cardiology consulted thank you for your help Strict I&Os Daily weights Trend renal function (5) Elevated troponin: Code(s): R77.8 - Other specified abnormalities of plasma proteins Status: Acute Assessment and Plan: 0.387, 0.739, 0.809 Cardiology consulted Probably related to CHF/Respiratory distress EKG does not exhibit any acute changes Continue telemetry Adjust therapy as indicated (6) Leukocytosis: Code(s): D72.829 - Elevated white blood cell count, unspecified Status: Acute Assessment and Plan: white blood cell count 33.6 upon admission, trending down currently at 11.0 has been currently treated for C diff source of infection could be the renal cyst/abscess on the right kidney blood cultures NGTD UA Shows 3+ leukocyte esterase, WBC >75 with clumps, trace bacteria vanc and cefepime on board trend white blood cell count 11.0 adjust therapy accordingly Seems the frequent UTIs are related to the renal abscess as she grew the same organism from last visit (7) CAD (coronary artery disease): Code(s): I25.10 - Atherosclerotic heart disease of [place] coronary artery without angina pectoris Status: Acute Assessment and Plan: Continue home therapy (8) Anemia: Code(s): D64.9 - Anemia, unspecified Status: Acute Assessment and Plan: current H&H 8.9/29.0 continue iron 325 b.i.d. possibly from fluid resuscitation trend H&H anemia labs from 06/27/2022 iron 22, TIBC 264,% saturation 8, transferrin 169, ferritin 49.6 a B12 955, folate 18.8 adjust therapy according to lab results transfuse if hemoglobin is less than 7 (9) C. difficile diarrhea: Code(s): A04.72 - Enterocolitis due to Clostridium difficile
--- NOTE | 2022-07-02 11:14 | PM.PNCARD ---
Progress Note: A&P Assessment and Plan (1) CHF (congestive heart failure): Code(s): I50.9 - Heart failure, unspecified Status: Acute Assessment and Plan: acute on chronic Heart failure with preserved ejection fraction. she is on a very aggressive regimen at present with IV Lasix, metolazone and the recent addition of Jardiance and spironolactone. Given her advanced age and be cautious with ambulation. Monitor renal function very closely. I would discontinue metolazone. (2) Community acquired pneumonia: Code(s): J18.9 - Pneumonia, unspecified organism Status: Acute Assessment and Plan: She remains on IV antibiotics. Defer to primary service in this regard. (3) Electrolyte abnormality: Code(s): E87.8 - Other disorders of electrolyte and fluid balance, not elsewhere classified Status: Acute Assessment and Plan: Replete potassium And magnesium. Continue to monitor closely.. (4) Anemia: Code(s): D64.9 - Anemia, unspecified Status: Acute Assessment and Plan: Chronic, stable. Follow H&H. (5) CAD (coronary artery disease): Code(s): I25.10 - Atherosclerotic heart disease of [place] coronary artery without angina pectoris Status: Acute Assessment and Plan: No anginal symptoms, stable at this time. Continue medical therapy continue atorvastatin, Zetia. Off aspirin due to anemia and history of GI bleed. She has mild aortic stenosis by echocardiogram. Subjective Date/time seen: Date of service:07/02/22 11:14 Interval history: Follow-up visit in this 81-year-old lady with: CAD, CHF, pneumonia patient has a history ofCoronary artery disease history of bypass surgery approximately 5-6 years ago doing well since then with respect to her cardiac status. Seeing the patient now because of what appears to be diastolic heart failure. Patient had 2 previous recent admissions and has been in the hospital now for the most part of the last several weeks with urinary infections and that after that C difficile. Also during previous admission had some GI bleeding and cauterization of gastric and duodenal ulcers. patient states she is breathing okay. Denies significant edema. Denies pain, palpitations chest pain. No new issues overnight. Patient was hypoxic on room air started back on O2 this morning. Started on Jardiance and spironolactone this morning. Review of Systems Constitutional: Constitutional: Denies fever(s) Eyes: Eyes: Reports no additional eye complaints ENT: Denies epistaxis Cardiovascular: Cardiovascular: Denies chest pain, Denies pedal edema, Denies lightheadedness, Reports dyspnea and Reports dyspnea on exertion Respiratory: Respiratory: Reports chest congestion, Denies cough, Denies hemoptysis, Reports dyspnea and Reports dyspnea on exertion Gastrointestinal: Gastrointestinal: Denies abdominal pain, Denies hematochezia and Denies diarrhea Genitourinary: Genitourinary: Reports urinary incontinence Musculoskeletal: Musculoskeletal: Reports no additional musculoskeletal complaints, Reports abnormal gait and Reports numbness Integumentary/Breasts: Skin/Breast: Reports system reviewed and no additional complaints, except as docu Neurologic: Reports system reviewed and no additional complaints, except as documented, Reports abnormal gait, Denies behavioral changes, Denies confusion and Reports numbness Psychiatric: Psychiatric: Denies behavioral changes and Denies confusion Exam Const: General: cooperative, healthy appearing, comfortable and no acute distress; No confusion Orientation/consciousness: oriented to person, patient oriented x3 and No confusion Other: Obese elderly lady lying comfortably in bed HENMT: Mouth: Yes moist mucous membranes Eyes: Sclera: sclerae normal Pupils: Equal, round and reactive pupils present EOM: EOMs intact bilaterally Neck: Neck: supple Thyroid: thyroid
[2022-07-02] MEDS: LIDOCAINE HCL 1% LOCAL INJ 2 ML AMPUL 5 ML INFILTRATE (12:45)
[2022-07-02] MEDS: SALINE LOCK FLUSH 10 ML IV PUSH (14:40)
[2022-07-02] MEDS: ERTAPENEM 1 GM/NS 50 ML 1 GM/50 ML BAG IVPB (14:40)
[2022-07-02] MEDS: GABAPENTIN 300 MG CAPSULE 600 MG PO (20:57)
[2022-07-03] VITALS (23 sets, daily range): BP systolic 114–122; BP diastolic 46–60; PULSE 74–92; RESP 14–18; TEMP 36.4–36.9; O2SAT 91–100
[2022-07-03] MEDS: IPRATROPIUM BR 0.02% INH SOLN 0.5 MG/2.5 ML VIAL INHALATION ×6 (00:05→23:59)
[2022-07-03] MEDS: TOLNAFTATE 1% POWDER 45 GM BTL 1 APPLIC TOPICAL ×3 (02:29→20:30)
[2022-07-03] MEDS: SALINE LOCK FLUSH 10 ML IV PUSH ×4 (02:31→20:31)
[2022-07-03] MEDS: SALINE LOCK FLUSH 20 ML IV PUSH (05:30)
[2022-07-03] MEDS: LEVOTHYROXINE SODIUM 100 MCG TABLET PO (06:37)
[2022-07-03 07:25] LABS: Basophils Absolute Auto 0.1 K/mm3 (0.0-0.1); Basophils Percent Auto 0.5 % (0.2-1.2); Eosinophils Absolute Auto 0.3 K/mm3 (0-0.3); Eosinophils Percent Auto 2.4 % (0-4.4); Hematocrit 31.3 % (37.0-47.0); Hemoglobin 9.7 g/dL (12.0-15.0); Immature Granulocyte Absolute 0.06 K/mm3 (0.00-0.031); Immature Granulocyte Percent A 0.5 % (0-0.5); Lymphocytes Absolute Auto 2.96 K/mm3 (0.9-3.2); Lymphocytes Percent Auto 23.5 % (18.3-44.2); Mean Corpuscular Hemoglobin 28.9 pg (26-34); Mean Corpuscular Volume 93.2 fl (80-100); Mean Platelet Volume 11.7 fl (7.4-10.4); Monocytes Absolute Auto 1.3 K/mm3 (0.1-0.6); Monocytes Percent Auto 10.6 % (2.6-8.5); Neutrophils Absolute Auto 7.9 K/mm3 (1.3-6.7); Neutrophils Percent Auto 62.5 % (45.5-73.1); Platelet Count Result 186 k/mm3 (150-375); Red Blood Count 3.36 M/mm3 (4.2-5.4); Red Cell Distribution Width 15.7 % (11.5-14.5); White Blood Count 12.6 K/mm3 (4.5-10.0)
[2022-07-03 07:38] LABS: Alanine Aminotransferase 22 U/L (6-35); Albumin Level 3.3 g/dL (3.5-5.1); Alkaline Phosphatase 172 U/L (38-126); Anion Gap 6 mmol/L (8-16); Aspartate Amino Transferase 62 U/L (14-36); Bilirubin,Total 0.7 mg/dL (0.2-1.3); Blood Urea Nitrogen 29 mg/dL (7-17); Calcium 8.4 mg/dL (8.4-10.2); Carbon Dioxide 39 mmol/L (22-30); Chloride 89 mmol/L (98-107); Estimated CRCL calculation 46 ml/min; Estimated Glomerular Filt Rate 60; Glucose 81 mg/dL (65-110); Magnesium 2.3 mg/dL (1.6-2.3); Sodium 134 mmol/L (137-145)
--- NOTE | 2022-07-03 08:08 | PM.PNCARD ---
Progress Note: A&P Assessment and Plan (1) CHF (congestive heart failure): Code(s): I50.9 - Heart failure, unspecified <BIENVENIDO Wilcox - Last Filed: 07/03/22 10:46> Status: Acute <BIENVENIDO Wilcox - Last Filed: 07/03/22 10:46> Assessment and Plan: Acute on chronic heart failure with preserved ejection fraction. Diuresing with IV furosemide 40mg b.i.d. Metolazone has been discontinued. Doesn't appear significantly volume overloaded on exam. Perhaps shift to p.o. diuretic tomorrow? Recent addition of spironolactone and jardiance Given her advanced age and be cautious with ambulation. Monitor renal function very closely <BIENVENIDO Wilcox - Last Filed: 07/03/22 10:46> (2) Community acquired pneumonia: Code(s): J18.9 - Pneumonia, unspecified organism <BIENVENIDO Wilcox - Last Filed: 07/03/22 10:46> Status: Acute <BIENVENIDO Wilcox - Last Filed: 07/03/22 10:46> Assessment and Plan: She remains on IV antibiotics. Defer to primary service in this regard. <BIENVENIDO Wilcox - Last Filed: 07/03/22 10:46> (3) Electrolyte abnormality: Code(s): E87.8 - Other disorders of electrolyte and fluid balance, not elsewhere classified <BIENVENIDO Wilcox - Last Filed: 07/03/22 10:46> Status: Acute <BIENVENIDO Wilcox - Last Filed: 07/03/22 10:46> Assessment and Plan: Replete potassium And magnesium. Continue to monitor closely.. <BIENVENIDO Wilcox - Last Filed: 07/03/22 10:46> (4) Anemia: Code(s): D64.9 - Anemia, unspecified <BIENVENIDO Wilcox - Last Filed: 07/03/22 10:46> Status: Acute <BIENVENIDO Wilcox - Last Filed: 07/03/22 10:46> Assessment and Plan: Chronic, stable. Follow H&H. <BIENVENIDO Wilcox - Last Filed: 07/03/22 10:46> (5) CAD (coronary artery disease): Code(s): I25.10 - Atherosclerotic heart disease of [place] coronary artery without angina pectoris <BIENVENIDO Wilcox - Last Filed: 07/03/22 10:46> Status: Acute <BIENVENIDO Wilcox - Last Filed: 07/03/22 10:46> Assessment and Plan: No anginal symptoms, stable at this time. Continue medical therapy continue atorvastatin, Zetia. Off aspirin due to anemia and history of GI bleed. She has mild aortic stenosis by echocardiogram. <BIENVENIDO Wilcox - Last Filed: 07/03/22 10:46> Additional Plan Attending Addendum: I agree with the above documentation and plan of care as outlined. <Cyril Fraser MD - Last Filed: 07/03/22 16:27> Subjective Date/time seen: 07/03/22 08:08 <BIENVENIDO Wilcox - Last Filed: 07/03/22 10:46> Interval history: Follow-up visit in this 81-year-old lady with: CAD, CHF, pneumonia patient has a history ofCoronary artery disease history of bypass surgery approximately 5-6 years ago doing well since then with respect to her cardiac status. Seeing the patient now because of what appears to be diastolic heart failure. Patient had 2 previous recent admissions and has been in the hospital now for the most part of the last several weeks with urinary infections and that after that C difficile. Also during previous admission had some GI bleeding and cauterization of gastric and duodenal ulcers. patient states she is breathing okay. Denies significant edema. Denies pain, palpitations chest pain. No new issues overnight. Patient was hypoxic on room air started back on O2 this morning. Started on Jardiance and spironolactone this morning. Date of service 07/03/2022: She's feeling about the same. Breathing is about the same. No chest pain or palpitations. Denies edema. <BIENVENIDO Wilcox - Last Filed: 07/03/22 10:46> Review of Systems Constitutional: Constitutional: Denies fever(s) <BIENVENIDO Wilcox - Last Filed: 07/03/22 10:46> Eyes: Eyes: Reports no additional eye complaints <Melly Sullivan,
[2022-07-03] MEDS: ATORVASTATIN 40 MG TABLET 80 MG PO (08:50)
[2022-07-03] MEDS: FERROUS SULFATE 324 MG TABLET PO ×2 (08:50→17:29)
[2022-07-03] MEDS: FUROSEMIDE INJ 40 MG/4 ML VIAL IV PUSH ×2 (08:51→17:28)
[2022-07-03] MEDS: EMPAGLIFLOZIN 10 MG TABLET PO (08:51)
[2022-07-03] MEDS: EZETIMIBE 10 MG TABLET PO (08:51)
[2022-07-03] MEDS: CHOLECALCIFEROL 1,000 UNITS TABLET 3000 UNITS PO (08:51)
[2022-07-03] MEDS: polyethylene glycoL 3350 17 GM POWD.PACK PO (08:52)
[2022-07-03] MEDS: LORATADINE 10 MG TABLET PO (08:52)
[2022-07-03] MEDS: GABAPENTIN 300 MG CAPSULE PO ×2 (08:52→17:28)
[2022-07-03] MEDS: SPIRONOLACTONE 25 MG TABLET PO (08:52)
[2022-07-03] MEDS: PANTOPRAZOLE 40 MG TABLET PO ×2 (08:52→20:29)
[2022-07-03] MEDS: PHENYTOIN SODIUM 100 MG EXTENDED RELEASE CAP 200 MG PO ×2 (08:52→17:29)
[2022-07-03] MEDS: ACYCLOVIR 5% OINTMENT 15 GM TUBE 1 APPLIC TOPICAL ×5 (08:53→20:28)
[2022-07-03] MEDS: POTASSIUM CHLORIDE 20 MEQ TABLET 40 MEQ PO (09:07)
[2022-07-03] MEDS: guaiFENesin 12 HR 600 MG TABCR PO (09:11)
--- NOTE | 2022-07-03 11:35 | P.PNIM_ITS ---
Progress Note: A&P Assessment and Plan (1) Acute respiratory failure with hypoxia: Code(s): J96.01 - Acute respiratory failure with hypoxia Status: Acute Assessment and Plan: * ABG on arrival: pH 7.395, CO2 37.4, O2 111.8, bicarb 20.4, saturation 98.1 on a BiPAP /5 * chest x-ray shows pulmonary edema versus pneumonia * CT shows lung disease with a combination of pulmonary edema and pneumonia * BiPAP initiated in the ED for a short time but she has been weaned down to 1.5L NC * Likely due to edema vs pneumonia, however will consult pulmonology as she continues to require oxygen (2) Community acquired pneumonia: Code(s): J18.9 - Pneumonia, unspecified organism Status: Acute Assessment and Plan: * CT and chest x-ray indicate pneumonia * wbc's 33.6 upon admission, down to 11.0 today * sputum culture ordered * blood cultures showed a contaminate of staph epidermitis * Was on Vanc and Cefepime, switched to Ertapenem per ID pharmacist * Currently on 1.5L NC, wean to room air * Pulm consulted (3) Acute on chronic diastolic CHF (congestive heart failure): Code(s): I50.33 - Acute on chronic diastolic (congestive) heart failure Status: Acute Assessment and Plan: * Echo EF 55-60% with abnormal diastolic dysfunction, moderate aortic valve stenosis left ventricle is moderately enlarged dilated inferior vena cava with an elevated right arterial pressure * BNP 99831 * Imaging shows pulmonary edema * Lasix 40 mg IV push b.i.d. 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 * white count is currently 11.0, improving w/ abx * Urology consulted, state continue Ertapenem x 2 weeks, f/u w/ urology for repeat imaging in 2-4 weeks (5) UTI (urinary tract infection): Code(s): N39.0 - Urinary tract infection, site not specified Status: Acute Assessment and Plan: * Urine culture grew ESBL * Cefepime and vanc switched to Ertapenem * WBC significantly improved, currently at 11.0 (6) Elevated troponin: Code(s): R77.8 - Other specified abnormalities of plasma proteins Status: Acute Assessment and Plan: * 0.387, 0.739, 0.809 * Cardiology consulted * Probably related to CHF/Respiratory distress * EKG does not exhibit any acute changes * Continue telemetry (7) Anemia: Code(s): D64.9 - Anemia, unspecified Status: Acute Assessment and Plan: * current H&H 8.9.0 * continue iron 325 b.i.d. * possibly from fluid resuscitation * trend H&H * anemia labs from 06/27/2022 iron 22, TIBC 264,% saturation 8, transferrin 169, ferritin 49.6 a B12 955, folate 18.8 * transfuse if hemoglobin is less than 7 Plan Subjective Date/time seen: 07/03/22 11:35 Interval history: 81-year-old lady with hx of CAD, CHF, HTN, frequent UTI, GERD, hyperlipidemia. Admitted for respiratory failure. Patient had 2 previous recent admissions and has been in the hospital now for the most part of the last several weeks with urinary infections and that after that C difficil
--- NOTE | 2022-07-03 11:35 | PM.IMPN ---
Progress Note: A&P Assessment and Plan (1) Acute respiratory failure with hypoxia: Code(s): J96.01 - Acute respiratory failure with hypoxia Status: Acute Assessment and Plan: ABG on arrival: pH 7.395, CO2 37.4, O2 111.8, bicarb 20.4, saturation 98.1 on a BiPAP 10/5 chest x-ray shows pulmonary edema versus pneumonia CT shows lung disease with a combination of pulmonary edema and pneumonia BiPAP initiated in the ED for a short time but she has been weaned down to 1.5L NC Likely due to edema vs pneumonia, however will consult pulmonology as she continues to require oxygen (2) Community acquired pneumonia: Code(s): J18.9 - Pneumonia, unspecified organism Status: Acute Assessment and Plan: CT and chest x-ray indicate pneumonia wbc's 33.6 upon admission, down to 11.0 today sputum culture ordered blood cultures showed a contaminate of staph epidermitis Was on Vanc and Cefepime, switched to Ertapenem per ID pharmacist Currently on 1.5L NC, wean to room air Pulm consulted (3) Acute on chronic diastolic CHF (congestive heart failure): Code(s): I50.33 - Acute on chronic diastolic (congestive) heart failure Status: Acute Assessment and Plan: Echo EF 55-60% with abnormal diastolic dysfunction, moderate aortic valve stenosis left ventricle is moderately enlarged dilated inferior vena cava with an elevated right arterial pressure BNP 45755 Imaging shows pulmonary edema Lasix 40 mg IV push b.i.d. 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 white count is currently 11.0, improving w/ abx Urology consulted, state continue Ertapenem x 2 weeks, f/u w/ urology for repeat imaging in 2-4 weeks (5) UTI (urinary tract infection): Code(s): N39.0 - Urinary tract infection, site not specified Status: Acute Assessment and Plan: Urine culture grew ESBL Cefepime and vanc switched to Ertapenem WBC significantly improved, currently at 11.0 (6) Elevated troponin: Code(s): R77.8 - Other specified abnormalities of plasma proteins Status: Acute Assessment and Plan: 0.387, 0.739, 0.809 Cardiology consulted Probably related to CHF/Respiratory distress EKG does not exhibit any acute changes Continue telemetry (7) Anemia: Code(s): D64.9 - Anemia, unspecified Status: Acute Assessment and Plan: current H&H 8.9/29.0 continue iron 325 b.i.d. possibly from fluid resuscitation trend H&H anemia labs from 06/27/2022 iron 22, TIBC 264,% saturation 8, transferrin 169, ferritin 49.6 a B12 955, folate 18.8 transfuse if hemoglobin is less than 7 Plan Subjective Date/time seen: 07/03/22 11:35 Interval history: 81-year-old lady with hx of CAD, CHF, HTN, frequent UTI, GERD, hyperlipidemia. Admitted for respiratory failure. Patient had 2 previous recent admissions and has been in the hospital now for the most part of the last several weeks with urinary infections and that after that C difficile. Also during previous admission had some GI bleeding and cauterization of gastric and duodenal ulcers. Pt is starting to feel a little better. Denies sob. She is on 2L NC, does not use home oxygen. Denies cp, palpitations, LE edema. Still coughing but it is dry. No fevers. Review of Systems Review of Systems: All systems reviewed & are unremarkable except as noted in HPI and below Exam Narrative: General: No acute distress, non toxic appearing, elderly Eyes: PERRL, no scleral icterus H
[2022-07-03] MEDS: ERTAPENEM 1 GM/NS 50 ML 1 GM/50 ML BAG IVPB (11:55)
--- NOTE | 2022-07-03 13:06 | PM.CNPUL ---
Assessment and Plan Assessment and plan (1) Acute respiratory failure with hypoxia: Code(s): J96.01 - Acute respiratory failure with hypoxia Status: Acute Assessment and Plan: 81-year-old female with a history of left ventricular diastolic dysfunction has had respiratory failure with hypoxemia related to bilateral pleural effusions. Chest imaging studies over the last month have shown persistent pleural effusions bilaterally, evident mostly on chest CTs, with new lung infiltrates related to pulmonary edema on the day of admission. Patient did have symptoms or signs to suggest pneumonia. She has been on broad-spectrum antibiotic presumably for urinary tract infection. respiratory status has improved with patient now transitioned to supplemental oxygen via nasal cannula. She has no history of dysphagia that would suggest possible aspiration pneumonia. Plan continue with current regimen for congestive heart failure. Added incentive spirometry. she has not been on DVT prophylaxis probably due to previous history of GI bleed. Venous Doppler study 10 days ago was negative. I would repeat venous Doppler study to exclude DVT. (2) Acute on chronic diastolic CHF (congestive heart failure): Code(s): I50.33 - Acute on chronic diastolic (congestive) heart failure Status: Acute History of Present Illness History of Present Illness Consult date: 07/03/22 Chief complaint: Acute Resp Failure w hypoxia, CKF, comm- aq pneumn Narrative: This 81-year-old female with a history of hypertension, frequent UTIs, hyperlipidemia, history of seizure disorder, back pain, history of GI bleed, previous history of back surgery, history of coronary artery disease status post coronary artery bypass grafting presented with 1 day history of shortness of breath and hypoxemia the. The patient has had frequent hospitalizations over the last few months. [facility] had [facility] On the day of admission, she developed progressively increasing shortness of breath and was brought to the emergency room. She had no fever chills hemoptysis chest pain or wheezing. Workup in the emergency room showed hypoxemia as well as pulmonary edema. Review of x-rays prior to hospitalization showed that the patient had symmetrical bilateral pleural effusions with some associated lower lobe atelectasis but no pulmonary edema on a chest CT done 5 days prior to this admission. Repeat chest CT on the day of admission showed increasing pleural effusions as well as bilateral infiltrates related to pulmonary edema. The patient has been treated with medications for left ventricular diastolic failure. In addition she has been on antibiotics for possible UTI. She has had chronic colonization/ UTI related to E coli ESBL. Upon questioning she denied having fever chills or prior history of lung disease. She has no history of dysphagia. Currently she has mild cough which is mostly dry. She has no night sweats. Her gas exchange has improved and currently the patient is on supplemental oxygen at 1.5 liters/minute. Review of Systems Review of Systems: Review of systems is negative except as noted in HPI and below. [facility] Past Medical History Medical History ASHD (arteriosclerotic heart disease) Benign essential hypertension Bilateral carotid artery stenosis CAD (coronary artery disease) Debility Frequent UTI Generalized weakness GERD (gastroesophageal reflux disease) Hyperlipidemia Hypothyroidism (acquired) Low back pain Lower extremity edema Osteoarthritis of both knees Peripheral neuropathy Seizure disorder Supracondylar fracture of left femur due to osteoporosis Surgical History Surgical History History of coronary artery bypass graft NSTEMI October 2018; CABG x3 with ALFARO to the Left anterior descend
[2022-07-03] MEDS: GABAPENTIN 300 MG CAPSULE 600 MG PO (20:28)
[2022-07-04] VITALS (24 sets, daily range): BP systolic 114–130; BP diastolic 45–59; PULSE 78–94; RESP 16–18; TEMP 36–36.6; O2SAT 91–96
[2022-07-04] MEDS: IPRATROPIUM BR 0.02% INH SOLN 0.5 MG/2.5 ML VIAL INHALATION ×6 (04:13→23:39)
[2022-07-04] MEDS: SALINE LOCK FLUSH 10 ML IV PUSH ×3 (05:20→21:50)
[2022-07-04] MEDS: SALINE LOCK FLUSH 20 ML IV PUSH (05:20)
[2022-07-04 05:22] LABS: Basophils Absolute Auto 0.1 K/mm3 (0.0-0.1); Basophils Percent Auto 0.6 % (0.2-1.2); Eosinophils Absolute Auto 0.3 K/mm3 (0-0.3); Eosinophils Percent Auto 1.7 % (0-4.4); Hematocrit 30.5 % (37.0-47.0); Hemoglobin 9.3 g/dL (12.0-15.0); Immature Granulocyte Absolute 0.12 K/mm3 (0.00-0.031); Immature Granulocyte Percent A 0.7 % (0-0.5); Lymphocytes Absolute Auto 3.68 K/mm3 (0.9-3.2); Lymphocytes Percent Auto 22.4 % (18.3-44.2); Mean Corpuscular HGB Conc 30.5 g/dl (32-36); Mean Corpuscular Hemoglobin 28.2 pg (26-34); Mean Corpuscular Volume 92.4 fl (80-100); Monocytes Absolute Auto 1.6 K/mm3 (0.1-0.6); Monocytes Percent Auto 9.9 % (2.6-8.5); Neutrophils Absolute Auto 10.6 K/mm3 (1.3-6.7); Neutrophils Percent Auto 64.7 % (45.5-73.1); Platelet Count Result 182 k/mm3 (150-375); Red Cell Distribution Width 15.7 % (11.5-14.5); White Blood Count 16.4 K/mm3 (4.5-10.0)
[2022-07-04 05:33] LABS: Anion Gap 5 mmol/L (8-16); Blood Urea Nitrogen 27 mg/dL (7-17); Calcium 8.3 mg/dL (8.4-10.2); Carbon Dioxide 37 mmol/L (22-30); Chloride 86 mmol/L (98-107); Estimated CRCL calculation 42 ml/min; Estimated Glomerular Filt Rate 53; Glucose 100 mg/dL (65-110); Potassium 3.2 mmol/L (3.4-5.0); Sodium 128 mmol/L (137-145)
[2022-07-04] MEDS: LEVOTHYROXINE SODIUM 100 MCG TABLET PO (06:42)
--- NOTE | 2022-07-04 08:09 | PM.PNCARD ---
Progress Note: A&P Assessment and Plan (1) CHF (congestive heart failure): Code(s): I50.9 - Heart failure, unspecified Status: Acute Assessment and Plan: Acute on chronic heart failure with preserved ejection fraction. Transition to p.o. furosemide today - does not appear volume overloaded and is hypokalemic, hyponatremic today. Recent addition of spironolactone and jardiance Given her advanced age and be cautious with ambulation. Monitor renal function very closely (2) Community acquired pneumonia: Code(s): J18.9 - Pneumonia, unspecified organism Status: Acute Assessment and Plan: She remains on IV antibiotics. Defer to primary service in this regard. (3) Electrolyte abnormality: Code(s): E87.8 - Other disorders of electrolyte and fluid balance, not elsewhere classified Status: Acute Assessment and Plan: Replete potassium and magnesium as appropriate. (4) Anemia: Code(s): D64.9 - Anemia, unspecified Status: Acute Assessment and Plan: Chronic, stable. Follow H&H. (5) CAD (coronary artery disease): Code(s): I25.10 - Atherosclerotic heart disease of [place] coronary artery without angina pectoris Status: Acute Assessment and Plan: No anginal symptoms, stable at this time. Continue medical therapy continue atorvastatin, Zetia. Off aspirin due to anemia and history of GI bleed. She has mild aortic stenosis by echocardiogram. Additional Plan Attending Addendum: I agree with the above documentation and plan of care as outlined. Subjective Date/time seen: 07/04/22 08:09 Cardiology follow up for CHF Feels well today. No shortness of breath, chest pain, swelling. Review of Systems Constitutional: Constitutional: Denies fever(s) Eyes: Eyes: Reports no additional eye complaints ENT: Denies epistaxis Cardiovascular: Cardiovascular: Denies chest pain, Denies pedal edema, Denies lightheadedness, Reports dyspnea and Reports dyspnea on exertion Respiratory: Respiratory: Reports chest congestion, Denies cough, Denies hemoptysis, Reports dyspnea and Reports dyspnea on exertion Gastrointestinal: Gastrointestinal: Denies abdominal pain, Denies hematochezia and Denies diarrhea Genitourinary: Genitourinary: Reports urinary incontinence Musculoskeletal: Musculoskeletal: Reports no additional musculoskeletal complaints, Reports abnormal gait and Reports numbness Integumentary/Breasts: Skin/Breast: Reports system reviewed and no additional complaints, except as docu Neurologic: Reports system reviewed and no additional complaints, except as documented, Reports abnormal gait, Denies behavioral changes, Denies confusion and Reports numbness Psychiatric: Psychiatric: Denies behavioral changes and Denies confusion Exam Const: General: cooperative, healthy appearing, comfortable and no acute distress; No confusion Orientation/consciousness: oriented to person, patient oriented x3 and No confusion Other: Obese elderly lady lying comfortably in bed HENMT: Mouth: Yes moist mucous membranes Eyes: Sclera: sclerae normal Pupils: Equal, round and reactive pupils present EOM: EOMs intact bilaterally Neck: Neck: supple Thyroid: thyroid normal Carotids: bruit Other: no obvious JVD Resp: Effort & Inspection: normal respiratory effort Auscultation: not clear to auscultation bilaterally, crackles (mild bibasilar crackles ) bilateral and rales (Rales 2/3 up bilaterally) Other: Breath sounds are essentially clear today no wheezes no rales although diminished at the bases Cardio: Rate: regular rate Rhythm: regular rhythm Heart sounds: Murmur heart sound present (2/6 SIMA upper sternal borders) Other: PMI is not palpable. distant heart sounds. Patient has a low-pitched systolic murmur that does not radiate from the left sternal border. GI: Auscultation: normal bowel sounds Other: Obese abdomen Skin: General skin
--- NOTE | 2022-07-04 08:26 | P.PNIM_ITS ---
Progress Note: A&P Assessment and Plan (1) Acute respiratory failure with hypoxia: Code(s): J96.01 - Acute respiratory failure with hypoxia Status: Acute Assessment and Plan: * ABG on arrival: pH 7.395, CO2 37.4, O2 111.8, bicarb 20.4, saturation 98.1 on a BiPAP 10/5 * chest x-ray shows pulmonary edema versus pneumonia * CT shows lung disease with a combination of pulmonary edema and pneumonia * BiPAP initiated in the ED for a short time but she has been weaned down to room air * Likely due to edema vs pneumonia, * Pulm consulted, recommends continuing tx for heart failure, recheck venous doppler which was negative (2) Community acquired pneumonia: Code(s): J18.9 - Pneumonia, unspecified organism Status: Acute Assessment and Plan: * CT and chest x-ray indicate pneumonia * wbc's 33.6 upon admission, down to 11.0 yesterday but increase noted today to 16 however patient continues to improve clinically, will recheck CBC tomorrow AM * sputum culture ordered but so far have been unable to obtain * one bottle of blood culture showed a contaminate of staph epidermitis * Was on Vanc and Cefepime, switched to Ertapenem per ID pharmacist * Currently weaned down to RA * Pulm consulted, continue current treatment (3) Acute on chronic diastolic CHF (congestive heart failure): Code(s): I50.33 - Acute on chronic diastolic (congestive) heart failure Status: Acute Assessment and Plan: * Echo EF 55-60% with abnormal diastolic dysfunction, moderate aortic valve stenosis left ventricle is moderately enlarged dilated inferior vena cava with an elevated right arterial pressure * BNP 39583 * Imaging shows pulmonary edema * Lasix 40 mg IV push b.i.d. - decreased to 40 IV daily today, pt w/ hyponat remia and hypokalemia today, transition to oral? Will defer to cardiology. 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 * white count has been improving w/ abx, did see increase this morning but patient is still improving clinically. Will repeat tomorrow AM. * Urology consulted, state continue Ertapenem x 2 weeks, f/u w/ urology for repeat imaging in 2-4 weeks (5) UTI (urinary tract infection): Code(s): N39.0 - Urinary tract infection, site not specified Status: Acute Assessment and Plan: * Urine culture grew ESBL * Cefepime and vanc switched to Ertapenem (6) Elevated troponin: Code(s): R77.8 - Other specified abnormalities of plasma proteins Status: Acute Assessment and Plan: * 0.387, 0.739, 0.809 * Cardiology consulted * Probably related to CHF/Respiratory distress * EKG does not exhibit any acute changes * Continue telemetry (7) Anemia: Code(s): D64.9 - Anemia, unspecified Status: Acute Assessment and Plan: * current H&H 9.330.5 * continue iron 325 b.i.d * anemia labs from 06/27/2022 iron 22, TIBC 264,% saturation 8, transferrin 169, ferritin 49.6 a B12 955, folate 18.8 Plan Subjective Date/time seen: 07/04/22 08:26 Interval history: 81-year-old lady with hx of CAD, CHF, HTN, frequent UTI, GERD, hyperlipidemia. Admitted for respiratory failure. Patient had
--- NOTE | 2022-07-04 08:26 | PM.IMPN ---
Progress Note: A&P Assessment and Plan (1) Acute respiratory failure with hypoxia: Code(s): J96.01 - Acute respiratory failure with hypoxia Status: Acute Assessment and Plan: ABG on arrival: pH 7.395, CO2 37.4, O2 111.8, bicarb 20.4, saturation 98.1 on a BiPAP 10/5 chest x-ray shows pulmonary edema versus pneumonia CT shows lung disease with a combination of pulmonary edema and pneumonia BiPAP initiated in the ED for a short time but she has been weaned down to room air Likely due to edema vs pneumonia, Pulm consulted, recommends continuing tx for heart failure, recheck venous doppler which was negative (2) Community acquired pneumonia: Code(s): J18.9 - Pneumonia, unspecified organism Status: Acute Assessment and Plan: CT and chest x-ray indicate pneumonia wbc's 33.6 upon admission, down to 11.0 yesterday but increase noted today to 16 however patient continues to improve clinically, will recheck CBC tomorrow AM sputum culture ordered but so far have been unable to obtain one bottle of blood culture showed a contaminate of staph epidermitis Was on Vanc and Cefepime, switched to Ertapenem per ID pharmacist Currently weaned down to RA Pulm consulted, continue current treatment (3) Acute on chronic diastolic CHF (congestive heart failure): Code(s): I50.33 - Acute on chronic diastolic (congestive) heart failure Status: Acute Assessment and Plan: Echo EF 55-60% with abnormal diastolic dysfunction, moderate aortic valve stenosis left ventricle is moderately enlarged dilated inferior vena cava with an elevated right arterial pressure BNP 78202 Imaging shows pulmonary edema Lasix 40 mg IV push b.i.d. - decreased to 40 IV daily today, pt w/ hyponatremia and hypokalemia today, transition to oral? Will defer to cardiology. 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 white count has been improving w/ abx, did see increase this morning but patient is still improving clinically. Will repeat tomorrow AM. Urology consulted, state continue Ertapenem x 2 weeks, f/u w/ urology for repeat imaging in 2-4 weeks (5) UTI (urinary tract infection): Code(s): N39.0 - Urinary tract infection, site not specified Status: Acute Assessment and Plan: Urine culture grew ESBL Cefepime and vanc switched to Ertapenem (6) Elevated troponin: Code(s): R77.8 - Other specified abnormalities of plasma proteins Status: Acute Assessment and Plan: 0.387, 0.739, 0.809 Cardiology consulted Probably related to CHF/Respiratory distress EKG does not exhibit any acute changes Continue telemetry (7) Anemia: Code(s): D64.9 - Anemia, unspecified Status: Acute Assessment and Plan: current H&H 9.3/30.5 continue iron 325 b.i.d anemia labs from 06/27/2022 iron 22, TIBC 264,% saturation 8, transferrin 169, ferritin 49.6 a B12 955, folate 18.8 Plan Subjective Date/time seen: 07/04/22 08:26 Interval history: 81-year-old lady with hx of CAD, CHF, HTN, frequent UTI, GERD, hyperlipidemia. Admitted for respiratory failure. Patient had 2 previous recent admissions and has been in the hospital now for the most part of the last several weeks with urinary infections and that after that C difficile. Also during previous admission had some GI bleeding and cauterization of gastric and duodenal ulcers. Pt is starting to feel a little better. Denies sob. She is now on room air. Denies cp, palpitations, LE edema. Still coughing but it is dry. No fevers. Review of Systems Review of Systems: All systems reviewed & are
[2022-07-04] MEDS: ATORVASTATIN 40 MG TABLET 80 MG PO (08:57)
[2022-07-04] MEDS: PHENYTOIN SODIUM 100 MG EXTENDED RELEASE CAP 200 MG PO ×2 (08:57→21:46)
[2022-07-04] MEDS: CHOLECALCIFEROL 1,000 UNITS TABLET 3000 UNITS PO (08:57)
[2022-07-04] MEDS: LORATADINE 10 MG TABLET PO (08:58)
[2022-07-04] MEDS: FERROUS SULFATE 324 MG TABLET PO ×2 (08:58→21:45)
[2022-07-04] MEDS: guaiFENesin 12 HR 600 MG TABCR PO (08:58)
[2022-07-04] MEDS: SPIRONOLACTONE 25 MG TABLET PO (08:58)
[2022-07-04] MEDS: EZETIMIBE 10 MG TABLET PO (08:58)
[2022-07-04] MEDS: EMPAGLIFLOZIN 10 MG TABLET PO (08:59)
[2022-07-04] MEDS: PANTOPRAZOLE 40 MG TABLET PO ×2 (08:59→21:50)
[2022-07-04] MEDS: GABAPENTIN 300 MG CAPSULE PO (08:59)
[2022-07-04] MEDS: POTASSIUM CHLORIDE 20 MEQ TABLET 40 MEQ PO (09:02)
[2022-07-04] MEDS: ACYCLOVIR 5% OINTMENT 15 GM TUBE 1 APPLIC TOPICAL ×4 (09:06→21:48)
[2022-07-04] MEDS: polyethylene glycoL 3350 17 GM POWD.PACK PO (09:06)
[2022-07-04] MEDS: TOLNAFTATE 1% POWDER 45 GM BTL 1 APPLIC TOPICAL ×2 (09:07→21:49)
--- NOTE | 2022-07-04 09:26 | PM.PNPUL ---
Progress Note: A&P Additional Plan 1) Acute respiratory failure with hypoxia: ?Code(s): J96.01 - Acute respiratory failure with hypoxia ?Status:?Acute ?Assessment and Plan: ?81-year-old female with a history of left ventricular diastolic dysfunction? has had respiratory failure with hypoxemia related to bilateral pleural effusions.? Chest imaging studies over the last month have shown persistent pleural effusions bilaterally,? evident mostly on chest CTs,? with new? lung infiltrates related to pulmonary edema on the day of admission.? Patient did not have symptoms or signs to suggest pneumonia.? She has been on broad-spectrum antibiotic presumably for urinary tract infection.? respiratory status has improved with patient now transitioned to supplemental oxygen via nasal cannula.? She has no history of dysphagia that would suggest possible aspiration pneumonia.? patient was taken off supplemental oxygen this a.m.. Chest x-ray done today showed complete clearing of bilateral pulmonary infiltrates related to pulmonary edema. Small pleural effusion in left. overall respiratory status has significantly improved. There is no evidence of new infiltrates on last chest x-ray and patient has no symptoms on signs suggestive of respiratory infection. Patient has been on IV carbapenem presumably for ESBL urinary bacteria. New leukocytosis of unclear etiology. Plan: Continue with incentive spirometry, out of bed to chair, monitor respiratory status. (2) Acute on chronic diastolic CHF (congestive heart failure): ?Code(s): I50.33 - Acute on chronic diastolic (congestive) heart failure ?Status:?Acute Subjective Date/time seen: 07/04/22 09:26 Patient has no new respiratory symptoms. She was on supplemental oxygen last night but has been off oxygen this a.m.. She has had a dry cough as before. She has no shortness of breath. Appeared very comfortable laying flat in bed. No fever or night sweats. She underwent venous study of lower extremities with no evidence of thrombi. She has been on SCDs for DVT prophylaxis. Review of Systems Review of Systems: All systems reviewed & are unremarkable except as noted in HPI and below Exam Narrative: GENERAL APPEARANCE: Well developed, well nourished, alert and cooperative, and appears to be in no respiratory distress while in supine position HEENT: Sclerae anicteric and conjunctivae pink and moist. Extraocular movements were intact and pupils were equal, round. The oral mucosa, hard and soft palate, tongue and posterior pharynx were normal. NECK: Supple. There was no thyroid enlargement, and no tenderness, or masses were felt. CHEST: Normal AP diameter and normal contour without any kyphoscoliosis. LUNGS: Auscultation of the lungs revealed rare crackles at bases posteriorly, no wheezing CARDIAC: There was a regular rate and rhythm 2/6 systolic ejection murmur at apex ABDOMEN: Soft and nontender with normal bowel sounds. There was no organomegaly. LYMPH NODES: No lymphadenopathy was appreciated in the neck. EXTREMITIES: No cyanosis, clubbing or edema. NEUROLOGIC: Alert and oriented x 3. Normal affect. Objective Data Vital Signs Vital Signs: Vital Signs - 24 hr 07/03/22 09:50 07/03/22 09:55 07/03/22 10:00 Temperature Pulse Rate 80 Respiratory Rate 14 14 Blood Pressure Pulse Oximetry 93 Oxygen Delivery Nasal Cannula Oxygen Flow Rate 1.5 07/03/22 12:00 07/03/22 14:00 07/03/22 14:10 Temperature 36.4 C Pulse Rate 82 84 81 Respiratory Rate 18 14 Blood Pressure 122/58 L Pulse Oximetry 98 Oxygen Delivery Oxygen Flow Rate 07/03/22 16:00 07/03/22 19:27 07/03/22 20:59 Temperature 36.8 C Pulse Rate 92 89 Respiratory Rate 17 Blood Pressure 114/60 Pulse Oximetry 95 96 Oxygen Delivery Oxygen Flow Rate 07/03/22 21:11 07/03/22 21:13 07/03/22 21:22 Temperature Pulse Rate 90 88 Respiratory Rate 16 16 Blood Pres
[2022-07-04] MEDS: FUROSEMIDE 40 MG TABLET PO (09:43)
[2022-07-04] MEDS: ERTAPENEM 1 GM/NS 50 ML 1 GM/50 ML BAG IVPB (12:46)
[2022-07-04] MEDS: HYDROCORTISONE ACETATE 25 MG SUPPOSITORY RECTAL (12:53)
[2022-07-04] MEDS: GABAPENTIN 300 MG CAPSULE 600 MG PO (21:49)
[2022-07-05] VITALS (21 sets, daily range): BP systolic 102–144; BP diastolic 40–55; PULSE 74–86; RESP 14–20; TEMP 36.4–36.8; O2SAT 91–100
[2022-07-05] MEDS: IPRATROPIUM BR 0.02% INH SOLN 0.5 MG/2.5 ML VIAL INHALATION ×4 (03:20→20:11)
[2022-07-05] MEDS: SALINE LOCK FLUSH 10 ML IV PUSH ×3 (05:13→21:54)
[2022-07-05] MEDS: LEVOTHYROXINE SODIUM 100 MCG TABLET PO (05:14)
[2022-07-05 06:35] LABS: Basophils Absolute Auto 0.1 K/mm3 (0.0-0.1); Basophils Percent Auto 0.5 % (0.2-1.2); Eosinophils Absolute Auto 0.2 K/mm3 (0-0.3); Eosinophils Percent Auto 1.3 % (0-4.4); Hemoglobin 9.8 g/dL (12.0-15.0); Immature Granulocyte Absolute 0.12 K/mm3 (0.00-0.031); Immature Granulocyte Percent A 0.7 % (0-0.5); Lymphocytes Percent Auto 19.8 % (18.3-44.2); Mean Corpuscular HGB Conc 30.6 g/dl (32-36); Mean Corpuscular Hemoglobin 28.5 pg (26-34); Mean Platelet Volume 11.2 fl (7.4-10.4); Monocytes Absolute Auto 1.6 K/mm3 (0.1-0.6); Monocytes Percent Auto 9.7 % (2.6-8.5); Neutrophils Absolute Auto 11.3 K/mm3 (1.3-6.7); Platelet Count Result 173 k/mm3 (150-375); Red Blood Count 3.44 M/mm3 (4.2-5.4); Red Cell Distribution Width 15.8 % (11.5-14.5); White Blood Count 16.7 K/mm3 (4.5-10.0)
[2022-07-05 07:00] LABS: Anion Gap 8 mmol/L (8-16); Blood Urea Nitrogen 27 mg/dL (7-17); Calcium 8.3 mg/dL (8.4-10.2); Carbon Dioxide 35 mmol/L (22-30); Chloride 87 mmol/L (98-107); Estimated CRCL calculation 51 ml/min; Estimated Glomerular Filt Rate > 60; Glucose 95 mg/dL (65-110); Potassium 3.1 mmol/L (3.4-5.0); Sodium 130 mmol/L (137-145)
[2022-07-05] MEDS: POTASSIUM CHLORIDE 20 MEQ TABLET 40 MEQ PO (09:19)
[2022-07-05] MEDS: CHOLECALCIFEROL 1,000 UNITS TABLET 3000 UNITS PO (09:20)
[2022-07-05] MEDS: guaiFENesin 12 HR 600 MG TABCR PO (09:20)
[2022-07-05] MEDS: LORATADINE 10 MG TABLET PO (09:21)
[2022-07-05] MEDS: EZETIMIBE 10 MG TABLET PO (09:21)
[2022-07-05] MEDS: FERROUS SULFATE 324 MG TABLET PO ×2 (09:21→17:33)
[2022-07-05] MEDS: ATORVASTATIN 40 MG TABLET 80 MG PO (09:21)
[2022-07-05] MEDS: PHENYTOIN SODIUM 100 MG EXTENDED RELEASE CAP 200 MG PO ×2 (09:21→17:33)
[2022-07-05] MEDS: SPIRONOLACTONE 25 MG TABLET PO (09:22)
[2022-07-05] MEDS: FUROSEMIDE 40 MG TABLET PO (09:22)
[2022-07-05] MEDS: PANTOPRAZOLE 40 MG TABLET PO ×2 (09:22→21:54)
[2022-07-05] MEDS: polyethylene glycoL 3350 17 GM POWD.PACK PO (09:23)
[2022-07-05] MEDS: GABAPENTIN 300 MG CAPSULE PO ×2 (09:23→17:33)
[2022-07-05] MEDS: EMPAGLIFLOZIN 10 MG TABLET PO (09:23)
[2022-07-05] MEDS: ACYCLOVIR 5% OINTMENT 15 GM TUBE 1 APPLIC TOPICAL ×5 (09:24→21:51)
[2022-07-05] MEDS: TOLNAFTATE 1% POWDER 45 GM BTL 1 APPLIC TOPICAL ×2 (09:24→21:54)
[2022-07-05] MEDS: VANCOMYCIN ORAL 125 MG/2.5 ML SYRUP PO (09:28)
--- NOTE | 2022-07-05 09:28 | PM.PNCARD ---
Progress Note: A&P Assessment and Plan (1) Acute on chronic diastolic CHF (congestive heart failure): Code(s): I50.33 - Acute on chronic diastolic (congestive) heart failure Status: Acute Plan 81-year-old lady with: Fluid overload with diastolic LV dysfunction. Suspicion is that she received a fair amount of IV fluid during recent hospitalizations for urinary infection. She seems to be euvolemic at this time. Will try to wean oxygen to room air this morning. Jay Suarez MD [facility] Subjective Date/time seen: Date of petwciq53/06/22 09:28 Interval history: Follow-up visit in this 81-year-old lady with: CAD, CHF, pneumonia patient has a history ofCoronary artery disease history of bypass surgery approximately 5-6 years ago doing well since then with respect to her cardiac status. Seeing the patient now because of what appears to be diastolic heart failure. Patient had 2 previous recent admissions and has been in the hospital now for the most part of the last several weeks with urinary infections and that after that C difficile. Also during previous admission had some GI bleeding and cauterization of gastric and duodenal ulcers. patient states she is breathing okay. Denies significant edema. Denies pain, palpitations chest pain. No new issues overnight. Patient was hypoxic on room air started back on O2 this morning. Started on Jardiance and spironolactone this morning. Date of service 07/03/2022: She's feeling about the same. Breathing is about the same. No chest pain or palpitations. Denies edema. date of service 07/05/2022: Patient is comfortable this morning denies any dyspnea. Still on 2 L of nasal cannula oxygen. Chest x-ray looks clear and she normally does not require home O2. She is on previous baseline dosage of furosemide at this time Exam Const: General: cooperative, healthy appearing, comfortable and no acute distress; No confusion Orientation/consciousness: oriented to person, patient oriented x3 and No confusion Other: Obese elderly lady lying comfortably in bed HENMT: Mouth: Yes moist mucous membranes Eyes: Sclera: sclerae normal Pupils: Equal, round and reactive pupils present EOM: EOMs intact bilaterally Neck: Neck: supple Thyroid: thyroid normal Carotids: bruit Other: no obvious JVD Resp: Effort & Inspection: normal respiratory effort Auscultation: not clear to auscultation bilaterally, crackles (mild bibasilar crackles ) bilateral and rales (Rales 2/3 up bilaterally) Other: Breath sounds are essentially clear today no wheezes no rales although diminished at the bases Cardio: Rate: regular rate Rhythm: regular rhythm Heart sounds: Murmur heart sound present (2/6 SIMA upper sternal borders) Other: PMI is not palpable. distant heart sounds. Patient has a low-pitched systolic murmur that does not radiate from the left sternal border. GI: Auscultation: normal bowel sounds Other: Obese abdomen Skin: General skin exam: normal color and no rashes or lesions noted Neuro: General: oriented to person, patient oriented x3 and No confusion Cranial nerves: Yes Equal, round and reactive pupils present Motor exam (neuro): Abnormal motor strength present Other: Alert and oriented, normal cognition Extrem: Right lower extremity: edema Left lower extremity: edema Other: Trace pretibial edema is present Psych: Appearance: grossly normal Mental Status: mental status grossly normal Objective Data Vital Signs Vital Signs: Vital Signs - 24 hr 07/04/22 11:48 07/04/22 13:16 07/04/22 13:25 Temperature 36.3 C L Pulse Rate 80 82 89 Respiratory Rate 16 16 16 Blood Pressure 130/59 L Pulse Oximetry 94 Oxygen Delivery Oxygen Flow Rate 07/04/22 12:00 07/04/22 16:48 07/04/22 16:56 Temperature Pulse Rate 78 85 83 Respiratory Rate 16 16 Blood Pressure Pulse Oximetry Oxygen Delivery Oxygen Flow Rate 07/04/22 1
--- NOTE | 2022-07-05 12:49 | PM.PNPUL ---
Progress Note: A&P Additional Plan 1) Acute respiratory failure with hypoxia: ?Code(s): J96.01 - Acute respiratory failure with hypoxia ?Status:?Acute ?Assessment and Plan: ?81-year-old female with a history of left ventricular diastolic dysfunction? has had respiratory failure with hypoxemia related to bilateral pleural effusions.? Chest imaging studies over the last month have shown persistent pleural effusions bilaterally,? evident mostly on chest CTs,? with new? lung infiltrates related to pulmonary edema on the day of admission.? Patient did not have symptoms or signs to suggest pneumonia.? She has been on broad-spectrum antibiotic presumably for urinary tract infection.? respiratory status has improved with patient now transitioned to supplemental oxygen via nasal cannula.? She has no history of dysphagia that would suggest possible aspiration pneumonia.? Chest x-ray done today showed clearing of bilateral pulmonary infiltrates related to pulmonary edema. Small pleural effusion in left. overall respiratory status has significantly improved. There is no evidence of new infiltrates on last chest x-ray and patient has no symptoms on signs suggestive of respiratory infection. Patient has been on IV carbapenem presumably for ESBL urinary bacteria. New leukocytosis of unclear etiology. Plan: Continue with incentive spirometry, out of bed to chair, monitor respiratory status. will sign off, please call with any questions. (2) Acute on chronic diastolic CHF (congestive heart failure): ?Code(s): I50.33 - Acute on chronic diastolic (congestive) heart failure ?Status:?Acute Subjective Date/time seen: 07/05/22 12:49 patient has no new respiratory symptoms. Coughing has improved. She is back on supplemental oxygen. Review of Systems Review of Systems: All systems reviewed & are unremarkable except as noted in HPI and below Exam Narrative: GENERAL APPEARANCE: Well developed, well nourished, alert and cooperative, and appears to be in no respiratory distress while in supine position HEENT: Sclerae anicteric and conjunctivae pink and moist. Extraocular movements were intact and pupils were equal, round. The oral mucosa, hard and soft palate, tongue and posterior pharynx were normal. NECK: Supple. There was no thyroid enlargement, and no tenderness, or masses were felt. CHEST: Normal AP diameter and normal contour without any kyphoscoliosis. LUNGS: Auscultation of the lungs revealed rare crackles at bases posteriorly, no wheezing CARDIAC: There was a regular rate and rhythm 2/6 systolic ejection murmur at apex ABDOMEN: Soft and nontender with normal bowel sounds. There was no organomegaly. LYMPH NODES: No lymphadenopathy was appreciated in the neck. EXTREMITIES: No cyanosis, clubbing or edema. NEUROLOGIC: Alert and oriented x 3. Normal affect. Objective Data Vital Signs Vital Signs: Vital Signs - 24 hr 07/04/22 13:16 07/04/22 13:25 07/04/22 16:48 Temperature Pulse Rate 82 89 85 Respiratory Rate 16 16 16 Blood Pressure Pulse Oximetry Oxygen Delivery Oxygen Flow Rate Fraction of Inspired Oxygen 07/04/22 16:56 07/04/22 16:00 07/04/22 20:33 Temperature Pulse Rate 83 85 Respiratory Rate 16 Blood Pressure Pulse Oximetry 91 Oxygen Delivery Room Air Oxygen Flow Rate Fraction of Inspired Oxygen 07/04/22 20:30 07/04/22 19:00 07/04/22 20:40 Temperature 36.6 C Pulse Rate 87 86 85 Respiratory Rate 16 18 16 Blood Pressure 114/49 L Pulse Oximetry 94 Oxygen Delivery Oxygen Flow Rate Fraction of Inspired Oxygen 07/04/22 23:42 07/04/22 20:00 07/05/22 00:00 Temperature Pulse Rate 84 87 81 Respiratory Rate 16 Blood Pressure Pulse Oximetry Oxygen Delivery Oxygen Flow Rate Fraction of Inspired Oxygen 07/05/22 03:22 07/04/22 23:52 07/05/22 03:00 Temperature 36.6 C Pulse Rate 80 81 81 Respiratory Rate 14 16 1
--- NOTE | 2022-07-05 14:30 | PM.IMPN ---
Progress Note: A&P Assessment and Plan (1) UTI (urinary tract infection): Code(s): N39.0 - Urinary tract infection, site not specified Status: Acute Assessment and Plan: Urine Cx grew 10-49,[address] shows cyst vs abscess -Urology consulted who recommenced f/u with imaging in 2 weeks to a month. Due to stopping the abx, i'm going to re-image the area to see if it is improving or hopfully gone. -Pt received ertapenem 07/02-07/04 and was switched to imipenem 07/04-07/05 and cefepemine 06/29-07/02. This is 7 days of treatment with an abx that is sensitive so I am going to stop the abx. The WBC is increasing but her risk of Cdiff is very high and her culture was only 10-49,000. If the renal u/s shows an abscess, this can be re-addressed. -Due to her hx of cdiff, will start prophylactic oral vancomycin 125 daily for 1 week after abx has been stopped. If she starts to have diarrhea may consider treating her with a full dose -wbc is trending up, will monitor with daily labs and for diarrhea. I do not think this is indicating worsening infection from the urine. (2) Acute respiratory failure with hypoxia: Code(s): J96.01 - Acute respiratory failure with hypoxia Status: Acute Assessment and Plan: Resolved -ABG on arrival: pH 7.395, CO2 37.4, O2 111.8, bicarb 20.4, saturation 98.1 on a BiPAP 09/03 -chest x-ray shows pulmonary edema versus pneumonia but repeat CXR showed improvement -BiPAP initiated in the ED for a short time but she has been weaned down to room air -Pulm consulted and signed off (3) Community acquired pneumonia: Code(s): J18.9 - Pneumonia, unspecified organism Status: Acute Assessment and Plan: CT and chest x-ray indicate pneumonia as above -wbc's 33.6 upon admission, down to 11.0 but now increasing -sputum culture ordered but so far have been unable to obtain -finished course of abx (4) Acute on chronic diastolic CHF (congestive heart failure): Code(s): I50.33 - Acute on chronic diastolic (congestive) heart failure Status: Acute Assessment and Plan: Echo EF 55-60% with abnormal diastolic dysfunction, moderate aortic valve stenosis left ventricle is moderately enlarged dilated inferior vena cava with an elevated right arterial pressure -BNP 14631 -Pt was on IV lasix and this was switched to oral -due to exam and her electrolytes, will hold tomorrows lasix and go from there. this will need to be re-evaluated day by day. She is on lasix at home. 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, unspecified Status: Acute Assessment and Plan: abdominal CT shows a renal cyst/abscess that is getting smaller -renal ultrasound shows renal cyst, cystitis, and bladder debris -see above for plan -Urology consulted (6) Elevated troponin: Code(s): R77.8 - Other specified abnormalities of plasma proteins Status: Acute Assessment and Plan: Noted 0.387, 0.739, 0.809 -Cardiology consulted -Probably related to CHF/Respiratory distress -EKG does not exhibit any acute changes -Continue telemetry (7) Anemia: Code(s): D64.9 - Anemia, unspecified Status: Acute Assessment and Plan: Low since dec this year -continue iron 325 b.i.d -anemia labs from 06/27/2022 iron 22, TIBC 264,% saturation 8, transferrin 169, ferritin 49.6 a B12 955, folate 18.8 -f/u outpt (8) Electrolyte abnormality: Code(s): E87.8 - Other disorders of electrolyte and fluid balance, not elsewhere classified Status: Acute Assessment and Plan: Sodium dropped to 128 yesterday but slowly improving now 130 -likely due to lasix -Potassium low likely due to lasix as well. Will give 40meq this morning and 20 meq before bed -holding lasix as stated above -Continue tele Plan Plan discussed with son at patients request Time Spent With Patient Time with patient: 25 - 35 tammi
[2022-07-05] MEDS: POTASSIUM CHLORIDE 20 MEQ TABLET PO (17:35)
[2022-07-05] MEDS: GABAPENTIN 300 MG CAPSULE 600 MG PO (22:01)
[2022-07-06] VITALS (22 sets, daily range): BP systolic 131–142; BP diastolic 54–82; PULSE 72–89; RESP 12–20; TEMP 36.4; O2SAT 93–98
[2022-07-06] MEDS: IPRATROPIUM BR 0.02% INH SOLN 0.5 MG/2.5 ML VIAL INHALATION ×6 (00:01→20:00)
[2022-07-06 05:05] LABS: Alanine Aminotransferase 25 U/L (6-35); Albumin Level 3.1 g/dL (3.5-5.1); Alkaline Phosphatase 174 U/L (38-126); Anion Gap 5 mmol/L (8-16); Aspartate Amino Transferase 71 U/L (14-36); Bilirubin,Total 0.5 mg/dL (0.2-1.3); Blood Urea Nitrogen 27 mg/dL (7-17); Calcium 7.9 mg/dL (8.4-10.2); Carbon Dioxide 35 mmol/L (22-30); Chloride 91 mmol/L (98-107); Estimated CRCL calculation 51 ml/min; Estimated Glomerular Filt Rate > 60; Glucose 96 mg/dL (65-110); Potassium 3.8 mmol/L (3.4-5.0); Sodium 131 mmol/L (137-145)
[2022-07-06 05:09] LABS: Basophils Absolute Auto 0.1 K/mm3 (0.0-0.1); Basophils Percent Auto 0.6 % (0.2-1.2); Eosinophils Absolute Auto 0.2 K/mm3 (0-0.3); Eosinophils Percent Auto 1.8 % (0-4.4); Hematocrit 30.3 % (37.0-47.0); Hemoglobin 9.3 g/dL (12.0-15.0); Immature Granulocyte Absolute 0.08 K/mm3 (0.00-0.031); Immature Granulocyte Percent A 0.6 % (0-0.5); Lymphocytes Absolute Auto 2.85 K/mm3 (0.9-3.2); Lymphocytes Percent Auto 22.7 % (18.3-44.2); Mean Corpuscular HGB Conc 30.7 g/dl (32-36); Mean Corpuscular Hemoglobin 28.3 pg (26-34); Mean Corpuscular Volume 92.1 fl (80-100); Mean Platelet Volume 11.4 fl (7.4-10.4); Monocytes Absolute Auto 1.4 K/mm3 (0.1-0.6); Monocytes Percent Auto 11.2 % (2.6-8.5); Neutrophils Absolute Auto 7.9 K/mm3 (1.3-6.7); Neutrophils Percent Auto 63.1 % (45.5-73.1); Platelet Count Result 178 k/mm3 (150-375); Red Blood Count 3.29 M/mm3 (4.2-5.4); Red Cell Distribution Width 15.9 % (11.5-14.5); White Blood Count 12.6 K/mm3 (4.5-10.0)
[2022-07-06] MEDS: guaiFENesin 12 HR 600 MG TABCR PO ×2 (06:29→22:32)
[2022-07-06] MEDS: SALINE LOCK FLUSH 10 ML IV PUSH ×3 (06:29→20:22)
[2022-07-06] MEDS: LEVOTHYROXINE SODIUM 100 MCG TABLET PO (06:30)
[2022-07-06] MEDS: CHOLECALCIFEROL 1,000 UNITS TABLET 3000 UNITS PO (10:19)
[2022-07-06] MEDS: EZETIMIBE 10 MG TABLET PO (10:20)
[2022-07-06] MEDS: ATORVASTATIN 40 MG TABLET 80 MG PO (10:20)
[2022-07-06] MEDS: LORATADINE 10 MG TABLET PO (10:20)
[2022-07-06] MEDS: FERROUS SULFATE 324 MG TABLET PO ×2 (10:20→16:58)
[2022-07-06] MEDS: PANTOPRAZOLE 40 MG TABLET PO ×2 (10:20→20:19)
[2022-07-06] MEDS: EMPAGLIFLOZIN 10 MG TABLET PO (10:21)
[2022-07-06] MEDS: ACYCLOVIR 5% OINTMENT 15 GM TUBE 1 APPLIC TOPICAL ×5 (10:21→20:19)
[2022-07-06] MEDS: SPIRONOLACTONE 25 MG TABLET PO (10:21)
[2022-07-06] MEDS: GABAPENTIN 300 MG CAPSULE PO ×2 (10:22→16:58)
[2022-07-06] MEDS: PHENYTOIN SODIUM 100 MG EXTENDED RELEASE CAP 200 MG PO ×2 (10:22→16:59)
[2022-07-06] MEDS: TOLNAFTATE 1% POWDER 45 GM BTL 1 APPLIC TOPICAL ×2 (10:26→20:20)
[2022-07-06] MEDS: VANCOMYCIN ORAL 125 MG/2.5 ML SYRUP PO (10:28)
--- NOTE | 2022-07-06 14:44 | PM.IMPN ---
Progress Note: A&P Assessment and Plan (1) UTI (urinary tract infection): Code(s): N39.0 - Urinary tract infection, site not specified Status: Acute Assessment and Plan: Completely treated UTI, concern was colonization due to low CFU, currently off all antibiotics with continued mild leukocytosis. Could consider outpatient Hematology/Oncology consultation, however, patient had peripheral smear that was within normal limits, suspect patient has a higher set point for her white blood cell count. History of C diff, receiving prophylactic vancomycin, completely asymptomatic. Repeat renal ultrasound showed that prior concern for an abscess was just a simple cyst. No concern for abscess or kidney infection noted. (2) Acute respiratory failure with hypoxia: Code(s): J96.01 - Acute respiratory failure with hypoxia Status: Acute Assessment and Plan: Resolved, unsure of etiology, pulmonology consult suspected pleural effusions were the etiology, these appear resolved at this time, possibly secondary to flash pulmonary edema? 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, unspecified Status: Acute Assessment and Plan: Appreciate urology consultation, repeat imaging shows no abscess just a simple renal cyst, no further plan necessary (6) Elevated troponin: Code(s): R77.8 - Other specified abnormalities of plasma proteins Status: Acute Assessment and Plan: Resolved, patient previously had elevated troponin, Cardiology was consulted and stated that patient appeared to be euvolemic without any acute cardiac injury and signed off (7) Anemia: Code(s): D64.9 - Anemia, unspecified Status: Acute Assessment and Plan: Continue iron supplementation, likely secondary to gastric and duodenal ulcers, these were cauterized via EGD on June 17, continue Protonix twice daily until outpatient repeat EGD in 6 weeks (8) Electrolyte abnormality: Code(s): E87.8 - Other disorders of electrolyte and fluid balance, not elsewhere classified Status: Acute Assessment and Plan: Patient appears to have chronic intermittent hyponatremia, 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 No overnight events noted. No chest pain or shortness of breath. No nausea, vomiting or diarrhea. No fevers or chills. Review of Systems Review of Systems: All systems reviewed & are unremarkable except as noted in HPI and below Exam Narrative: General: No acute distress, alert and oriented per baseline HEENT: Atraumatic, normocephalic, mucous membranes moist CV: Regular rate and rhythm, S1, S2 Lungs: Clear to auscultation bilaterally, no rales or crackles noted, no wheezes, good air entry Abdomen: Soft, nontender, nondistended Extremities: Normal to inspection Skin: No rashes noted, no lesions or wounds seen Psych: Euthymic, normal affect Objective Data Vital Signs Vital Signs: Vital Signs - 24 hr 07/05/22 16:00 07/05/22 16:50 07/05/22 16:50 Temperature Pulse Rate 80 83 Respirato
[2022-07-06 18:14] LABS: CRP 2.3 mg/dL (<1.0)
[2022-07-06 18:28] LABS: Procalcitonin 0.3 ng/mL
[2022-07-06 18:38] LABS: Monoscreen Negative (Negative); Negative Monotest Control Negative (Negative); Positive Monotest Control Positive (Positive)
[2022-07-06] MEDS: GABAPENTIN 300 MG CAPSULE 600 MG PO (20:19)
[2022-07-07] VITALS (14 sets, daily range): BP systolic 102–136; BP diastolic 50; PULSE 77–86; RESP 14–16; TEMP 36.3–36.5; O2SAT 93–97
[2022-07-07] MEDS: IPRATROPIUM BR 0.02% INH SOLN 0.5 MG/2.5 ML VIAL INHALATION ×4 (04:00→13:10)
[2022-07-07] MEDS: SALINE LOCK FLUSH 10 ML IV PUSH (05:34)
[2022-07-07] MEDS: SALINE LOCK FLUSH 20 ML IV PUSH (05:34)
[2022-07-07] MEDS: LEVOTHYROXINE SODIUM 100 MCG TABLET PO (06:39)
[2022-07-07 07:21] LABS: Estimated CRCL calculation 52 ml/min; Estimated Glomerular Filt Rate > 60
[2022-07-07] MEDS: PHENYTOIN SODIUM 100 MG EXTENDED RELEASE CAP 200 MG PO (09:11)
[2022-07-07] MEDS: PANTOPRAZOLE 40 MG TABLET PO (09:11)
[2022-07-07] MEDS: CHOLECALCIFEROL 1,000 UNITS TABLET 3000 UNITS PO (09:11)
[2022-07-07] MEDS: EZETIMIBE 10 MG TABLET PO (09:11)
[2022-07-07] MEDS: EMPAGLIFLOZIN 10 MG TABLET PO (09:11)
[2022-07-07] MEDS: VANCOMYCIN ORAL 125 MG/2.5 ML SYRUP PO (09:11)
[2022-07-07] MEDS: ATORVASTATIN 40 MG TABLET 80 MG PO (09:11)
[2022-07-07] MEDS: LORATADINE 10 MG TABLET PO (09:11)
[2022-07-07] MEDS: SPIRONOLACTONE 25 MG TABLET PO (09:12)
[2022-07-07] MEDS: FERROUS SULFATE 324 MG TABLET PO (09:12)
[2022-07-07] MEDS: ACYCLOVIR 5% OINTMENT 15 GM TUBE 1 APPLIC TOPICAL ×3 (09:12→15:48)
[2022-07-07] MEDS: GABAPENTIN 300 MG CAPSULE PO (09:12)
[2022-07-07] MEDS: TOLNAFTATE 1% POWDER 45 GM BTL 1 APPLIC TOPICAL (09:14)
--- NOTE | 2022-07-07 11:32 | PCNWS ---
Weekly nutritional screen. Patient is tolerating current diet with adequate intake. No weight loss reported. No nutritional needs at this time.
--- NOTE | 2022-07-07 12:59 | PM.DS ---
DS: Admitting Diagnosis Discharge Date July 07, 2022 Admitting Diagnosis Shortness of breath DS: Discharge Diagnosis Discharge Diagnosis (1) UTI (urinary tract infection): Code(s): N39.0 - Urinary tract infection, site not specified Status: Acute Assessment and Plan: Completely treated UTI, concern was colonization due to low CFU, currently off all antibiotics with continued mild leukocytosis. Could consider outpatient Hematology/Oncology consultation, however, patient had peripheral smear that was within normal limits, suspect patient has a higher set point for her white blood cell count. History of C diff, receiving prophylactic vancomycin, completely asymptomatic. Repeat renal ultrasound showed that prior concern for an abscess was just a simple cyst. No concern for abscess or kidney infection noted. (2) Acute respiratory failure with hypoxia: Code(s): J96.01 - Acute respiratory failure with hypoxia Status: Acute Assessment and Plan: Resolved, unsure of etiology, pulmonology consult suspected pleural effusions were the etiology, these appear resolved at this time, possibly secondary to flash pulmonary edema? 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, unspecified Status: Acute Assessment and Plan: Appreciate urology consultation, repeat imaging shows no abscess just a simple renal cyst, no further plan necessary (6) Elevated troponin: Code(s): R77.8 - Other specified abnormalities of plasma proteins Status: Acute Assessment and Plan: Resolved, patient previously had elevated troponin, Cardiology was consulted and stated that patient appeared to be euvolemic without any acute cardiac injury and signed off (7) Anemia: Code(s): D64.9 - Anemia, unspecified Status: Acute Assessment and Plan: Continue iron supplementation, likely secondary to gastric and duodenal ulcers, these were cauterized via EGD on June 17, continue Protonix twice daily until outpatient repeat EGD in 6 weeks (8) Electrolyte abnormality: Code(s): E87.8 - Other disorders of electrolyte and fluid balance, not elsewhere classified Status: Acute Assessment and Plan: Patient appears to have chronic intermittent hyponatremia, 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 Pulmonology was consulted. Pulmonology thought this was secondary to heart failure. Cardiology was consulted. He thought shortness of breath would improve with diuresis and signed off. It was also thought that patient had pneumonia. At one point, the patient had a renal cyst found and urology was consulted. Renal US showed possible abscess. This was rechecked later and found to be a simply cyst, no abscess noted. Patient on oral vancomycin 125 mg daily while on abx and after abx. All home meds were restarted. Patient was d/c in good condition with close outpatient follow up. No abx needed other than a few more days of oral vanc at 125 mg daily for prophylaxis. Time Spent with Lissett
[2022-07-07 13:48] LABS: EDCOVIDSCREEN Negative (Negative)
[2022-07-07] MEDS: NEOMYCIN/POLYMYXIN/BACITRACIN OINTMENT PACKET 1 PACKET (15:48)
== END 2022-07-07 16:50 | DRG 291 ==
LOC: ANHED 09:57 → ANHIMU 10:31 → ANH2MED 07-01 16:16
PROVIDERS: Emergency Medicine; Nurse Practitioner; Physician Assistant; Admitting Provider Chiropractor; Emergency Provider Emergency Medicine; PCP Family Medicine; Visit Provider Student in an Organized Health Care Education/Training Program
DX: I11.0 Hypertensive heart disease with heart failure (principal); J96.01 Acute respiratory failure with hypoxia; I50.33 Acute on chronic diastolic (congestive) heart failure; J18.9 Pneumonia, unspecified organism; N39.0 Urinary tract infection, site not specified; E87.1 Hypo-osmolality and hyponatremia; I65.23 Occlusion and stenosis of bilateral carotid arteries; I95.9 Hypotension, unspecified; I25.10 Atherosclerotic heart disease of native coronary artery without angina pectoris; D64.9 Anemia, unspecified; E87.6 Hypokalemia; E78.5 Hyperlipidemia, unspecified; E03.9 Hypothyroidism, unspecified; M16.0 Bilateral primary osteoarthritis of hip; K21.9 Gastro-esophageal reflux disease without esophagitis; M81.0 Age-related osteoporosis without current pathological fracture; R77.8 Other specified abnormalities of plasma proteins; R93.421 Abnormal radiologic findings on diagnostic imaging of right kidney; G40.909 Epilepsy, unspecified, not intractable, without status epilepticus; Z20.822 Contact with and (suspected) exposure to COVID-19; Z79.82 Long term (current) use of aspirin; Z95.1 Presence of aortocoronary bypass graft
CPT/HCPCS: 36415; 36569; 36600; 71045; 71275; 74018; 74177; 76775; 80048; 80053; 80076; 81001; 82565; 82805; 82948; 83605; 83735; 83880; 84145; 84484; 85025; 85380; 85610; 85730; 86140; 86308; 87040; 87077; 87086; 87088; 87186; 87426; 93005; 93970; 94002; 94640; 96365; 96375; 99285; A9270; C1751; C9803; G0378; J0692; J0743; J1200; J1335; J1940; J1956; J2930; J3370; J3475; J3480; J7040; Q9967; U0003; U0005

== ENCOUNTER 2022-09-14 16:30 | Emergency (ER) | payer MEDICARE, MEDICAID, SELFPAY ==
[2022-09-14] VITALS (29 sets, daily range): BP systolic 102–162; BP diastolic 36–67; PULSE 73–99; RESP 14–20; TEMP 36.7–38.3; O2SAT 90–96
--- NOTE | ~2022-09-14 | XR_ITS ---
EXAMINATION: XR chest 1V portable Exam Date/Time: 09/14/2022 17:25 CDT HISTORY: fever X TODAY, HX ASHD, HX HTN, HX SEPSIS Comparison: 07/05/2022. RESULT: Lines, tubes, and devices: Intact sternotomy wires. Mediastinal surgical clips. Lungs and pleura: Senescent changes, otherwise clear. Cardiomediastinal silhouette: Stable. Other: No acute osseous or upper abdominal finding. IMPRESSION: No acute cardiopulmonary process. Reviewed, dictated and finalized at location K.
--- NOTE | 2022-09-14 16:59 | ECG_ITS ---
Measurements Intervals [place] Rate: 93 P: 45 IN: 181 QRS: 32 QRSD: 109 T: 32 QT: 373 QTc: 466 Interpretive Statements SINUS RHYTHM NONSPECIFIC T-WAVE ABNORMALITY ABNORMAL EKG COMPARED TO ECG 06/29/2022 14:31:43 NO SIGNIFICANT CHANGES Electronically Signed On 09-15-2022 9:26:41 CDT by Rohan Rivers M.D.
[2022-09-14 17:19] LABS: Basophils Absolute Auto 0.1 K/mm3 (0.0-0.1); Basophils Percent Auto 0.4 % (0.2-1.2); Eosinophils Percent Auto 0.2 % (0-4.4); Hematocrit 41.5 % (37.0-47.0); Hemoglobin 13.3 g/dL (12.0-15.0); Immature Granulocyte Absolute 0.07 K/mm3 (0.00-0.031); Immature Granulocyte Percent A 0.4 % (0-0.5); Lymphocytes Absolute Auto 1.74 K/mm3 (0.9-3.2); Lymphocytes Percent Auto 10.5 % (18.3-44.2); Mean Corpuscular Hemoglobin 29.8 pg (26-34); Mean Platelet Volume 11.7 fl (7.4-10.4); Monocytes Absolute Auto 1.4 K/mm3 (0.1-0.6); Monocytes Percent Auto 8.4 % (2.6-8.5); Neutrophils Absolute Auto 13.3 K/mm3 (1.3-6.7); Neutrophils Percent Auto 80.1 % (45.5-73.1); Platelet Count Result 101 k/mm3 (150-375); Red Blood Count 4.46 M/mm3 (4.2-5.4); Red Cell Distribution Width 15.8 % (11.5-14.5); White Blood Count 16.6 K/mm3 (4.5-10.0)
[2022-09-14 17:30] LABS: INR 1.2; Partial Thromboplastin Time 32.9 SECONDS (22.3-36.8); Prothrombin Time 15.2 Seconds (11.1-14.7)
[2022-09-14 17:33] LABS: Lactic Acid Reflex 1.4 mmol/L (0.7-2.0)
[2022-09-14 17:35] LABS: Alanine Aminotransferase 39 U/L (6-35); Albumin Level 3.8 g/dL (3.5-5.1); Alkaline Phosphatase 233 U/L (38-126); Anion Gap 10 mmol/L (8-16); Aspartate Amino Transferase 102 U/L (14-36); Bilirubin,Total 0.9 mg/dL (0.2-1.3); Blood Urea Nitrogen 29 mg/dL (7-17); CRP 1.7 mg/dL (<1.0); Calcium 8.8 mg/dL (8.4-10.2); Carbon Dioxide 31 mmol/L (22-30); Chloride 94 mmol/L (98-107); Estimated CRCL calculation 46 ml/min; Estimated Glomerular Filt Rate 53; Glucose 103 mg/dL (65-110); Potassium 3.4 mmol/L (3.4-5.0); Sodium 135 mmol/L (137-145)
[2022-09-14 17:41] LABS: Lipase 112 U/L (23-300)
--- NOTE | 2022-09-14 17:56 | ED.FEVER ---
HPI - Fever General Chief Complaint: Fever Stated Complaint: fever Time Seen by Provider: 09/14/22 17:55 Source: patient, EMS and RN notes reviewed Mode of arrival: EMS Limitations: no limitations History of Present Illness HPI Narrative: 81 years old white female came from [facility] ambulance complaining of sudden onset of cold feeling 2 hours prior to arrival to the emergency room associated with chills, slight coughing and feeling tired. Patient denies any nausea, vomiting, abdominal pain, chest pain, shortness of breath, back pain. Patient is status post bilateral knee injection of steroid for arthritis 4 days ago. Currently denying any knee pain. Related Data Home Medications Medication Instructions Recorded Confirmed aspirin 81 mg tablet,delayed 81 mg PO DAILY 11/10/19 06/29/22 release (Adult Low Dose Aspirin) levocetirizine 5 mg tablet 5 mg PO DAILY 07/28/20 06/29/22 aluminum-magnesium hydroxide 200 20 ml PO Q6H PRN (Drug) Ingestion 01/16/21 06/29/22 mg-200 mg/5 mL oral suspension atorvastatin 80 mg tablet 80 mg PO DAILY 01/16/21 06/29/22 docusate sodium 100 mg capsule 100 mg PO DAILY PRN Constipation 01/16/21 06/29/22 (Colace) ondansetron HCl 4 mg tablet 4 mg PO Q4H PRN Nausea And Vomiting 01/16/21 06/29/22 acetaminophen 325 mg capsule 325 mg PO Q6H PRN Pain (Scale 06/13/21 06/29/22 Score 1-3) loperamide 2 mg capsule 2 mg PO Q6H PRN Loose Stool 06/13/21 06/29/22 (Anti-Diarrheal (loperamide)) melatonin 1 mg tablet 2 mg PO QHS PRN Insomnia 06/13/21 06/29/22 benzonatate 100 mg capsule 100 mg PO BID PRN Cough 01/16/22 06/29/22 cholecalciferol (vitamin D3) 25 75 mcg PO DAILY 01/16/22 06/29/22 mcg (1,000 unit) tablet cranberry extract 250 mg tablet 250 mg PO DAILY 01/16/22 06/29/22 magnesium hydroxide 400 mg/5 mL 30 ml PO HS PRN Constipation 01/16/22 06/29/22 oral suspension (Milk of Magnesia) polyethylene glycol 3350 17 gram 17 g PO DAILY 01/16/22 06/29/22 oral powder packet (Miralax) gabapentin 600 mg tablet 600 mg PO HS 06/09/22 06/29/22 guaifenesin 600 mg tablet, 600 mg PO Q12H PRN Cough 06/09/22 06/29/22 extended release 12 hr hydrocortisone acetate 25 mg 25 mg RECTAL DAILY PRN Constipation 06/09/22 06/29/22 rectal suppository (Anusol-HC) iron polysacch cplx 150 mg 1 cap PO DAILY 06/09/22 06/29/22 iron-vit B12 25 mcg-folic acid 1 mg capsule multivitamin,tx-minerals 1 tablet PO DAILY 06/09/22 06/29/22 calcium polycarbophil 625 mg 1,250 mg PO DAILY 09/11/22 tablet (Fiber Therapy (ca polycarbophil)) metolazone 5 mg tablet 5 mg PO DAILY 09/11/22 Allergies Allergy/AdvReac Type Severity Reaction Status Date / Time WINSTON Inhibitors Allergy Unknown Unknown Verified 09/11/22 12:57 lisinopril Allergy Unknown Cough,Unkno Verified 09/11/22 12:57 wn Penicillins Allergy Unknown Not Verified 09/11/22 12:57 Entered,Unknown Sulfa (Sulfonamide Allergy Unknown Rash,Unknow Verified 09/11/22 12:57 Antibiotics) n Review of Systems Review of Systems: All systems reviewed & are unremarkable except as noted in HPI and below PMFSH Past Medical History Medical History ASHD (arteriosclerotic heart disease) Benign essential hypertension Bilateral carotid artery stenosis CAD (coronary artery disease) Debility Frequent UTI Generalized weakness GERD (gastroesophageal reflux disease) Hyperlipidemia Hypothyroidism (acquired) Low back pain Lower extremity edema Osteoarthritis of both knees Peripheral neuropathy Seizure disorder Supracondylar fracture of left femur due to osteoporosis Surgical History Surgical History History of coronary artery bypass graft NSTEMI October 2018; CABG x3 with ALFARO to the Left anterior descending, SVG to the ramus and SVG to RCA. Family History Family History Sibling Family history of lung ca
[2022-09-14 18:00] LABS: Influenza A QL RT-PCR Negative (Negative); Influenza B QL RT-PCR Negative (Negative); SARS-CoV-2 RNA PCR Negative
[2022-09-14 18:04] LABS: Troponin I 0.128 ng/mL (0.000-0.034)
[2022-09-14 18:42] LABS: Add Urine Microscopic? YES; Appearance Urine Turbid (Clear); Bacteria Urine 1+ /hpf; Bilirubin Urine Negative (Negative); Blood Urine 2+ (Negative); Color Urine Yellow (Yellow); Glucose Urine UA 3+ mg/dL (Negative); Ketones Urine Negative (Negative); Leukocyte Esterase Ur 3+ LEU/UL (Negative); Nitrate Urine Positive (Negative); Protein Urine 1+ mg/dL (Negative); RBC Urine 21-50 /hpf (0-2); Specific Grav Ur 1.007 (1.001-1.035); Urobilinogen Urine Negative mg/dL (<2.0); WBC Urine >75 /hpf
[2022-09-14] MEDS: SODIUM CHLORIDE 0.9% IV 1,000 ML 999 ML IV CONT (20:20)
[2022-09-14] MEDS: KETOROLAC 15 MG/ML VIAL (*BKC) IV PUSH (20:34)
[2022-09-14] MEDS: ACETAMINOPHEN 500 MG TABLET 1000 MG PO (20:34)
[2022-09-14] MEDS: CIPROFLOXACIN 500 MG TAB PO (20:35)
--- NOTE | 2022-09-14 23:12 | PC.NURSE ---
Assumed care of pt at this time. Pt resting, supine on stretcher with eyes closed. Awaiting transport back to [place].
[2022-09-15 01:25] VITALS: BP 101/53; PULSE 69; O2SAT 98
== END 2022-09-15 02:37 ==
PROVIDERS: Emergency Provider Emergency Medicine; PCP Family Medicine
DX: N39.0 Urinary tract infection, site not specified (principal); Z20.822 Contact with and (suspected) exposure to COVID-19; I25.10 Atherosclerotic heart disease of native coronary artery without angina pectoris; I10 Essential (primary) hypertension; E78.5 Hyperlipidemia, unspecified; E03.9 Hypothyroidism, unspecified; G62.9 Polyneuropathy, unspecified; G40.909 Epilepsy, unspecified, not intractable, without status epilepticus; K21.9 Gastro-esophageal reflux disease without esophagitis; M17.0 Bilateral primary osteoarthritis of knee; Z95.1 Presence of aortocoronary bypass graft; Z87.891 Personal history of nicotine dependence; Z79.82 Long term (current) use of aspirin; Z79.84 Long term (current) use of oral hypoglycemic drugs; R94.31 Abnormal electrocardiogram [ECG] [EKG]
CPT/HCPCS: 36415; 51701; 71045; 80053; 81001; 83605; 83690; 84484; 85025; 85610; 85730; 86140; 87040; 87077; 87086; 87186; 87502; 93005; 96365; 96375; 99284; A9270; C9803; J0696; J1885; J7030; U0003; U0005

== ENCOUNTER 2022-12-26 10:09 | Inpatient (IN) | payer MEDICARE, MEDICAID, SELFPAY ==
[2022-12-26] VITALS (24 sets, daily range): BP systolic 66–143; BP diastolic 30–83; PULSE 73–117; RESP 12–24; TEMP 36.2–38.7; O2SAT 87–99; BMI 36.3
--- NOTE | ~2022-12-26 | CT_ITS ---
EXAMINATION: CT abdomen pelvis wo/w con DATE: 12/31/2022 14:54 INDICATION: Left kidney mass. TECHNIQUE: Computed tomography (CT) of the abdomen and pelvis was performed without and with 100 mL O mnipaque 350 intravenous contrast. Automated exposure control and iterative reconstruction technique were employed. The dose-length product was 2090.16 mGy-cm. COMPARISON: CT abdomen and pelvis 12/26/2022, 06/29/2022, 12/10/2016 FINDINGS: The visualized portions of the lung bases demonstrate mild atelectasis. There are small ple ural effusions. Cardiomegaly is noted. There are coronary artery calcifications. There are calcificat ions of the aortic valve. No pericardial effusion. The liver is normal. There are changes of cholecys tectomy. There is splenomegaly measuring 16.1 cm. The pancreas and right adrenal gland are normal. Th ere is a 12 mm mass in left adrenal gland measuring soft tissue attenuation without change from 2016, likely an adenoma. There is cortical thinning of the kidneys. There is a 6 mm cyst in right kid malou. There is a 2.2 cm hypoenhancing mass in left kidney. There is a 2.6 cm hypoenhancing mass in lef t kidney. There is diffuse bladder wall thickening. There is prominent fat in the inguinal canals qi t may be hernias. There are no dilated loops of bowel. The appendix is not visualized. There are no p athologically enlarged lymph nodes. There is no free intraperitoneal fluid. There is an umbilical her tabitha containing fat. There is severe thoracolumbar spondylosis. There is a chronic compression fractur e of L1. IMPRESSION: 1. Two hypoenhancing left kidney masses, new from 06/29/2022, consistent with pyelonephritis. 2. Diffuse bladder wall thickening, consistent with cystitis. 3. Moderate splenomegaly, worsened from 12/10/16. Reviewed, dictated and finalized at location A. PURSE FRAMER IMPRESSION: 1. Two hypoenhancing left kidney masses, new from 06/29/2022, consistent with py elonephritis. 2. Diffuse bladder wall thickening, consistent with cystitis. 3. Moderate splenomegaly, worsened from 12/10/16.
--- NOTE | ~2022-12-26 | XR_ITS ---
EXAMINATION: XR chest 1V portable DATE: 12/26/2022 10:34 INDICATION: Altered mental status. TECHNIQUE: A single frontal view of the chest was obtained. COMPARISON: Chest single view 09/14/2022, chest CT 06/29/2022 FINDINGS: There is no pneumonia, pleural effusion, or pneumothorax. Cardiomegaly is noted. Median lashawn rnotomy wires and mediastinal surgical clips are seen, likely from prior coronary artery bypass graft ing. IMPRESSION: 1. Cardiomegaly. Reviewed, dictated and finalized at location A. ER SPEAR IMPRESSION: 1. Cardiomegaly.
--- NOTE | ~2022-12-26 | US_ITS ---
EXAMINATION: US renal BI DATE: 12/26/2022 17:05 INDICATION: Acute renal failure TECHNIQUE: Multiple grayscale and Doppler ultrasound images of the kidneys were obtained. COMPARISON: 07/06/2022 FINDINGS: The right kidney measures 11.3 x 5.3 x 5.2 cm. The left kidney measures 7.6 x 5.1 x 3.6 cm. The kidneys demonstrate normal parenchymal echogenicity. There is no hydronephrosis. The bladder is normal. IMPRESSION: 1. Normal kidneys without hydronephrosis. Reviewed, dictated and finalized at location F. ICAL TRIAL MANAGER
--- NOTE | ~2022-12-26 | CT_ITS ---
EXAMINATION: CT abdomen pelvis w con DATE: 12/26/2022 11:37 INDICATION: Abdominal pain TECHNIQUE: Computed tomography (CT) of the abdomen and pelvis was performed with 100 mL Omnipaque-350 intravenous contrast. Automated exposure control and iterative reconstruction technique were employe d. The dose-length product was 1487.92 mGy-cm. COMPARISON: CT dated 06/29/2022 FINDINGS: Dependent atelectasis in bilateral lower lobes. Cardiomegaly. Atherosclerotic coronary artery calcifi cations unchanged prior median sternotomy and coronary artery bypass grafting. Aortic valve calcifica tion. No pericardial or pleural effusion. Cholecystectomy clips at the gallbladder fossa. Liver, panc reas and bilateral adrenal glands are normal. Unchanged mild nonspecific splenomegaly measuring 14.1 cm cranial caudal length which may be related to body habitus. A couple subtle approximately 1.5 cm l esion at the upper pole of the left kidney disrupting the normal cortical enhancement pattern and wit h intermediate attenuation. Small region of cortical scarring at the lower pole of the right kidney. Moderate to large amount of stool scattered throughout the colon with 6 cm ball of stool at the rectu m which could be seen with constipation. No bowel obstruction. The appendix is not visualized. No per icecal inflammatory change to suggest acute appendicitis. Again seen is wall thickening and mucosal h yperemia at the bladder with subtle haziness to the surrounding fat suspicious for cystitis. Uterus a nd bilateral adnexa are unremarkable. No free intraperitoneal gas or fluid. No pathologically enlarge d abdominal or pelvic lymphadenopathy. Tiny fat-containing umbilical hernia. Chronic superior endplat e compression fracture at L1. S-shaped thoracolumbar scoliosis with severe spondylosis. Postoperative change of posterior decompression with L1-L5 laminectomies and partial T12 laminectomy. Moderate ost eoarthritis at the bilateral hips. IMPRESSION: 1. Persistent bladder wall thickening with prominent mucosal hyperemia and surrounding inflammatory s tranding suspicious for cystitis. 2. Couple new small regions of decreased cortical enhancement at the upper pole of the left kidney vicente spicious for pyelonephritis although differential would include complex cyst or solid neoplasm. Corre late with urinalysis and consider follow-up pre and postcontrast MRI or CT. 3. Cardiomegaly. Reviewed, dictated and finalized at location B. DESTRUCTIVE TESTING SUPERVISOR IMPRESSION: 1. Persistent bladder wall thickening with prominent mucosal hyperemia and surr ounding inflammatory stranding suspicious for cystitis. 2. Couple new small regions of decreased cortical enhancement at the upper pole of the left kidney suspicious for pyelonephritis although differential would i nclude complex cyst or solid neoplasm. Correlate with urinalysis and consider f ollow-up pre and postcontrast MRI or CT. 3. Cardiomegaly.
--- NOTE | ~2022-12-26 | CT_ITS ---
Non-contrast Head CT History: Altered mental status Technique: Axial non-contrast imaging of the brain was performed. Dose reduction technique was used on this scan by utilizing automated exposure control and iterative reconstruction technique. The dose -length product (DLP) was 605.33 mGy-cm. Findings: There is no evidence of intracranial hemorrhage, mass lesion, or acute infarct. Brain par enchyma appears normal. The ventricles and subarachnoid spaces are normal in size. The calvarium ap pears normal. The visualized paranasal sinuses and mastoid air cells are clear. Impression: No significant abnormality seen. Reviewed, dictated and finalized at location . TH AIDE Impression: No significant abnormality seen.
--- NOTE | ~2022-12-26 | XR_ITS ---
EXAMINATION: XR chest 1V portable DATE: 12/30/2022 05:45 INDICATION: Shortness of breath. TECHNIQUE: A single frontal view of the chest was obtained. COMPARISON: Chest single view 12/26/2022, CT abdomen and pelvis 12/26/2022 FINDINGS: There is mild atelectasis in the lower lung zones. No pleural effusion or pneumothorax. Car diomegaly is noted. Median sternotomy wires and mediastinal surgical clips are seen, likely from prio r coronary artery bypass grafting. IMPRESSION: 1. Mild atelectasis in the lower lung zones. 2. Cardiomegaly. Reviewed, dictated and finalized at location A. COM COORDINATOR
--- NOTE | ~2022-12-26 | XR_ITS ---
EXAM: XR abdomen/kub 1V DATE: 12/30/2022 17:28 HISTORY: possible left renal mass . COMPARISON: 12/26/2022. FINDINGS: Cholecystectomy clips. Normal bowel gas pattern. No organomegaly. Vascular calcifications. Severe degenerative change in lumbar spine. Bilateral hip osteoarthritis. Osteitis pubis. IMPRESSION: No radiographic evidence of obstruction or ileus. Reviewed, dictated and finalized at location K. CTOR INTERNAL COMMUNICATIONS
--- NOTE | 2022-12-26 10:13 | ECG_ITS ---
Measurements Intervals [place] Rate: 110 P: 62 MS: 190 QRS: 38 QRSD: 118 T: -2 QT: 272 QTc: 369 Interpretive Statements SINUS TACHYCARDIA POSSIBLE LEFT ATRIAL ENLARGEMENT INTRAVENTRICULAR CONDUCTION DELAY BORDERLINE ST-T WAVE ABNORMALITY- DIFFUSE LEADS BASELINE ARTIFACT- II, AVR, AVL, AVF, V1-V2, V4 ABNORMAL ECG COMPARED TO ECG 09/14/2022 18:14:17 SINUS TACHYCARDIA NOW PRESENT INTRAVENTRICULAR CONDUCTION DELAY NOW PRESENT Electronically Signed On 12-26-2022 10:26:07 REGULAR SENIOR CARE PROVIDER by Blair Reed D.O.
[2022-12-26] MEDS: SODIUM CHLORIDE 0.9% IV 1,000 ML 999 ML IV CONT ×2 (10:25→11:57)
[2022-12-26 10:29] LABS: Basophils Absolute Auto 0.1 K/mm3 (0.0-0.1); Basophils Percent Auto 0.3 % (0.2-1.2); Hematocrit 41.4 % (37.0-47.0); Hemoglobin 13.5 g/dL (12.0-15.0); Immature Granulocyte Absolute 0.18 K/mm3 (0.00-0.031); Immature Granulocyte Percent A 0.7 % (0-0.5); Lymphocytes Absolute Auto 3.09 K/mm3 (0.9-3.2); Lymphocytes Percent Auto 12.4 % (18.3-44.2); Mean Corpuscular HGB Conc 32.6 g/dl (32-36); Mean Corpuscular Hemoglobin 30.6 pg (26-34); Mean Corpuscular Volume 93.9 fl (80-100); Mean Platelet Volume 12.2 fl (7.4-10.4); Monocytes Absolute Auto 3.1 K/mm3 (0.1-0.6); Monocytes Percent Auto 12.3 % (2.6-8.5); Neutrophils Absolute Auto 18.5 K/mm3 (1.3-6.7); Neutrophils Percent Auto 74.3 % (45.5-73.1); Platelet Count Result 101 k/mm3 (150-375); Red Blood Count 4.41 M/mm3 (4.2-5.4); Red Cell Distribution Width 14.7 % (11.5-14.5); White Blood Count 24.9 K/mm3 (4.5-10.0)
[2022-12-26 10:38] LABS: Lactic Acid Reflex 1.6 mmol/L (0.7-2.0)
[2022-12-26 10:39] LABS: INR 1.4; Partial Thromboplastin Time 36.9 SECONDS (22.3-36.8); Prothrombin Time 16.5 Seconds (11.1-14.7)
[2022-12-26 10:45] LABS: Alanine Aminotransferase 40 U/L (6-35); Alkaline Phosphatase 235 U/L (38-126); Anion Gap 8 mmol/L (8-16); Aspartate Amino Transferase 116 U/L (14-36); Bilirubin,Total 1.5 mg/dL (0.2-1.3); Blood Urea Nitrogen 51 mg/dL (7-17); Carbon Dioxide 32 mmol/L (22-30); Chloride 94 mmol/L (98-107); Estimated CRCL calculation 40 ml/min; Estimated Glomerular Filt Rate 39; Glucose 110 mg/dL (65-110); Lipase 51 U/L (23-300); Potassium 3.1 mmol/L (3.4-5.0); Sodium 134 mmol/L (137-145)
--- NOTE | 2022-12-26 10:49 | ED.GENADULT ---
HPI - General Adult General Chief complaint: Fever Stated complaint: FEVER, AMS, DECREASED LOC Source: EMS and RN notes reviewed History of Present Illness HPI narrative: Patient presents emergency department from [facility] via EMS for altered mental status. The patient was found to have altered mental status this morning as well as a fever and was transferred to the emergency department for further evaluation. Patient is unable to give any history as she is nonverbal at this time. The patient not receive any Tylenol per [facility] the patient did have wheezing when EMS initially arrived O2 saturation of 88% was placed on nasal cannula and given albuterol Related Data Home Medications Medication Instructions Recorded Confirmed aspirin 81 mg tablet,delayed 81 mg PO DAILY 11/10/19 06/29/22 release (Adult Low Dose Aspirin) levocetirizine 5 mg tablet 5 mg PO DAILY 07/28/20 06/29/22 aluminum-magnesium hydroxide 200 20 ml PO Q6H PRN (Drug) Ingestion 01/16/21 06/29/22 mg-200 mg/5 mL oral suspension atorvastatin 80 mg tablet 80 mg PO DAILY 01/16/21 06/29/22 docusate sodium 100 mg capsule 100 mg PO DAILY PRN Constipation 01/16/21 06/29/22 (Colace) ondansetron HCl 4 mg tablet 4 mg PO Q4H PRN Nausea And Vomiting 01/16/21 06/29/22 acetaminophen 325 mg capsule 325 mg PO Q6H PRN Pain (Scale 06/13/21 06/29/22 Score 1-3) loperamide 2 mg capsule 2 mg PO Q6H PRN Loose Stool 06/13/21 06/29/22 (Anti-Diarrheal (loperamide)) melatonin 1 mg tablet 2 mg PO QHS PRN Insomnia 06/13/21 06/29/22 benzonatate 100 mg capsule 100 mg PO BID PRN Cough 01/16/22 06/29/22 cholecalciferol (vitamin D3) 25 75 mcg PO DAILY 01/16/22 06/29/22 mcg (1,000 unit) tablet cranberry extract 250 mg tablet 250 mg PO DAILY 01/16/22 06/29/22 magnesium hydroxide 400 mg/5 mL 30 ml PO HS PRN Constipation 01/16/22 06/29/22 oral suspension (Milk of Magnesia) polyethylene glycol 3350 17 gram 17 g PO DAILY 01/16/22 06/29/22 oral powder packet (Miralax) gabapentin 600 mg tablet 600 mg PO HS 06/09/22 06/29/22 guaifenesin 600 mg tablet, 600 mg PO Q12H PRN Cough 06/09/22 06/29/22 extended release 12 hr hydrocortisone acetate 25 mg 25 mg RECTAL DAILY PRN Constipation 06/09/22 06/29/22 rectal suppository (Anusol-HC) iron polysacch cplx 150 mg 1 cap PO DAILY 06/09/22 06/29/22 iron-vit B12 25 mcg-folic acid 1 mg capsule multivitamin,tx-minerals 1 tablet PO DAILY 06/09/22 06/29/22 calcium polycarbophil 625 mg 1,250 mg PO DAILY 09/11/22 tablet (Fiber Therapy (ca polycarbophil)) metolazone 5 mg tablet 5 mg PO DAILY 09/11/22 Allergies Allergy/AdvReac Type Severity Reaction Status Date / Time WINSTON Inhibitors Allergy Unknown Unknown Verified 09/11/22 12:57 lisinopril Allergy Unknown Cough,Unkno Verified 09/11/22 12:57 wn Penicillins Allergy Unknown Not Verified 09/11/22 12:57 Entered,Unknown Sulfa (Sulfonamide Allergy Unknown Rash,Unknow Verified 09/11/22 12:57 Antibiotics) n Review of Systems Review of Systems: ROS unobtainable: Yes unobtainable due to medical condition (Unable to obtain secondary to altered mental status ) PMFSH Past Medical History Medical History ASHD (arteriosclerotic heart disease) Benign essential hypertension Bilateral carotid artery stenosis CAD (coronary artery disease) Debility Frequent UTI Generalized weakness GERD (gastroesophageal reflux disease) Hyperlipidemia Hypothyroidism (acquired) Low back pain Lower extremity edema Osteoarthritis of both knees Peripheral neuropathy Seizure disorder Supracondylar fracture of left femur due to osteoporosis Surgical History Surgical History History of coronary artery bypass graft NSTEMI October 2018; CABG x3 with ALFARO to the Left anterior descending, SVG to the ramus and SVG to RCA. Family History Family History Sibling
[2022-12-26 11:03] LABS: Influenza A QL RT-PCR Negative (Negative); Influenza B QL RT-PCR Negative (Negative); RSV RNA, RT-PCR Negative (Negative); SARS-CoV-2 RNA PCR Negative
[2022-12-26 11:10] LABS: Appearance Urine Turbid (Clear); Bilirubin Urine Negative (Negative); Blood Urine 3+ (Negative); Color Urine Yellow (Yellow); Glucose Urine UA Trace mg/dL (Negative); Ketones Urine Trace mg/dL (Negative); Leukocyte Esterase Ur 3+ LEU/UL (Negative); Nitrate Urine Negative (Negative); Protein Urine 3+ mg/dL (Negative); Specific Grav Ur 1.025 (1.001-1.035); Urobilinogen Urine 0.2 mg/dL (<2.0); pH Urine 5.5 (5.0-9.0)
[2022-12-26 11:13] LABS: WBC Clumps Urine Present /HPF; WBC Urine >75 /hpf
[2022-12-26 11:20] LABS: Add Urine Microscopic? YES
[2022-12-26] MEDS: POTASSIUM CHLORIDE INJ 40 MEQ in SODIUM CHLORIDE 0.9% IV 500 ML 130 MEQ IVPB (11:44)
[2022-12-26 11:45] LABS: Magnesium 2.1 mg/dL (1.6-2.3); Phenytoin Dilantin 7 ug/mL (10-20)
--- NOTE | 2022-12-26 12:35 | PM.IMHP ---
H&P: HPI History of Present Illness Date/Time: 12/26/22 12:35 Chief Complaint: [facility] Past Medical History Medical History (Updated 12/26/22 @ 12:36 by Tosin Riley NP) ASHD (arteriosclerotic heart disease) Benign essential hypertension Bilateral carotid artery stenosis CAD (coronary artery disease) Debility Frequent UTI Generalized weakness GERD (gastroesophageal reflux disease) Hyperlipidemia Hypothyroidism (acquired) Low back pain Lower extremity edema Neuropathy Osteoarthritis of both knees Peripheral neuropathy Seizure disorder Supracondylar fracture of left femur due to osteoporosis Surgical History Surgical History (Updated 12/26/22 @ 12:36 by Tosin Riley NP) History of back surgery History of coronary artery bypass graft NSTEMI October 2018; CABG x3 with ALFARO to the Left anterior descending, SVG to the ramus and SVG to RCA. Family History Family History Sibling Family history of lung cancer Father Family history of heart disease in male family member before age 55 Family history of cardiovascular disease Mother Family history of malignant neoplasm Social History Social History (Updated 12/26/22 @ 12:43 by Tosin Riley NP) Social History: [facility] home.Lives at snf. PCP is Dr. Sarah. Designates her son Rajesh as her surrogate decision maker. She would like to be a dnr. one son . 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 [employer] Smoking packs per day: 1 Smoking cigarettes per day: 20.0 Years smoked: 8 Smoking pack-years: 8.00 Smoking status: Former smoker Second hand tobacco smoke exposure: No Additional smoking assessment comments: Quit >50 years ago Alcohol intake: never Substance use: never Substance use type: does not use Spiritual care concerns: No Meds Home Medications and Allergies Home Medications Medication Instructions Recorded Confirmed Type aspirin 81 mg tablet,delayed 81 mg PO DAILY 11/10/19 06/29/22 History release (Adult Low Dose Aspirin) phenytoin sodium extended 100 mg 200 mg PO BID #120 caps 03/19/20 06/29/22 Rx capsule (Dilantin Extended) ezetimibe 10 mg tablet (Zetia) 10 mg PO DAILY #90 tabs 05/03/20 06/29/22 Rx furosemide 40 mg tablet 40 mg PO QAM #90 tabs 06/27/20 06/29/22 Rx levothyroxine 100 mcg tablet 100 mcg PO DAILY #90 tabs 06/27/20 06/29/22 Rx levocetirizine 5 mg tablet 5 mg PO DAILY 07/28/20 06/29/22 History aluminum-magnesium hydroxide 200 20 ml PO Q6H PRN (Drug) Ingestion 01/16/21 06/29/22 History mg-200 mg/5 mL oral suspension atorvastatin 80 mg tablet 80 mg PO DAILY 01/16/21 06/29/22 History docusate sodium 100 mg capsule 100 mg PO DAILY PRN Constipation 01/16/21 06/29/22 History (Colace) ondansetron HCl 4 mg tablet 4 mg PO Q4H PRN Nausea And Vomiting 01/16/21 06/29/22 History acetaminophen 325 mg capsule 325 mg PO Q6H PRN Pain (Scale 06/13/21 06/29/22 History Score 1-3) loperamide 2 mg capsule 2 mg PO Q6H PRN Loose Stool 06/13/21 06/29/22 History (Anti-Diarrheal (loperamide)) melatonin 1 mg tablet 2 mg PO QHS PRN Insomnia 06/13/21 06/29/22 History benzonatate 100 mg capsule 100 mg PO BID PRN Cough 01/16/22 06/29/22 History cholecalciferol (vitamin D3) 25 75 mcg PO DAILY 01/16/22 06/29/22 History mcg (1,000 unit) tablet cranberry extract 250 mg tablet 250 mg PO DAILY 01/16/22 06/29/22 History magnesium hydroxide 400 mg/5 mL 30 ml PO HS PRN Constipation 01/16/22 06/29/22 History oral suspension (Milk of Magnesia) polyethylene glycol 3350 17 gram 17 g PO DAILY 01/16/22 06/29/22 History oral powder packet (Miralax) gabapentin 600 mg tablet 600 mg PO HS 06/09/22 06/29/22 History guaifenesin 600 mg tablet, 600 mg PO Q12H PRN Cough 06/09/22 06/29/22 History extended release 12 hr hydrocortisone acetate 25 mg 25 mg RECTAL DAILY PRN Constipation 06/09/22 06/29/22 History rectal suppository (Anusol-HC) iron polysacch cplx 150 mg 1 cap PO DAILY 06/09/22
--- NOTE | 2022-12-26 13:06 | PM.IMHP ---
H&P: HPI History of Present Illness Date/Time: 12/26/22 13:06 please disregard previous H&P the 1st H&P had accidentally been signed without completion. Chief Complaint: Fever Narrative: This is an 82-year-old female patient who came from [facility] in [place]. The patient came in with altered mental status. She was altered this morning and had a 104 fever the patient was transferred to the emergency department for further evaluation. Patient is nonverbal. She received Tylenol at [facility]. The patient had some wheezing. Her O2 saturations were 80s% and she was placed on oxygen at 2 L per nasal cannula. She was given an albuterol treatment EN route. The patient appears to be having periods of apnea. According to the son she has not had sleep apnea diagnosed. Her white count is 24.9. Creatinine 1.3. Sodium 134 potassium 3.1 chloride 94 and carbon dioxide 32. According to the son the patient is not eating very much at all. Her liver enzymes are elevated and her higher than her baseline. There normally elevated. Troponin 0.128 C reactive protein 1.7. Her urine was positive for UTI. She was found to be negative for influenza A/B RSV and COVID. The patient was given IV Tylenol, IV fluids, Primaxin, and IV potassium. The patient is difficult to arouse. However when she did start her row she was complaining some discomfort. Her blood pressures have been running low and she had 3 L of IV fluids. At 1 point I talked to the son about a possible central line and vasopressors. I explained to the son that I was unable to give her any pain medication at this time due to the low blood pressure. The patient also had her potassium replaced in the emergency room. The patient is being admitted to observation status on the date of service 12/26/2019 Review of Systems Review of Systems: See HPI All systems reviewed & are unremarkable except as noted in HPI and below Constitutional: Constitutional: Reports as per HPI and Reports no additional constitutional complaints Eyes: Eyes: Reports as per HPI and Reports no additional eye complaints ENT: Reports system reviewed and no additional complaints, except as documented and Reports Normal hearing present Cardiovascular: Cardiovascular: Reports no additional cardiovascular complaints Respiratory: Respiratory: Reports no additional respiratory complaints and Reports no additional respiratory complaints Gastrointestinal: Gastrointestinal: Reports as per HPI and Reports no additional gastrointestinal complaints Musculoskeletal: Musculoskeletal: Reports no additional musculoskeletal complaints Integumentary/Breasts: Skin/Breast: Reports system reviewed and no additional complaints, except as docu and Reports as per HPI Neurologic: Reports system reviewed and no additional complaints, except as documented, Reports as per HPI and Reports Normal hearing present Psychiatric: Psychiatric: Reports no additional psychiatric complaints and Reports as per HPI Endocrine: Endocrine: Reports no additional endocrine complaints Hematologic/Lymphatic: Hematologic/Lymphatic: Reports no additional hematologic/lymphatic complaints Allergic/Immunologic: Allergic/Immunologic: Reports no additional allergic/immunologic complaints [facility] Past Medical History Medical History (Updated 12/26/22 @ 16:25 by Tosin Riley NP) Acute hypokalemia Acute UTI ASHD (arteriosclerotic heart disease) Benign essential hypertension Bilateral carotid artery stenosis CAD (coronary artery disease) Debility DM2 (diabetes mellitus, type 2) Frequent UTI Generalized weakness GERD (gastroesophageal reflux disease) Hyperlipidemia Hypothyroidism (acquired) Low back pain Lower extremity edema Neuropathy Osteoarthritis of both knees Peripheral neuropathy Seizure disorder Supracondylar fracture of left femur due to osteoporosis Surgical History Surgical History (Updated 12/26/22 @ 15:54 by Tosin Riley NP) H/O
[2022-12-26] MEDS: SODIUM CHLORIDE 0.9% IV 1,000 ML 80 ML IV CONT (13:30)
--- NOTE | 2022-12-26 15:29 | ADMGEN ---
This patient, Delia Lopez, was admitted to IMU Room 205-01. Patient/family oriented to hospital policies and general routines including ID bracelet, bed and alarms, visiting hours, pain management, procedures, bathroom and other care routines, personal items, smoking policy, room service/diet, and visiting hours. Information on how to activate the Rapid Response Team has been discussed. Patient/Family are encouraged to report perceived risks to care and to ask questions if they do not understand what they are told or what they should do.
[2022-12-26 16:38] LABS: Base Excess ABG 1.1 mEq/l (+/-2.0); Fractional Inspired Oxygen 21 %; HCO3 ABG 24.6 mEq/l (22.0-26.0); Oxygen Content ABG 17.7 %vol (16.0-22.0); Oxygen Saturation ABG 94.9 % (95.0-100.0); PCO2 ABG 35.4 mmHg (35.0-45.0); PO2 ABG 69.3 mmHg (80.0-100.0); Total Hemoglobin 13.5 g/dL (12.0-18.0); pH ABG 7.459 (7.350-7.450)
[2022-12-26 16:39] LABS: Glucose Point of Care 123 mg/dl (65-105)
[2022-12-26 16:40] LABS: Device ROOM AIR; Modified Allen's Test Pass; Site Drawn RIGHT RADIAL
[2022-12-26] MEDS: PANTOPRAZOLE SODIUM IV 40 MG VIAL IV PUSH (20:45)
[2022-12-26 22:55] LABS: Glucose Point of Care 142 mg/dl (65-105)
[2022-12-27] VITALS (14 sets, daily range): BP systolic 105–142; BP diastolic 44–66; PULSE 75–100; RESP 16–20; TEMP 36.6–38.4; O2SAT 94–99
--- NOTE | 2022-12-27 | ECHO_ITS ---
Patient Info Name: Delia Lopez Age: 82 years : 1940 Gender: Female Ht: 67 in Wt: 275 lbs BSA: 2.49 m2 HR: 78 bpm BP: 109 / 68 mmHg Heart Rhythm: Sinus Rhythm Technical Quality: Poor Exam Date: 12/27/2022 1:48 PM Exam Location: [facility] Exam Room: [facility] Patient Status: Inpatient Admit Date: 12/26/2022 Staff Ordering Physician: Tosin Riley NP [employer] Worker: Terrie Hawley RDCS Attending Provider: Leo Riley MD Referring Physician: Osvaldo BELTRAN; Exam Type: CA echo dop color flow w con Study Info Indications - AMS MURMUR Complete two-dimensional, color flow and Doppler transthoracic echocardiogram is performed with contrast to opacify the left ventricle and to improve the deliniation of the left ventricle endocardial borders. Contrast/Agitated Saline Contrast/Ag. Saline: Definity Amount: 2.00 ml Administered By: Terrie Hawley [facility] Existing IV Access: Yes IV Access Condition: patent with no signs of infiltration Reason for Poor Study: patient body habitus Summary 1. Left ventricular hypertrophy with mild LV enlargement and preserved systolic function. 2. Left atrial enlargement. 3. Sclerotic aortic valve which is not significantly stenotic. 4. Trivial mitral regurgitation. 5. Compared to the echocardiogram that was done May of last year nothing has talbert. Left Ventricle Left ventricular chamber dimension is mildly enlarged. Left ventricular systolic function is normal, estimated at 55-60%. There is mild concentric increased left ventricular wall thickness. The left ventricular diastolic function is grade I diastolic dysfunction. Right Ventricle Right ventricular chamber dimension is normal. Left Atria Left atrial chamber dimension is mildly enlarged. Right Atria Right atrial chamber dimension is normal. Aortic Valve The aortic valve is trileaflet. There is mild aortic valve sclerosis. There is no aortic valve stenosis. Pulmonic Valve The pulmonic valve is not well visualized. Mitral Valve The mitral valve has normal leaflets. There is trace mitral valve regurgitation. Tricuspid Valve The tricuspid valve leaflets are normal. Pericardium/Pleural The pericardium appears normal. Aorta The aortic root size at the sinus of Valsalva is normal. Left Ventricular Outflow Tract Name Value Normal LVOT 2D LVOT Diameter 1.97 cm LVOT Doppler LVOT Peak Gradient 8 mmHg LVOT Mean Gradient 5 mmHg LVOT VTI 29.22 cm LVOT VTI/AV VTI Ratio 0.72 LVOT Stroke Volume 88.94 ml LVOT CO 19.75 l/min LVOT CI 7.92 L/min/m2 Pulmonic Valve Name Value Normal PV Doppler
[2022-12-27] MEDS: LORazepam INJ (*CRX) 2 MG/ML VIAL 0.5 MG IV PUSH (00:18)
[2022-12-27] MEDS: SODIUM CHLORIDE 0.9% IV 1,000 ML 80 ML IV CONT (03:37)
[2022-12-27 04:01] LABS: Basophils Absolute Auto 0.1 K/mm3 (0.0-0.1); Basophils Percent Auto 0.4 % (0.2-1.2); Hematocrit 37.7 % (37.0-47.0); Hemoglobin 12.1 g/dL (12.0-15.0); Immature Granulocyte Absolute 0.23 K/mm3 (0.00-0.031); Immature Granulocyte Percent A 0.8 % (0-0.5); Lymphocytes Absolute Auto 1.68 K/mm3 (0.9-3.2); Lymphocytes Percent Auto 5.7 % (18.3-44.2); Mean Corpuscular HGB Conc 32.1 g/dl (32-36); Mean Corpuscular Hemoglobin 30.7 pg (26-34); Mean Corpuscular Volume 95.7 fl (80-100); Mean Platelet Volume 12.3 fl (7.4-10.4); Monocytes Absolute Auto 2.6 K/mm3 (0.1-0.6); Monocytes Percent Auto 8.7 % (2.6-8.5); Neutrophils Absolute Auto 24.9 K/mm3 (1.3-6.7); Neutrophils Percent Auto 84.4 % (45.5-73.1); Platelet Count Result 71 k/mm3 (150-375); Red Blood Count 3.94 M/mm3 (4.2-5.4); White Blood Count 29.5 K/mm3 (4.5-10.0)
[2022-12-27 04:12] LABS: Alanine Aminotransferase 34 U/L (6-35); Alkaline Phosphatase 169 U/L (38-126); Anion Gap 6 mmol/L (8-16); Aspartate Amino Transferase 77 U/L (14-36); Bilirubin,Total 1.1 mg/dL (0.2-1.3); Blood Urea Nitrogen 44 mg/dL (7-17); Carbon Dioxide 29 mmol/L (22-30); Chloride 106 mmol/L (98-107); Estimated CRCL calculation 34 ml/min; Estimated Glomerular Filt Rate 36; Glucose 139 mg/dL (65-110); Potassium 2.9 mmol/L (3.4-5.0); Sodium 141 mmol/L (137-145)
[2022-12-27] MEDS: LEVOTHYROXINE SODIUM INJ 100 MCG/5 ML VIAL 50 MCG IV PUSH (07:17)
--- NOTE | 2022-12-27 08:59 | PM.IMPN ---
Progress Note: A&P Assessment and Plan (1) Acute metabolic encephalopathy: Code(s): G93.41 - Metabolic encephalopathy Status: Acute Assessment and Plan: Improving, 2/2 sepsis from pyelonephritis and cystitis with probable ESBL, GNB in her blood cultures, cont invanz and f/u cx results (2) Acute hypokalemia: Code(s): E87.6 - Hypokalemia Status: Acute Assessment and Plan: replete and recheck (3) Acute UTI: Code(s): N39.0 - Urinary tract infection, site not specified Status: Acute Assessment and Plan: as above (4) Acute kidney injury: Code(s): N17.9 - Acute kidney failure, unspecified Status: Acute Assessment and Plan: renal US WNL improving with IVF, monitor (5) Anemia: Code(s): D64.9 - Anemia, unspecified Status: Acute Assessment and Plan: stable, monitor (6) Back pain: Code(s): M54.9 - Dorsalgia, unspecified Status: Acute Assessment and Plan: lidoderm patch, tylenol, fentantyl as BP allows (7) CHF (congestive heart failure): Code(s): I50.9 - Heart failure, unspecified Status: Acute Assessment and Plan: hypovolemic for now, monitor volume status and restart meds as appropriate (8) Elevated troponin: Code(s): R77.8 - Other specified abnormalities of plasma proteins Status: Acute Assessment and Plan: stable (9) GERD (gastroesophageal reflux disease): Qualifiers: Esophagitis presence: without esophagitis Qualified Code(s): K21.9 - Gastro-esophageal reflux disease without esophagitis Code(s): K21.9 - Gastro-esophageal reflux disease without esophagitis Status: Chronic Assessment and Plan: PPI (10) Hypertension: Code(s): I10 - Essential (primary) hypertension Status: Acute Assessment and Plan: Holding antihypertensive medication at this time due to her low blood pressure (11) Hypothyroidism (acquired): Code(s): E03.9 - Hypothyroidism, unspecified Status: Chronic Assessment and Plan: TSH WNL, cont home synthroid (12) Seizure disorder: Code(s): G40.909 - Epilepsy, unspecified, not intractable, without status epilepticus Status: Chronic Assessment and Plan: cont dilantin (13) DM2 (diabetes mellitus, type 2): Code(s): E11.9 - Type 2 diabetes mellitus without complications Status: Acute Assessment and Plan: a1c 5.2, d/c accuchecks, regular diet Plan DVT prophylaxis with Lovenox GI prophylaxis with PPI Code status DNR Subjective Date/time seen: 12/27/22 08:59 Interval history: No overnight events noted. No chest pain or shortness of breath. No nausea, vomiting or diarrhea. No fevers or chills. Patient feels like her back is really bothering her and she feels quite ill and weak. Review of Systems Review of Systems: ROS unobtainable: Yes unobtainable due to mental status Exam Narrative: General: In acute distress 2/2 pain, pain med pending and nursing staff to position patient in bed differently HEENT: Atraumatic, normocephalic, mucous membranes dry and cracked scabs noted on lips CV: Regular rate and rhythm, S1, S2 Lungs: Somewhat diminished, faint crackles at bases, no wheeze or rhonchi noted Abdomen: Soft, nontender, nondistended Extremities: Normal to inspection Skin: No rashes noted, no lesions or wounds seen Psych: Unable to assess Objective Data Vital Signs Vital Signs: Vital Signs - 24 hr 12/26/22 10:08 12/26/22 11:05 12/26/22 11:00 Temperature 100.8 F H Pulse Rate 117 H 113 H Respiratory Rate 21 H 20 18 Blood Pressure 91/72 L 100/72 Pulse Oximetry 98 94 98 Oxygen Delivery Room Air Oxygen Flow Rate 12/26/22 11:36 12/26/22 11:44 12/26/22 11:45 Temperature 101.6 F H Pulse Rate 94 90 89 Respiratory Rate 12 16 16 Blood Pressure 66/34 L 67/30 L Pulse Oximetry 87 L 95 94 Oxygen Delivery
[2022-12-27 09:46] LABS: Hematocrit 34.5 % (37.0-47.0); Immature Platelet Fraction Pct 8.9 % (0.9-11.2); Mean Corpuscular HGB Conc 31.9 g/dl (32-36); Mean Corpuscular Hemoglobin 30.9 pg (26-34); Mean Corpuscular Volume 96.9 fl (80-100); Mean Platelet Volume 12.6 fl (7.4-10.4); Platelet Count Result 65 k/mm3 (150-375); Red Blood Count 3.56 M/mm3 (4.2-5.4); White Blood Count 23.1 K/mm3 (4.5-10.0)
[2022-12-27] MEDS: LIDOCAINE 5% PATCH 1 PATCH TRANSDERM (09:55)
[2022-12-27] MEDS: ENOXAPARIN 40 MG/0.4 ML SYRINGE SUB-Q (09:55)
[2022-12-27] MEDS: PANTOPRAZOLE SODIUM IV 40 MG VIAL IV PUSH ×2 (09:56→21:05)
[2022-12-27 10:05] LABS: Alanine Aminotransferase 32 U/L (6-35); Albumin Level 2.9 g/dL (3.5-5.1); Alkaline Phosphatase 138 U/L (38-126); Anion Gap 6 mmol/L (8-16); Aspartate Amino Transferase 89 U/L (14-36); Bilirubin,Total 1.2 mg/dL (0.2-1.3); Blood Urea Nitrogen 47 mg/dL (7-17); Calcium 7.6 mg/dL (8.4-10.2); Carbon Dioxide 26 mmol/L (22-30); Chloride 104 mmol/L (98-107); Estimated CRCL calculation 37 ml/min; Estimated Glomerular Filt Rate 39; Glucose 116 mg/dL (65-110); Potassium 2.9 mmol/L (3.4-5.0); Sodium 136 mmol/L (137-145)
[2022-12-27 10:14] LABS: Band Neutrophils Percent 20 % (0-6); Lymphocytes Absolute Manual 1.38 K/mm3 (1.1-4.5); Metamyelocytes Percent 1 %; Monocytes Absolute Manual 0.92 K/mm3 (0.1-0.90); Monocytes Percent Manual 4 % (3-9); Neutrophils Absolute Manual 20.55 K/mm3 (1.7-7.2); Neutrophils Percent Manual 69 % (46-73); Platelet Estimate Decreased (Adequate); Total Cells Counted 100
[2022-12-27 10:15] LABS: Atypical Lymphocytes Present; Poikilocytosis 1+ (NORMAL); Schistocytes None Seen (NORMAL)
[2022-12-27 11:36] LABS: Glucose Point of Care 116 mg/dl (65-105)
[2022-12-27] MEDS: PERFLUTREN LIPID MICROSPHERES 1.5 ML VIAL DILUTED TO 10 ML TOTAL VOLUME IV PUSH (14:25)
[2022-12-27] MEDS: POTASSIUM CHLORIDE 20 MEQ TABLET 40 MEQ PO (14:55)
[2022-12-27] MEDS: POTASSIUM CHLORIDE INJ 40 MEQ in SODIUM CHLORIDE 0.9% IV 500 ML 130 MEQ IVPB (14:55)
[2022-12-27 15:58] LABS: Hemoglobin A1C 4.5 % (<5.7)
[2022-12-27 16:33] LABS: IFOB Positive Control Positive; Immunochemical Fecal Occult Bl Positive (N)
[2022-12-27 16:35] LABS: Glucose Point of Care 130 mg/dl (65-105)
[2022-12-27] MEDS: ACETAMINOPHEN 325 MG TABLET 650 MG PO (16:42)
[2022-12-28] VITALS (16 sets, daily range): BP systolic 102–146; BP diastolic 43–72; PULSE 66–97; RESP 16–21; TEMP 36.3–37; O2SAT 1–99
[2022-12-28] MEDS: fentaNYL CITRATE INJ (*CRX) 100 MCG/2 ML VIAL 12.5 MCG IV PUSH (01:56)
[2022-12-28] MEDS: ACETAMINOPHEN 325 MG TABLET 650 MG PO ×2 (03:46→11:26)
[2022-12-28 03:53] LABS: Basophils Absolute Auto 0.1 K/mm3 (0.0-0.1); Basophils Percent Auto 0.4 % (0.2-1.2); Hematocrit 37.8 % (37.0-47.0); Hemoglobin 12.1 g/dL (12.0-15.0); Immature Granulocyte Absolute 0.16 K/mm3 (0.00-0.031); Immature Granulocyte Percent A 0.8 % (0-0.5); Immature Platelet Fraction Pct 10.8 % (0.9-11.2); Lymphocytes Percent Auto 7.5 % (18.3-44.2); Mean Corpuscular Hemoglobin 30.3 pg (26-34); Mean Corpuscular Volume 94.7 fl (80-100); Mean Platelet Volume 12.7 fl (7.4-10.4); Monocytes Absolute Auto 1.6 K/mm3 (0.1-0.6); Monocytes Percent Auto 7.4 % (2.6-8.5); Neutrophils Absolute Auto 17.9 K/mm3 (1.3-6.7); Neutrophils Percent Auto 83.9 % (45.5-73.1); Platelet Count Result 59 k/mm3 (150-375); Red Blood Count 3.99 M/mm3 (4.2-5.4); Red Cell Distribution Width 15.1 % (11.5-14.5); White Blood Count 21.3 K/mm3 (4.5-10.0)
[2022-12-28 04:08] LABS: Alanine Aminotransferase 32 U/L (6-35); Albumin Level 3.4 g/dL (3.5-5.1); Alkaline Phosphatase 172 U/L (38-126); Anion Gap 8 mmol/L (8-16); Aspartate Amino Transferase 77 U/L (14-36); Bilirubin,Total 1.1 mg/dL (0.2-1.3); Blood Urea Nitrogen 48 mg/dL (7-17); Calcium 8.1 mg/dL (8.4-10.2); Carbon Dioxide 26 mmol/L (22-30); Chloride 101 mmol/L (98-107); Estimated CRCL calculation 38 ml/min; Estimated Glomerular Filt Rate 39; Glucose 102 mg/dL (65-110); Potassium 3.4 mmol/L (3.4-5.0); Sodium 135 mmol/L (137-145)
[2022-12-28] MEDS: LEVOTHYROXINE SODIUM INJ 100 MCG/5 ML VIAL 50 MCG IV PUSH (06:32)
[2022-12-28] MEDS: ENOXAPARIN 40 MG/0.4 ML SYRINGE SUB-Q (10:40)
[2022-12-28] MEDS: LIDOCAINE 5% PATCH 1 PATCH TRANSDERM (10:40)
[2022-12-28] MEDS: MENTHOL 10% / METHYL SALICYLATE 15% 57 GM TUBE 1 APPLIC TOPICAL (10:40)
[2022-12-28] MEDS: PANTOPRAZOLE SODIUM IV 40 MG VIAL IV PUSH ×2 (10:40→20:17)
[2022-12-28 11:55] LABS: Glucose Point of Care 117 mg/dl (65-105)
--- NOTE | 2022-12-28 16:27 | PM.IMPN ---
Progress Note: A&P Assessment and Plan (1) Sepsis: Code(s): A41.9 - Sepsis, unspecified organism Status: Acute Assessment and Plan: blood cultures positive with ecoli, UTI source, repeat bld cx pending (2) Acute UTI: Code(s): N39.0 - Urinary tract infection, site not specified Status: Acute Assessment and Plan: invanz for esbl, improving leukocytosis, monitor h/o cdif, monitor for diarrhea closely (3) Acute hypokalemia: Code(s): E87.6 - Hypokalemia Status: Acute Assessment and Plan: resolved, monitor (4) Acute metabolic encephalopathy: Code(s): G93.41 - Metabolic encephalopathy Status: Acute Assessment and Plan: Resolved (5) Acute kidney injury: Code(s): N17.9 - Acute kidney failure, unspecified Status: Acute Assessment and Plan: renal US WNL improving with IVF, monitor stable today at 1.3 (6) Anemia: Code(s): D64.9 - Anemia, unspecified Status: Acute Assessment and Plan: stable, monitor (7) Back pain: Code(s): M54.9 - Dorsalgia, unspecified Status: Acute Assessment and Plan: lidoderm patch, tylenol, fentantyl as BP allows (8) CHF (congestive heart failure): Code(s): I50.9 - Heart failure, unspecified Status: Acute Assessment and Plan: hypovolemic for now, monitor volume status and restart meds as appropriate (9) Elevated troponin: Code(s): R77.8 - Other specified abnormalities of plasma proteins Status: Acute Assessment and Plan: stable (10) GERD (gastroesophageal reflux disease): Qualifiers: Esophagitis presence: without esophagitis Qualified Code(s): K21.9 - Gastro-esophageal reflux disease without esophagitis Code(s): K21.9 - Gastro-esophageal reflux disease without esophagitis Status: Chronic Assessment and Plan: PPI (11) Hypertension: Code(s): I10 - Essential (primary) hypertension Status: Acute Assessment and Plan: Holding antihypertensive medication at this time due to her low blood pressure (12) Hypothyroidism (acquired): Code(s): E03.9 - Hypothyroidism, unspecified Status: Chronic Assessment and Plan: TSH WNL, cont home synthroid (13) Seizure disorder: Code(s): G40.909 - Epilepsy, unspecified, not intractable, without status epilepticus Status: Chronic Assessment and Plan: cont dilantin (14) DM2 (diabetes mellitus, type 2): Code(s): E11.9 - Type 2 diabetes mellitus without complications Status: Acute Assessment and Plan: a1c 5.2, d/c accuchecks, regular diet Plan DVT prophylaxis with Lovenox GI prophylaxis with PPI Code status DNR Subjective Date/time seen: 12/28/22 16:27 Interval history: No overnight events noted. No chest pain or shortness of breath. No nausea, vomiting or diarrhea. No fevers or chills. Patient feels much better than yesterday. Review of Systems Review of Systems: 12 point review of systems was assessed and was negative except as noted in the HPI Exam Narrative: General: No acute distress, alert and oriented per baseline HEENT: Atraumatic, normocephalic, mucous membranes dry CV: Regular rate and rhythm, S1, S2 Lungs: Clear to auscultation bilaterally Abdomen: Soft, nontender, nondistended Extremities: Normal to inspection Skin: No rashes noted, no lesions or wounds seen Psych: Euthymic, appropriate affect Objective Data Vital Signs Vital Signs: Vital Signs - 24 hr 12/27/22 16:42 12/27/22 18:00 12/27/22 20:00 Temperature 100.2 F H 97.8 F Pulse Rate 90 75 Respiratory Rate 20 Blood Pressure 112/47 L Pulse Oximetry 96 Oxygen Delivery Oxygen Flow Rate 12/27/22 20:00 12/27/22 22:00 12/27/22 20:00 Temperature Pulse Rate 85 76 Respiratory Rate Blood Pressure Pulse Oximetry 96 Oxygen Delivery Nasal Cannula Oxyge
[2022-12-28 17:43] LABS: Glucose Point of Care 108 mg/dl (65-105)
[2022-12-29] VITALS (11 sets, daily range): BP systolic 121–155; BP diastolic 42–62; PULSE 63–98; RESP 14–20; TEMP 36.1–36.9; O2SAT 95–98
[2022-12-29 01:26] LABS: Glucose Point of Care 114 mg/dl (65-105)
[2022-12-29 05:15] LABS: Basophils Percent Auto 0.2 % (0.2-1.2); Eosinophils Absolute Auto 0.2 K/mm3 (0-0.3); Eosinophils Percent Auto 1.2 % (0-4.4); Hematocrit 37.2 % (37.0-47.0); Hemoglobin 12.1 g/dL (12.0-15.0); Immature Granulocyte Absolute 0.05 K/mm3 (0.00-0.031); Immature Granulocyte Percent A 0.4 % (0-0.5); Immature Platelet Fraction Pct 10.5 % (0.9-11.2); Lymphocytes Absolute Auto 1.51 K/mm3 (0.9-3.2); Lymphocytes Percent Auto 12.2 % (18.3-44.2); Mean Corpuscular HGB Conc 32.5 g/dl (32-36); Mean Corpuscular Volume 95.4 fl (80-100); Mean Platelet Volume 13.2 fl (7.4-10.4); Monocytes Absolute Auto 1.2 K/mm3 (0.1-0.6); Monocytes Percent Auto 9.6 % (2.6-8.5); Neutrophils Absolute Auto 9.4 K/mm3 (1.3-6.7); Neutrophils Percent Auto 76.4 % (45.5-73.1); Platelet Count Result 57 k/mm3 (150-375); Red Cell Distribution Width 15.1 % (11.5-14.5); White Blood Count 12.4 K/mm3 (4.5-10.0)
[2022-12-29 05:25] LABS: Potassium 3.1 mmol/L (3.4-5.0)
[2022-12-29 05:29] LABS: Alanine Aminotransferase 26 U/L (6-35); Albumin Level 2.7 g/dL (3.5-5.1); Alkaline Phosphatase 135 U/L (38-126); Anion Gap 5 mmol/L (8-16); Aspartate Amino Transferase 60 U/L (14-36); Blood Urea Nitrogen 44 mg/dL (7-17); Calcium 7.9 mg/dL (8.4-10.2); Carbon Dioxide 26 mmol/L (22-30); Chloride 104 mmol/L (98-107); Estimated CRCL calculation 41 ml/min; Estimated Glomerular Filt Rate 43; Glucose 94 mg/dL (65-110); Sodium 135 mmol/L (137-145)
[2022-12-29] MEDS: LEVOTHYROXINE SODIUM INJ 100 MCG/5 ML VIAL 50 MCG IV PUSH (06:29)
[2022-12-29] MEDS: ENOXAPARIN 40 MG/0.4 ML SYRINGE SUB-Q (08:40)
[2022-12-29] MEDS: PANTOPRAZOLE SODIUM IV 40 MG VIAL IV PUSH ×2 (08:40→20:27)
[2022-12-29] MEDS: LIDOCAINE 5% PATCH 1 PATCH TRANSDERM (08:41)
--- NOTE | 2022-12-29 09:38 | PM.IMPN ---
Progress Note: A&P Assessment and Plan (1) Sepsis: Code(s): A41.9 - Sepsis, unspecified organism Status: Acute Assessment and Plan: Blood cultures positive with ecoli-ESBL, UTI source, repeat bld cx pending, NGTD, sens to invanz (2) Acute UTI: Code(s): N39.0 - Urinary tract infection, site not specified Status: Acute Assessment and Plan: invanz for esbl, improving leukocytosis, monitor h/o cdif, monitor for diarrhea closely (3) Acute hypokalemia: Code(s): E87.6 - Hypokalemia Status: Acute Assessment and Plan: replete and recheck tomorrow, restart aldactone (4) Acute metabolic encephalopathy: Code(s): G93.41 - Metabolic encephalopathy Status: Acute Assessment and Plan: Resolved (5) Acute kidney injury: Code(s): N17.9 - Acute kidney failure, unspecified Status: Acute Assessment and Plan: renal US WNL improving with IVF, monitor cont to improve, down to 1.2 today (6) Anemia: Code(s): D64.9 - Anemia, unspecified Status: Acute Assessment and Plan: stable, hgb 12, monitor (7) Back pain: Code(s): M54.9 - Dorsalgia, unspecified Status: Acute Assessment and Plan: lidoderm patch, tylenol, fentantyl as needed (8) CHF (congestive heart failure): Code(s): I50.9 - Heart failure, unspecified Status: Acute Assessment and Plan: euvolemic, restart home meds, monitor volume status closely may start having hypervolemia, restart oral diuresis tomorrow am (9) Elevated troponin: Code(s): R77.8 - Other specified abnormalities of plasma proteins Status: Acute Assessment and Plan: stable (10) GERD (gastroesophageal reflux disease): Qualifiers: Esophagitis presence: without esophagitis Qualified Code(s): K21.9 - Gastro-esophageal reflux disease without esophagitis Code(s): K21.9 - Gastro-esophageal reflux disease without esophagitis Status: Chronic Assessment and Plan: PPI (11) Hypertension: Code(s): I10 - Essential (primary) hypertension Status: Acute Assessment and Plan: restart home jardiance and aldactone (12) Hypothyroidism (acquired): Code(s): E03.9 - Hypothyroidism, unspecified Status: Chronic Assessment and Plan: TSH WNL, cont home synthroid (13) Seizure disorder: Code(s): G40.909 - Epilepsy, unspecified, not intractable, without status epilepticus Status: Chronic Assessment and Plan: cont dilantin (14) DM2 (diabetes mellitus, type 2): Code(s): E11.9 - Type 2 diabetes mellitus without complications Status: Acute Assessment and Plan: a1c 5.2, d/c accuchecks, regular diet Plan DVT prophylaxis with SCDs, lovenox held d/t dropping platelets GI prophylaxis with PPI Code status DNR Subjective Date/time seen: 12/29/22 09:38 Interval history: No overnight events noted. No chest pain or shortness of breath. No nausea, vomiting or diarrhea. No fevers or chills. She is complaining of a cough for the last month, worse now that she is here and when laying flat. Review of Systems Review of Systems: 12 point review of systems was assessed and was negative except as noted in the HPI Exam Narrative: General: No acute distress, alert and oriented per baseline HEENT: Atraumatic, normocephalic, mucous membranes dry CV: Regular rate and rhythm, S1, S2 Lungs: Somewhat diminished at bases, no wheeze, fine rales noted Abdomen: Soft, nontender, nondistended Extremities: Normal to inspection Skin: No rashes noted, no lesions or wounds seen Psych: Euthymic, appropriate affect Objective Data Vital Signs Vital Signs: Vital Signs - 24 hr 12/28/22 12:00 12/28/22 12:00 12/28/22 14:00 Temperature 98.2 F Pulse Rate 78 86 70 Respiratory Rate 16 Blood Pressure 102/43 L Pulse Oximetry 97 O
[2022-12-29] MEDS: CHOLECALCIFEROL 1,000 UNITS TABLET 3000 UNITS PO (11:23)
[2022-12-29] MEDS: ASPIRIN 81 MG ENTERIC TABLET PO (11:23)
[2022-12-29] MEDS: CALCIUM CARBONATE (OSCAL) 500 MG TABLET PO ×2 (11:24→16:44)
[2022-12-29] MEDS: ASCORBIC ACID 500 MG TABLET PO (11:24)
[2022-12-29] MEDS: PHENYTOIN SODIUM 100 MG EXTENDED RELEASE CAP 200 MG PO ×2 (11:24→20:28)
[2022-12-29] MEDS: GABAPENTIN 300 MG CAPSULE PO ×2 (11:24→16:44)
[2022-12-29] MEDS: FERROUS SULFATE 324 MG TABLET PO (11:24)
[2022-12-29] MEDS: EMPAGLIFLOZIN 10 MG TABLET PO (11:25)
[2022-12-29] MEDS: LORATADINE 10 MG TABLET PO (11:25)
[2022-12-29] MEDS: SPIRONOLACTONE 25 MG TABLET PO (11:25)
[2022-12-29] MEDS: THERAPEUTIC MULTIVITAMINS/MINERALS TAB (*BKC) 1 TABLET PO (11:25)
[2022-12-29] MEDS: POTASSIUM CHLORIDE 20 MEQ TABLET 40 MEQ PO (11:29)
[2022-12-29] MEDS: ACETAMINOPHEN 325 MG TABLET 650 MG PO (16:51)
[2022-12-29] MEDS: ERTAPENEM 1 GM/NS 50 ML 1 GM/50 ML BAG IVPB (20:26)
[2022-12-29] MEDS: GABAPENTIN 300 MG CAPSULE 600 MG PO (20:27)
[2022-12-29] MEDS: ATORVASTATIN 40 MG TABLET 80 MG PO (20:27)
[2022-12-29] MEDS: EZETIMIBE 10 MG TABLET PO (20:27)
--- NOTE | 2022-12-29 22:05 | PC.NURSE ---
This patient, Delia Lopez, was transferred to [facility] on 12/29/22 at 2100. Personal belongings sent with patient. Report given to Merary KAUR. Appropriate documentation sent with patient.
[2022-12-30 06:00] VITALS: BP 130/72; PULSE 75; RESP 16; TEMP 36.4; O2SAT 91
[2022-12-30 06:32] LABS: Hematocrit 35.8 % (37.0-47.0); Hemoglobin 11.5 g/dL (12.0-15.0); Mean Corpuscular HGB Conc 32.1 g/dl (32-36); Mean Corpuscular Hemoglobin 30.8 pg (26-34); Mean Platelet Volume 12.3 fl (7.4-10.4); Platelet Count Result 58 k/mm3 (150-375); Red Blood Count 3.73 M/mm3 (4.2-5.4); Red Cell Distribution Width 14.9 % (11.5-14.5); White Blood Count 8.7 K/mm3 (4.5-10.0)
[2022-12-30] MEDS: LEVOTHYROXINE SODIUM 100 MCG TABLET PO (06:33)
[2022-12-30 06:43] LABS: Alanine Aminotransferase 23 U/L (6-35); Albumin Level 2.3 g/dL (3.5-5.1); Alkaline Phosphatase 127 U/L (38-126); Anion Gap 3 mmol/L (8-16); Aspartate Amino Transferase 52 U/L (14-36); Bilirubin,Total 0.8 mg/dL (0.2-1.3); Blood Urea Nitrogen 40 mg/dL (7-17); Calcium 7.6 mg/dL (8.4-10.2); Carbon Dioxide 26 mmol/L (22-30); Chloride 106 mmol/L (98-107); Estimated CRCL calculation 53 ml/min; Estimated Glomerular Filt Rate 60; Glucose 86 mg/dL (65-110); Potassium 3.3 mmol/L (3.4-5.0); Sodium 135 mmol/L (137-145)
[2022-12-30 08:00] VITALS: PULSE 75; RESP 16; O2SAT 97
[2022-12-30 08:01] LABS: Band Neutrophils Percent 29 % (0-6); Eosinophils Absolute Manual 0.08 K/mm3 (0.02-0.5); Eosinophils Percent Manual 1 % (0-4); Lymphocytes Absolute Manual 0.52 K/mm3 (1.1-4.5); Monocytes Absolute Manual 0.34 K/mm3 (0.1-0.90); Monocytes Percent Manual 4 % (3-9); Neutrophils Absolute Manual 7.74 K/mm3 (1.7-7.2); Neutrophils Percent Manual 60 % (46-73); Platelet Estimate Decreased (Adequate); Total Cells Counted 100
[2022-12-30 08:02] LABS: Burr Cells 1+ (NORMAL); Ovalocytes 1+ (NORMAL); Schistocytes None Seen (NORMAL)
--- NOTE | 2022-12-30 08:16 | P.CDI_ITS ---
CDI Query Clarification Request chronic diastolic heart failure <Paola De Oliveira DO - Last Filed: 12/30/22 11:38> Clarified Diagnosis Clarified Diagnosis: CHF noted in the assessment and plan. Pt receiving Furosemide 40 mg PO daily. Pt takes furosemide as a home medication. Upon arrival Pt requiring oxygen per nasal cannula. PT with complaints of shortness of breath with exertion. Edema documented in the chart. Please specify type and acuity of heart failure if known. * Acute * Chronic * Acute on Chronic * Unknown * Systolic * Diastolic * Combined Systolic and Diastolic * Unknown <Thania Dubon RN - Last Filed: 12/30/22 08:22>
[2022-12-30] MEDS: CHOLECALCIFEROL 1,000 UNITS TABLET 3000 UNITS PO (09:40)
[2022-12-30] MEDS: SPIRONOLACTONE 25 MG TABLET PO (09:40)
[2022-12-30] MEDS: THERAPEUTIC MULTIVITAMINS/MINERALS TAB (*BKC) 1 TABLET PO (09:40)
[2022-12-30] MEDS: PHENYTOIN SODIUM 100 MG EXTENDED RELEASE CAP 200 MG PO ×2 (09:41→20:49)
[2022-12-30] MEDS: GABAPENTIN 300 MG CAPSULE PO ×2 (09:41→18:12)
[2022-12-30] MEDS: FERROUS SULFATE 324 MG TABLET PO (09:41)
[2022-12-30] MEDS: ASPIRIN 81 MG ENTERIC TABLET PO (09:41)
[2022-12-30] MEDS: CALCIUM CARBONATE (OSCAL) 500 MG TABLET PO ×2 (09:41→18:12)
[2022-12-30] MEDS: LORATADINE 10 MG TABLET PO (09:42)
[2022-12-30] MEDS: ASCORBIC ACID 500 MG TABLET PO (09:42)
[2022-12-30] MEDS: PANTOPRAZOLE SODIUM IV 40 MG VIAL IV PUSH ×2 (09:42→20:50)
[2022-12-30] MEDS: FUROSEMIDE 40 MG TABLET PO (09:42)
[2022-12-30] MEDS: EMPAGLIFLOZIN 10 MG TABLET PO (09:42)
[2022-12-30] MEDS: LIDOCAINE 5% PATCH 1 PATCH TRANSDERM (09:43)
[2022-12-30 11:02] VITALS: O2SAT 97
--- NOTE | 2022-12-30 11:14 | PM.IMPN ---
Progress Note: A&P Assessment and Plan (1) Sepsis: Code(s): A41.9 - Sepsis, unspecified organism Status: Acute Assessment and Plan: Sepsis from ESBL UTI, also had ESBL UTI in May 2022, then another ESBL UTI with associated transient bacteremia in August 2022, initial blood and urine cultures this admission were positive for ESBL, repeat blood cultures negative growth to date, would favor a longer antibiotic course due to the recurrent ESBL UTI as well as 2 episodes of transient bacteremia from the same organism 12/30: Initially started on imipenem on December 26, de-escalated to ertapenem December 29, leukocytosis resolved, today is day 5 of antibiotics, would favor a 14 day course of IV ertapenem with an end date of January 09. Could consider abx prophylaxis with Macrobid 100 mg every other day? Possibly vaginal estrogen therapy? Will consult Urology prior to discharge due to recurrent severe ESBL UTI with bacteremia infections. (2) Acute UTI: Code(s): N39.0 - Urinary tract infection, site not specified Status: Acute Assessment and Plan: Ertapenem for esbl, improving leukocytosis, monitor h/o cdif, monitor for diarrhea closely, C diff test pending (3) Acute hypokalemia: Code(s): E87.6 - Hypokalemia Status: Acute Assessment and Plan: Still little low after restarting Aldactone, will replete today and recheck tomorrow (4) Acute metabolic encephalopathy: Code(s): G93.41 - Metabolic encephalopathy Status: Acute Assessment and Plan: Resolved (5) Acute kidney injury: Code(s): N17.9 - Acute kidney failure, unspecified Status: Acute Assessment and Plan: Renal ultrasound within normal limits, continues to improve on Lasix 40 mg daily orally and Aldactone 25 mg daily Metolazone still on hold at this time (6) Anemia: Code(s): D64.9 - Anemia, unspecified Status: Acute Assessment and Plan: Stable, monitor, continue iron supplementation, likely secondary to gastric and duodenal ulcers, these were cauterized via EGD on June 17, continue Protonix daily, was supposed to get repeat EGD in the fall, she did not follow up, will refer for this at this discharge (7) Back pain: Code(s): M54.9 - Dorsalgia, unspecified Status: Acute Assessment and Plan: Chronic, lidoderm patch, tylenol, fentantyl as needed (8) CHF (congestive heart failure): Code(s): I50.9 - Heart failure, unspecified Status: Acute Assessment and Plan: Appears euvolemic at this time Continue aspirin, statin, Jardiance, Lasix, Aldactone (9) Elevated troponin: Code(s): R77.8 - Other specified abnormalities of plasma proteins Status: Acute Assessment and Plan: stable (10) GERD (gastroesophageal reflux disease): Qualifiers: Esophagitis presence: without esophagitis Qualified Code(s): K21.9 - Gastro-esophageal reflux disease without esophagitis Code(s): K21.9 - Gastro-esophageal reflux disease without esophagitis Status: Chronic Assessment and Plan: PPI, will need repeat EGD outpatient (11) Hypertension: Code(s): I10 - Essential (primary) hypertension Status: Acute Assessment and Plan: restart home jardiance and aldactone (12) Hypothyroidism (acquired): Code(s): E03.9 - Hypothyroidism, unspecified Status: Chronic Assessment and Plan: TSH WNL, cont home synthroid (13) Seizure disorder: Code(s): G40.909 - Epilepsy, unspecified, not intractable, without status epilepticus Status: Chronic Assessment and Plan: cont dilantin (14) DM2 (diabetes mellitus, type 2): Code(s): E11.9 - Type 2 diabetes mellitus without complications Status: Acute Assessment and Plan: a1c 5.2, d/c accuchecks, regular diet (15) Thrombocytopenia: Code
[2022-12-30] MEDS: FLUTICASONE PROPIONATE 0.05% NA SPR 16 GM BTL (*BKC) 2 SPRAY NASAL (11:55)
[2022-12-30] MEDS: POTASSIUM CHLORIDE 20 MEQ TABLET 40 MEQ PO (11:55)
[2022-12-30 14:00] VITALS: BP 103/30; PULSE 78; RESP 18; TEMP 36.5; O2SAT 97
--- NOTE | 2022-12-30 16:02 | WPDURCON ---
Assessment and Plan Assessment and plan (1) UTI (urinary tract infection): Code(s): N39.0 - Urinary tract infection, site not specified Status: Acute Assessment and Plan: Continue IV antibiotics, noted improvement with labs, patient states she has had a much more peaceful and restful day today. (2) Sepsis: Code(s): A41.9 - Sepsis, unspecified organism Status: Acute Assessment and Plan: Unclear of etiology for re-occurrence, possible causes: chronic dehydration, incontinence with chronic wet diapers, incomplete emptying. Will get a bladder scan to ensure retention is not present causing overflow incontinence and chronic UTI. Call with results of bladder scan if >300cc and place bailey catheter. (3) Acute pyelonephritis: Code(s): N10 - Acute pyelonephritis Status: Acute Assessment and Plan: Repeat CT with and without contrast to rule out left renal mass per radiology recommendations now that creatinine has normalized. (4) Chronic UTI: Code(s): N39.0 - Urinary tract infection, site not specified Status: Acute Assessment and Plan: I suggest once antibiotic treatment has ceased for current infection, she start prophylaxis to prevent furthe infections with Trimethorpim 100mg HS. She is allergic to PCN, therefore Keflex is not a great option and penitentiary Macrobid is not suggested d/t possible pulmonary fibrosis. Urology Consult Note HPI Date Seen: 12/30/22 Time Seen: 16:02 Requesting Physician: Leo Riley MD Primary Care Provider: Alexi Sarah MD Consult Narrative Reason for consult: Chronic UTI/Sepsis Narrative: Delia Lopez is a 82 year old female who was brought to the ER on 12/26/22 for lethargy, mental status changes and fever from the alf where she resides. She has a positive urine and blood culture result from 12/26/22 that grew E-Coli ESBL, but she remains on culture sensitive Ertapenem. She has had an extensive history of septic UTI's and UTI's over the past year. On 01/15/22 and 01/16/22 she grew E-Coli ESBL in her blood and urine, 06/09/22 she grew E-Coli ESBL in the urine only, 06/30/22, E-Coli ESBL urine only and 09/14/22 E-Coli ESBL urine and blood cultures. She had a WBC on admission of 29.5 which is now improved to 8.7, creatinine of 1.40 and now 0.90. A CT scan with contrast was done of the abdomen and pelvis on 12/26/22 showing persistent bladder wall thickening with prominent mucosal hypemia and surrounding inflammatory stranding. It also reveals a couple of new small regions of cortical enhancement at the upper pole left kidney representing pyelonephritis versus a complex cyst versus a possible neoplasm. A WILL was also done on 12/26/22 which was normal. She states she is wheelchair bound and wears diapers which are normally changed q 2 hours. She has incontinence without awareness and doesn't have the urge to urinate on her own. She denies straining to urinate, hematuria or symptoms of a UTI other than weakness and fatigue. Review of Systems Constitutional: Constitutional: Reports fatigue and Reports weakness Cardiovascular: Cardiovascular: Denies chest pain Respiratory: Respiratory: Reports no additional respiratory complaints Gastrointestinal: Gastrointestinal: Denies nausea and Denies vomiting Genitourinary: Genitourinary: Denies hematuria, Denies nocturia, Denies dysuria, Denies pelvic pain, Denies flank pain, Reports urinary incontinence, Denies urinary hesitancy and Denies urinary urgency [facility] Past Medical History Medical History Acute hypokalemia Acute UTI ASHD (arteriosclerotic heart disease) Benign essential hypertension Bilateral carotid artery stenosis CAD (coronary artery disease) Debility DM2 (diabetes mellitus, type 2) Frequent UTI Generalized weakness GERD (gastroesophageal reflux disease) Hyperlipidemia Hypothyroidism (acquired) Low b
[2022-12-30] MEDS: EZETIMIBE 10 MG TABLET PO (20:49)
[2022-12-30] MEDS: ATORVASTATIN 40 MG TABLET 80 MG PO (20:49)
[2022-12-30] MEDS: GABAPENTIN 300 MG CAPSULE 600 MG PO (20:49)
[2022-12-30] MEDS: ERTAPENEM 1 GM/NS 50 ML 1 GM/50 ML BAG IVPB (20:50)
[2022-12-30] MEDS: CARBAMIDE PEROXIDE 6.5% OT SOLN 15 ML BTL 5 DROP EACH EAR (21:30)
[2022-12-30 22:00] VITALS: BP 104/41; PULSE 83; RESP 14; TEMP 36.9; O2SAT 94
[2022-12-31] MEDS: LEVOTHYROXINE SODIUM 100 MCG TABLET PO (05:45)
[2022-12-31] MEDS: guaiFENesin 12 HR 600 MG TABCR PO (05:45)
[2022-12-31 06:00] VITALS: BP 121/42; PULSE 74; RESP 14; TEMP 36.9; O2SAT 97
[2022-12-31 06:10] LABS: Basophils Percent Auto 0.4 % (0.2-1.2); Eosinophils Absolute Auto 0.2 K/mm3 (0-0.3); Hematocrit 35.9 % (37.0-47.0); Hemoglobin 11.5 g/dL (12.0-15.0); Immature Granulocyte Absolute 0.05 K/mm3 (0.00-0.031); Immature Granulocyte Percent A 0.6 % (0-0.5); Immature Platelet Fraction Pct 6.6 % (0.9-11.2); Lymphocytes Absolute Auto 1.74 K/mm3 (0.9-3.2); Lymphocytes Percent Auto 19.4 % (18.3-44.2); Mean Corpuscular Volume 93.7 fl (80-100); Mean Platelet Volume 11.7 fl (7.4-10.4); Monocytes Percent Auto 11.6 % (2.6-8.5); Neutrophils Absolute Auto 5.9 K/mm3 (1.3-6.7); Platelet Count Result 68 k/mm3 (150-375); Red Blood Count 3.83 M/mm3 (4.2-5.4)
[2022-12-31 06:23] LABS: Alanine Aminotransferase 26 U/L (6-35); Albumin Level 2.6 g/dL (3.5-5.1); Alkaline Phosphatase 148 U/L (38-126); Anion Gap 3 mmol/L (8-16); Aspartate Amino Transferase 57 U/L (14-36); Bilirubin,Total 0.7 mg/dL (0.2-1.3); Blood Urea Nitrogen 32 mg/dL (7-17); Calcium 7.8 mg/dL (8.4-10.2); Carbon Dioxide 27 mmol/L (22-30); Chloride 104 mmol/L (98-107); Estimated CRCL calculation 58 ml/min; Estimated Glomerular Filt Rate > 60; Glucose 91 mg/dL (65-110); Potassium 3.9 mmol/L (3.4-5.0); Sodium 134 mmol/L (137-145)
[2022-12-31] MEDS: FLUTICASONE PROPIONATE 0.05% NA SPR 16 GM BTL (*BKC) 2 SPRAY NASAL (08:55)
[2022-12-31] MEDS: SPIRONOLACTONE 25 MG TABLET PO (08:55)
[2022-12-31] MEDS: LORATADINE 10 MG TABLET PO (08:55)
[2022-12-31] MEDS: PHENYTOIN SODIUM 100 MG EXTENDED RELEASE CAP 200 MG PO ×2 (08:55→21:19)
[2022-12-31] MEDS: ASPIRIN 81 MG ENTERIC TABLET PO (08:55)
[2022-12-31] MEDS: GABAPENTIN 300 MG CAPSULE PO ×2 (08:55→16:21)
[2022-12-31] MEDS: PANTOPRAZOLE SODIUM IV 40 MG VIAL IV PUSH ×2 (08:55→21:19)
[2022-12-31] MEDS: EMPAGLIFLOZIN 10 MG TABLET PO (08:55)
[2022-12-31] MEDS: CALCIUM CARBONATE (OSCAL) 500 MG TABLET PO ×2 (08:55→16:21)
[2022-12-31] MEDS: FUROSEMIDE 40 MG TABLET PO (08:55)
[2022-12-31] MEDS: THERAPEUTIC MULTIVITAMINS/MINERALS TAB (*BKC) 1 TABLET PO (08:55)
[2022-12-31] MEDS: ASCORBIC ACID 500 MG TABLET PO (08:55)
[2022-12-31] MEDS: LIDOCAINE 5% PATCH 1 PATCH TRANSDERM (08:55)
[2022-12-31] MEDS: CARBAMIDE PEROXIDE 6.5% OT SOLN 15 ML BTL 5 DROP EACH EAR ×2 (08:55→16:21)
[2022-12-31] MEDS: CHOLECALCIFEROL 1,000 UNITS TABLET 3000 UNITS PO (08:55)
[2022-12-31] MEDS: FERROUS SULFATE 324 MG TABLET PO (08:55)
--- NOTE | 2022-12-31 11:56 | PM.IMPN ---
Progress Note: A&P Assessment and Plan (1) Sepsis: Code(s): A41.9 - Sepsis, unspecified organism Status: Acute Assessment and Plan: Sepsis from ESBL UTI, also had ESBL UTI in May 2022, then another ESBL UTI with associated transient bacteremia in August 2022. Blood and urine cultures this admission are positive for ESBL as well. Repeat blood cultures negative growth to date, would favor a longer antibiotic course due to the recurrent ESBL UTI as well as 2 episodes of transient bacteremia from the same organism Initially started on imipenem on December 26, de-escalated to ertapenem December 29, leukocytosis resolved, today is day 6 of antibiotics, would favor a 14 day course of IV ertapenem with an end date of January 09. Urology consulted and appreciate their input. Plan for CT Abd/Pelvis today. Also plan for Trimethoprim starting on 01/10/23 (2) Acute UTI: Code(s): N39.0 - Urinary tract infection, site not specified Status: Acute Assessment and Plan: UCx and BCx positive for ESBL EColi with similar resistance patterns. On imipenem but changed to Ertapenem now. WBC normal (but still had bandemia 29% yesterday). No fevers. Plan for treatment through 01/09. (3) Acute kidney injury: Code(s): N17.9 - Acute kidney failure, unspecified Status: Acute Assessment and Plan: Cr up to 1.4. Renal ultrasound within normal limits. Cr back down to normal. Tolerating Lasix 40 mg daily orally and Aldactone 25 mg daily. Metolazone still on hold at this time. Follow. CT scan will be with contrast. (4) Anemia: Code(s): D64.9 - Anemia, unspecified Status: Acute Assessment and Plan: Mild anemia noted and likely secondary to gastric and duodenal ulcers; these were cauterized via EGD on June 17. Stable. Monitor. Continue iron supplementation, continue Protonix daily, was supposed to get repeat EGD in the fall, she did not follow up, will refer to GI for this at this discharge (5) Back pain: Code(s): M54.9 - Dorsalgia, unspecified Status: Acute Assessment and Plan: Chronic, lidoderm patch, tylenol, fentantyl as needed (6) CHF (congestive heart failure): Code(s): I50.9 - Heart failure, unspecified Status: Acute Assessment and Plan: Appears euvolemic at this time Continue aspirin, statin, Jardiance, Lasix, Aldactone (7) Hypertension: Code(s): I10 - Essential (primary) hypertension Status: Acute Assessment and Plan: Patient's blood pressure was reviewed on 12/31 Blood pressure remains well controlled. Will continue current medications. (8) Hypothyroidism (acquired): Code(s): E03.9 - Hypothyroidism, unspecified Status: Chronic Assessment and Plan: TSH WNL, cont home synthroid (9) Seizure disorder: Code(s): G40.909 - Epilepsy, unspecified, not intractable, without status epilepticus Status: Chronic Assessment and Plan: Stable. Cont dilantin (10) DM2 (diabetes mellitus, type 2): Code(s): E11.9 - Type 2 diabetes mellitus without complications Status: Acute Assessment and Plan: Diet controlled. A1c 5.2, d/c accuchecks. Continue regular diet (11) Thrombocytopenia: Code(s): D69.6 - Thrombocytopenia, unspecified Status: Acute Assessment and Plan: Recurrent idiopathic thrombocytopenia, stable in the 50-60K the last few days, continue to monitor, hold heparin containing products (12) Cough: Code(s): R05.9 - Cough, unspecified Status: Acute Assessment and Plan: Resolved when laying flat, now with liquids per aid, ST eval showing no concerns Start flonase due to ear pressure and drainage in throat for possible underlying allergic rhinitis (13) Acute hypokalemia: Code(s): E87.6 - Hypokalemia Status: Acute Assessment and Plan: Potassium normal. Follow (14) Acu
[2022-12-31 14:00] VITALS: BP 115/64; PULSE 77; RESP 16; TEMP 37.1; O2SAT 96
--- NOTE | 2022-12-31 15:18 | PC.NURSE ---
On 12/31/22, the student, [ Kathy Maya], provided care and completed [facility] documentation on this patient. I have reviewed the student's documentation and agree with the findings.
[2022-12-31] MEDS: GABAPENTIN 300 MG CAPSULE 600 MG PO (21:19)
[2022-12-31] MEDS: EZETIMIBE 10 MG TABLET PO (21:19)
[2022-12-31] MEDS: ATORVASTATIN 40 MG TABLET 80 MG PO (21:19)
[2022-12-31] MEDS: ERTAPENEM 1 GM/NS 50 ML 1 GM/50 ML BAG IVPB (21:20)
[2022-12-31 22:00] VITALS: BP 114/60; PULSE 75; RESP 17; TEMP 36.8; O2SAT 96
[2023-01-01 06:00] VITALS: BP 112/61; PULSE 73; RESP 18; TEMP 36.9; O2SAT 96
[2023-01-01 06:10] LABS: Basophils Absolute Auto 0.1 K/mm3 (0.0-0.1); Basophils Percent Auto 0.6 % (0.2-1.2); Eosinophils Absolute Auto 0.2 K/mm3 (0-0.3); Eosinophils Percent Auto 1.4 % (0-4.4); Hematocrit 33.7 % (37.0-47.0); Hemoglobin 10.7 g/dL (12.0-15.0); Immature Granulocyte Absolute 0.08 K/mm3 (0.00-0.031); Immature Granulocyte Percent A 0.7 % (0-0.5); Immature Platelet Fraction Pct 6.9 % (0.9-11.2); Lymphocytes Absolute Auto 2.25 K/mm3 (0.9-3.2); Lymphocytes Percent Auto 19.4 % (18.3-44.2); Mean Corpuscular HGB Conc 31.8 g/dl (32-36); Mean Corpuscular Hemoglobin 29.8 pg (26-34); Mean Corpuscular Volume 93.9 fl (80-100); Monocytes Absolute Auto 1.4 K/mm3 (0.1-0.6); Monocytes Percent Auto 11.9 % (2.6-8.5); Neutrophils Absolute Auto 7.7 K/mm3 (1.3-6.7); Platelet Count Result 81 k/mm3 (150-375); Red Blood Count 3.59 M/mm3 (4.2-5.4); Red Cell Distribution Width 14.9 % (11.5-14.5); White Blood Count 11.6 K/mm3 (4.5-10.0)
[2023-01-01] MEDS: LEVOTHYROXINE SODIUM 100 MCG TABLET PO (06:25)
[2023-01-01 06:34] LABS: Alanine Aminotransferase 23 U/L (6-35); Albumin Level 2.4 g/dL (3.5-5.1); Alkaline Phosphatase 143 U/L (38-126); Anion Gap 2 mmol/L (8-16); Aspartate Amino Transferase 48 U/L (14-36); Bilirubin,Total 0.6 mg/dL (0.2-1.3); Blood Urea Nitrogen 26 mg/dL (7-17); Calcium 7.7 mg/dL (8.4-10.2); Carbon Dioxide 29 mmol/L (22-30); Chloride 103 mmol/L (98-107); Estimated CRCL calculation 58 ml/min; Estimated Glomerular Filt Rate > 60; Glucose 89 mg/dL (65-110); Potassium 3.5 mmol/L (3.4-5.0); Sodium 134 mmol/L (137-145)
[2023-01-01] MEDS: LIDOCAINE 5% PATCH 1 PATCH TRANSDERM (09:25)
[2023-01-01] MEDS: FLUTICASONE PROPIONATE 0.05% NA SPR 16 GM BTL (*BKC) 2 SPRAY NASAL (09:26)
[2023-01-01] MEDS: FERROUS SULFATE 324 MG TABLET PO (09:26)
[2023-01-01] MEDS: PANTOPRAZOLE 40 MG TABLET PO (09:26)
[2023-01-01] MEDS: PHENYTOIN SODIUM 100 MG EXTENDED RELEASE CAP 200 MG PO ×2 (09:26→21:00)
[2023-01-01] MEDS: CHOLECALCIFEROL 1,000 UNITS TABLET 3000 UNITS PO (09:27)
[2023-01-01] MEDS: ASPIRIN 81 MG ENTERIC TABLET PO (09:27)
[2023-01-01] MEDS: GABAPENTIN 300 MG CAPSULE PO ×2 (09:27→18:03)
[2023-01-01] MEDS: ASCORBIC ACID 500 MG TABLET PO (09:27)
[2023-01-01] MEDS: SPIRONOLACTONE 25 MG TABLET PO (09:27)
[2023-01-01] MEDS: FUROSEMIDE 40 MG TABLET PO (09:27)
[2023-01-01] MEDS: EMPAGLIFLOZIN 10 MG TABLET PO (09:27)
[2023-01-01] MEDS: CALCIUM CARBONATE (OSCAL) 500 MG TABLET PO ×2 (09:27→18:03)
[2023-01-01] MEDS: LORATADINE 10 MG TABLET PO (09:28)
[2023-01-01] MEDS: THERAPEUTIC MULTIVITAMINS/MINERALS TAB (*BKC) 1 TABLET PO (09:28)
[2023-01-01 11:49] VITALS: PULSE 83; O2SAT 94
[2023-01-01] MEDS: CARBAMIDE PEROXIDE 6.5% OT SOLN 15 ML BTL 5 DROP EACH EAR ×2 (13:04→18:03)
[2023-01-01 14:00] VITALS: BP 160/46; PULSE 87; RESP 16; TEMP 36.4; O2SAT 98
--- NOTE | 2023-01-01 14:55 | WPDUROPN2 ---
Progress Note: A&P Assessment and Plan (1) Chronic UTI: Code(s): N39.0 - Urinary tract infection, site not specified Status: Acute Assessment and Plan: Start Trimethoprim daily after finishing treatment of current UTI. No etiology of chronic UTI on CT in upper tracts such as stone or concerning cancerous mass. Her PVR is normal and she is not at risk of retention or needing a catheter that would cause chronic UTI's. F/U for a cystoscopy in the office to further evaluate the bladder. (2) Acute pyelonephritis: Code(s): N10 - Acute pyelonephritis Status: Acute Assessment and Plan: [address] represent pyelonephritis, they do not appear to be abscesses. She is improving, her WBC did jump up a bit today, if it continues to climb or she develops a fever, I will discuss with IR the possibility for a percutaneous drain. Otherwise as long as she continues to improve she will f/u in one month with a WILL in the office. 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 CT reveals 2 areas of hypoenhancing left kidney masses that are described as pyelonephritis. She is afebrile, WBC has unfortunately risen a bit to 11,000. She had a bladder scan of 258cc residual s/p urinating and is comfortable and not complaining of feeling of incomplete emtpying. Review of Systems Cardiovascular: Cardiovascular: Denies chest pain Respiratory: Respiratory: Reports no additional respiratory complaints Gastrointestinal: Gastrointestinal: Denies abdominal pain, Denies nausea and Denies vomiting Genitourinary: Genitourinary: Denies hematuria, Denies dysuria, Denies urinary hesitancy and Denies urinary urgency Exam Const: General: cooperative, comfortable and lethargic Resp: Effort & Inspection: normal respiratory effort Cardio: Rate: abnormal rate : General: Yes no CVA tenderness Extrem: Right lower extremity: no edema Left lower extremity: no edema Objective Data Vital Signs Vital Signs: Vital Signs - 24 hr 12/31/22 20:00 12/31/22 22:00 01/01/23 06:00 Temperature 98.3 F 98.4 F Pulse Rate 75 73 Respiratory Rate 17 18 Blood Pressure 114/60 112/61 Pulse Oximetry 96 96 Oxygen Delivery Room Air 01/01/23 11:49 01/01/23 08:00 01/01/23 14:00 Temperature 97.5 F L Pulse Rate 83 87 Respiratory Rate 16 Blood Pressure 160/46 H Pulse Oximetry 94 98 Oxygen Delivery Room Air Room Air Intake/Output Intake/Output: Intake & Output 12/29/22 12/30/22 12/31/22 01/01/23 23:59 23:59 23:59 23:59 Intake Total 1910 1406 1530 360 Output Total 701 Balance 1209 1406 1530 360 Meds/Results Medications: Active Medications Generic Name Dose Route Start Last Admin Trade Name Freq PRN Reason Stop Dose Admin Acetaminophen 650 mg 12/27/22 16:03 12/29/22 16:51 Acetaminophen 325 Mg Tablet PO 650 mg Q4H PRN Administration Headache Albuterol 2 puff 12/29/22 09:42 Albuterol Sulfate (*Sp) Aerosol 1 Puff INHALATION Q6H PRN Shortness Of Breath Ascorbic Acid 500 mg 12/29/22 09:00 01/01/23 09:27 Ascorbic Acid 500 Mg Tablet PO 500 mg DAILY CIERRA Administration Aspirin 81 mg 12/29/22 09:00 01/01/23 09:27 Aspirin 81 Mg Enteric Tablet PO 81 mg DAILY CIERRA Administration Atorvastatin Calcium 80 mg 12/29/22 21:00 12/31/22 21:19 Atorvastatin 40 Mg Tablet PO 80 mg HS CIERRA Administration Calcium Carbonate 500 mg 12/29/22 08:00 01/01/23 09:27 Calcium Carbonate (Oscal) 500 Mg Tablet PO 500 mg BIDWM CIERRA Administration Carbamide Peroxide 5 drop 12/30/22 21:00 01/01/23 13:04 Carbamide Peroxide 6.5% Ot Soln 15 Ml Btl EACH EAR 01/04/23 09:01 5 drop BID CIERRA Administration Docusate Sodium 100 mg 12/29/22 09:42 Docusate Sodiu
--- NOTE | 2023-01-01 16:34 | PM.IMPN ---
Progress Note: A&P Assessment and Plan (1) Sepsis: Code(s): A41.9 - Sepsis, unspecified organism Status: Acute Assessment and Plan: Sepsis from ESBL UTI, also had ESBL UTI in May 2022, then another ESBL UTI with associated transient bacteremia in August 2022. Blood and urine cultures this admission are positive for ESBL as well. Repeat blood cultures negative growth to date, would favor a longer antibiotic course due to the recurrent ESBL UTI as well as 2 episodes of transient bacteremia from the same organism Initially started on imipenem on December 26, de-escalated to ertapenem December 29,. Today is day [address] scan showing 2 hypoenhancing left kidney masses c/w pyelonephritis. Plan for 14 day course of IV ertapenem with an end date of January 09. Will discuss with Urology if imaging should be done prior to stopping abx. Plan for Trimethoprim starting on 01/10/23 (2) Acute UTI: Code(s): N39.0 - Urinary tract infection, site not specified Status: Acute Assessment and Plan: UTI with Pyelonephritis. UCx and BCx positive for ESBL EColi with similar resistance patterns. On imipenem but changed to Ertapenem now. WBC up slightly. No fevers. Plan for treatment through 01/09 for now. (3) Acute kidney injury: Code(s): N17.9 - Acute kidney failure, unspecified Status: Acute Assessment and Plan: Cr up to 1.4. Renal ultrasound within normal limits. Cr back down to normal. Tolerating Lasix 40 mg daily orally and Aldactone 25 mg daily. Metolazone still on hold at this time. Follow. (4) Anemia: Code(s): D64.9 - Anemia, unspecified Status: Acute Assessment and Plan: Mild anemia noted and likely secondary to gastric and duodenal ulcers; these were cauterized via EGD on June 17. Stable. Monitor. Continue iron supplementation, continue Protonix daily. Was supposed to get repeat EGD in the fall but did not follow up. Will refer to GI for this at this discharge (5) Back pain: Code(s): M54.9 - Dorsalgia, unspecified Status: Acute Assessment and Plan: Chronic. Continue lidoderm patch and Tylenol as needed (6) CHF (congestive heart failure): Code(s): I50.9 - Heart failure, unspecified Status: Acute Assessment and Plan: Appears euvolemic at this time Continue aspirin, statin, Jardiance, Lasix, Aldactone (7) Hypertension: Code(s): I10 - Essential (primary) hypertension Status: Acute Assessment and Plan: Patient's blood pressure was reviewed on 2/2 Blood pressure elevated currently but well controlled mostly Will continue current medications. (8) Seizure disorder: Code(s): G40.909 - Epilepsy, unspecified, not intractable, without status epilepticus Status: Chronic Assessment and Plan: Stable. Cont dilantin (9) DM2 (diabetes mellitus, type 2): Code(s): E11.9 - Type 2 diabetes mellitus without complications Status: Acute Assessment and Plan: Diet controlled. A1c 5.2, d/c accuchecks. Continue regular diet (10) Thrombocytopenia: Code(s): D69.6 - Thrombocytopenia, unspecified Status: Acute Assessment and Plan: Recurrent idiopathic thrombocytopenia. Improved to 80K. Continue to monitor. Hold heparin containing products (11) Cough: Code(s): R05.9 - Cough, unspecified Status: Acute Assessment and Plan: Resolved when laying flat. ST eval showing no concerns. Possible underlying allergic rhinitis. (12) Acute metabolic encephalopathy: Code(s): G93.41 - Metabolic encephalopathy Status: Acute Assessment and Plan: Resolved (13) Hypothyroidism (acquired): Code(s): E03.9 - Hypothyroidism, unspecified Status: Chronic Assessment and Plan: TSH WNL, cont home synthroid (14) Acute hypokalemia: Code(s): E87.6 - Hypokalemia Status: Acu
[2023-01-01 20:00] VITALS: O2SAT 98
[2023-01-01] MEDS: EZETIMIBE 10 MG TABLET PO (21:00)
[2023-01-01] MEDS: ATORVASTATIN 40 MG TABLET 80 MG PO (21:00)
[2023-01-01] MEDS: ERTAPENEM 1 GM/NS 50 ML 1 GM/50 ML BAG IVPB (21:00)
[2023-01-01] MEDS: GABAPENTIN 300 MG CAPSULE 600 MG PO (21:00)
[2023-01-01 22:00] VITALS: BP 132/43; PULSE 68; RESP 14; TEMP 36.7; O2SAT 94
[2023-01-02 06:00] VITALS: BP 129/49; PULSE 72; RESP 14; TEMP 36.7; O2SAT 99
[2023-01-02 06:25] LABS: Basophils Absolute Auto 0.1 K/mm3 (0.0-0.1); Basophils Percent Auto 0.6 % (0.2-1.2); Eosinophils Absolute Auto 0.2 K/mm3 (0-0.3); Eosinophils Percent Auto 1.4 % (0-4.4); Hematocrit 36.8 % (37.0-47.0); Hemoglobin 11.7 g/dL (12.0-15.0); Immature Granulocyte Absolute 0.06 K/mm3 (0.00-0.031); Immature Granulocyte Percent A 0.5 % (0-0.5); Immature Platelet Fraction Pct 7.2 % (0.9-11.2); Lymphocytes Absolute Auto 2.45 K/mm3 (0.9-3.2); Lymphocytes Percent Auto 22.3 % (18.3-44.2); Mean Corpuscular HGB Conc 31.8 g/dl (32-36); Mean Corpuscular Hemoglobin 31.1 pg (26-34); Mean Corpuscular Volume 97.9 fl (80-100); Mean Platelet Volume 11.5 fl (7.4-10.4); Monocytes Absolute Auto 1.3 K/mm3 (0.1-0.6); Monocytes Percent Auto 12.2 % (2.6-8.5); Neutrophils Absolute Auto 6.9 K/mm3 (1.3-6.7); Platelet Count Result 108 k/mm3 (150-375); Red Blood Count 3.76 M/mm3 (4.2-5.4); Red Cell Distribution Width 15.4 % (11.5-14.5)
[2023-01-02] MEDS: LEVOTHYROXINE SODIUM 100 MCG TABLET PO (06:30)
--- NOTE | 2023-01-02 07:28 | PC.NURSE ---
pt signed consent for picc line, son aware, son ok with picc line states pt has had picc line before.
[2023-01-02 08:48] LABS: Alanine Aminotransferase 25 U/L (6-35); Alkaline Phosphatase 175 U/L (38-126); Anion Gap 3 mmol/L (8-16); Aspartate Amino Transferase 53 U/L (14-36); Bilirubin,Total 0.7 mg/dL (0.2-1.3); Blood Urea Nitrogen 25 mg/dL (7-17); Calcium 8.2 mg/dL (8.4-10.2); Carbon Dioxide 31 mmol/L (22-30); Chloride 97 mmol/L (98-107); Estimated CRCL calculation 58 ml/min; Estimated Glomerular Filt Rate > 60; Glucose 81 mg/dL (65-110); Potassium 3.5 mmol/L (3.4-5.0); Sodium 131 mmol/L (137-145)
[2023-01-02] MEDS: CHOLECALCIFEROL 1,000 UNITS TABLET 3000 UNITS PO (08:58)
[2023-01-02] MEDS: ASCORBIC ACID 500 MG TABLET PO (08:58)
[2023-01-02] MEDS: GABAPENTIN 300 MG CAPSULE PO ×2 (08:59→17:53)
[2023-01-02] MEDS: PHENYTOIN SODIUM 100 MG EXTENDED RELEASE CAP 200 MG PO ×2 (08:59→20:24)
[2023-01-02] MEDS: CALCIUM CARBONATE (OSCAL) 500 MG TABLET PO ×2 (08:59→16:36)
[2023-01-02] MEDS: LORATADINE 10 MG TABLET PO (08:59)
[2023-01-02] MEDS: FERROUS SULFATE 324 MG TABLET PO (08:59)
[2023-01-02] MEDS: EMPAGLIFLOZIN 10 MG TABLET PO (08:59)
[2023-01-02] MEDS: FLUTICASONE PROPIONATE 0.05% NA SPR 16 GM BTL (*BKC) 2 SPRAY NASAL (08:59)
[2023-01-02] MEDS: FUROSEMIDE 40 MG TABLET PO (08:59)
[2023-01-02] MEDS: THERAPEUTIC MULTIVITAMINS/MINERALS TAB (*BKC) 1 TABLET PO (08:59)
[2023-01-02] MEDS: ASPIRIN 81 MG ENTERIC TABLET PO (08:59)
[2023-01-02] MEDS: SPIRONOLACTONE 25 MG TABLET PO (08:59)
[2023-01-02] MEDS: PANTOPRAZOLE 40 MG TABLET PO (08:59)
[2023-01-02] MEDS: CARBAMIDE PEROXIDE 6.5% OT SOLN 15 ML BTL 5 DROP EACH EAR ×2 (09:00→16:36)
--- NOTE | 2023-01-02 10:48 | PCNWS ---
Weekly nutritional screen. Patient is tolerating current diet with adequate intake. No weight loss reported. No nutritional needs at this time.
[2023-01-02 14:00] VITALS: BP 139/55; PULSE 82; RESP 16; TEMP 37.1; O2SAT 93
--- NOTE | 2023-01-02 14:35 | PM.IMPN ---
Progress Note: A&P Assessment and Plan (1) Sepsis: Code(s): A41.9 - Sepsis, unspecified organism Status: Acute Assessment and Plan: Sepsis from ESBL UTI, also had ESBL UTI in May 2022, then another ESBL UTI with associated transient bacteremia in August 2022. Blood and urine cultures this admission are positive for ESBL as well. Repeat blood cultures negative growth to date, would favor a longer antibiotic course due to the recurrent ESBL UTI as well as 2 episodes of transient bacteremia from the same organism Initially started on imipenem on December 26, de-escalated to ertapenem December 29,. Today is day [address] scan showing 2 hypoenhancing left kidney masses c/w pyelonephritis. Plan for 14 day course of IV ertapenem with an end date of January 09. Urology following and appreciate their input. Plan for Trimethoprim starting on 01/10/23 (2) Acute UTI: Code(s): N39.0 - Urinary tract infection, site not specified Status: Acute Assessment and Plan: UTI with Pyelonephritis. UCx and BCx positive for ESBL EColi with similar resistance patterns. On imipenem but changed to Ertapenem now. WBC still elevated but stable. No fevers. As above. Follow WBC. If WBC better or unchanged tomorrow, will plan for discahrge. (3) Acute kidney injury: Code(s): N17.9 - Acute kidney failure, unspecified Status: Acute Assessment and Plan: Cr was up to 1.4. Renal ultrasound within normal limits. Cr back down to normal. Tolerating Lasix 40 mg daily orally and Aldactone 25 mg daily. Metolazone still on hold at this time. Follow. (4) Anemia: Code(s): D64.9 - Anemia, unspecified Status: Acute Assessment and Plan: Mild anemia noted. Has a hx of gastric and duodenal ulcers; these were cauterized via EGD on June 17. Stable. Monitor. Continue iron supplementation, continue Protonix daily. Was supposed to get repeat EGD in the fall but did not follow up. Will refer to GI for this at this discharge (5) Back pain: Code(s): M54.9 - Dorsalgia, unspecified Status: Acute Assessment and Plan: Chronic. Continue lidoderm patch and Tylenol as needed (6) CHF (congestive heart failure): Code(s): I50.9 - Heart failure, unspecified Status: Acute Assessment and Plan: Appears euvolemic at this time Continue aspirin, statin, Jardiance, Lasix, Aldactone (7) Hypertension: Code(s): I10 - Essential (primary) hypertension Status: Acute Assessment and Plan: Patient's blood pressure was reviewed on 2/3 Blood pressure well controlled mostly Will continue current medications. (8) Seizure disorder: Code(s): G40.909 - Epilepsy, unspecified, not intractable, without status epilepticus Status: Chronic Assessment and Plan: Stable. Cont dilantin (9) DM2 (diabetes mellitus, type 2): Code(s): E11.9 - Type 2 diabetes mellitus without complications Status: Acute Assessment and Plan: Diet controlled. A1c 5.2, d/c accuchecks. Continue regular diet (10) Thrombocytopenia: Code(s): D69.6 - Thrombocytopenia, unspecified Status: Acute Assessment and Plan: Recurrent idiopathic thrombocytopenia. Improved to 108K. Continue to monitor. Add Lovenox (11) Cough: Code(s): R05.9 - Cough, unspecified Status: Acute Assessment and Plan: Resolved when laying flat. ST eval showing no concerns. Possible underlying allergic rhinitis. (12) Acute metabolic encephalopathy: Code(s): G93.41 - Metabolic encephalopathy Status: Acute Assessment and Plan: Resolved (13) Hypothyroidism (acquired): Code(s): E03.9 - Hypothyroidism, unspecified Status: Chronic Assessment and Plan: TSH WNL, cont home synthroid (14) Acute hypokalemia: Code(s): E87.6 - Hypokalemia Status: Acute Assessmen
[2023-01-02] MEDS: SALINE LOCK FLUSH 10 ML IV PUSH ×2 (16:30→20:24)
[2023-01-02] MEDS: ENOXAPARIN 40 MG/0.4 ML SYRINGE SUB-Q (16:30)
[2023-01-02] MEDS: ACETAMINOPHEN 325 MG TABLET 650 MG PO (19:42)
[2023-01-02 20:00] VITALS: O2SAT 93
[2023-01-02] MEDS: GABAPENTIN 300 MG CAPSULE 600 MG PO (20:23)
[2023-01-02] MEDS: ATORVASTATIN 40 MG TABLET 80 MG PO (20:23)
[2023-01-02] MEDS: ERTAPENEM 1 GM/NS 50 ML 1 GM/50 ML BAG IVPB (20:23)
[2023-01-02] MEDS: EZETIMIBE 10 MG TABLET PO (20:23)
[2023-01-02 22:00] VITALS: BP 140/58; PULSE 81; RESP 17; TEMP 37.1; O2SAT 97
[2023-01-03] MEDS: SALINE LOCK FLUSH 10 ML IV PUSH ×2 (04:56→12:31)
[2023-01-03] MEDS: MAGNESIUM HYDROXIDE SUSP 30 ML UDC PO ×2 (05:10→12:30)
[2023-01-03 05:30] LABS: Basophils Percent Auto 0.4 % (0.2-1.2); Eosinophils Absolute Auto 0.2 K/mm3 (0-0.3); Eosinophils Percent Auto 1.7 % (0-4.4); Hematocrit 37.4 % (37.0-47.0); Immature Granulocyte Absolute 0.06 K/mm3 (0.00-0.031); Immature Granulocyte Percent A 0.6 % (0-0.5); Lymphocytes Percent Auto 19.3 % (18.3-44.2); Mean Corpuscular HGB Conc 32.1 g/dl (32-36); Mean Corpuscular Hemoglobin 30.6 pg (26-34); Mean Corpuscular Volume 95.4 fl (80-100); Mean Platelet Volume 11.6 fl (7.4-10.4); Monocytes Absolute Auto 0.8 K/mm3 (0.1-0.6); Monocytes Percent Auto 8.9 % (2.6-8.5); Neutrophils Absolute Auto 6.4 K/mm3 (1.3-6.7); Neutrophils Percent Auto 69.1 % (45.5-73.1); Platelet Count Result 119 k/mm3 (150-375); Red Blood Count 3.92 M/mm3 (4.2-5.4); Red Cell Distribution Width 15.3 % (11.5-14.5); White Blood Count 9.3 K/mm3 (4.5-10.0)
[2023-01-03 05:41] LABS: Alanine Aminotransferase 24 U/L (6-35); Alkaline Phosphatase 174 U/L (38-126); Anion Gap 4 mmol/L (8-16); Aspartate Amino Transferase 51 U/L (14-36); Bilirubin,Total 0.7 mg/dL (0.2-1.3); Blood Urea Nitrogen 25 mg/dL (7-17); Calcium 8.2 mg/dL (8.4-10.2); Carbon Dioxide 33 mmol/L (22-30); Chloride 96 mmol/L (98-107); Estimated CRCL calculation 52 ml/min; Estimated Glomerular Filt Rate 60; Glucose 159 mg/dL (65-110); Magnesium 1.7 mg/dL (1.6-2.3); Phosphorus 3.2 mg/dL (2.5-4.5); Potassium 3.2 mmol/L (3.4-5.0); Sodium 133 mmol/L (137-145)
[2023-01-03] MEDS: LEVOTHYROXINE SODIUM 100 MCG TABLET PO (05:48)
[2023-01-03 06:00] VITALS: BP 139/60; PULSE 80; RESP 18; TEMP 37; O2SAT 98
[2023-01-03] MEDS: THERAPEUTIC MULTIVITAMINS/MINERALS TAB (*BKC) 1 TABLET PO (09:48)
[2023-01-03] MEDS: FUROSEMIDE 40 MG TABLET PO (09:48)
[2023-01-03] MEDS: EMPAGLIFLOZIN 10 MG TABLET PO (09:48)
[2023-01-03] MEDS: POTASSIUM CHLORIDE 20 MEQ TABLET 40 MEQ PO (09:48)
[2023-01-03] MEDS: PHENYTOIN SODIUM 100 MG EXTENDED RELEASE CAP 200 MG PO (09:48)
[2023-01-03] MEDS: ENOXAPARIN 40 MG/0.4 ML SYRINGE SUB-Q (09:49)
[2023-01-03] MEDS: CALCIUM CARBONATE (OSCAL) 500 MG TABLET PO (09:49)
[2023-01-03] MEDS: CHOLECALCIFEROL 1,000 UNITS TABLET 3000 UNITS PO (09:49)
[2023-01-03] MEDS: SPIRONOLACTONE 25 MG TABLET PO (09:49)
[2023-01-03] MEDS: GABAPENTIN 300 MG CAPSULE PO (09:49)
[2023-01-03] MEDS: FLUTICASONE PROPIONATE 0.05% NA SPR 16 GM BTL (*BKC) 2 SPRAY NASAL (09:49)
[2023-01-03] MEDS: FERROUS SULFATE 324 MG TABLET PO (09:49)
[2023-01-03] MEDS: PANTOPRAZOLE 40 MG TABLET PO (09:49)
[2023-01-03] MEDS: ASPIRIN 81 MG ENTERIC TABLET PO (09:49)
[2023-01-03] MEDS: LORATADINE 10 MG TABLET PO (09:49)
[2023-01-03] MEDS: CARBAMIDE PEROXIDE 6.5% OT SOLN 15 ML BTL 5 DROP EACH EAR (09:50)
[2023-01-03] MEDS: ASCORBIC ACID 500 MG TABLET PO (09:51)
--- NOTE | 2023-01-03 13:03 | PM.DS ---
DS: Admitting Diagnosis Discharge Date 01/03/23 Admitting Diagnosis Altered mental status DS: Discharge Diagnosis Discharge Diagnosis (1) Sepsis: Code(s): A41.9 - Sepsis, unspecified organism Status: Acute (2) Acute UTI: Code(s): N39.0 - Urinary tract infection, site not specified Status: Acute (3) Acute kidney injury: Code(s): N17.9 - Acute kidney failure, unspecified Status: Acute (4) Anemia: Code(s): D64.9 - Anemia, unspecified Status: Acute (5) Back pain: Code(s): M54.9 - Dorsalgia, unspecified Status: Acute (6) CHF (congestive heart failure): Code(s): I50.9 - Heart failure, unspecified Status: Acute (7) Hypertension: Code(s): I10 - Essential (primary) hypertension Status: Acute (8) Seizure disorder: Code(s): G40.909 - Epilepsy, unspecified, not intractable, without status epilepticus Status: Chronic (9) DM2 (diabetes mellitus, type 2): Code(s): E11.9 - Type 2 diabetes mellitus without complications Status: Acute (10) Thrombocytopenia: Code(s): D69.6 - Thrombocytopenia, unspecified Status: Acute (11) Cough: Code(s): R05.9 - Cough, unspecified Status: Acute (12) Acute metabolic encephalopathy: Code(s): G93.41 - Metabolic encephalopathy Status: Acute (13) Hypothyroidism (acquired): Code(s): E03.9 - Hypothyroidism, unspecified Status: Chronic (14) Acute hypokalemia: Code(s): E87.6 - Hypokalemia Status: Acute DS: Summary Hospital Course Reason for hospitalization: 82yo female with CAD, seizure d/o and HTN with chronic debility and is WC bound here for AMS. Please see H&P for details Hospital Course: Patient presnets with altered mental status and found to have sepsis with septicemia. Sepsis from ESBL EColi UTI. Also had ESBL UTI in May 2022, then another ESBL UTI with associated transient bacteremia in August 2022. Blood and urine cultures this admission are positive for ESBL EColi as well. Initially started on imipenem on December 26, de-escalated to ertapenem December 29,. CT scan showing 2 hypoenhancing left kidney masses c/w pyelonephritis. Plan for 14 day course of IV ertapenem with an end date of January 08. Repeat blood cultures are negative. Urology following and appreciate their input. Plan was for Trimethoprim but it interacts with Aldactone so will change to Macrobid 100mg daily to start on 01/09/23 as prophylaxis. WBC was elevated but normalized. Cr was up to 1.4. Renal ultrasound within normal limits. Cr back down to normal. Mild anemia noted. Has a hx of gastric and duodenal ulcers; these were cauterized via EGD on June 17. We continued iron supplementation and Protonix. She was supposed to get repeat EGD in the fall but did not follow up. Will refer to GI after discharge. She had clinical improvement. Discussed with urology. [facility]. Status at Discharge Cognitive/behavioral status at discharge: stable Time Spent with Patient Time attestation: Total time spent providing and/or coordinating discharge services: 38 minutes Time spent: Greater than 30 minutes Exam Narrative: AF 98.6 139/60 80 18 98% ra Gen - NARD sitting up feeding herself lunch Chest - CTA bilaterally, nml RR CV - RRR S1/S2 Abd - Soft, obese, nontender Ext -soft tissue bilateral lower extremity nonpitting edema. Psych - nml mood and affect Skin - Warm and dry DS: Data Data Completed and Pending Labs on day of discharge: Labs from last 24 hours 01/03/23 01/03/23 05:21 05:21 WBC 9.3 RBC 3.92 L Hgb 12.0 Hct 37.4 MCV 95.4 MCH 30.6 MCHC 32.1 RDW 15.3 H Plt Count 119 L MPV 11.6 H Immature Gran % (Auto) 0.6 H Neut % (Auto) 69.1 Lymph % (Auto) 19.3 Marin % (Auto) 8.9 H Eos % (Auto) 1.7 Baso % (Auto) 0.4 Lymph # (Auto) 1.80 Marin
[2023-01-03 14:00] VITALS: BP 136/53; PULSE 86; RESP 20; TEMP 37.5; O2SAT 94
[2023-01-03 14:44] LABS: EDCOVIDSCREEN Negative (Negative)
== END 2023-01-03 17:50 | DRG 871 ==
LOC: ANHED 12:40 → ANHIMU 13:28 → ANH3MEDSUR 12-29 23:11
PROVIDERS: Nurse Practitioner; Student in an Organized Health Care Education/Training Program; Admitting Provider Internal Medicine; Emergency Provider Emergency Medicine; PCP Family Medicine; Visit Provider Internal Medicine
DX: A41.51 Sepsis due to Escherichia coli [E. coli] (principal); G93.41 Metabolic encephalopathy; N10 Acute pyelonephritis; N17.9 Acute kidney failure, unspecified; N39.0 Urinary tract infection, site not specified; Z16.12 Extended spectrum beta lactamase (ESBL) resistance; I50.32 Chronic diastolic (congestive) heart failure; I11.0 Hypertensive heart disease with heart failure; I25.10 Atherosclerotic heart disease of native coronary artery without angina pectoris; I65.23 Occlusion and stenosis of bilateral carotid arteries; R65.20 Severe sepsis without septic shock; E87.6 Hypokalemia; E78.5 Hyperlipidemia, unspecified; E03.9 Hypothyroidism, unspecified; E11.9 Type 2 diabetes mellitus without complications; D69.6 Thrombocytopenia, unspecified; D64.9 Anemia, unspecified; K21.9 Gastro-esophageal reflux disease without esophagitis; M54.50 Low back pain, unspecified; M17.0 Bilateral primary osteoarthritis of knee; M81.0 Age-related osteoporosis without current pathological fracture; G62.9 Polyneuropathy, unspecified; G40.909 Epilepsy, unspecified, not intractable, without status epilepticus; Z20.822 Contact with and (suspected) exposure to COVID-19; I25.2 Old myocardial infarction; Z87.891 Personal history of nicotine dependence; Z95.1 Presence of aortocoronary bypass graft; Z79.82 Long term (current) use of aspirin; Z79.84 Long term (current) use of oral hypoglycemic drugs; Z99.3 Dependence on wheelchair; Z87.11 Personal history of peptic ulcer disease
CPT/HCPCS: 36415; 36569; 36600; 51701; 70450; 71045; 74018; 74177; 74178; 76775; 80053; 80185; 81001; 82274; 82805; 82948; 83036; 83605; 83690; 83735; 84100; 85025; 85055; 85610; 85730; 87040; 87077; 87086; 87088; 87186; 87426; 87637; 92610; 93005; 96361; 96365; 96366; 96367; 96372; 96375; 96376; 97162; 97165; 99291; A9270; C1751; C8929; C9113; C9803; G0378; J0131; J0743; J1335; J1650; J2060; J3010; J3480; J7030; J7040; Q9957; Q9967

== ENCOUNTER 2023-02-02 09:50 | Outpatient (CLI) | payer MEDICARE, MEDICAID, SELFPAY ==
--- NOTE | ~2023-02-02 | US_ITS ---
EXAMINATION: US retroperitoneal comp DATE: 02/02/2023 10:47 INDICATION: PYELONEPHRITIS OF LEFT KIDNEY TECHNIQUE: Multiple grayscale and Doppler ultrasound images of the kidneys were obtained. COMPARISON: CT abdomen pelvis 12/31/2022 and 12/26/2022, CTPA chest abdomen and pelvis 06/29/2022. FINDINGS: The right kidney measures 10.3 x 4.6 x 5.1 cm. The left kidney measures 8.4 x 3.2 x 4.3 cm. The kidne ys demonstrate normal parenchymal echogenicity, with mild atrophy and scarring. 1.5 cm, fairly well-c ircumscribed hypoechoic left midpole lesion, without increased through transmission. There is no hydr onephrosis. Irregular thickened urinary bladder wall. Right ureteral jet not visualized. IMPRESSION: 1.5 cm hypoechoic left midpole lesion, may represent a resolving focus of infection. Bladder wall thi ckening, as can be seen with cystitis. Right ureteral jet not visualized during this examination, alt azar no hydronephrosis was detected. Reviewed, dictated and finalized at location K. E TECHNICIAN IMPRESSION: 1.5 cm hypoechoic left midpole lesion, may represent a resolving focus of infec tion. Bladder wall thickening, as can be seen with cystitis. Right ureteral jet not visualized during this examination, although no hydronephrosis was detectwilder caraballo
== END 2023-02-02 09:51 | disposition home or self-care (01) ==
PROVIDERS: PCP Family Medicine; Visit Provider Urology
DX: N12 Tubulo-interstitial nephritis, not specified as acute or chronic (principal)
CPT/HCPCS: 76770

== ENCOUNTER 2023-02-25 00:24 | Day surgery (SDC) | payer MEDICARE, MEDICAID, SELFPAY ==
[2023-02-13 13:47] VITALS: BMI 42.3
--- NOTE | 2023-02-24 17:54 | PM.HPGS ---
History of Present Illness History of Present Illness Consent: Risks, benefits, and alternatives have been discussed and questions answered. Patient agrees to proceed with procedure. Chief complaint: Duodenal Ulcer Narrative: Delia Lopez is a 82 year old female who had seen last May she was in the hospital with melena.? We found multiple ulcers with bleeding from duodenal ulcers requiring cautery.? She has been taking pantoprazole 40 mg b.i.d. since then.? We had planned to have her come back after few months for follow-up EGD but for some reason that did not get scheduled.? Review of Systems Review of Systems: All systems reviewed & are unremarkable except as noted in HPI and below PMFSH Past Medical History Medical History Acute hypokalemia Acute UTI ASHD (arteriosclerotic heart disease) Benign essential hypertension Bilateral carotid artery stenosis CAD (coronary artery disease) Debility DM2 (diabetes mellitus, type 2) Frequent UTI Generalized weakness GERD (gastroesophageal reflux disease) Hyperlipidemia Hypothyroidism (acquired) Low back pain Lower extremity edema Neuropathy Osteoarthritis of both knees Peripheral neuropathy Seizure disorder Supracondylar fracture of left femur due to osteoporosis Surgical History Surgical History H/O hernia repair History of appendectomy History of back surgery History of section, classical History of coronary artery bypass graft NSTEMI October 2018; CABG x3 with ALFARO to the Left anterior descending, SVG to the ramus and SVG to RCA. Hx of cholecystectomy Family History Family History Sibling Family history of lung cancer Father Family history of heart disease in male family member before age 55 Family history of cardiovascular disease Mother Family history of malignant neoplasm Social History Social History Social History: She lives at [facility] home PCP is Dr. Sarah. Designates her son Rajesh as her surrogate decision maker. She would like to be a dnr. one son . 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 Code status DNR Smoking packs per day: 1 Smoking cigarettes per day: 20.0 Years smoked: 8 Smoking pack-years: 8.00 Smoking status: Former smoker Tobacco type: cigarettes Second hand tobacco smoke exposure: No Additional smoking assessment comments: Quit >50 years ago Alcohol intake: never Substance use: never Substance use type: does not use Living arrangements: snf Spiritual care concerns: No Meds Home Medications and Allergies Home Medications Medication Instructions Recorded Confirmed Type aspirin 81 mg tablet,delayed 81 mg PO DAILY 11/10/19 02/13/23 History release (Adult Low Dose Aspirin) levocetirizine 5 mg tablet 5 mg PO DAILY 07/28/20 02/13/23 History aluminum-magnesium hydroxide 200 20 ml PO Q6H PRN (Drug) Ingestion 01/16/21 02/13/23 History mg-200 mg/5 mL oral suspension atorvastatin 80 mg tablet 80 mg PO HS 01/16/21 02/13/23 History docusate sodium 100 mg capsule 100 mg PO DAILY PRN Constipation 01/16/21 02/13/23 History (Colace) ondansetron HCl 4 mg tablet 4 mg PO Q4H PRN Nausea And Vomiting 01/16/21 02/13/23 History acetaminophen 325 mg capsule 325 mg PO Q6H PRN Pain (Scale 06/13/21 02/13/23 History Score 1-3) loperamide 2 mg capsule 2 mg PO Q6H PRN Loose Stool 06/13/21 02/13/23 History (Anti-Diarrheal (loperamide)) melatonin 1 mg tablet 2 mg PO QHS PRN Insomnia 06/13/21 02/13/23 History cholecalciferol (vitamin D3) 25 75 mcg PO DAILY 01/16/22 02/13/23 History mcg (1,000 unit) tablet cranberry extract 250 mg tablet 250 mg PO DAILY 01/16/22 02/13/23 History magnesium hydroxide 400 mg/5 mL 30 ml PO DAILY PRN Constipation 01/16/22 02/13/23 History oral suspensio
[2023-02-25 09:39] LABS: Glucose Point of Care 106 mg/dl (65-105)
[2023-02-25 09:42] VITALS: BP 147/45; PULSE 65; RESP 18; TEMP 36.1; O2SAT 97; BMI 42.3
[2023-02-25] MEDS: LACTATED RINGERS 1,000 ML 150 ML IV CONT (09:46)
--- NOTE | 2023-02-25 09:53 | WPDANESEPPF ---
Anes - Initial Pre Proc Eval Procedure: Operation Date: 02/25/23 10:00 Proposed Procedures p Esophagogastroduodenoscopy - Giovanni Paz MD Date/Time: 02/25/23 09:53 Surgeon: Giovanni Paz MD Pre Op Diagnosis: Duodenal Ulcer Patient Data Age: 82 Gender: F Height: 1.57 m Weight: 105 kg Last Vital Signs Temp 97.0 F L 02/25/23 09:42 Pulse 65 02/25/23 09:42 Resp 18 02/25/23 09:42 BP 147/45 H 02/25/23 09:42 Pulse Ox 97 02/25/23 09:42 O2 Del Method Room Air 02/25/23 09:42 Allergies Allergy/AdvReac Type Severity Reaction Status Date / Time WINSTON Inhibitors Allergy Unknown Unknown Verified 02/25/23 09:39 lisinopril Allergy Unknown Cough,Unkno Verified 02/25/23 09:39 wn Penicillins Allergy Unknown Not Verified 02/25/23 09:39 Entered,Unknown Sulfa (Sulfonamide Allergy Unknown Rash,Unknow Verified 02/25/23 09:39 Antibiotics) n Home Medications Medication Instructions Recorded Confirmed Type aspirin 81 mg tablet,delayed 81 mg PO DAILY 11/10/19 02/25/23 History release (Adult Low Dose Aspirin) levocetirizine 5 mg tablet 5 mg PO DAILY 07/28/20 02/25/23 History aluminum-magnesium hydroxide 200 20 ml PO Q6H PRN (Drug) Ingestion 01/16/21 02/25/23 History mg-200 mg/5 mL oral suspension atorvastatin 80 mg tablet 80 mg PO HS 01/16/21 02/25/23 History docusate sodium 100 mg capsule 100 mg PO DAILY PRN Constipation 01/16/21 02/25/23 History (Colace) ondansetron HCl 4 mg tablet 4 mg PO Q4H PRN Nausea And Vomiting 01/16/21 02/25/23 History acetaminophen 325 mg capsule 325 mg PO Q6H PRN Pain (Scale 06/13/21 02/25/23 History Score 1-3) loperamide 2 mg capsule 2 mg PO Q6H PRN Loose Stool 06/13/21 02/25/23 History (Anti-Diarrheal (loperamide)) melatonin 1 mg tablet 2 mg PO QHS PRN Insomnia 06/13/21 02/25/23 History cholecalciferol (vitamin D3) 25 75 mcg PO DAILY 01/16/22 02/25/23 History mcg (1,000 unit) tablet cranberry extract 250 mg tablet 250 mg PO DAILY 01/16/22 02/25/23 History magnesium hydroxide 400 mg/5 mL 30 ml PO DAILY PRN Constipation 01/16/22 02/25/23 History oral suspension (Milk of Magnesia) polyethylene glycol 3350 17 gram 17 g PO DAILY 01/16/22 02/25/23 History oral powder packet (Miralax) gabapentin 600 mg tablet 600 mg PO HS 06/09/22 02/25/23 History guaifenesin 600 mg tablet, 600 mg PO Q12H PRN Cough 06/09/22 02/25/23 History extended release 12 hr hydrocortisone acetate 25 mg 25 mg RECTAL DAILY PRN Hemorrhoids 06/09/22 02/25/23 History rectal suppository (Anusol-HC) iron polysacch cplx 150 mg 1 cap PO DAILY 06/09/22 02/25/23 History iron-vit B12 25 mcg-folic acid 1 mg capsule multivitamin,tx-minerals 1 tablet PO DAILY 06/09/22 02/25/23 History calcium carbonate 500 mg calcium 500 mg PO BIDWM #60 tabs 06/27/22 02/25/23 Rx (1,250 mg) tablet (Oyster Shell Calcium 500) empagliflozin 10 mg tablet 10 mg PO DAILY 1 month #30 tabs 07/07/22 02/25/23 Rx (Jardiance) spironolactone 25 mg tablet 25 mg PO QAM 1 month #30 tabs 07/07/22 02/25/23 Rx ascorbic acid (vitamin C) 500 mg 500 mg PO DAILY 12/26/22 02/25/23 History tablet ezetimibe 10 mg tablet (Zetia) 10 mg PO HS 12/26/22 02/25/23 History ferrous sulfate 325 mg (65 mg 325 mg PO DAILY 12/26/22 02/25/23 History iron) tablet furosemide 40 mg tablet 40 mg PO DAILY 12/26/22 02/25/23 History gabapentin 300 mg capsule 300 mg PO BID 12/26/22 02/25/23 History levothyroxine 100 mcg tablet 100 mcg PO QAM 12/26/22 02/25/23 History menthol 4 % topical gel (Biofreeze 1 applic topical BID PRN Pain 12/26/22 02/25/23 History (menthol)) fluticasone propionate 50 2 spray intranasal QAM #1 g 01/03/23 02/25/23 Rx mcg/actuation nasal spray,suspension metolazone 5 mg tablet 5 mg PO QNOON PRN Edema #1 tablet 01/03/23 02/25/23 Rx nitrofurantoin 100 mg PO DAILY #30 caps 01/03/23 02/25/23 Rx monohydrate/macrocrystals 100 mg capsule (Macrobid) adjuvant AS01B (PF)vial 1 of 2 0.5
[2023-02-25 10:12] VITALS: BP 118/47; PULSE 57; RESP 11; O2SAT 100
[2023-02-25 10:22] VITALS: BP 111/43; PULSE 59; RESP 12; O2SAT 100
[2023-02-25 10:32] VITALS: BP 113/45; PULSE 60; RESP 13; O2SAT 100
== END 2023-02-25 10:45 | disposition home or self-care (01) ==
PROVIDERS: PCP Family Medicine; Visit Provider Internal Medicine Gastroenterology
PROC: 0DJ08ZZ Inspection of Upper Intestinal Tract, Via Natural or Artificial Opening Endoscopic (ICD-10-PCS; CPT 43235; principal; 2023-02-25 10:00)
DX: Z09 Encounter for follow-up examination after completed treatment for conditions other than malignant neoplasm (principal); K21.9 Gastro-esophageal reflux disease without esophagitis; Z87.11 Personal history of peptic ulcer disease; I25.10 Atherosclerotic heart disease of native coronary artery without angina pectoris; I10 Essential (primary) hypertension; E03.9 Hypothyroidism, unspecified; E78.5 Hyperlipidemia, unspecified; E11.40 Type 2 diabetes mellitus with diabetic neuropathy, unspecified; G40.909 Epilepsy, unspecified, not intractable, without status epilepticus; I25.2 Old myocardial infarction; M81.0 Age-related osteoporosis without current pathological fracture; Z95.1 Presence of aortocoronary bypass graft; Z87.891 Personal history of nicotine dependence; E66.01 Morbid (severe) obesity due to excess calories; Z68.41 Body mass index [BMI] 40.0-44.9, adult; Z79.82 Long term (current) use of aspirin; Z79.84 Long term (current) use of oral hypoglycemic drugs; Z79.51 Long term (current) use of inhaled steroids
CPT/HCPCS: 43235; 82948; J2704; J7120

== ENCOUNTER 2023-03-25 09:11 | Observation (INO) | payer MEDICARE, MEDICAID, SELFPAY ==
[2023-03-25] VITALS (16 sets, daily range): BP systolic 143–192; BP diastolic 41–75; PULSE 60–82; RESP 11–24; TEMP 36.6; O2SAT 93–97; BMI 38.2
--- NOTE | ~2023-03-25 | XR_ITS ---
EXAMINATION: XR chest 2V DATE: 03/25/2023 10:38 INDICATION: Weakness TECHNIQUE: AP and lateral views of the chest are obtained. COMPARISON: 12/30/2022 FINDINGS: There are minimal airspace opacities of the left lung base. A small left pleural effusion i s present. The heart size is normal. There is moderate thoracic spondylosis. Median sternotomy wires and mediastinal surgical clips are seen, likely from prior coronary artery bypass grafting. IMPRESSION: 1. Small left pleural effusion and left basilar airspace opacity, consistent with atelectasis versus pneumonia. Reviewed, dictated and finalized at location B. IMPRESSION: 1. Small left pleural effusion and left basilar airspace opacity, consistent wi th atelectasis versus pneumonia.
--- NOTE | ~2023-03-25 | CT_ITS ---
EXAMINATION: CT brain wo con DATE: 03/25/2023 19:06 INDICATION: dizziness and confusion . TECHNIQUE: Computed tomography (CT) of the head was performed without intravenous contrast. The mA wa s adjusted according to patient size. Iterative reconstruction technique was employed. The dose-lengt h product was 983.67 mGy-cm. COMPARISON: 12/26/2022. FINDINGS: 4.9 cm acute hemorrhage in the posterior fossa, likely representing in the right cerebellum adjacent to the midline. Hemorrhagic extension into the fourth ventricle, proximal cervical epidural space, qu adrilateral space cistern, cerebral aqueduct, third ventricle and bilateral lateral ventricles. There is mass effect on the cerebellum and brainstem. No inferior herniation. Enlargement of the bilateral lateral ventricles and third ventricle. No acute ischemic infarct. Unremarkable dural venous sinus attenuation. No acute osseous abnormality. The aerated spaces are clear. IMPRESSION: 4.9 cm acute cerebellar intraparenchymal hemorrhage, with intraventricular and epidural extension, ca using mass effect on the cerebellum and brainstem and acute hydrocephalus. Results reported telephonically to Yara Bryant RN by Dr. Amaya at 7:15 PM on 03/25/2023. Reviewed, dictated and finalized at location K. IMPRESSION: 4.9 cm acute cerebellar intraparenchymal hemorrhage, with intraventricular and epidural extension, causing mass effect on the cerebellum and brainstem and acu te hydrocephalus. Results reported telephonically to Yara Bryant RN by Dr. Amaya at 7:15 P M on 03/25/2023.
--- NOTE | 2023-03-25 09:30 | ECG_ITS ---
Measurements Intervals [place] Rate: 63 P: 28 [place]: 159 QRS: 26 QRSD: 132 T: 30 QT: 444 QTc: 456 Interpretive Statements SINUS RHYTHM INTRAVENTRICULAR CONDUCTION DELAY [130+ ms QRS DURATION] ABNORMAL ECG COMPARED TO ECG 12/26/2022 10:11:00 SINUS RHYTHM NOW PRESENT Electronically Signed On 03-25-2023 13:37:03 CDT by Rohan Rivers M.D.
[2023-03-25 09:52] LABS: Basophils Absolute Auto 0.1 K/mm3 (0.0-0.1); Basophils Percent Auto 0.6 % (0.2-1.2); Eosinophils Absolute Auto 0.1 K/mm3 (0-0.3); Eosinophils Percent Auto 1.1 % (0-4.4); Hematocrit 43.6 % (37.0-47.0); Hemoglobin 13.6 g/dL (12.0-15.0); Immature Granulocyte Absolute 0.04 K/mm3 (0.00-0.031); Immature Granulocyte Percent A 0.3 % (0-0.5); Immature Platelet Fraction Pct 8.4 % (0.9-11.2); Lymphocytes Absolute Auto 1.64 K/mm3 (0.9-3.2); Lymphocytes Percent Auto 13.7 % (18.3-44.2); Mean Corpuscular HGB Conc 31.2 g/dl (32-36); Mean Corpuscular Hemoglobin 30.1 pg (26-34); Mean Corpuscular Volume 96.5 fl (80-100); Mean Platelet Volume 12.4 fl (7.4-10.4); Monocytes Absolute Auto 0.9 K/mm3 (0.1-0.6); Monocytes Percent Auto 7.1 % (2.6-8.5); Neutrophils Absolute Auto 9.2 K/mm3 (1.3-6.7); Neutrophils Percent Auto 77.2 % (45.5-73.1); Platelet Count Result 76 k/mm3 (150-375); Red Blood Count 4.52 M/mm3 (4.2-5.4); Red Cell Distribution Width 16.2 % (11.5-14.5); White Blood Count 11.9 K/mm3 (4.5-10.0)
[2023-03-25 10:04] LABS: Alanine Aminotransferase 30 U/L (6-35); Albumin Level 4.2 g/dL (3.5-5.1); Alkaline Phosphatase 192 U/L (38-126); Anion Gap 5 mmol/L (8-16); Aspartate Amino Transferase 60 U/L (14-36); Bilirubin,Total 1.2 mg/dL (0.2-1.3); Blood Urea Nitrogen 35 mg/dL (7-17); Calcium 9.5 mg/dL (8.4-10.2); Carbon Dioxide 38 mmol/L (22-30); Chloride 95 mmol/L (98-107); Estimated CRCL calculation 54 ml/min; Estimated Glomerular Filt Rate > 60; Glucose 98 mg/dL (65-110); Potassium 3.1 mmol/L (3.4-5.0); Sodium 138 mmol/L (137-145)
[2023-03-25 10:52] LABS: Add Urine Microscopic? YES; Appearance Urine Turbid (Clear); Bacteria Urine 4+ /hpf; Bilirubin Urine Negative (Negative); Blood Urine 2+ (Negative); Color Urine Yellow (Yellow); Glucose Urine UA 2+ mg/dL (Negative); Ketones Urine Negative (Negative); Leukocyte Esterase Ur 3+ LEU/UL (Negative); Need Manual Microscopic Reviewed; Nitrate Urine Positive (Negative); Non Pathogenic Casts 0-2; Protein Urine 1+ mg/dL (Negative); Specific Grav Ur 1.013 (1.001-1.035); Squamous Epithelial Cell Urine None seen /hpf (Few); WBC Clumps Urine Present /HPF; WBC Urine >100 /hpf
--- NOTE | 2023-03-25 11:15 | PC.NURSE ---
PT WITH C/O HEADACHE. DR VITALE MADE AWARE AND WILL ORDER SOME PAIN MEDICATION
[2023-03-25] MEDS: ACETAMINOPHEN 325 MG TABLET 650 MG PO (11:35)
[2023-03-25] MEDS: SODIUM CHLORIDE 0.9% IV 1,000 ML 999 ML IV CONT (11:37)
--- NOTE | 2023-03-25 13:38 | ED.GENADULT ---
HPI - General Adult General Chief complaint: Altered Mental Status Stated complaint: altered mental status Time Seen by Provider: 03/25/23 09:46 History of Present Illness HPI narrative: Patient is an 82-year-old female who presents ER with altered mental status. According senior care patient has new confusion is more somnolent than typical. Patient without fevers or chills. Patient has no complaints at this time but will not open her eyes or interact more with exam. Related Data Home Medications Medication Instructions Recorded Confirmed aspirin 81 mg tablet,delayed 81 mg PO DAILY 11/10/19 03/13/23 release (Adult Low Dose Aspirin) levocetirizine 5 mg tablet 5 mg PO DAILY 07/28/20 03/13/23 aluminum-magnesium hydroxide 200 20 ml PO Q6H PRN (Drug) Ingestion 01/16/21 03/13/23 mg-200 mg/5 mL oral suspension atorvastatin 80 mg tablet 80 mg PO HS 01/16/21 03/13/23 docusate sodium 100 mg capsule 100 mg PO DAILY PRN Constipation 01/16/21 03/13/23 (Colace) ondansetron HCl 4 mg tablet 4 mg PO Q4H PRN Nausea And Vomiting 01/16/21 03/13/23 acetaminophen 325 mg capsule 325 mg PO Q6H PRN Pain (Scale 06/13/21 03/13/23 Score 1-3) loperamide 2 mg capsule 2 mg PO Q6H PRN Loose Stool 06/13/21 03/13/23 (Anti-Diarrheal (loperamide)) melatonin 1 mg tablet 2 mg PO QHS PRN Insomnia 06/13/21 03/13/23 cholecalciferol (vitamin D3) 25 75 mcg PO DAILY 01/16/22 03/13/23 mcg (1,000 unit) tablet cranberry extract 250 mg tablet 250 mg PO DAILY 01/16/22 03/13/23 magnesium hydroxide 400 mg/5 mL 30 ml PO DAILY PRN Constipation 01/16/22 03/13/23 oral suspension (Milk of Magnesia) polyethylene glycol 3350 17 gram 17 g PO DAILY 01/16/22 03/13/23 oral powder packet (Miralax) gabapentin 600 mg tablet 600 mg PO HS 06/09/22 03/13/23 guaifenesin 600 mg tablet, 600 mg PO Q12H PRN Cough 06/09/22 03/13/23 extended release 12 hr hydrocortisone acetate 25 mg 25 mg RECTAL DAILY PRN Hemorrhoids 06/09/22 03/13/23 rectal suppository (Anusol-HC) iron polysacch cplx 150 mg 1 cap PO DAILY 06/09/22 03/13/23 iron-vit B12 25 mcg-folic acid 1 mg capsule multivitamin,tx-minerals 1 tablet PO DAILY 06/09/22 03/13/23 ascorbic acid (vitamin C) 500 mg 500 mg PO DAILY 12/26/22 03/13/23 tablet ezetimibe 10 mg tablet (Zetia) 10 mg PO HS 12/26/22 03/13/23 ferrous sulfate 325 mg (65 mg 325 mg PO DAILY 12/26/22 03/13/23 iron) tablet furosemide 40 mg tablet 40 mg PO DAILY 12/26/22 03/13/23 gabapentin 300 mg capsule 300 mg PO BID 12/26/22 03/13/23 levothyroxine 100 mcg tablet 100 mcg PO QAM 12/26/22 03/13/23 menthol 4 % topical gel (Biofreeze 1 applic topical BID PRN Pain 12/26/22 03/13/23 (menthol)) adjuvant AS01B (PF)vial 1 of 2 0.5 ml IM DAILY 02/13/23 03/13/23 (Shingrix Adjuvant Component (PF) intramuscular suspension) albuterol sulfate 90 mcg/actuation 2 inh inhalation Q6H PRN Shortness 02/13/23 03/13/23 aerosol inhaler (Proventil HFA) Of Breath pantoprazole 40 mg tablet,delayed 40 mg PO HS 02/13/23 03/13/23 release phenytoin sodium extended 100 mg 200 mg PO BID 02/13/23 03/13/23 capsule (Dilantin Extended) Allergies Allergy/AdvReac Type Severity Reaction Status Date / Time WINSTON Inhibitors Allergy Unknown Unknown Verified 03/25/23 11:14 lisinopril Allergy Unknown Cough,Unkno Verified 03/25/23 11:14 wn Penicillins Allergy Unknown Not Verified 03/25/23 11:14 Entered,Unknown Sulfa (Sulfonamide Allergy Unknown Rash,Unknow Verified 03/25/23 11:14 Antibiotics) n Review of Systems Review of Systems: ROS unobtainable: Yes unobtainable due to mental status PMFSH Past Medical History Medical History Acute hypokalemia Acute UTI ASHD (arteriosclerotic heart disease) Benign essential hypertension Bilateral carotid artery stenosis CAD (coronary artery disease) Debility DM2 (diabetes mellitus, type 2) Frequent UTI Generalized weakness GERD (gastroesophageal reflux disea
--- NOTE | 2023-03-25 17:54 | PM.IMHP ---
H&P: HPI History of Present Illness Date/Time: 03/25/23 17:54 This is a short-stay summary. The patient at 10:15 p.m. Chief Complaint: Altered mental status Narrative: This is an 82-year-old female patient who lives at [facility]. The patient came to the emergency room with altered mental status. The patient had new confusion and was more somnolent than typical. There were no fever chills noted. The patient did not open her eyes for the ER provider. When I assessed the patient she had her mouth wide open and was not responding to stimuli. The patient was resting quietly in the family thought that she was just fatigued. The patient has a history of having ESBL and has frequent UTIs. Her white count was noted to be 11.9. Platelet 76 which is chronically low. The family denies any recent falls. Arterial blood gases were obtained and her pH was 7.43. PO2 was 67. Bicarb was 29.1. Her potassium was 3.1. Anion gap was 5. Her blood sugars 130. The patient once again was found have UTI. Since she has a history of ESBL she was started on Primaxin. I ordered a CT of the brain since the patient was not responding to me. The CT of the brain was read as the following4.9 cm acute cerebellar intraparenchymal hemorrhage, with intraventricular and epidural extension, causing mass effect on the cerebellum and brainstem and acute hydrocephalus. I spoke with her 1 and only son Senthil who just wanted comfort care for the patient and stated that she is a DNR. And hospice was discussed. Her son Senthil stated that he did not want her transferred to outside facility and I explained that it may not benefit her to be transferred. And he agreed to just make her comfortable. The patient was given IV fluids and Tylenol as well as Rocephin in the emergency room. The patient is being admitted to observation status on the date of service of 03/25/2023. Review of Systems Review of Systems: All systems reviewed & are unremarkable except as noted in HPI and below Constitutional: Constitutional: Reports as per HPI and Reports no additional constitutional complaints Eyes: Eyes: Reports as per HPI and Reports no additional eye complaints ENT: Reports system reviewed and no additional complaints, except as documented and Reports Normal hearing present Cardiovascular: Cardiovascular: Reports no additional cardiovascular complaints Respiratory: Respiratory: Reports no additional respiratory complaints and Reports no additional respiratory complaints Gastrointestinal: Gastrointestinal: Reports as per HPI and Reports no additional gastrointestinal complaints Musculoskeletal: Musculoskeletal: Reports no additional musculoskeletal complaints Integumentary/Breasts: Skin/Breast: Reports system reviewed and no additional complaints, except as docu and Reports as per HPI Neurologic: Reports system reviewed and no additional complaints, except as documented, Reports as per HPI and Reports Normal hearing present Psychiatric: Psychiatric: Reports no additional psychiatric complaints and Reports as per HPI Endocrine: Endocrine: Reports no additional endocrine complaints Hematologic/Lymphatic: Hematologic/Lymphatic: Reports no additional hematologic/lymphatic complaints Allergic/Immunologic: Allergic/Immunologic: Reports no additional allergic/immunologic complaints PMFSH Past Medical History Medical History Acute hypokalemia Acute UTI ASHD (arteriosclerotic heart disease) Benign essential hypertension Bilateral carotid artery stenosis CAD (coronary artery disease) Debility Frequent UTI Generalized weakness GERD (gastroesophageal reflux disease) Hyperlipidemia Hypothyroidism (acquired) Low back pain Lower extremity edema Neuropathy Osteoarthritis of both knees Peripheral neuropathy Seizure disorder Supracondylar fracture of left femur due to osteoporosis Surgical History Surgical Hist
[2023-03-25 18:43] LABS: Glucose Point of Care 130 mg/dl (65-105)
[2023-03-25 18:57] LABS: Base Excess ABG 4.2 mEq/l (+/-2.0); Fractional Inspired Oxygen 21 %; HCO3 ABG 29.1 mEq/l (22.0-26.0); Oxygen Saturation ABG 93.7 % (95.0-100.0); PCO2 ABG 44.9 mmHg (35.0-45.0); PO2 FiO2 Ratio Arterial Blood 3.19 %; Total Hemoglobin 13.9 g/dL (12.0-18.0)
--- NOTE | 2023-03-25 18:57 | ADMGEN ---
This patient, Delia Lopez, arrived to Medical Room [facility] at 1830. Patient was unresponsive to verbal or painful stimuli. Pupils non reactive. Tosin Riley ASSISTANT [employer] notified of this and orders recieved for ABG and CT changed to STAT. supervisor of way also notified of patients condition. supervisor of way came up and assessed the patient. Patient was transferred to the bed. Dr. Amaya called and reported the CT results. Tosin was notified at 1920 about the results and she stated she would call the son. Admission unable to complete due to patients condition and family not at bedside.
[2023-03-25 18:58] LABS: Device ROOM AIR; Modified Allen's Test Pass; Site Drawn RIGHT RADIAL
--- NOTE | 2023-03-25 22:20 | PC.NURSE ---
Entered room and observed patient with no respirations or heartbeat auscultated. Second nurse entered room to confirm patient's expiration. Reported to charge nurse.
== END 2023-03-25 22:20 | disposition expired ==
LOC: ANHED 09:46 → ANH3MEDSUR 15:24 → ANH2MED 17:54
PROVIDERS: Nurse Practitioner; Admitting Provider Internal Medicine; Emergency Provider Emergency Medicine; PCP Family Medicine; Visit Provider Internal Medicine
DX: I61.9 Nontraumatic intracerebral hemorrhage, unspecified (principal); R41.82 Altered mental status, unspecified; N39.0 Urinary tract infection, site not specified; B96.20 Unspecified Escherichia coli [E. coli] as the cause of diseases classified elsewhere; I25.10 Atherosclerotic heart disease of native coronary artery without angina pectoris; R53.1 Weakness; K21.9 Gastro-esophageal reflux disease without esophagitis; E78.5 Hyperlipidemia, unspecified; E03.9 Hypothyroidism, unspecified; M54.50 Low back pain, unspecified; R56.9 Unspecified convulsions; R91.8 Other nonspecific abnormal finding of lung field; G93.41 Metabolic encephalopathy; M80.852A Other osteoporosis with current pathological fracture, left femur, initial encounter for fracture; R94.31 Abnormal electrocardiogram [ECG] [EKG]; K59.00 Constipation, unspecified; D69.6 Thrombocytopenia, unspecified; I45.9 Conduction disorder, unspecified; G47.00 Insomnia, unspecified; E87.6 Hypokalemia; R60.0 Localized edema; E11.40 Type 2 diabetes mellitus with diabetic neuropathy, unspecified; Z95.1 Presence of aortocoronary bypass graft; Z66 Do not resuscitate; Z87.891 Personal history of nicotine dependence; Z79.82 Long term (current) use of aspirin; Z79.1 Long term (current) use of non-steroidal anti-inflammatories (NSAID); Z79.51 Long term (current) use of inhaled steroids; Z79.899 Other long term (current) drug therapy
CPT/HCPCS: 36415; 36600; 70450; 71046; 80053; 81001; 82805; 82948; 85025; 85055; 87077; 87086; 87186; 93005; 96361; 96365; 99285; A9270; G0378; J0696; J7030